=== PATIENT | male | born 1965 | race Caucasian/White ===

== ENCOUNTER 2020-09-22 22:31 | Observation (INO) | payer OTHER ==
[2020-09-22 23:00] LABS: Absolute Neutrophil Ct (ANC) 4.45 (1.4-6.9); BASOPHIL % 0.5 % (0.0-0.4); Basophil (Absolute #) 0.03 (0-0.4); Eosinophil % 2.6 % (0.00-5.0); Eosinophil (Absolute #) 0.17 (0-0.5); Hematocrit 41.3 % (42-50); Hemoglobin 13.8 gm/dl (12.5-18.0); Lymphocyte (Absolute #) 1.26 (1.0-4.6); Lymphocytes % 19.2 % (24.0-44.0); Mean Cell Volume 87.5 fl (78-100); Mean Corpuscular Hemoglobin 29.2 pg (26-32); Mean Corpuscular Hgb Concent. 33.4 g/dl (32-36); Mean Platelet Volume 8.4 fl (7.5-11.0); Monocyte (Absolute #) 0.66 (0.0-1.3); Neutrophil % 67.7 % (36.0-66.0); Platelet Count 305 K/mm3 (150-450); Red Blood Count 4.72 M/mm3 (4.1-5.6); Red Cell Distribution Width 13.7 % (11.5-14.0); White Blood Count 6.6 K/mm3 (4.0-10.5)
[2020-09-22 23:09] LABS: INR 1.04 (0.8-3.0); PROTIME 11.7 SECONDS (8.83-12.87)
[2020-09-22 23:12] LABS: PTT 34.8 SECONDS (24.1-36.1)
[2020-09-22] MEDS ORDERED: Catapres 0.1 MG PO ONE (23:13)
[2020-09-22] MEDS ORDERED: Catapres 0.1 MG ONE (23:14)
--- NOTE | 2020-09-22 23:21 | ERPHSYRPT ---
- History of Present Illness Source: patient Exam Limitations: no limitations Patient Subjective Stated Complaint: Patient states " My B/P has been trending up since I woke up this am. I have had 3 heart attacks and I have 5 stents in my heart and 1 in the kidney and I am just concerned that my high B/P is going to cause me to have another heart attack." Triage Nursing Assessment: Patient arrived to ED per ambulance. Patient A/O times 4. Patient very quite and talks very low. Patient able to move all extremities without difficulty. Patient able to follow instructions without difficulty. Lungs clear bilateral A/P throughout. 02 sat upon arrival 97% on room air. Patient stated his B/P has been 200/100 all day. Patient states he has had intermittent chest pain along with a pretty bad headache all day also with his B/P trending up. Patient denies SOB. Cap refill < 3 seconds. No S/S of respiratory distress noted. Respiratory regular and easy and non-labored. + BS times 4 quads. ABD soft, round, obese, and non-distended. Patient denies any pain or discomfort upon palpitation. + Radial and pedal pulses noted bilateral. Non-pitting edema noted to bilateral lower extremities. Patient noted with extensive cardiac HX. Patient noted to be hypertensive upon arrival. Physician History: 54 yo wm w elevated BP/Global TENA/Mid-sternal chest pain all for 12+ hours. He denies focal weakness/N/V/diaphoresis. Chest pain radiates to back and neck. Cardiac risk factors include DM/Htn/Hyperlipidemia/MIx3/stents/renal stent. He does not smoke and is on Xaralto. Pt given 81mg ASA x4 per EMS/SL NTG x2/NTG paste before arrival. Timing/Duration: today Quality: sharpness, throbbing Head Pain Location: global Severity of Pain-Max: moderate Severity of Pain-Current: moderate Associated Symptoms: No confusion, No dizziness, No fatigue, No facial pain, No fever/chills, No flushing, No light-headedness, No loss of consciousness, No nausea/vomiting, No nasal congestion, No nasal drainage, No neck pain, No numbness in legs/feet, No rash, No sweating, No scotoma, No seizures, No sinus infection, No sensitive to light, No speech problems, No stiff neck, No trouble walking, No vision changes, No visual disturbance, No weakness Previous symptoms: same symptoms as today Allergies/Adverse Reactions: No Known Drug Allergies Allergy (Unverified 06/04/12 05:32) Home Medications: Amlodipine Besylate 10 mg PO DAILY 09/22/20 [History] Aspirin 81 gm Chew [Baby Aspirin 81 mg Chew] 81 mg PO DAILY 09/22/20 [History] Atorvastatin Calcium 80 mg PO DAILY 09/22/20 [History] Carvedilol 12.5 mg [Coreg 12.5 mg] 12.5 mg PO BID 09/22/20 [History] Empagliflozin [Jardiance] 25 mg PO DAILY 09/22/20 [History] Gabapentin 300 mg [Neurontin 300 mg] 300 mg PO TID 09/22/20 [History] Isosorbide Mononitrate 60 mg [Imdur 60MG] 60 mg PO DAILY 09/22/20 [History] Levetiracetam [Keppra] 500 mg PO BID 09/22/20 [History] Melatonin 3 mg PO DAILY PRN PRN 09/22/20 [History] Hx Tetanus, Diphtheria Vaccination/Date Given: No Hx Influenza Vaccination/Date Given: No Hx Pneumococcal Vaccination/Date Given: No Immunizations Up to Date: Yes Travel Risk - International Travel Have you traveled outside of the country in past 3 weeks: No - Coronavirus Screening Are you exhibiting any of the following symptoms?: No Close contact with a COVID-19 positive Pt in past 14-21 Days: No - Vaccine Status Have you recieved a Covid-19 vaccination: No - Review of Systems Constitutional: No Symptoms Eyes: No Symptoms Ears, Nose, & Throat: No Symptoms Respiratory: No Symptoms Cardiac: No Symptoms, Chest Pain Abdominal/Gastrointestinal: No Symptoms Genitourinary Symptoms: No Symptoms Musculoskeletal: No Symptoms Neurological: No Symptoms Psychological: No Symptoms Endocrine: No Symptoms Hematologic/Lymphatic: No Symptoms Immunological/Allergic: No Symptoms - Past Medical History Pertinent Past Medical History: Yes Neurological History: Peripheral Neuropathy ENT History: No Pertinent History Cardiac History: Hypertension, Myocardial Infarction ([place]) Respiratory History: Sleep Apnea Endocrine Medical History: Diabetes Type II Musculoskeletal History: Osteoarthritis GI Medical History: Diverticulosis, GERD History: Renal Disease Psycho-Social History: No Pertinent History Male Reproductive Disorders: No Pertinent History - Past Surgical History Past Surgical History: Yes Neuro Surgical History: No Pertinent History Cardiac: Cardiac Catheterization, Cardiac Stent Respiratory: No Pertinent History Gastrointestinal: Cholecystectomy Genitourinary: No Pertinent History Musculoskeletal: Amputation Male Surgical History: No Pertinent History Other Surgical History: Left Ring Finger - Social History Smoking Status: Former smoker Exposure to second hand smoke: Yes Drug Use: none Patient Lives Alone: No - Nursing Vital Signs Nursing Vital Signs: Initial Vital Signs Temperature 98.2 F 09/22/20 22:33 Pulse Rate 96 H 09/22/20 22:33 Respiratory Rate 22 09/22/20 22:33 Blood Pressure 190/113 09/22/20 22:33 O2 Sat by Pulse Oximetry 97 09/22/20 22:33 Pain Scale Pain Intensity 3 - Physical Exam General Appearance: no apparent distress Eye Exam: PERRL/EOMI, eyes nml inspection Ears, Nose, Throat Exam: normal ENT inspection, TMs normal, pharynx normal, moist mucous membranes Neck Exam: normal inspection, non-tender, supple, full range of motion, No meningismus, No mass, No Brudzinski, No Kernig's Respiratory Exam: normal breath sounds, lungs clear, airway intact, No respiratory distress Cardiovascular Exam: regular rate/rhythm, normal heart sounds, No murmur Gastrointestinal/Abdominal Exam: soft, normal bowel sounds, No tenderness Back Exam: normal inspection, normal range of motion, No CVA tenderness Extremity Exam: normal inspection, normal range of motion Mental Status Exam: alert, oriented x 3, 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 Exam: normal hearing, normal speech, PERRL, abnormal eye position Coordination/Gait Exam: normal finger to nose, normal gait, normal cerebellar function Motor/Sensory Exam: no motor deficit, no sensory deficit, no pronator drift Skin Exam: normal color, warm, dry, No rash Lymphatic Exam: No adenopathy SpO2 Interpretation: normal SpO2: 97 O2 Delivery: Room Air - Course EKG Interpreted by Me: RATE (NSR/R93/Normal QT-QTc/PAC's/Flat Twaves V5-V6) - CT Exams Head CT Interpretation: Tele-radiologist Report (CT head neg per tele-rad) Chest CT Interpretation: Tele-radiologist Report (CTA chest-No PE or infiltrate/LLL nodule) Ordered Tests: Active Orders 24 hr Category Date Time 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 STAT Care 09/22/20 22:35 Active EKG-ER Only STAT Care 09/22/20 22:35 Active IV Insertion STAT Care 09/22/20 22:35 Active CHEST 1 VIEW (PORTABLE) Stat Exams 09/22/20 22:35 Taken CTA CHEST W AND/OR WO [CT] Stat Exams 09/22/20 23:38 Taken HEAD WITHOUT CONTRAST [CT] Stat Exams 09/22/20 23:37 Taken CBC W DIFF Stat Lab 09/22/20 22:59 Completed CMP Stat Lab 09/22/20 22:59 Completed NT PRO BNP Stat Lab 09/22/20 22:59 Completed PROTIME WITH INR Stat Lab 09/22/20 22:59 Completed PTT Stat Lab 09/22/20 22:59 Completed TROPONIN Q3H Lab 09/22/20 22:59 Completed TROPONIN Q3H Lab 09/23/20 01:59 Completed TROPONIN Q3H Lab 09/23/20 04:45 Ordered TROPONIN Q3H Lab 09/23/20 07:45 Ordered TROPONIN Q3H Lab 09/23/20 10:45 Ordered Medication Summary Discontinued Medications Generic Name Dose Route Start Last Admin Trade Name Danielq PRN Reason Stop Dose Admin Clonidine 0.2 mg 09/22/20 23:13 09/22/20 23:15 Catapres 0.1 Mg PO 09/22/20 23:14 0.2 mg STAT ONE Administration Clonidine Confirm 09/22/20 23:14 Catapres 0.1 Mg Administered 09/22/20 23:15 Dose 0.2 mg .ROUTE .STK-MED ONE Fentanyl Citrate 100 mcg 09/22/20 23:40 09/22/20 23:44 Sublimaze 100 Mcg/2 Ml IV 09/22/20 23:41 100 mcg STAT ONE Administration Fentanyl Citrate Confirm 09/22/20 23:41 Sublimaze 100 Mcg/2 Ml Administered 09/22/20 23:42 Dose 100 mcg .ROUTE .STK-MED ONE Ondansetron HCl 4 mg 09/22/20 23:40 09/22/20 23:44 Zofran 4 Mg/2 Ml Vial IV 09/22/20 23:41 4 mg STAT ONE Administration Ondansetron HCl Confirm 09/22/20 23:41 Zofran 4 Mg/2 Ml Vial Administered 09/22/20 23:42 Dose 4 mg .ROUTE .STK-MED ONE Lab/Rad Data: Laboratory Result Diagrams 09/22/20 22:59 09/22/20 22:59 Laboratory Results 09/23/20 09/22/20 09/22/20 Range/Units 01:59 22:59 22:59 WBC (4.0-10.5) K/mm3 RBC (4.1-5.6) M/mm3 Hgb (12.5-18.0) gm/dl Hct (42-50) % MCV (78-100) fl MCH (26-32) pg MCHC (32-36) g/dl RDW (11.5-14.0) % Plt Count (150-450) K/mm3 MPV (7.5-11.0) fl Gran % (36.0-66.0) % Eos # (Auto) (0-0.5) Absolute Lymphs (auto) (1.0-4.6) Absolute Monos (auto) (0.0-1.3) Lymphocytes % (24.0-44.0) % Monocytes % (0.0-12.0) % Eosinophils % (0.00-5.0) % Basophils % (0.0-0.4) % Absolute Granulocytes (1.4-6.9) Basophils # (0-0.4) PT 11.7 (8.83-12.87) SECONDS INR 1.04 (0.8-3.0) APTT 34.8 (24.1-36.1) SECONDS Sodium (137-145) mmol/L Potassium (3.5-5.1) mmol/L Chloride (98-107) mmol/L Carbon Dioxide (22-30) mmol/L Anion Gap (5-15) MEQ/L BUN (9-20) mg/dL Creatinine (0.66-1.25) mg/dL Estimated GFR ML/MIN Glucose (74-106) mg/dL Calcium (8.4-10.2) mg/dL Total Bilirubin (0.2-1.3) mg/dL AST (17-59) U/L ALT (0-50) U/L Alkaline Phosphatase (38-126) U/L Troponin I 0.016 0.016 (0.000-0.034) ng/mL NT-Pro-B Natriuret Pep (0-900) pg/mL Serum Total Protein (6.3-8.2) g/dL Albumin (3.5-5.0) g/dL 09/22/20 09/22/20 Range/Units 22:59 22:59 WBC 6.6 (4.0-10.5) K/mm3 RBC 4.72 (4.1-5.6) M/mm3 Hgb 13.8 (12.5-18.0) gm/dl Hct 41.3 L (42-50) % MCV 87.5 (78-100) fl MCH 29.2 (26-32) pg MCHC 33.4 (32-36) g/dl RDW 13.7 (11.5-14.0) % Plt Count 305 (150-450) K/mm3 MPV 8.4 (7.5-11.0) fl Gran % 67.7 H (36.0-66.0) % Eos # (Auto) 0.17 (0-0.5) Absolute Lymphs (auto) 1.26 (1.0-4.6) Absolute Monos (auto) 0.66 (0.0-1.3) Lymphocytes % 19.2 L (24.0-44.0) % Monocytes % 10.0 (0.0-12.0) % Eosinophils % 2.6 (0.00-5.0) % Basophils % 0.5 (0.0-0.4) % Absolute Granulocytes 4.45 (1.4-6.9) Basophils # 0.03 (0-0.4) PT (8.83-12.87) SECONDS INR (0.8-3.0) APTT (24.1-36.1) SECONDS Sodium 137 (137-145) mmol/L Potassium 3.6 (3.5-5.1) mmol/L Chloride 101 (98-107) mmol/L Carbon Dioxide 26 (22-30) mmol/L Anion Gap 13.9 (5-15) MEQ/L BUN 18 (9-20) mg/dL Creatinine 1.17 (0.66-1.25) mg/dL Estimated GFR > 60.0 ML/MIN Glucose 156 H (74-106) mg/dL Calcium 9.4 (8.4-10.2) mg/dL Total Bilirubin 0.40 (0.2-1.3) mg/dL AST 30 (17-59) U/L ALT 37 (0-50) U/L Alkaline Phosphatase 158 H (38-126) U/L Troponin I (0.000-0.034) ng/mL NT-Pro-B Natriuret Pep 322 (0-900) pg/mL Serum Total Protein 8.1 (6.3-8.2) g/dL Albumin 4.4 (3.5-5.0) g/dL - Progress Progress: improved Progress Note: 09/23/20 01:00 Pain much improved w 100umg IV Fentanyl/4mg IV Zofran 09/23/20 02:29 BP 138/73 after 0.2 po Clonidine Admit per Dr. Orozco - Departure Departure Disposition: Observation Clinical Impression: Hypertensive urgency, Chest pain, Headache Referrals: TAD DANIELS [Primary Care Provider] - Instructions: Malignant Hypertension (DC)
[2020-09-22 23:22] LABS: ALBUMIN 4.4 g/dL (3.5-5.0); ALKALINE PHOSPHATASE 158 U/L (38-126); ANION GAP 13.9 MEQ/L (5-15); BLOOD UREA NITROGEN 18 mg/dL (9-20); CHLORIDE 101 mmol/L (98-107); Calcium 9.4 mg/dL (8.4-10.2); Carbon Dioxide 26 mmol/L (22-30); Creatinine 1 1.17 mg/dL (0.66-1.25); EST GLOMERULAR FILTRATION RATE > 60.0 ML/MIN; Glucose 156 mg/dL (74-106); NT PRO BNP 322 pg/mL (0-900); Potassium 3.6 mmol/L (3.5-5.1); SGOT/AST 30 U/L (17-59); SGPT/ALT 37 U/L (0-50); SODIUM 137 mmol/L (137-145); Total Protein 8.1 g/dL (6.3-8.2)
[2020-09-22] MEDS ORDERED: SUBLIMAZE 100 MCG/2 ML IV ONE (23:40)
[2020-09-22] MEDS ORDERED: Zofran 4 MG/2 ML VIAL IV ONE (23:40)
[2020-09-22] MEDS ORDERED: SUBLIMAZE 100 MCG/2 ML ONE (23:41)
[2020-09-22] MEDS ORDERED: Zofran 4 MG/2 ML VIAL ONE (23:41)
[2020-09-23] MEDS ORDERED: TYLENOL 325 MG PO PRN ×2 (02:32→04:25)
[2020-09-23] MEDS ORDERED: MORPHINE SULFATE 2 MG INJ IV PRN ×2 (02:32→04:25)
[2020-09-23] MEDS ORDERED: MAALOX ES 30 ML UNIT DOSE PO PRN ×2 (02:32→04:25)
[2020-09-23] MEDS ORDERED: HUMALOG SQ PRN ×2 (02:32→04:25)
[2020-09-23] MEDS ORDERED: MILK OF MAGNESIA 30 ML PO PRN ×2 (02:32→04:25)
[2020-09-23] MEDS ORDERED: Zofran 4 MG/2 ML VIAL IV PRN ×2 (02:32→04:25)
[2020-09-23] MEDS ORDERED: Senokot-S Tablet PO PRN ×2 (02:32→04:25)
[2020-09-23 03:36] LABS: INFLUENZA A NEGATIVE (NEGATIVE); INFLUENZA B NEGATIVE (NEGATIVE); RESPIRATORY SYNCTIAL VIRUS NEGATIVE (Negative)
[2020-09-23] MEDS ORDERED: MELATONIN 3 MG PO PRN (08:38)
--- NOTE | 2020-09-23 08:55 | XRAY ---
Indication: Back/chest pain one month. Hypertension and headache. Two-dimensional contrast enhanced CTA chest performed using 120 cc Isovue 370 contrast. Two-dimensional sagittal and coronal reformatted images obtained. Additional 3-dimensional reformatted images obtained using a separate workstation. Comparison: None Heart is not enlarged with coronary stent grafts. Aorta is minimally arteriosclerotic without aneurysm/dissection. No central pulmonary embolus. No pathologic mediastinal/hilar lymphadenopathy. Lungs demonstrate minimal bilateral dependent atelectasis. Posterior medial left lower lobe demonstrates a 1.1 cm indeterminant noncalcified nodule. No other pulmonary mass/nodule, infiltrate, consolidation, or effusion. Bony thorax intact with mild degenerative changes throughout the spine. Limited upper abdomen demonstrates cholecystectomy clips. Impression: 1. Negative CTA chest. 2. Incidental 1.1 cm indeterminant left lower lobe noncalcified nodule. Outside comparison studies recommended if available. If not, PET CT may yield further information. Comment: Preliminary interpretation was made by [facility]. No critical discrepancy.
--- NOTE | 2020-09-23 08:55 | XRAY ---
Indication: Chest pain. Comparison: September 08, 2011. Portable chest remains clear. Heart remains borderline enlarged with new coronary stent. Bony thorax intact with minimal degenerative changes. No acute abnormalities.
--- NOTE | 2020-09-23 08:57 | XRAY ---
Indication: Headache. Hypertension. Multiple contiguous axial images obtained through the head without contrast. Comparison: September 08, 2011. Age-appropriate global atrophy with new mild periventricular degenerative micro-ischemia bilaterally. No acute intracranial hemorrhage, abnormal extra-axial fluid collection, or mass effect. Fourth ventricle is midline without hydrocephalus. Bony calvarium intact. Stable benign high left parietal scalp soft tissue calcification. Impression: Nonacute senile brain. Comment: Preliminary interpretation was made by [facility]. No critical discrepancy.
[2020-09-23] MEDS ORDERED: MEDICATION INTERVENTION MC SCH ×2 (09:00)
[2020-09-23] MEDS: COREG 12.5 MG PO SCH ×2 (09:40→22:11)
[2020-09-23] MEDS: ZOCOR 20MG PO SCH (09:40)
[2020-09-23] MEDS: NEURONTIN 300 MG PO SCH ×3 (09:40→22:11)
[2020-09-23] MEDS: NORVASC 5 MG PO SCH (09:40)
[2020-09-23] MEDS: KEPPRA 500 MG PO SCH ×2 (09:40→22:11)
[2020-09-23] MEDS: Imdur 60MG PO SCH (09:41)
[2020-09-23] MEDS: ECOTRIN 81 MG PO SCH (09:41)
[2020-09-23] MEDS ORDERED: NON-FORMULARY ITEM (Empagliflozin [Jardiance] 25 MG) PO SCH (10:00)
[2020-09-23] MEDS ORDERED: NON-FORMULARY ITEM (Amlodipine Besylate [Amlodipine Besylate] 10 MG) PO SCH (10:00)
[2020-09-23] MEDS ORDERED: NON-FORMULARY ITEM (Atorvastatin Calcium [Atorvastatin Calcium] 80 MG) PO SCH (10:00)
[2020-09-23] MEDS ORDERED: Ecotrin 325 MG PO SCH ×2 (10:00)
[2020-09-23] MEDS ORDERED: BABY ASPIRIN 81 MG CHEW PO SCH (10:00)
--- NOTE | 2020-09-23 11:37 | PCM.HP ---
History of Present Illness - Chief Complaint Chief Complaint: chest pain and headache for 1 day History of Present Illness: is a 54 year old male.54 yo wm w elevated BP/Global TENA/Mid-sternal chest pain all for 12+ hours. He denies focal weakness/N/V/diaphoresis. Chest pain radiates to back and neck. Cardiac risk factors include DM/Htn/Hyperlipidemia/MIx3/stents/renal stent. He does not smoke and is on Xaralto. Pt given 81mg ASA x4 per EMS/SL NTG x2/NTG paste before arrival. Timing/Duration: today Quality: sharpness, throbbing Head Pain Location: global Severity of Pain-Max: moderate Severity of Pain-Current: moderate Associated Symptoms: No confusion, No dizziness, No fatigue, No facial pain, No fever/chills, No flushing, No light-headedness, No loss of consciousness, No nausea/vomiting, No nasal congestion, No nasal drainage, No neck pain, No numbness in legs/feet, No rash, No sweating, No scotoma, No seizures, No sinus infection, No sensitive to light, No speech problems, No stiff neck, No trouble walking, No vision changes, No visual disturbance, No weakness Medications & Allergies Home Medications: Home Medication List Amlodipine Besylate 10 mg PO DAILY 09/22/20 [History Confirmed 09/22/20] Aspirin 81 gm Chew [Baby Aspirin 81 mg Chew] 81 mg PO DAILY 09/22/20 [History Confirmed 09/22/20] Atorvastatin Calcium 80 mg PO DAILY 09/22/20 [History Confirmed 09/22/20] Carvedilol 12.5 mg [Coreg 12.5 mg] 12.5 mg PO BID 09/22/20 [History Confirmed 09/22/20] Empagliflozin [Jardiance] 25 mg PO DAILY 09/22/20 [History Confirmed 09/22/20] Gabapentin 300 mg [Neurontin 300 mg] 300 mg PO TID 09/22/20 [History Confirmed 09/22/20] Isosorbide Mononitrate 60 mg [Imdur 60MG] 60 mg PO DAILY 09/22/20 [History Confirmed 09/22/20] Levetiracetam [Keppra] 500 mg PO BID 09/22/20 [History Confirmed 09/22/20] Melatonin 3 mg PO DAILY PRN PRN 09/22/20 [History Confirmed 09/22/20] Allergies/Adverse Reactions: Allergies Allergy/AdvReac Type Severity Reaction Status Date / Time No Known Drug Allergies Allergy Unverified 06/04/12 05:32 - Past Medical History Past Medical History: Yes Neurological History: Peripheral Neuropathy ENT History: No Pertinent History Cardiac History: Hypertension, Myocardial Infarction ([place]) Respiratory History: Sleep Apnea Endocrine Medical History: Diabetes Type II Musculoskelatal History: Osteoarthritis GI Medical History: Diverticulosis, GERD History: Renal Disease Pyscho-Social History: No Pertinent History Male Reproductive Disorders: No Pertinent History - Past Surgical History Past Surgical History: Yes Neuro Surgical History: No Pertinent History Cardiac History: Cardiac Catheterization, Cardiac Stent Respiratory Surgery: No Pertinent History GI Surgical History: Cholecystectomy Genitourinary Surgical Hx: No Pertinent History, Other Musculskeletal Surgical Hx: Amputation, Other Male Surgical History: No Pertinent History Other Surgical History: Left Ring Finger, kidney stent placement, arthritis - Social History Smoking Status: Former smoker Exposure to second hand smoke: Yes Alcohol: Occasionally Drug Use: none - Physical Exam Vital Signs: Vital Signs - 24 hr Temp Pulse Resp BP Pulse Ox 09/23/20 07:35 98.5 F 85 20 140/78 93 L 09/23/20 04:37 98.2 F 87 18 158/88 95 09/23/20 03:00 75 18 130/68 94 L 09/23/20 02:39 97 09/23/20 02:00 84 18 138/73 97 09/22/20 23:30 87 14 158/96 96 09/22/20 22:33 98.2 F 96 H 22 190/113 97 General Appearance: no apparent distress, alert Neurologic Exam: alert, oriented x 3, cooperative, normal mood/affect, nml cerebellar function, nml station & gait, sensation nml, No motor deficits Eye Exam: PERRL/EOMI, eyes nml inspection Ears, Nose, Throat Exam: normal ENT inspection, TMs normal, pharynx normal, moist mucous membranes Neck Exam: normal inspection, non-tender, supple, full range of motion Respiratory Exam: normal breath sounds, lungs clear, No respiratory distress Cardiovascular Exam: regular rate/rhythm, normal heart sounds, normal peripheral pulses Gastrointestinal/Abdomen Exam: soft, normal bowel sounds, No tenderness, No mass Back Exam: normal inspection, normal range of motion, No CVA tenderness, No vertebral tenderness Extremity Exam: normal inspection, normal range of motion, pelvis stable Skin Exam: normal color, warm, dry, No rash Lymphatic Exam: No adenopathy Results - Labs Lab/Micro Results: Lab Results-Last 24 Hours 09/22/20 09/22/20 09/22/20 Range/Units 22:59 22:59 22:59 WBC 6.6 (4.0-10.5) K/mm3 RBC 4.72 (4.1-5.6) M/mm3 Hgb 13.8 (12.5-18.0) gm/dl Hct 41.3 L (42-50) % MCV 87.5 (78-100) fl MCH 29.2 (26-32) pg MCHC 33.4 (32-36) g/dl RDW 13.7 (11.5-14.0) % Plt Count 305 (150-450) K/mm3 MPV 8.4 (7.5-11.0) fl Gran % 67.7 H (36.0-66.0) % Eos # (Auto) 0.17 (0-0.5) Absolute Lymphs (auto) 1.26 (1.0-4.6) Absolute Monos (auto) 0.66 (0.0-1.3) Lymphocytes % 19.2 L (24.0-44.0) % Monocytes % 10.0 (0.0-12.0) % Eosinophils % 2.6 (0.00-5.0) % Basophils % 0.5 (0.0-0.4) % Absolute Granulocytes 4.45 (1.4-6.9) Basophils # 0.03 (0-0.4) PT 11.7 (8.83-12.87) SECONDS INR 1.04 (0.8-3.0) APTT 34.8 (24.1-36.1) SECONDS Sodium 137 (137-145) mmol/L Potassium 3.6 (3.5-5.1) mmol/L Chloride 101 (98-107) mmol/L Carbon Dioxide 26 (22-30) mmol/L Anion Gap 13.9 (5-15) MEQ/L BUN 18 (9-20) mg/dL Creatinine 1.17 (0.66-1.25) mg/dL Estimated GFR > 60.0 ML/MIN Glucose 156 H (74-106) mg/dL POC Glucometer (74 to 106) mg/dL Calcium 9.4 (8.4-10.2) mg/dL Total Bilirubin 0.40 (0.2-1.3) mg/dL AST 30 (17-59) U/L ALT 37 (0-50) U/L Alkaline Phosphatase 158 H (38-126) U/L Troponin I (0.000-0.034) ng/mL NT-Pro-B Natriuret Pep 322 (0-900) pg/mL Serum Total Protein 8.1 (6.3-8.2) g/dL Albumin 4.4 (3.5-5.0) g/dL Triglycerides (30-150) mg/dL Cholesterol (50-200) mg/dL LDL Cholesterol (30-100) mg/dL HDL Cholesterol (40-60) mg/dL Heart Disease Risk Ratio Influenza Type A Ag (NEGATIVE) Influenza Type B Ag (NEGATIVE) RSV (PCR) (Negative) SARS-CoV-2 (PCR) (NEGATIVE) 09/22/20 09/23/20 09/23/20 Range/Units 22:59 01:59 02:51 WBC (4.0-10.5) K/mm3 RBC (4.1-5.6) M/mm3 Hgb (12.5-18.0) gm/dl Hct (42-50) % MCV (78-100) fl MCH (26-32) pg MCHC (32-36) g/dl RDW (11.5-14.0) % Plt Count (150-450) K/mm3 MPV (7.5-11.0) fl Gran % (36.0-66.0) % Eos # (Auto) (0-0.5) Absolute Lymphs (auto) (1.0-4.6) Absolute Monos (auto) (0.0-1.3) Lymphocytes % (24.0-44.0) % Monocytes % (0.0-12.0) % Eosinophils % (0.00-5.0) % Basophils % (0.0-0.4) % Absolute Granulocytes (1.4-6.9) Basophils # (0-0.4) PT (8.83-12.87) SECONDS INR (0.8-3.0) APTT (24.1-36.1) SECONDS Sodium (137-145) mmol/L Potassium (3.5-5.1) mmol/L Chloride (98-107) mmol/L Carbon Dioxide (22-30) mmol/L Anion Gap (5-15) MEQ/L BUN (9-20) mg/dL Creatinine (0.66-1.25) mg/dL Estimated GFR ML/MIN Glucose (74-106) mg/dL POC Glucometer (74 to 106) mg/dL Calcium (8.4-10.2) mg/dL Total Bilirubin (0.2-1.3) mg/dL AST (17-59) U/L ALT (0-50) U/L Alkaline Phosphatase (38-126) U/L Troponin I 0.016 0.016 (0.000-0.034) ng/mL NT-Pro-B Natriuret Pep (0-900) pg/mL Serum Total Protein (6.3-8.2) g/dL Albumin (3.5-5.0) g/dL Triglycerides (30-150) mg/dL Cholesterol (50-200) mg/dL LDL Cholesterol (30-100) mg/dL HDL Cholesterol (40-60) mg/dL Heart Disease Risk Ratio Influenza Type A Ag NEGATIVE (NEGATIVE) Influenza Type B Ag NEGATIVE (NEGATIVE) RSV (PCR) NEGATIVE (Negative) SARS-CoV-2 (PCR) NEGATIVE (NEGATIVE) 09/23/20 09/23/20 09/23/20 Range/Units 04:54 04:54 06:59 WBC (4.0-10.5) K/mm3 RBC (4.1-5.6) M/mm3 Hgb (12.5-18.0) gm/dl Hct (42-50) % MCV (78-100) fl MCH (26-32) pg MCHC (32-36) g/dl RDW (11.5-14.0) % Plt Count (150-450) K/mm3 MPV (7.5-11.0) fl Gran % (36.0-66.0) % Eos # (Auto) (0-0.5) Absolute Lymphs (auto) (1.0-4.6) Absolute Monos (auto) (0.0-1.3) Lymphocytes % (24.0-44.0) % Monocytes % (0.0-12.0) % Eosinophils % (0.00-5.0) % Basophils % (0.0-0.4) % Absolute Granulocytes (1.4-6.9) Basophils # (0-0.4) PT (8.83-12.87) SECONDS INR (0.8-3.0) APTT (24.1-36.1) SECONDS Sodium (137-145) mmol/L Potassium (3.5-5.1) mmol/L Chloride (98-107) mmol/L Carbon Dioxide (22-30) mmol/L Anion Gap (5-15) MEQ/L BUN (9-20) mg/dL Creatinine (0.66-1.25) mg/dL Estimated GFR ML/MIN Glucose (74-106) mg/dL POC Glucometer 103 (74 to 106) mg/dL Calcium (8.4-10.2) mg/dL Total Bilirubin (0.2-1.3) mg/dL AST (17-59) U/L ALT (0-50) U/L Alkaline Phosphatase (38-126) U/L Troponin I 0.017 (0.000-0.034) ng/mL NT-Pro-B Natriuret Pep (0-900) pg/mL Serum Total Protein (6.3-8.2) g/dL Albumin (3.5-5.0) g/dL Triglycerides 134 (30-150) mg/dL Cholesterol 158 (50-200) mg/dL LDL Cholesterol 88 (30-100) mg/dL HDL Cholesterol 40 (40-60) mg/dL Heart Disease Risk Ratio 4.0 Influenza Type A Ag (NEGATIVE) Influenza Type B Ag (NEGATIVE) RSV (PCR) (Negative) SARS-CoV-2 (PCR) (NEGATIVE) 09/23/20 09/23/20 09/23/20 Range/Units 07:36 10:05 11:03 WBC (4.0-10.5) K/mm3 RBC (4.1-5.6) M/mm3 Hgb (12.5-18.0) gm/dl Hct (42-50) % MCV (78-100) fl MCH (26-32) pg MCHC (32-36) g/dl RDW (11.5-14.0) % Plt Count (150-450) K/mm3 MPV (7.5-11.0) fl Gran % (36.0-66.0) % Eos # (Auto) (0-0.5) Absolute Lymphs (auto) (1.0-4.6) Absolute Monos (auto) (0.0-1.3) Lymphocytes % (24.0-44.0) % Monocytes % (0.0-12.0) % Eosinophils % (0.00-5.0) % Basophils % (0.0-0.4) % Absolute Granulocytes (1.4-6.9) Basophils # (0-0.4) PT (8.83-12.87) SECONDS INR (0.8-3.0) APTT (24.1-36.1) SECONDS Sodium (137-145) mmol/L Potassium (3.5-5.1) mmol/L Chloride (98-107) mmol/L Carbon Dioxide (22-30) mmol/L Anion Gap (5-15) MEQ/L BUN (9-20) mg/dL Creatinine (0.66-1.25) mg/dL Estimated GFR ML/MIN Glucose (74-106) mg/dL POC Glucometer 170 H (74 to 106) mg/dL Calcium (8.4-10.2) mg/dL Total Bilirubin (0.2-1.3) mg/dL AST (17-59) U/L ALT (0-50) U/L Alkaline Phosphatase (38-126) U/L Troponin I 0.017 0.015 (0.000-0.034) ng/mL NT-Pro-B Natriuret Pep (0-900) pg/mL Serum Total Protein (6.3-8.2) g/dL Albumin (3.5-5.0) g/dL Triglycerides (30-150) mg/dL Cholesterol (50-200) mg/dL LDL Cholesterol (30-100) mg/dL HDL Cholesterol (40-60) mg/dL Heart Disease Risk Ratio Influenza Type A Ag (NEGATIVE) Influenza Type B Ag (NEGATIVE) RSV (PCR) (Negative) SARS-CoV-2 (PCR) (NEGATIVE) - Radiology Impressions Radiology Exams & Impressions: Radiology Procedures Category Date Time Status CHEST 1 VIEW (PORTABLE) Stat Exams 09/22/20 22:35 Completed CTA CHEST W AND/OR WO [CT] Stat Exams 09/22/20 23:38 Completed HEAD WITHOUT CONTRAST [CT] Stat Exams 09/22/20 23:[address]/CTA CHEST W AND/OR WO Indication: Back/chest pain one month. Hypertension and headache. Two-dimensional contrast enhanced CTA chest performed using 120 cc Isovue 370 contrast. Two-dimensional sagittal and coronal reformatted images obtained. Additional 3-dimensional reformatted images obtained using a separate workstation. Comparison: None Heart is not enlarged with coronary stent grafts. Aorta is minimally arteriosclerotic without aneurysm/dissection. No central pulmonary embolus. No pathologic mediastinal/hilar lymphadenopathy. Lungs demonstrate minimal bilateral dependent atelectasis. Posterior medial left lower lobe demonstrates a 1.1 cm indeterminant noncalcified nodule. No other pulmonary mass/nodule, infiltrate, consolidation, or effusion. Bony thorax intact with mild degenerative changes throughout the spine. Limited upper abdomen demonstrates cholecystectomy clips. Impression: 1. Negative CTA chest. 2. Incidental 1.1 cm indeterminant left lower lobe noncalcified nodule. Outside comparison studies recommended if available. If not, PET CT may yield further information. - Other Procedures and Tests Respiratory Therapy 09/24/20 05:00 EKG ONCE 09/25/20 05:00 EKG ONCE 09/26/20 05:00 EKG ONCE Assessment/Plan (1) Hypertensive urgency Current Visit: Yes Status: Acute Assessment & Plan: Chief Complaint Diagnosis htn Allergies Allergy/AdvReac Type Severity Reaction Status Date / Time No Known Drug Allergies Allergy Unverified 06/04/12 05:32 Vital Signs (Last 24 hours) Temp Pulse Resp BP Pulse Ox 09/23/20 07:35 98.5 F 85 20 140/78 93 L 09/23/20 04:37 98.2 F 87 18 158/88 95 09/23/20 03:00 75 18 130/68 94 L 09/23/20 02:39 97 09/23/20 02:00 84 18 138/73 97 09/22/20 23:30 87 14 158/96 96 09/22/20 22:33 98.2 F 96 H 22 190/113 97 Home Medications Medication Instructions Recorded Confirmed Last Taken Type Amlodipine Besylate 10 mg PO DAILY 09/22/20 09/22/20 09/22/20 History Aspirin 81 gm Chew [Baby 81 mg PO DAILY 09/22/20 09/22/20 09/22/20 History Aspirin 81 mg Chew] Atorvastatin Calcium 80 mg PO DAILY 09/22/20 09/22/20 09/22/20 History Carvedilol 12.5 mg [Coreg 12.5 12.5 mg PO BID 09/22/20 09/22/20 09/22/20 History mg] Empagliflozin [Jardiance] 25 mg PO DAILY 09/22/20 09/22/20 09/22/20 History Gabapentin 300 mg [Neurontin 300 mg PO TID 09/22/20 09/22/20 09/22/20 History 300 mg] Isosorbide Mononitrate 60 mg 60 mg PO DAILY 09/22/20 09/22/20 09/22/20 History [Imdur 60MG] Levetiracetam [Keppra] 500 mg PO BID 09/22/20 09/22/20 09/22/20 History Melatonin 3 mg PO DAILY PRN PRN 09/22/20 09/22/20 09/22/20 History Current Medications Generic Name Dose Route Start Last Admin Trade Name Freq PRN Reason Stop Dose Admin Acetaminophen 650 mg 09/23/20 04:25 Tylenol 325 Mg PO 10/23/20 02:31 Q4H PRN PRN PAIN AND/OR FEVER Al Hydrox/Mg Hydrox/Simethicone 30 ml 09/23/20 04:25 Maalox Es 30 Ml Unit Dose PO 10/23/20 02:31 Q4H PRN PRN INDIGESTION Amlodipine Besylate 10 mg 09/23/20 10:00 09/23/20 09:40 Norvasc 5 Mg PO 10/23/20 09:59 10 mg DAILY DENISE Administration Aspirin 81 mg 09/23/20 10:00 09/23/20 09:41 Ecotrin 81 Mg PO 10/23/20 09:59 81 mg DAILY DENISE Administration Carvedilol 12.5 mg 09/23/20 10:00 09/23/20 09:40 Coreg 12.5 Mg PO 10/23/20 09:59 12.5 mg BID DENISE Administration Gabapentin 300 mg 09/23/20 10:00 09/23/20 09:40 Neurontin 300 Mg PO 10/23/20 09:59 300 mg TID DENISE Administration Insulin Human Lispro 0 unit 09/23/20 04:25 Humalog SQ 10/23/20 02:31 UD PRN HYPERGLYCEMIA Isosorbide Mononitrate 60 mg 09/23/20 10:00 09/23/20 09:41 Imdur 60mg PO 10/23/20 09:59 60 mg DAILY DENISE Administration Levetiracetam 500 mg 09/23/20 10:00 09/23/20 09:40 Keppra 500 Mg PO 10/23/20 09:59 500 mg BID DENISE Administration Magnesium Hydroxide 30 - 60 ml 09/23/20 04:25 Milk Of Magnesia 30 Ml PO 10/23/20 02:31 QDP PRN CONSTIPATION Miscellaneous Information 1 each 09/23/20 09:00 Medication Intervention 10/23/20 08:59 .RN TO CHECK WITH PT [facility] Miscellaneous Information 1 each 09/23/20 09:00 Medication Intervention 10/23/20 08:59 .RN TO CHECK WITH PT [facility] Morphine Sulfate 2 mg 09/23/20 04:25 09/23/20 05:09 Morphine Sulfate 2 Mg Inj IV 09/28/20 02:31 2 mg .Q15MIN PRN PRN Administration CHEST PAIN Ondansetron HCl 4 mg 09/23/20 04:25 Zofran 4 Mg/2 Ml Vial IV 10/23/20 02:31 Q4H PRN PRN NAUSEA/VOMITING Senna/Docusate Sodium 2 udtab 09/23/20 04:25 Senokot-S Tablet PO 10/23/20 02:31 BID PRN PRN CONSTIPATION Simvastatin 40 mg 09/23/20 10:00 09/23/20 09:40 Zocor 20mg PO 10/23/20 09:59 40 mg DAILY DENISE Administration Discontinued Medications Generic Name Dose Route Start Last Admin Trade Name Freq PRN Reason Stop Dose Admin Acetaminophen 650 mg 09/23/20 02:32 Tylenol 325 Mg PO 10/23/20 02:31 Q4H PRN PRN PAIN AND/OR FEVER Al Hydrox/Mg Hydrox/Simethicone 30 ml 09/23/20 02:32 Maalox Es 30 Ml Unit Dose PO 10/23/20 02:31 Q4H PRN PRN INDIGESTION Aspirin 325 mg 09/23/20 10:00 Ecotrin 325 Mg PO 10/23/20 09:59 DAILY DENISE Aspirin 325 mg 09/23/20 10:00 Ecotrin 325 Mg PO 10/23/20 09:59 DAILY DENISE Clonidine 0.2 mg 09/22/20 23:13 09/22/20 23:15 Catapres 0.1 Mg PO 09/22/20 23:14 0.2 mg STAT ONE Administration Clonidine Confirm 09/22/20 23:14 Catapres 0.1 Mg Administered 09/22/20 23:15 Dose 0.2 mg .ROUTE .STK-MED ONE Fentanyl Citrate 100 mcg 09/22/20 23:40 09/22/20 23:44 Sublimaze 100 Mcg/2 Ml IV 09/22/20 23:41 100 mcg STAT ONE Administration Fentanyl Citrate Confirm 09/22/20 23:41 Sublimaze 100 Mcg/2 Ml Administered 09/22/20 23:42 Dose 100 mcg .ROUTE .STK-MED ONE Insulin Human Lispro 0 unit 09/23/20 02:32 Humalog SQ 10/23/20 02:31 UD PRN HYPERGLYCEMIA Magnesium Hydroxide 30 - 60 ml 09/23/20 02:32 Milk Of Magnesia 30 Ml PO 10/23/20 02:31 QDP PRN CONSTIPATION Morphine Sulfate 2 mg 09/23/20 02:32 Morphine Sulfate 2 Mg Inj IV 09/28/20 02:31 .Q15MIN PRN PRN CHEST PAIN Ondansetron HCl 4 mg 09/22/20 23:40 09/22/20 23:44 Zofran 4 Mg/2 Ml Vial IV 09/22/20 23:41 4 mg STAT ONE Administration Ondansetron HCl Confirm 09/22/20 23:41 Zofran 4 Mg/2 Ml Vial Administered 09/22/20 23:42 Dose 4 mg .ROUTE .STK-MED ONE Ondansetron HCl 4 mg 09/23/20 02:32 Zofran 4 Mg/2 Ml Vial IV 10/23/20 02:31 Q4H PRN PRN NAUSEA/VOMITING Senna/Docusate Sodium 2 udtab 09/23/20 02:32 Senokot-S Tablet PO 10/23/20 02:31 BID PRN PRN CONSTIPATION Intake & Output (Last 24 hours) 09/20/20 09/21/20 09/22/20 09/23/20 11:59 11:59 11:59 11:59 Weight 107 kg Laboratory Results (Last 24 hours) 09/23/20 09/23/20 09/23/20 11:03 10:05 07:36 WBC RBC Hgb Hct MCV MCH MCHC RDW Plt Count MPV Gran % Eos # (Auto) Absolute Lymphs (auto) Absolute Monos (auto) Lymphocytes % Monocytes % Eosinophils % Basophils % Absolute Granulocytes Basophils # PT INR APTT Sodium Potassium Chloride Carbon Dioxide Anion Gap BUN Creatinine Estimated GFR Glucose POC Glucometer 170 H Calcium Total Bilirubin AST ALT Alkaline Phosphatase Troponin I 0.015 0.017 NT-Pro-B Natriuret Pep Serum Total Protein Albumin Triglycerides Cholesterol LDL Cholesterol HDL Cholesterol Heart Disease Risk Ratio Influenza Type A Ag Influenza Type B Ag RSV (PCR) SARS-CoV-2 (PCR) 09/23/20 09/23/20 09/23/20 06:59 04:54 04:54 WBC RBC Hgb Hct MCV MCH MCHC RDW Plt Count MPV Gran % Eos # (Auto) Absolute Lymphs (auto) Absolute Monos (auto) Lymphocytes % Monocytes % Eosinophils % Basophils % Absolute Granulocytes Basophils # PT INR APTT Sodium Potassium Chloride Carbon Dioxide Anion Gap BUN Creatinine Estimated GFR Glucose POC Glucometer 103 Calcium Total Bilirubin AST ALT Alkaline Phosphatase Troponin I 0.017 NT-Pro-B Natriuret Pep Serum Total Protein Albumin Triglycerides 134 Cholesterol 158 LDL Cholesterol 88 HDL Cholesterol 40 Heart Disease Risk Ratio 4.0 Influenza Type A Ag Influenza Type B Ag RSV (PCR) SARS-CoV-2 (PCR) 09/23/20 09/23/20 09/22/20 02:51 01:59 22:59 WBC RBC Hgb Hct MCV MCH MCHC RDW Plt Count MPV Gran % Eos # (Auto) Absolute Lymphs (auto) Absolute Monos (auto) Lymphocytes % Monocytes % Eosinophils % Basophils % Absolute Granulocytes Basophils # PT INR APTT Sodium Potassium Chloride Carbon Dioxide Anion Gap BUN Creatinine Estimated GFR Glucose POC Glucometer Calcium Total Bilirubin AST ALT Alkaline Phosphatase Troponin I 0.016 0.016 NT-Pro-B Natriuret Pep Serum Total Protein Albumin Triglycerides Cholesterol LDL Cholesterol HDL Cholesterol Heart Disease Risk Ratio Influenza Type A Ag NEGATIVE Influenza Type B Ag NEGATIVE RSV (PCR) NEGATIVE SARS-CoV-2 (PCR) NEGATIVE 09/22/20 09/22/20 09/22/20 22:59 22:59 22:59 WBC 6.6 RBC 4.72 Hgb 13.8 Hct 41.3 L MCV 87.5 MCH 29.2 MCHC 33.4 RDW 13.7 Plt Count 305 MPV 8.4 Gran % 67.7 H Eos # (Auto) 0.17 Absolute Lymphs (auto) 1.26 Absolute Monos (auto) 0.66 Lymphocytes % 19.2 L Monocytes % 10.0 Eosinophils % 2.6 Basophils % 0.5 Absolute Granulocytes 4.45 Basophils # 0.03 PT 11.7 INR 1.04 APTT 34.8 Sodium 137 Potassium 3.6 Chloride 101 Carbon Dioxide 26 Anion Gap 13.9 BUN 18 Creatinine 1.17 Estimated GFR > 60.0 Glucose 156 H POC Glucometer Calcium 9.4 Total Bilirubin 0.40 AST 30 ALT 37 Alkaline Phosphatase 158 H Troponin I NT-Pro-B Natriuret Pep 322 Serum Total Protein 8.1 Albumin 4.4 Triglycerides Cholesterol LDL Cholesterol HDL Cholesterol Heart Disease Risk Ratio Influenza Type A Ag Influenza Type B Ag RSV (PCR) SARS-CoV-2 (PCR) Orders (Last 24 hours) Category Date Time Status Bedrest with BRP/BSC ROUTINE Activity 09/23/20 02:33 Completed Code Status Order ROUTINE Care 09/23/20 02:33 Active EKG-ER Only STAT Care 09/22/20 22:35 Completed IV Insertion STAT Care 09/22/20 22:35 Completed Implement Chest Pain Pathway ROUTINE Care 09/23/20 02:[address] in Observation ROUTINE Care 09/23/20 02:34 Active James Ramirez, Rosalina ROUTINE Care 09/23/20 02:33 Active Telemetry q6h Care 09/23/20 02:32 Completed Telemetry q6h Care 09/23/20 04:52 Active Weight,Daily 0600 Care 09/23/20 02:33 Active Consistent Carbohydrate Diet 2000 Calorie Diet 09/23/20 Breakfast Active CHEST 1 VIEW (PORTABLE) Stat Exams 09/22/20 22:35 Completed CTA CHEST W AND/OR WO [CT] Stat Exams 09/22/20 23:38 Completed HEAD WITHOUT CONTRAST [CT] Stat Exams 09/22/20 23:37 Completed CBC W DIFF Stat Lab 09/22/20 22:59 Completed CMP Stat Lab 09/22/20 22:59 Completed LIPID PROFILE AM.LAB Lab 09/23/20 04:54 Completed NT PRO BNP Stat Lab 09/22/20 22:59 Completed POCT GLUCOSE Stat Lab 09/23/20 06:59 Completed POCT GLUCOSE Stat Lab 09/23/20 11:03 Completed PROTIME WITH INR Stat Lab 09/22/20 22:59 Completed PTT Stat Lab 09/22/20 22:59 Completed TROPONIN Q3H Lab 09/22/20 22:59 Completed TROPONIN Q3H Lab 09/23/20 01:59 Completed TROPONIN Q3H Lab 09/23/20 04:54 Completed TROPONIN Q3H Lab 09/23/20 07:36 Completed TROPONIN Q3H Lab 09/23/20 10:05 Completed Acetaminophen 325 mg [Tylenol 325 mg] Med 09/23/20 02:32 Discontinued 650 mg PO Q4H PRN PRN Acetaminophen 325 mg [Tylenol 325 mg] Med 09/23/20 04:25 Active 650 mg PO Q4H PRN PRN Amlodipine Besylate 5 mg [Norvasc 5 mg] Med 09/23/20 10:00 Active 10 mg PO DAILY Aspirin EC 325 mg [Ecotrin 325 MG] Med 09/23/20 10:00 Discontinued 325 mg PO DAILY Aspirin EC 325 mg [Ecotrin 325 MG] Med 09/23/20 10:00 Discontinued 325 mg PO DAILY Aspirin EC 81 mg [Ecotrin 81 mg] Med 09/23/20 10:00 Active 81 mg PO DAILY Carvedilol 12.5 mg [Coreg 12.5 mg] Med 09/23/20 10:00 Active 12.5 mg PO BID Clonidine HCl 0.1 mg [Catapres 0.1 MG] Med 09/22/20 23:14 Discontinued 0.2 mg .ROUTE .STK-MED ONE Clonidine HCl 0.1 mg [Catapres 0.1 MG] Med 09/22/20 23:13 Discontinued 0.2 mg PO STAT ONE Fentanyl Citrate 100 Mcg/2 ml* [Sublimaze 100 Mcg/2 ml* Med 09/22/20 23:41 Discontinued ] 100 mcg .ROUTE .STK-MED ONE Fentanyl Citrate 100 Mcg/2 ml* [Sublimaze 100 Mcg/2 ml* Med 09/22/20 23:40 Discontinued ] 100 mcg IV STAT ONE Gabapentin 300 mg [Neurontin 300 mg] Med 09/23/20 10:00 Active 300 mg PO TID Insulin Lispro [Humalog] Med 09/23/20 04:25 Active 0 unit SQ UD PRN Insulin Lispro [Humalog] Med 09/23/20 02:32 Discontinued See Dose Instructions SQ UD PRN Isosorbide Mononitrate 60 mg [Imdur 60MG] Med 09/23/20 10:00 Active 60 mg PO DAILY Levetiracetam [Keppra 500 mg ] Med 09/23/20 10:00 Active 500 mg PO BID Mag Hydrox/Al Hydrox/Simeth [Maalox Es 30 ml Unit Med 09/23/20 02:32 Discontinued Dose] 30 ml PO Q4H PRN PRN Mag Hydrox/Al Hydrox/Simeth [Maalox Es 30 ml Unit Med 09/23/20 04:25 Active Dose] 30 ml PO Q4H PRN PRN Magnesium Hydroxide 30 ml [Milk of Magnesia 30 ml Med 09/23/20 02:32 Discontinued ] 30 - 60 ml PO QDP PRN Magnesium Hydroxide 30 ml [Milk of Magnesia 30 ml Med 09/23/20 04:25 Active ] 30 - 60 ml PO QDP PRN Medication Intervention Med 09/23/20 09:00 Active 1 each MC .RN TO CHECK WITH PT Medication Intervention Med 09/23/20 09:00 Active 1 each MC .RN TO CHECK WITH PT Morphine Sulfate 2 mg Inj Med 09/23/20 02:32 Discontinued 2 mg IV .Q15MIN PRN PRN Morphine Sulfate 2 mg Inj Med 09/23/20 04:25 Active 2 mg IV .Q15MIN PRN PRN Ondansetron HCl 4 mg/2 ml [Zofran 4 MG/2 ML VIAL] Med 09/22/20 23:41 Discontinued 4 mg .ROUTE .STK-MED ONE Ondansetron HCl 4 mg/2 ml [Zofran 4 MG/2 ML VIAL] Med 09/23/20 02:32 Discontinued 4 mg IV Q4H PRN PRN Ondansetron HCl 4 mg/2 ml [Zofran 4 MG/2 ML VIAL] Med 09/23/20 04:25 Active 4 mg IV Q4H PRN PRN Ondansetron HCl 4 mg/2 ml [Zofran 4 MG/2 ML VIAL] Med 09/22/20 23:40 Discontinued 4 mg IV STAT ONE Senna/Docusate Sodium Tab [Senokot-S Tablet] Med 09/23/20 02:32 Discontinued 2 udtab PO BID PRN PRN Senna/Docusate Sodium Tab [Senokot-S Tablet] Med 09/23/20 04:25 Active 2 udtab PO BID PRN PRN Simvastatin 20Mg [Zocor 20Mg] Med 09/23/20 10:00 Active 40 mg PO DAILY EKG ONCE RT 09/23/20 06:35 Completed EKG ONCE RT 09/24/20 05:00 Active EKG ONCE RT 09/25/20 05:00 Active EKG ONCE RT 09/26/20 05:00 Active EKG Q8HX2,QAMX3,PRN RT 09/23/20 02:33 Completed Pulse Oximetry Q4H RT 09/23/20 02:33 Completed Transfer Order Routine Transfer 09/23/20 Completed Transfer Order Routine Transfer 09/23/20 Completed Code(s): I16.0 - HYPERTENSIVE URGENCY (2) Chest pain Current Visit: Yes Status: Acute Qualifiers: Chest pain type: precordial pain Qualified Code(s): R07.2 - Precordial pain Code(s): R07.9 - CHEST PAIN, UNSPECIFIED (3) Headache Current Visit: Yes Status: Acute Qualifiers: Headache type: unspecified Headache chronicity pattern: unspecified pattern Code(s): R51.9 - HEADACHE, UNSPECIFIED
[2020-09-23] MEDS ORDERED: TYLENOL EXTRA STRENGTH 500 MG PO PRN (16:58)
[2020-09-23] MEDS ORDERED: BENADRYL 25 MG CAPSULE PO PRN (16:58)
[2020-09-23] MEDS: Miralax Powder 17GM PACKET PO SCH (17:28)
[2020-09-23] MEDS: PATIENT OWN MEDICATION PO SCH (17:28)
--- NOTE | 2020-09-24 07:33 | PCM.NOTE ---
Date and Time: 09/24/20731 Subjective Assessment: doing better today - Review of Systems Constitutional: No Fever, No Chills Eyes: No Symptoms Ears, Nose, & Throat: No Symptoms Respiratory: No Cough, No Short Of Breath Cardiac: No Chest Pain, No Edema, No Syncope Abdominal/Gastrointestinal: No Abdominal Pain, No Nausea, No Vomiting, No Diarrhea Genitourinary Symptoms: No Dysuria Musculoskeletal: No Back Pain, No Neck Pain Skin: No Rash Neurological: No Dizziness, No Focal Weakness, No Sensory Changes Psychological: No Symptoms Endocrine: No Symptoms Hematologic/Lymphatic: No Symptoms Immunological/Allergic: No Symptoms Objective Exam General Appearance: no apparent distress, alert Neurologic Exam: alert, oriented x 3, cooperative, normal mood/affect, nml cerebellar function, sensation nml, No motor deficits Skin Exam: normal color, warm, dry Eye Exam: PERRL, EOMI, eyes nml inspection Ears, Nose, Throat Exam: normal ENT inspection, pharynx normal, moist mucous membranes Neck Exam: normal inspection, non-tender, supple, full range of motion Respiratory Exam: normal breath sounds, lungs clear, No respiratory distress Cardiovascular Exam: regular rate/rhythm, normal heart sounds Gastrointestinal/Abdomen Exam: soft, No tenderness, No mass Extremity Exam: normal inspection, normal range of motion Back Exam: normal inspection, normal range of motion, No CVA tenderness, No vertebral tenderness Male Genitalia Exam: deferred Rectal Exam: deferred OBJECTIVE DATA Vital Signs: Vital Signs - 24 hr Temp Pulse Resp BP Pulse Ox 09/24/20 04:00 98.9 F 83 18 135/62 95 09/23/20 23:28 99.6 F 92 H 18 157/78 96 09/23/20 20:00 98.1 F 94 H 20 168/79 94 L 09/23/20 16:00 98.3 F 78 20 137/67 95 09/23/20 12:00 98.1 F 83 20 146/76 94 L 09/23/20 07:35 98.5 F 85 20 140/78 93 L Pain Assessment - Last Documented Pain Intensity 0 [facility] Intake and Output: Intake & Output 09/21/20 09/22/20 09/23/20 09/24/20 11:59 11:59 11:59 11:59 Intake Total 480 Balance 480 Weight 107 kg Lab Results: Lab Results-Last 24 Hours 09/23/20 09/23/20 09/23/20 Range/Units 07:36 10:05 11:03 POC Glucometer 170 H (74 to 106) mg/dL Troponin I 0.017 0.015 (0.000-0.034) ng/mL 09/23/20 09/23/20 Range/Units 17:32 22:09 POC Glucometer 200 H 163 H (74 to 106) mg/dL Troponin I (0.000-0.034) ng/mL Radiology Exams: Radiology Procedures Category Date Time Status CHEST 1 VIEW (PORTABLE) Stat Exams 09/22/20 22:35 Completed CTA CHEST W AND/OR WO [CT] Stat Exams 09/22/20 23:38 Completed HEAD WITHOUT CONTRAST [CT] Stat Exams 09/22/20 23:37 Completed Assessment/Plan (1) Hypertensive urgency Current Visit: Yes Status: Acute Code(s): I16.0 - HYPERTENSIVE URGENCY (2) Chest pain Current Visit: Yes Status: Acute Qualifiers: Chest pain type: precordial pain Qualified Code(s): R07.2 - Precordial pain Code(s): R07.9 - CHEST PAIN, UNSPECIFIED (3) Headache Current Visit: Yes Status: Acute Qualifiers: Headache type: unspecified Headache chronicity pattern: unspecified pattern Code(s): R51.9 - HEADACHE, UNSPECIFIED
[2020-09-24] MEDS: ZOCOR 20MG PO SCH (09:30)
[2020-09-24] MEDS: Miralax Powder 17GM PACKET PO SCH (09:30)
[2020-09-24] MEDS: ECOTRIN 81 MG PO SCH (09:31)
[2020-09-24] MEDS: PATIENT OWN MEDICATION PO SCH (09:31)
[2020-09-24] MEDS: KEPPRA 500 MG PO SCH (09:31)
[2020-09-24] MEDS: Imdur 60MG PO SCH (09:31)
[2020-09-24] MEDS: COREG 12.5 MG PO SCH (09:31)
[2020-09-24] MEDS: NEURONTIN 300 MG PO SCH ×2 (09:31→14:49)
[2020-09-24] MEDS: NORVASC 5 MG PO SCH (09:31)
[2020-09-24 12:17] VITALS: BP 148/74; PULSE 88; O2SAT 95
== END 2020-09-24 16:23 | disposition home or self-care (01) ==
LOC: ED 22:31 → MED SURG 09-23 04:24
PROVIDERS: ADMIT General Practice; ATTEND General Practice
DX: I16.0 Hypertensive urgency (principal); R07.9 Chest pain, unspecified; R51.9 Headache, unspecified; E11.9 Type 2 diabetes mellitus without complications; I10 Essential (primary) hypertension; Z20.828 Contact with and (suspected) exposure to other viral communicable diseases; E78.5 Hyperlipidemia, unspecified; Z79.01 Long term (current) use of anticoagulants; Z79.899 Other long term (current) drug therapy; I25.2 Old myocardial infarction
CPT/HCPCS: 0241U; 36000; 36415; 70450; 71045; 71275; 80053; 80061; 82947; 83036; 83721; 83880; 84484; 85025; 85610; 85730; 93005; 93041; 96374; 96375; 99285; 93268; J2270; J2405; J3010; A9270-GY; G0378

== ENCOUNTER 2020-10-13 16:22 | Observation (INO) | payer OTHER ==
[2020-10-13] MEDS ORDERED: Sodium Chloride 0.9% 1000 ML 1,000 ML IV STA ×2 (16:37→19:50)
[2020-10-13] MEDS ORDERED: Sodium Chloride 0.9% 1000 ML 1,000 ML ONE ×2 (16:45→19:46)
[2020-10-13 17:12] LABS: Absolute Neutrophil Ct (ANC) 4.25 (1.4-6.9); BASOPHIL % 0.7 % (0.0-0.4); Basophil (Absolute #) 0.04 (0-0.4); Eosinophil % 1.8 % (0.00-5.0); Eosinophil (Absolute #) 0.11 (0-0.5); Hematocrit 40.8 % (42-50); Hemoglobin 13.8 gm/dl (12.5-18.0); Lymphocyte (Absolute #) 1.05 (1.0-4.6); Lymphocytes % 17.6 % (24.0-44.0); Mean Cell Volume 87.4 fl (78-100); Mean Corpuscular Hemoglobin 29.6 pg (26-32); Mean Corpuscular Hgb Concent. 33.8 g/dl (32-36); Mean Platelet Volume 9.3 fl (7.5-11.0); Monocyte (Absolute #) 0.51 (0.0-1.3); Monocytes % 8.6 % (0.0-12.0); Neutrophil % 71.3 % (36.0-66.0); Platelet Count 251 K/mm3 (150-450); Red Blood Count 4.67 M/mm3 (4.1-5.6); Red Cell Distribution Width 13.4 % (11.5-14.0)
[2020-10-13] MEDS ORDERED: BENADRYL 50 MG/ML IV ONE (17:24)
[2020-10-13] MEDS ORDERED: Reglan 10 MG/2 ML IV ONE (17:24)
--- NOTE | 2020-10-13 17:25 | ERPHSYRPT ---
- History of Present Illness Time Seen by Provider: 10/13/20 16:34 Historian: patient, EMS Exam Limitations: no limitations Patient Subjective Stated Complaint: Hypotension Triage Nursing Assessment: Patient brougth into ED via EMS and transferred to bed with assist of 3. Patient A+O x3. Patient's skin pink, warm and dry. Patient states he took his morning meds at 1400 then 45 min later he started not feeling well and being weak. Upon EMS arrival patient's blood pressure was 76/36. Patient complains of chest and neck pain 12/12. Patient also complains of Nausea and dizziness. Physician History: 54 years old male with complicated medical history of coronary artery disease status post stenting, diabetes mellitus, hypertension, hyperlipidemia, chronic neck pain supposed to have surgical intervention done soon presented in the ER with chief complaint of generalized weakness fatigue along with chest and neck pain. Patient report he took his morning meds around 2 PM and almost an hour later started to feel dizzy lightheaded and weak all over and on EMS arrival his blood pressure systolic was 76. Patient complaining of substernal dull aching moderate intensity chest pain without any radiation and no significant aggravating or relieving factors which he could figure it out. This started around the same time. Patient is having neck pain for quite some time but lately getting worse and also having some headache as well. Denies any blurry vision, numbness tingling or focal weakness. No fever chills or difficulty movements of neck reported. Timing/Duration: hour(s) (3), sudden, worse Activities at Onset: rest Quality: dullness Location: central Chest Pain Radiation: no radiation Severity of Pain-Max: moderate Severity of Pain-Current: moderate Modifying Factors: Improves With: nothing Associated Symptoms: dizziness Prior Chest Pain/Cardiac Workup: cardiac cath Nitro Today/Relief: no nitro taken today Aspirin Treatment Today: 81 mg x 1 Allergies/Adverse Reactions: No Known Drug Allergies Allergy (Verified 10/13/20 16:24) Home Medications: Amlodipine Besylate 10 mg PO DAILY 09/22/20 [History] Aspirin 81 gm Chew [Baby Aspirin 81 mg Chew] 81 mg PO DAILY 09/22/20 [History] Atorvastatin Calcium 80 mg PO DAILY 09/22/20 [History] Carvedilol 12.5 mg [Coreg 12.5 mg] 12.5 mg PO BID 09/22/20 [History] Empagliflozin [Jardiance] 25 mg PO DAILY 09/22/20 [History] Gabapentin 300 mg [Neurontin 300 mg] 300 mg PO TID 09/22/20 [History] Isosorbide Mononitrate 60 mg [Imdur 60MG] 60 mg PO DAILY 09/22/20 [History] Levetiracetam [Keppra] 500 mg PO BID 09/22/20 [History] Melatonin 3 mg PO DAILY PRN PRN 09/22/20 [History] Hx Tetanus, Diphtheria Vaccination/Date Given: No Hx Influenza Vaccination/Date Given: No Hx Pneumococcal Vaccination/Date Given: No Immunizations Up to Date: Yes Travel Risk - International Travel Have you traveled outside of the country in past 3 weeks: No - Coronavirus Screening Are you exhibiting any of the following symptoms?: No Close contact with a COVID-19 positive Pt in past 14-21 Days: Yes - Vaccine Status Have you recieved a Covid-19 vaccination: No - Review of Systems Constitutional: Fatigue, Weakness Eyes: No Symptoms Ears, Nose, & Throat: No Symptoms Respiratory: No Symptoms Cardiac: Chest Pain Abdominal/Gastrointestinal: No Symptoms Genitourinary Symptoms: No Symptoms Musculoskeletal: Neck Pain, Myalgias Skin: No Symptoms Neurological: No Symptoms, No Focal Weakness Psychological: No Symptoms Endocrine: No Symptoms Immunological/Allergic: No Symptoms - Past Medical History Pertinent Past Medical History: Yes Neurological History: Peripheral Neuropathy ENT History: No Pertinent History Cardiac History: Hypertension, Myocardial Infarction ([place]) Respiratory History: Sleep Apnea Endocrine Medical History: Diabetes Type II Musculoskeletal History: Osteoarthritis GI Medical History: Diverticulosis, GERD History: Renal Disease Psycho-Social History: No Pertinent History Male Reproductive Disorders: No Pertinent History - Past Surgical History Past Surgical History: Yes Neuro Surgical History: No Pertinent History Cardiac: Cardiac Catheterization, Cardiac Stent Respiratory: No Pertinent History Gastrointestinal: Cholecystectomy Genitourinary: No Pertinent History Musculoskeletal: Amputation Male Surgical History: No Pertinent History Other Surgical History: Left Ring Finger - Social History Smoking Status: Former smoker Exposure to second hand smoke: Yes Drug Use: none Patient Lives Alone: No - Nursing Vital Signs Nursing Vital Signs: Initial Vital Signs Temperature 98.2 F 10/13/20 16:29 Pulse Rate 74 10/13/20 16:29 Respiratory Rate 18 05/11/21 16:29 Blood Pressure 104/67 10/13/20 16:29 O2 Sat by Pulse Oximetry 98 10/13/20 16:29 Pain Scale Pain Intensity 5 - Physical Exam General Appearance: no apparent distress, alert Eye Exam: PERRL/EOMI, eyes nml inspection Ears, Nose, Throat Exam: normal ENT inspection, TMs normal, pharynx normal Neck Exam: normal inspection, supple, full range of motion, other (Left-sided muscular tenderness), No midline tenderness Respiratory Exam: normal breath sounds, chest tenderness Cardiovascular Exam: regular rate/rhythm, normal heart sounds Gastrointestinal/Abdomen Exam: soft, normal bowel sounds, No tenderness Back Exam: normal inspection, normal range of motion Extremity Exam: normal inspection, normal range of motion Neurologic Exam: alert, oriented x 3, cooperative, technical administrator II-XII nml as tested, nml cerebellar function, sensation nml, No motor deficits Skin Exam: normal color SpO2 Interpretation: normal SpO2: 98 O2 Delivery: Room Air - Course EKG Interpreted by Me: RATE (76), Sinus Rhythm, NORMAL AXIS, prolonged QT interval, Non-specific ST Changes Ordered Tests: Active Orders 24 hr Category Date Time Status EKG-ER Only STAT Care 10/13/20 16:37 Active IV Insertion STAT Care 10/13/20 16:37 Active NPO (ED) STAT Care 10/13/20 16:37 Active CERVICAL SPINE WO CONTRAST [CT] Stat Exams 10/13/20 17:24 Taken CHEST 1 VIEW (PORTABLE) Stat Exams 10/13/20 16:37 Taken HEAD WITHOUT CONTRAST [CT] Stat Exams 10/13/20 17:24 Taken BLOOD CULTURE Stat Lab 10/13/20 17:07 Received CBC W DIFF Stat Lab 10/13/20 17:04 Completed CMP Stat Lab 10/13/20 17:04 Completed Lactic Acid Stat Lab 10/13/20 16:37 Completed Lactic Acid Stat Lab 10/13/20 19:17 Completed MAG [MAGNESIUM] Stat Lab 10/13/20 17:25 Completed TROPONIN Q3H Lab 10/13/20 17:04 Completed TROPONIN Q3H Lab 10/13/20 19:45 Ordered TROPONIN Q3H Lab 10/13/20 22:45 Ordered TROPONIN Q3H Lab 10/14/20 01:45 Ordered TROPONIN Q3H Lab 10/14/20 04:45 Ordered UA W/RFX UR CULTURE Stat Lab 10/13/20 16:49 Completed Medication Summary Generic Name Dose Route Start Last Admin Trade Name Maria Victoria PRN Reason Stop Dose Admin Levofloxacin/Dextrose 500 mg in 100 mls @ 100 mls/hr 10/13/20 19:44 10/13/20 19:53 Levofloxacin 500mg/100ml D5w IV 10/13/20 20:43 100 ml/hr STAT STA 100 mls/hr Administration Sodium Chloride 1,000 mls @ 999 mls/hr 10/13/20 19:50 10/13/20 19:54 Sodium Chloride 0.9% 1000 Ml IV 10/13/20 20:50 999 mls/hr .Q1H1M STA Administration Discontinued Medications Generic Name Dose Route Start Last Admin Trade Name Maria Victoria PRN Reason Stop Dose Admin Diphenhydramine HCl 25 mg 10/13/20 17:24 10/13/20 18:50 Benadryl 50 Mg/Ml IV 10/13/20 17:25 25 mg STAT ONE Administration Diphenhydramine HCl Confirm 10/13/20 18:46 Benadryl 50 Mg/Ml Administered 10/13/20 18:47 Dose 50 mg .ROUTE .STK-MED ONE Sodium Chloride 1,000 mls @ 999 mls/hr 10/13/20 16:37 10/13/20 17:47 Sodium Chloride 0.9% 1000 Ml IV 10/13/20 17:37 Infused .Q1H1M STA Infusion Sodium Chloride Confirm 10/13/20 16:45 Sodium Chloride 0.9% 1000 Ml Administered 10/13/20 16:46 Dose 1,000 mls @ ud .ROUTE .STK-MED ONE Sodium Chloride Confirm 10/13/20 19:46 Sodium Chloride 0.9% 1000 Ml Administered 10/13/20 19:47 Dose 1,000 mls @ ud .ROUTE .STK-MED ONE Levofloxacin/Dextrose Confirm 10/13/20 19:47 Levofloxacin 500mg/100ml D5w Administered 10/13/20 19:48 Dose 500 mg in 100 mls @ ud IV .STK-MED ONE Metoclopramide HCl 10 mg 10/13/20 17:24 10/13/20 18:50 Reglan 10 Mg/2 Ml IV 10/13/20 17:25 10 mg STAT ONE Administration Metoclopramide HCl Confirm 10/13/20 18:46 Reglan 10 Mg/2 Ml Administered 10/13/20 18:47 Dose 10 mg .ROUTE .STK-MED ONE Lab/Rad Data: Laboratory Result Diagrams 10/13/20 17:04 10/13/20 17:04 Laboratory Results 10/13/20 10/13/20 10/13/20 Range/Units 19:17 17:25 17:04 WBC (4.0-10.5) K/mm3 RBC (4.1-5.6) M/mm3 Hgb (12.5-18.0) gm/dl Hct (42-50) % MCV (78-100) fl MCH (26-32) pg MCHC (32-36) g/dl RDW (11.5-14.0) % Plt Count (150-450) K/mm3 MPV (7.5-11.0) fl Gran % (36.0-66.0) % Eos # (Auto) (0-0.5) Absolute Lymphs (auto) (1.0-4.6) Absolute Monos (auto) (0.0-1.3) Lymphocytes % (24.0-44.0) % Monocytes % (0.0-12.0) % Eosinophils % (0.00-5.0) % Basophils % (0.0-0.4) % Absolute Granulocytes (1.4-6.9) Basophils # (0-0.4) Sodium (137-145) mmol/L Potassium (3.5-5.1) mmol/L Chloride (98-107) mmol/L Carbon Dioxide (22-30) mmol/L Anion Gap (5-15) MEQ/L BUN (9-20) mg/dL Creatinine (0.66-1.25) mg/dL Estimated GFR ML/MIN Glucose (74-106) mg/dL Lactic Acid 1.9 (0.4-2.0) Calcium (8.4-10.2) mg/dL Magnesium 1.9 (1.6-2.3) mg/dL Total Bilirubin (0.2-1.3) mg/dL AST (17-59) U/L ALT (0-50) U/L Alkaline Phosphatase (38-126) U/L Troponin I 0.028 (0.000-0.034) ng/mL Serum Total Protein (6.3-8.2) g/dL Albumin (3.5-5.0) g/dL Urine Color (YELLOW) Urine Appearance (CLEAR) Urine pH (5-6) Ur Specific [place] (1.005-1.025) Urine Protein (Negative) Urine Ketones (NEGATIVE) Urine Blood (0-5) Frantz/ul Urine Nitrite (NEGATIVE) Urine Bilirubin (NEGATIVE) Urine Urobilinogen (0-1) mg/dL Ur Leukocyte Esterase (NEGATIVE) Urine WBC (Auto) (0-5) /HPF Urine RBC (Auto) (0-2) /HPF U Epithel Cells (Auto) (FEW) /HPF Urine Bacteria (Auto) (NEGATIVE) /HPF Urine Culture Reflexed (NO) Urine Glucose (NEGATIVE) mg/dL 10/13/20 10/13/20 10/13/20 Range/Units 17:04 17:04 16:49 WBC 6.0 (4.0-10.5) K/mm3 RBC 4.67 (4.1-5.6) M/mm3 Hgb 13.8 (12.5-18.0) gm/dl Hct 40.8 L (42-50) % MCV 87.4 (78-100) fl MCH 29.6 (26-32) pg MCHC 33.8 (32-36) g/dl RDW 13.4 (11.5-14.0) % Plt Count 251 (150-450) K/mm3 MPV 9.3 (7.5-11.0) fl Gran % 71.3 H (36.0-66.0) % Eos # (Auto) 0.11 (0-0.5) Absolute Lymphs (auto) 1.05 (1.0-4.6) Absolute Monos (auto) 0.51 (0.0-1.3) Lymphocytes % 17.6 L (24.0-44.0) % Monocytes % 8.6 (0.0-12.0) % Eosinophils % 1.8 (0.00-5.0) % Basophils % 0.7 (0.0-0.4) % Absolute Granulocytes 4.25 (1.4-6.9) Basophils # 0.04 (0-0.4) Sodium 132 L (137-145) mmol/L Potassium 3.7 (3.5-5.1) mmol/L Chloride 97 L (98-107) mmol/L Carbon Dioxide 25 (22-30) mmol/L Anion Gap 12.9 (5-15) MEQ/L BUN 26 H (9-20) mg/dL Creatinine 1.43 H (0.66-1.25) mg/dL Estimated GFR 54.8 ML/MIN Glucose 307 H (74-106) mg/dL Lactic Acid (0.4-2.0) Calcium 8.5 (8.4-10.2) mg/dL Magnesium (1.6-2.3) mg/dL Total Bilirubin 0.50 (0.2-1.3) mg/dL AST 20 (17-59) U/L ALT 25 (0-50) U/L Alkaline Phosphatase 120 (38-126) U/L Troponin I (0.000-0.034) ng/mL Serum Total Protein 6.6 (6.3-8.2) g/dL Albumin 3.6 (3.5-5.0) g/dL Urine Color STRAW (YELLOW) Urine Appearance CLEAR (CLEAR) Urine pH 6.0 (5-6) Ur Specific [place] 1.011 (1.005-1.025) Urine Protein 30 (Negative) Urine Ketones NEGATIVE (NEGATIVE) Urine Blood SMALL (0-5) Frantz/ul Urine Nitrite NEGATIVE (NEGATIVE) Urine Bilirubin NEGATIVE (NEGATIVE) Urine Urobilinogen NEGATIVE (0-1) mg/dL Ur Leukocyte Esterase NEGATIVE (NEGATIVE) Urine WBC (Auto) NONE (0-5) /HPF Urine RBC (Auto) NONE (0-2) /HPF U Epithel Cells (Auto) NONE (FEW) /HPF Urine Bacteria (Auto) NONE (NEGATIVE) /HPF Urine Culture Reflexed NO (NO) Urine Glucose >=500 (NEGATIVE) mg/dL 10/13/20 Range/Units 16:37 WBC (4.0-10.5) K/mm3 RBC (4.1-5.6) M/mm3 Hgb (12.5-18.0) gm/dl Hct (42-50) % MCV (78-100) fl MCH (26-32) pg MCHC (32-36) g/dl RDW (11.5-14.0) % Plt Count (150-450) K/mm3 MPV (7.5-11.0) fl Gran % (36.0-66.0) % Eos # (Auto) (0-0.5) Absolute Lymphs (auto) (1.0-4.6) Absolute Monos (auto) (0.0-1.3) Lymphocytes % (24.0-44.0) % Monocytes % (0.0-12.0) % Eosinophils % (0.00-5.0) % Basophils % (0.0-0.4) % Absolute Granulocytes (1.4-6.9) Basophils # (0-0.4) Sodium (137-145) mmol/L Potassium (3.5-5.1) mmol/L Chloride (98-107) mmol/L Carbon Dioxide (22-30) mmol/L Anion Gap (5-15) MEQ/L BUN (9-20) mg/dL Creatinine (0.66-1.25) mg/dL Estimated GFR ML/MIN Glucose (74-106) mg/dL Lactic Acid 2.3 H (0.4-2.0) Calcium (8.4-10.2) mg/dL Magnesium (1.6-2.3) mg/dL Total Bilirubin (0.2-1.3) mg/dL AST (17-59) U/L ALT (0-50) U/L Alkaline Phosphatase (38-126) U/L Troponin I (0.000-0.034) ng/mL Serum Total Protein (6.3-8.2) g/dL Albumin (3.5-5.0) g/dL Urine Color (YELLOW) Urine Appearance (CLEAR) Urine pH (5-6) Ur Specific [place] (1.005-1.025) Urine Protein (Negative) Urine Ketones (NEGATIVE) Urine Blood (0-5) Frantz/ul Urine Nitrite (NEGATIVE) Urine Bilirubin (NEGATIVE) Urine Urobilinogen (0-1) mg/dL Ur Leukocyte Esterase (NEGATIVE) Urine WBC (Auto) (0-5) /HPF Urine RBC (Auto) (0-2) /HPF U Epithel Cells (Auto) (FEW) /HPF Urine Bacteria (Auto) (NEGATIVE) /HPF Urine Culture Reflexed (NO) Urine Glucose (NEGATIVE) mg/dL - Progress Progress: improved Air Movement: good Progress Note: 10/13/20 17:28 54 years old is evaluated for generalized weakness fatigue and hypotension after taking his meds. Patient blood pressure was in 80s on presentation and started on fluid and currently 107 systolic. Is feeling better. Nonfocal neuro exam. 10/13/20 20:00 . Work-up is done including CT head and neck which are negative. EKG did not show any acute ST elevation. Negative initial troponin. Chest x-ray did not appreciate any focal consolidation reviewed by me, official report is pending. Patient is given fluid bolus and pressure is improving but still on the lower side. No obvious focus of infection but is given a dose of Levaquin and cultures are pending. I believe his symptoms are secondary to medications intake causing acute lowering of blood pressure and needs adjustment in medications. I have discussed with Dr. Orozco who has recently seen patient in the hospital and agrees with the fact that his symptoms could be medication related. He is being admitted for observation. Blood Culture(s) Obtained: Yes Discussed with : Yolis Will see patient in: hospital (observation) Counseled pt/family regarding: lab results, diagnosis, rad results - Departure Departure Disposition: Observation Clinical Impression: Hypotension Qualifiers: Hypotension type: unspecified hypotension type Qualified Code(s): I95.9 - Hypot ension, unspecified Chest pain Qualifiers: Chest pain type: unspecified Qualified Code(s): R07.9 - Chest pain, unspecified Condition: Stable Critical Care Time: Yes Critical Care Time(excluding separately billable procedures): Critical 30-74 mins Referrals: TAD DANIELS [Primary Care Provider] -
[2020-10-13 17:33] LABS: ALBUMIN 3.6 g/dL (3.5-5.0); ANION GAP 12.9 MEQ/L (5-15); BILIRUBIN,TOTAL 0.5 mg/dL (0.2-1.3); Calcium 8.5 mg/dL (8.4-10.2); Creatinine 1 1.43 mg/dL (0.66-1.25); EST GLOMERULAR FILTRATION RATE 54.8 ML/MIN; Potassium 3.7 mmol/L (3.5-5.1); Total Protein 6.6 g/dL (6.3-8.2)
[2020-10-13] MEDS ORDERED: BENADRYL 50 MG/ML ONE (18:46)
[2020-10-13] MEDS ORDERED: Reglan 10 MG/2 ML ONE (18:46)
[2020-10-13 19:06] LABS: Appearance CLEAR (CLEAR); Bilirubin NEGATIVE (NEGATIVE); Blood SMALL Ery/ul (0-5); Glucose >=500 mg/dL (NEGATIVE); Ketones NEGATIVE (NEGATIVE); Leukocyte Esterase NEGATIVE (NEGATIVE); Nitrite NEGATIVE (NEGATIVE); Protein,Urine Dip 30 (Negative); Specific Gravity 1.011 (1.005-1.025); Urobilinogen NEGATIVE mg/dL (0-1)
[2020-10-13] MEDS ORDERED: Levofloxacin 500MG/100ML D5W 500 MG/100 ML BAG IV STA (19:44)
[2020-10-13] MEDS ORDERED: Levofloxacin 500MG/100ML D5W 500 MG/100 ML BAG IV ONE (19:47)
[2020-10-13 21:52] LABS: INFLUENZA A NEGATIVE (NEGATIVE); INFLUENZA B NEGATIVE (NEGATIVE); RESPIRATORY SYNCTIAL VIRUS NEGATIVE (Negative)
--- NOTE | 2020-10-13 22:36 | XRAY ---
Indication: General weakness. Comparison: September 22, 2020. Portable chest again demonstrates normal heart and lungs with mild bony degenerative changes. No new/acute abnormalities.
[2020-10-13] MEDS ORDERED: Zofran 4 MG/2 ML VIAL IV PRN (23:26)
[2020-10-13] MEDS ORDERED: DUONEB 0.5-3 MG/3 ml Neb IH PRN (23:26)
[2020-10-13] MEDS ORDERED: HUMALOG SQ PRN (23:26)
[2020-10-14] MEDS ORDERED: ZOCOR 20MG PO SCH ×2 (00:45→22:00)
[2020-10-14] MEDS ORDERED: Lantus Insulin SQ SCH (00:52)
[2020-10-14] MEDS: KEPPRA 500 MG PO SCH ×2 (01:09→09:59)
[2020-10-14] MEDS: NEURONTIN 300 MG PO SCH ×2 (01:09→09:59)
[2020-10-14] MEDS: TYLENOL 325 MG PO PRN ×2 (01:09→12:13)
[2020-10-14] MEDS: Sodium Chloride 0.9% W/ 20 mEq KCl/LITER 1,000 ML IV SCH ×2 (01:10→08:55)
[2020-10-14 05:26] LABS: Absolute Neutrophil Ct (ANC) 3.52 (1.4-6.9); BASOPHIL % 0.6 % (0.0-0.4); Basophil (Absolute #) 0.03 (0-0.4); Eosinophil % 2.4 % (0.00-5.0); Eosinophil (Absolute #) 0.13 (0-0.5); Hematocrit 38.9 % (42-50); Hemoglobin 12.9 gm/dl (12.5-18.0); Lymphocytes % 22.5 % (24.0-44.0); Mean Corpuscular Hemoglobin 29.2 pg (26-32); Mean Corpuscular Hgb Concent. 33.2 g/dl (32-36); Mean Platelet Volume 9.2 fl (7.5-11.0); Monocyte (Absolute #) 0.45 (0.0-1.3); Monocytes % 8.4 % (0.0-12.0); Neutrophil % 66.1 % (36.0-66.0); Platelet Count 228 K/mm3 (150-450); Red Blood Count 4.42 M/mm3 (4.1-5.6); Red Cell Distribution Width 13.5 % (11.5-14.0); White Blood Count 5.3 K/mm3 (4.0-10.5)
[2020-10-14 06:02] LABS: ALBUMIN 3.3 g/dL (3.5-5.0); ANION GAP 9.7 MEQ/L (5-15); BILIRUBIN,TOTAL 0.4 mg/dL (0.2-1.3); Calcium 8.5 mg/dL (8.4-10.2); Creatinine 1 1.46 mg/dL (0.66-1.25); EST GLOMERULAR FILTRATION RATE 53.5 ML/MIN; Potassium 3.5 mmol/L (3.5-5.1); Total Protein 6.1 g/dL (6.3-8.2)
[2020-10-14] MEDS ORDERED: PROTONIX 40 MG IV IV SCH (10:00)
--- NOTE | 2020-10-14 12:00 | PCM.HP ---
History of Present Illness - Chief Complaint Chief Complaint: low blood pressure History of Present Illness: is a 54 year old male.with complicated medical history of coronary artery disease status post stenting, diabetes mellitus, hypertension, hyperlipidemia, chronic neck pain supposed to have surgical intervention done soon presented in the ER with chief complaint of generalized weakness fatigue along with chest and neck pain. Patient report he took his morning meds around 2 PM and almost an hour later started to feel dizzy lightheaded and weak all over and on EMS arrival his blood pressure systolic was 76. Patient complaining of substernal dull aching moderate intensity chest pain without any radiation and no significant aggravating or relieving factors which he could figure it out. This started around the same time. Patient is having neck pain for quite some time but lately getting worse and also having some headache as well. Denies any blurry vision, numbness tingling or focal weakness. No fever chills or difficulty movements of neck reported. Timing/Duration: hour(s) (3), sudden, worse Activities at Onset: rest Quality: dullness Location: central Chest Pain Radiation: no radiation Severity of Pain-Max: moderate Severity of Pain-Current: moderate Modifying Factors: Improves With: nothing Associated Symptoms: dizziness Prior Chest Pain/Cardiac Workup: cardiac cath - Review of Systems Constitutional: No Fever, No Chills Eyes: No Symptoms Ears, Nose, & Throat: No Symptoms Respiratory: No Cough, No Short Of Breath Cardiac: No Chest Pain, No Edema, No Syncope Abdominal/Gastrointestinal: No Abdominal Pain, No Nausea, No Vomiting, No D iarrhea Genitourinary Symptoms: No Dysuria Musculoskeletal: No Back Pain, No Neck Pain Skin: No Rash Neurological: No Dizziness, No Focal Weakness, No Sensory Changes Psychological: No Symptoms Endocrine: No Symptoms Hematologic/Lymphatic: No Symptoms Immunological/Allergic: No Symptoms Medications & Allergies Home Medications: Home Medication List Aspirin 81 gm Chew [Baby Aspirin 81 mg Chew] 81 mg PO DAILY 09/22/20 [History Confirmed 10/13/20] Atorvastatin Calcium 80 mg PO QHS 09/22/20 [History Confirmed 10/13/20] Carvedilol 12.5 mg [Coreg 12.5 mg] 12.5 mg PO BID 09/22/20 [History Confirmed 10/13/20] Empagliflozin [Jardiance] 25 mg PO DAILY 09/22/20 [History Confirmed 10/13/20] Gabapentin 300 mg [Neurontin 300 mg] 300 mg PO TID 09/22/20 [History Confirmed 10/13/20] Levetiracetam [Keppra] 500 mg PO BID 09/22/20 [History Confirmed 10/13/20] Amlodipine Besylate 10 mg PO DAILY 10/13/20 [History Confirmed 10/13/20] Clonidine HCl 0.1 mg [Catapres 0.1 MG] 0.1 mg PO BID 10/13/20 [History Confirmed 10/13/20] Ergocalciferol (Vitamin D2) [Vitamin D] 50,000 unit PO UD 10/13/20 [History Confirmed 10/13/20] Fluticasone Propionate [Flovent Diskus] 50 mcg IH DAILY 10/13/20 [History Confirmed 10/13/20] Insulin Glargine,Hum.rec.anlog [Anaisaglbrittny Marquezikcamilla U-100] 45 units SQ QHS 10/13/20 [History Confirmed 10/14/20] Isosorbide Mononitrate [Isosorbide Mononitrate ER] 60 mg PO DAILY 10/13/20 [History Confirmed 10/13/20] Lisinopril 40 mg PO DAILY 10/13/20 [History Confirmed 10/13/20] Meclizine HCl 12.5 mg PO Q8H PRN PRN 10/13/20 [History Confirmed 10/13/20] Melatonin 10 mg PO QHS 10/13/20 [History Confirmed 10/13/20] Polyethylene Glycol [Polyox Wsr-301] 17 gm PO DAILY PRN PRN 10/13/20 [History Confirmed 10/13/20] Rivaroxaban [Xarelto] 20 mg PO DAILY 10/13/20 [History Confirmed 10/13/20] Semaglutide [Ozempic] 0.05 mg SQ WEEKLY 10/13/20 [History Confirmed 10/14/20] Spironolact/Hydrochlorothiazid [Spironolactone-Hctz 25-25 Tab] 1 tab PO DAILY 10/13/20 [History Confirmed 10/13/20] Allergies/Adverse Reactions: Allergies Allergy/AdvReac Type Severity Reaction Status Date / Time No Known Drug Allergies Allergy Verified 10/13/20 23:33 - Past Medical History Past Medical History: Yes Neurological History: Peripheral Neuropathy, Seizures ENT History: No Pertinent History Cardiac History: High Cholesterol, Hypertension, Myocardial Infarction (OR) Respiratory History: Sleep Apnea Endocrine Medical History: Diabetes Type II Musculoskelatal History: Osteoarthritis GI Medical History: Diverticulosis, GERD History: Renal Disease Pyscho-Social History: No Pertinent History Male Reproductive Disorders: No Pertinent History - Past Surgical History Past Surgical History: Yes Neuro Surgical History: No Pertinent History Cardiac History: Cardiac Catheterization, Cardiac Stent Respiratory Surgery: No Pertinent History GI Surgical History: Cholecystectomy Genitourinary Surgical Hx: No Pertinent History Musculskeletal Surgical Hx: Amputation Male Surgical History: No Pertinent History Other Surgical History: 5 cardiac stents, renal stent, Left Ring Finger - Social History Smoking Status: Former smoker How long have you smoked: 4 years Exposure to second hand smoke: Yes Alcohol: None Drug Use: none - Physical Exam Vital Signs: Vital Signs - 24 hr Temp Pulse Resp BP Pulse Ox 10/14/20 09:45 94 L 10/14/20 07:53 98.6 F 82 11 L 124/69 96 10/14/20 04:00 98.3 F 76 18 126/69 96 10/14/20 01:00 90 L 10/14/20 00:30 73 129/73 10/14/20 00:10 98 F 72 16 81/48 96 10/13/20 23:00 72 16 114/80 95 10/13/20 22:12 71 17 113/69 95 10/13/20 21:00 71 18 102/59 95 10/13/20 20:05 66 18 94/60 97 10/13/20 20:03 98 10/13/20 19:48 70 16 91/55 97 10/13/20 19:00 73 18 97/53 96 10/13/20 18:00 64 16 105/56 95 10/13/20 17:30 63 13 139/59 96 10/13/20 16:29 98.2 F 74 18 104/67 98 General Appearance: no apparent distress, alert Neurologic Exam: alert, oriented x 3, cooperative, normal mood/affect, nml cerebellar function, nml station & gait, sensation nml, No motor deficits Eye Exam: PERRL/EOMI, eyes nml inspection Ears, Nose, Throat Exam: normal ENT inspection, TMs normal, pharynx normal, moist mucous membranes Neck Exam: normal inspection, non-tender, supple, full range of motion Respiratory Exam: normal breath sounds, lungs clear, No respiratory distress Cardiovascular Exam: regular rate/rhythm, normal heart sounds, normal peripheral pulses Gastrointestinal/Abdomen Exam: soft, normal bowel sounds, No tenderness, No mass Back Exam: normal inspection, normal range of motion, No CVA tenderness, No vertebral tenderness Extremity Exam: normal inspection, normal range of motion, pelvis stable Skin Exam: normal color, warm, dry, No rash Lymphatic Exam: No adenopathy Results - Labs Lab/Micro Results: Lab Results-Last 24 Hours 10/13/20 10/13/20 10/13/20 Range/Units 16:37 16:49 17:04 WBC 6.0 (4.0-10.5) K/mm3 RBC 4.67 (4.1-5.6) M/mm3 Hgb 13.8 (12.5-18.0) gm/dl Hct 40.8 L (42-50) % MCV 87.4 (78-100) fl MCH 29.6 (26-32) pg MCHC 33.8 (32-36) g/dl RDW 13.4 (11.5-14.0) % Plt Count 251 (150-450) K/mm3 MPV 9.3 (7.5-11.0) fl Gran % 71.3 H (36.0-66.0) % Eos # (Auto) 0.11 (0-0.5) Absolute Lymphs (auto) 1.05 (1.0-4.6) Absolute Monos (auto) 0.51 (0.0-1.3) Lymphocytes % 17.6 L (24.0-44.0) % Monocytes % 8.6 (0.0-12.0) % Eosinophils % 1.8 (0.00-5.0) % Basophils % 0.7 (0.0-0.4) % Absolute Granulocytes 4.25 (1.4-6.9) Basophils # 0.04 (0-0.4) Sodium (137-145) mmol/L Potassium (3.5-5.1) mmol/L Chloride (98-107) mmol/L Carbon Dioxide (22-30) mmol/L Anion Gap (5-15) MEQ/L BUN (9-20) mg/dL Creatinine (0.66-1.25) mg/dL Estimated GFR ML/MIN Glucose (74-106) mg/dL POC Glucometer (74 to 106) mg/dL Hemoglobin A1c (4.5-6.0) % Lactic Acid 2.3 H (0.4-2.0) Calcium (8.4-10.2) mg/dL Magnesium (1.6-2.3) mg/dL Total Bilirubin (0.2-1.3) mg/dL AST (17-59) U/L ALT (0-50) U/L Alkaline Phosphatase (38-126) U/L Troponin I (0.000-0.034) ng/mL NT-Pro-B Natriuret Pep (0-900) pg/mL Serum Total Protein (6.3-8.2) g/dL Albumin (3.5-5.0) g/dL Urine Color STRAW (YELLOW) Urine Appearance CLEAR (CLEAR) Urine pH 6.0 (5-6) Ur Specific [place] 1.011 (1.005-1.025) Urine Protein 30 (Negative) Urine Ketones NEGATIVE (NEGATIVE) Urine Blood SMALL (0-5) Frantz/ul Urine Nitrite NEGATIVE (NEGATIVE) Urine Bilirubin NEGATIVE (NEGATIVE) Urine Urobilinogen NEGATIVE (0-1) mg/dL Ur Leukocyte Esterase NEGATIVE (NEGATIVE) Urine WBC (Auto) NONE (0-5) /HPF Urine RBC (Auto) NONE (0-2) /HPF U Epithel Cells (Auto) NONE (FEW) /HPF Urine Bacteria (Auto) NONE (NEGATIVE) /HPF Urine Culture Reflexed NO (NO) Urine Glucose >=500 (NEGATIVE) mg/dL Influenza Type A Ag (NEGATIVE) Influenza Type B Ag (NEGATIVE) RSV (PCR) (Negative) SARS-CoV-2 (PCR) (NEGATIVE) 10/13/20 10/13/20 10/13/20 Range/Units 17:04 17:04 17:25 WBC (4.0-10.5) K/mm3 RBC (4.1-5.6) M/mm3 Hgb (12.5-18.0) gm/dl Hct (42-50) % MCV (78-100) fl MCH (26-32) pg MCHC (32-36) g/dl RDW (11.5-14.0) % Plt Count (150-450) K/mm3 MPV (7.5-11.0) fl Gran % (36.0-66.0) % Eos # (Auto) (0-0.5) Absolute Lymphs (auto) (1.0-4.6) Absolute Monos (auto) (0.0-1.3) Lymphocytes % (24.0-44.0) % Monocytes % (0.0-12.0) % Eosinophils % (0.00-5.0) % Basophils % (0.0-0.4) % Absolute Granulocytes (1.4-6.9) Basophils # (0-0.4) Sodium 132 L (137-145) mmol/L Potassium 3.7 (3.5-5.1) mmol/L Chloride 97 L (98-107) mmol/L Carbon Dioxide 25 (22-30) mmol/L Anion Gap 12.9 (5-15) MEQ/L BUN 26 H (9-20) mg/dL Creatinine 1.43 H (0.66-1.25) mg/dL Estimated GFR 54.8 ML/MIN Glucose 307 H (74-106) mg/dL POC Glucometer (74 to 106) mg/dL Hemoglobin A1c (4.5-6.0) % Lactic Acid (0.4-2.0) Calcium 8.5 (8.4-10.2) mg/dL Magnesium 1.9 (1.6-2.3) mg/dL Total Bilirubin 0.50 (0.2-1.3) mg/dL AST 20 (17-59) U/L ALT 25 (0-50) U/L Alkaline Phosphatase 120 (38-126) U/L Troponin I 0.028 (0.000-0.034) ng/mL NT-Pro-B Natriuret Pep (0-900) pg/mL Serum Total Protein 6.6 (6.3-8.2) g/dL Albumin 3.6 (3.5-5.0) g/dL Urine Color (YELLOW) Urine Appearance (CLEAR) Urine pH (5-6) Ur Specific [place] (1.005-1.025) Urine Protein (Negative) Urine Ketones (NEGATIVE) Urine Blood (0-5) Frantz/ul Urine Nitrite (NEGATIVE) Urine Bilirubin (NEGATIVE) Urine Urobilinogen (0-1) mg/dL Ur Leukocyte Esterase (NEGATIVE) Urine WBC (Auto) (0-5) /HPF Urine RBC (Auto) (0-2) /HPF U Epithel Cells (Auto) (FEW) /HPF Urine Bacteria (Auto) (NEGATIVE) /HPF Urine Culture Reflexed (NO) Urine Glucose (NEGATIVE) mg/dL Influenza Type A Ag (NEGATIVE) Influenza Type B Ag (NEGATIVE) RSV (PCR) (Negative) SARS-CoV-2 (PCR) (NEGATIVE) 10/13/20 10/13/20 10/13/20 Range/Units 19:17 19:45 19:45 WBC (4.0-10.5) K/mm3 RBC (4.1-5.6) M/mm3 Hgb (12.5-18.0) gm/dl Hct (42-50) % MCV (78-100) fl MCH (26-32) pg MCHC (32-36) g/dl RDW (11.5-14.0) % Plt Count (150-450) K/mm3 MPV (7.5-11.0) fl Gran % (36.0-66.0) % Eos # (Auto) (0-0.5) Absolute Lymphs (auto) (1.0-4.6) Absolute Monos (auto) (0.0-1.3) Lymphocytes % (24.0-44.0) % Monocytes % (0.0-12.0) % Eosinophils % (0.00-5.0) % Basophils % (0.0-0.4) % Absolute Granulocytes (1.4-6.9) Basophils # (0-0.4) Sodium (137-145) mmol/L Potassium (3.5-5.1) mmol/L Chloride (98-107) mmol/L Carbon Dioxide (22-30) mmol/L Anion Gap (5-15) MEQ/L BUN (9-20) mg/dL Creatinine (0.66-1.25) mg/dL Estimated GFR ML/MIN Glucose (74-106) mg/dL POC Glucometer (74 to 106) mg/dL Hemoglobin A1c (4.5-6.0) % Lactic Acid 1.9 (0.4-2.0) Calcium (8.4-10.2) mg/dL Magnesium (1.6-2.3) mg/dL Total Bilirubin (0.2-1.3) mg/dL AST (17-59) U/L ALT (0-50) U/L Alkaline Phosphatase (38-126) U/L Troponin I 0.023 (0.000-0.034) ng/mL NT-Pro-B Natriuret Pep 830 (0-900) pg/mL Serum Total Protein (6.3-8.2) g/dL Albumin (3.5-5.0) g/dL Urine Color (YELLOW) Urine Appearance (CLEAR) Urine pH (5-6) Ur Specific [place] (1.005-1.025) Urine Protein (Negative) Urine Ketones (NEGATIVE) Urine Blood (0-5) Frantz/ul Urine Nitrite (NEGATIVE) Urine Bilirubin (NEGATIVE) Urine Urobilinogen (0-1) mg/dL Ur Leukocyte Esterase (NEGATIVE) Urine WBC (Auto) (0-5) /HPF Urine RBC (Auto) (0-2) /HPF U Epithel Cells (Auto) (FEW) /HPF Urine Bacteria (Auto) (NEGATIVE) /HPF Urine Culture Reflexed (NO) Urine Glucose (NEGATIVE) mg/dL Influenza Type A Ag (NEGATIVE) Influenza Type B Ag (NEGATIVE) RSV (PCR) (Negative) SARS-CoV-2 (PCR) (NEGATIVE) 10/13/20 10/13/20 10/14/20 Range/Units 21:11 23:10 00:59 WBC (4.0-10.5) K/mm3 RBC (4.1-5.6) M/mm3 Hgb (12.5-18.0) gm/dl Hct (42-50) % MCV (78-100) fl MCH (26-32) pg MCHC (32-36) g/dl RDW (11.5-14.0) % Plt Count (150-450) K/mm3 MPV (7.5-11.0) fl Gran % (36.0-66.0) % Eos # (Auto) (0-0.5) Absolute Lymphs (auto) (1.0-4.6) Absolute Monos (auto) (0.0-1.3) Lymphocytes % (24.0-44.0) % Monocytes % (0.0-12.0) % Eosinophils % (0.00-5.0) % Basophils % (0.0-0.4) % Absolute Granulocytes (1.4-6.9) Basophils # (0-0.4) Sodium (137-145) mmol/L Potassium (3.5-5.1) mmol/L Chloride (98-107) mmol/L Carbon Dioxide (22-30) mmol/L Anion Gap (5-15) MEQ/L BUN (9-20) mg/dL Creatinine (0.66-1.25) mg/dL Estimated GFR ML/MIN Glucose (74-106) mg/dL POC Glucometer 131 H (74 to 106) mg/dL Hemoglobin A1c (4.5-6.0) % Lactic Acid (0.4-2.0) Calcium (8.4-10.2) mg/dL Magnesium (1.6-2.3) mg/dL Total Bilirubin (0.2-1.3) mg/dL AST (17-59) U/L ALT (0-50) U/L Alkaline Phosphatase (38-126) U/L Troponin I 0.023 (0.000-0.034) ng/mL NT-Pro-B Natriuret Pep (0-900) pg/mL Serum Total Protein (6.3-8.2) g/dL Albumin (3.5-5.0) g/dL Urine Color (YELLOW) Urine Appearance (CLEAR) Urine pH (5-6) Ur Specific [place] (1.005-1.025) Urine Protein (Negative) Urine Ketones (NEGATIVE) Urine Blood (0-5) Frantz/ul Urine Nitrite (NEGATIVE) Urine Bilirubin (NEGATIVE) Urine Urobilinogen (0-1) mg/dL Ur Leukocyte Esterase (NEGATIVE) Urine WBC (Auto) (0-5) /HPF Urine RBC (Auto) (0-2) /HPF U Epithel Cells (Auto) (FEW) /HPF Urine Bacteria (Auto) (NEGATIVE) /HPF Urine Culture Reflexed (NO) Urine Glucose (NEGATIVE) mg/dL Influenza Type A Ag NEGATIVE (NEGATIVE) Influenza Type B Ag NEGATIVE (NEGATIVE) RSV (PCR) NEGATIVE (Negative) SARS-CoV-2 (PCR) NEGATIVE (NEGATIVE) 05/05/2510/14/20 10/14/20 Range/Units 02:20 04:30 04:30 WBC 5.3 (4.0-10.5) K/mm3 RBC 4.42 (4.1-5.6) M/mm3 Hgb 12.9 (12.5-18.0) gm/dl Hct 38.9 L (42-50) % MCV 88.0 (78-100) fl MCH 29.2 (26-32) pg MCHC 33.2 (32-36) g/dl RDW 13.5 (11.5-14.0) % Plt Count 228 (150-450) K/mm3 MPV 9.2 (7.5-11.0) fl Gran % 66.1 H (36.0-66.0) % Eos # (Auto) 0.13 (0-0.5) Absolute Lymphs (auto) 1.20 (1.0-4.6) Absolute Monos (auto) 0.45 (0.0-1.3) Lymphocytes % 22.5 L (24.0-44.0) % Monocytes % 8.4 (0.0-12.0) % Eosinophils % 2.4 (0.00-5.0) % Basophils % 0.6 (0.0-0.4) % Absolute Granulocytes 3.52 (1.4-6.9) Basophils # 0.03 (0-0.4) Sodium (137-145) mmol/L Potassium (3.5-5.1) mmol/L Chloride (98-107) mmol/L Carbon Dioxide (22-30) mmol/L Anion Gap (5-15) MEQ/L BUN (9-20) mg/dL Creatinine (0.66-1.25) mg/dL Estimated GFR ML/MIN Glucose (74-106) mg/dL POC Glucometer (74 to 106) mg/dL Hemoglobin A1c (4.5-6.0) % Lactic Acid (0.4-2.0) Calcium (8.4-10.2) mg/dL Magnesium (1.6-2.3) mg/dL Total Bilirubin (0.2-1.3) mg/dL AST (17-59) U/L ALT (0-50) U/L Alkaline Phosphatase (38-126) U/L Troponin I 0.023 0.027 (0.000-0.034) ng/mL NT-Pro-B Natriuret Pep (0-900) pg/mL Serum Total Protein (6.3-8.2) g/dL Albumin (3.5-5.0) g/dL Urine Color (YELLOW) Urine Appearance (CLEAR) Urine pH (5-6) Ur Specific [place] (1.005-1.025) Urine Protein (Negative) Urine Ketones (NEGATIVE) Urine Blood (0-5) Frantz/ul Urine Nitrite (NEGATIVE) Urine Bilirubin (NEGATIVE) Urine Urobilinogen (0-1) mg/dL Ur Leukocyte Esterase (NEGATIVE) Urine WBC (Auto) (0-5) /HPF Urine RBC (Auto) (0-2) /HPF U Epithel Cells (Auto) (FEW) /HPF Urine Bacteria (Auto) (NEGATIVE) /HPF Urine Culture Reflexed (NO) Urine Glucose (NEGATIVE) mg/dL Influenza Type A Ag (NEGATIVE) Influenza Type B Ag (NEGATIVE) RSV (PCR) (Negative) SARS-CoV-2 (PCR) (NEGATIVE) 10/14/20 10/14/20 10/14/20 Range/Units 04:30 05:00 07:26 WBC (4.0-10.5) K/mm3 RBC (4.1-5.6) M/mm3 Hgb (12.5-18.0) gm/dl Hct (42-50) % MCV (78-100) fl MCH (26-32) pg MCHC (32-36) g/dl RDW (11.5-14.0) % Plt Count (150-450) K/mm3 MPV (7.5-11.0) fl Gran % (36.0-66.0) % Eos # (Auto) (0-0.5) Absolute Lymphs (auto) (1.0-4.6) Absolute Monos (auto) (0.0-1.3) Lymphocytes % (24.0-44.0) % Monocytes % (0.0-12.0) % Eosinophils % (0.00-5.0) % Basophils % (0.0-0.4) % Absolute Granulocytes (1.4-6.9) Basophils # (0-0.4) Sodium 137 (137-145) mmol/L Potassium 3.5 (3.5-5.1) mmol/L Chloride 104 (98-107) mmol/L Carbon Dioxide 26 (22-30) mmol/L Anion Gap 9.7 (5-15) MEQ/L BUN 25 H (9-20) mg/dL Creatinine 1.46 H (0.66-1.25) mg/dL Estimated GFR 53.5 ML/MIN Glucose 132 H (74-106) mg/dL POC Glucometer 113 H (74 to 106) mg/dL Hemoglobin A1c 7.90 H (4.5-6.0) % Lactic Acid (0.4-2.0) Calcium 8.5 (8.4-10.2) mg/dL Magnesium (1.6-2.3) mg/dL Total Bilirubin 0.40 (0.2-1.3) mg/dL AST 18 (17-59) U/L ALT 22 (0-50) U/L Alkaline Phosphatase 97 (38-126) U/L Troponin I (0.000-0.034) ng/mL NT-Pro-B Natriuret Pep (0-900) pg/mL Serum Total Protein 6.1 L (6.3-8.2) g/dL Albumin 3.3 L (3.5-5.0) g/dL Urine Color (YELLOW) Urine Appearance (CLEAR) Urine pH (5-6) Ur Specific [place] (1.005-1.025) Urine Protein (Negative) Urine Ketones (NEGATIVE) Urine Blood (0-5) Frantz/ul Urine Nitrite (NEGATIVE) Urine Bilirubin (NEGATIVE) Urine Urobilinogen (0-1) mg/dL Ur Leukocyte Esterase (NEGATIVE) Urine WBC (Auto) (0-5) /HPF Urine RBC (Auto) (0-2) /HPF U Epithel Cells (Auto) (FEW) /HPF Urine Bacteria (Auto) (NEGATIVE) /HPF Urine Culture Reflexed (NO) Urine Glucose (NEGATIVE) mg/dL Influenza Type A Ag (NEGATIVE) Influenza Type B Ag (NEGATIVE) RSV (PCR) (Negative) SARS-CoV-2 (PCR) (NEGATIVE) 10/14/20 Range/Units 11:23 WBC (4.0-10.5) K/mm3 RBC (4.1-5.6) M/mm3 Hgb (12.5-18.0) gm/dl Hct (42-50) % MCV (78-100) fl MCH (26-32) pg MCHC (32-36) g/dl RDW (11.5-14.0) % Plt Count (150-450) K/mm3 MPV (7.5-11.0) fl Gran % (36.0-66.0) % Eos # (Auto) (0-0.5) Absolute Lymphs (auto) (1.0-4.6) Absolute Monos (auto) (0.0-1.3) Lymphocytes % (24.0-44.0) % Monocytes % (0.0-12.0) % Eosinophils % (0.00-5.0) % Basophils % (0.0-0.4) % Absolute Granulocytes (1.4-6.9) Basophils # (0-0.4) Sodium (137-145) mmol/L Potassium (3.5-5.1) mmol/L Chloride (98-107) mmol/L Carbon Dioxide (22-30) mmol/L Anion Gap (5-15) MEQ/L BUN (9-20) mg/dL Creatinine (0.66-1.25) mg/dL Estimated GFR ML/MIN Glucose (74-106) mg/dL POC Glucometer 114 H (74 to 106) mg/dL Hemoglobin A1c (4.5-6.0) % Lactic Acid (0.4-2.0) Calcium (8.4-10.2) mg/dL Magnesium (1.6-2.3) mg/dL Total Bilirubin (0.2-1.3) mg/dL AST (17-59) U/L ALT (0-50) U/L Alkaline Phosphatase (38-126) U/L Troponin I (0.000-0.034) ng/mL NT-Pro-B Natriuret Pep (0-900) pg/mL Serum Total Protein (6.3-8.2) g/dL Albumin (3.5-5.0) g/dL Urine Color (YELLOW) Urine Appearance (CLEAR) Urine pH (5-6) Ur Specific [place] (1.005-1.025) Urine Protein (Negative) Urine Ketones (NEGATIVE) Urine Blood (0-5) Frantz/ul Urine Nitrite (NEGATIVE) Urine Bilirubin (NEGATIVE) Urine Urobilinogen (0-1) mg/dL Ur Leukocyte Esterase (NEGATIVE) Urine WBC (Auto) (0-5) /HPF Urine RBC (Auto) (0-2) /HPF U Epithel Cells (Auto) (FEW) /HPF Urine Bacteria (Auto) (NEGATIVE) /HPF Urine Culture Reflexed (NO) Urine Glucose (NEGATIVE) mg/dL Influenza Type A Ag (NEGATIVE) Influenza Type B Ag (NEGATIVE) RSV (PCR) (Negative) SARS-CoV-2 (PCR) (NEGATIVE) Accuchecks Date 10/14/20 - Radiology Impressions Radiology Exams & Impressions: Radiology Procedures Category Date Time Status CERVICAL SPINE WO CONTRAST [CT] Stat Exams 10/13/20 17:24 Taken CHEST 1 VIEW (PORTABLE) Stat Exams 10/13/20 16:37 Completed HEAD WITHOUT CONTRAST [CT] Stat Exams 10/13/20 17:24 Taken - Other Procedures and Tests Respiratory Therapy 10/14/20 00:58 Oxygen Nasal Cannula 3 lpm Assessment/Plan (1) Hypotension Current Visit: Yes Status: Acute Qualifiers: Hypotension type: hypotension due to drug Qualified Code(s): I95.2 - Hypotension due to drugs Assessment & Plan: Chief Complaint Diagnosis Hypotension/shock Allergies Allergy/AdvReac Type Severity Reaction Status Date / Time No Known Drug Allergies Allergy Verified 10/13/20 23:33 Vital Signs (Last 24 hours) Temp Pulse Resp BP Pulse Ox 10/14/20 09:45 94 L 10/14/20 07:53 98.6 F 82 11 L 124/69 96 10/14/20 04:00 98.3 F 76 18 126/69 96 10/14/20 01:00 90 L 10/14/20 00:30 73 129/73 10/14/20 00:10 98 F 72 16 81/48 96 10/13/20 23:00 72 16 114/80 95 10/13/20 22:12 71 17 113/69 95 10/13/20 21:00 71 18 102/59 95 10/13/20 20:05 66 18 94/60 97 10/13/20 20:03 98 10/13/20 19:48 70 16 91/55 97 10/13/20 19:00 73 18 97/53 96 10/13/20 18:00 64 16 105/56 95 10/13/20 17:30 63 13 139/59 96 10/13/20 16:29 98.2 F 74 18 104/67 98 Home Medications Medication Instructions Recorded Confirmed Last Taken Type Amlodipine Besylate 10 mg PO DAILY 10/13/20 10/13/20 10/13/20 13:30 History Clonidine HCl 0.1 mg [Catapres 0.1 mg PO BID 10/13/20 10/13/20 10/13/20 13:30 History 0.1 MG] Ergocalciferol (Vitamin D2) 50,000 unit PO UD 10/13/20 10/13/20 10/11/20 13:30 History [Vitamin D] Fluticasone Propionate [Flovent 50 mcg IH DAILY 10/13/20 10/13/20 10/13/20 13:30 History Diskus] Insulin Glargine,Hum.rec.anlog 45 units SQ QHS 10/13/20 10/14/20 10/12/20 22:00 History [Mario John U-100] Isosorbide Mononitrate [Isosorbide 60 mg PO DAILY 10/13/20 10/13/20 10/13/20 13:30 History Mononitrate ER] Lisinopril 40 mg PO DAILY 10/13/20 10/13/20 10/13/20 13:30 History Meclizine HCl 12.5 mg PO Q8H PRN PRN 10/13/20 10/13/20 10/13/20 13:30 History Melatonin 10 mg PO QHS 10/13/20 10/13/20 10/12/20 22:00 History Polyethylene Glycol [Polyox 17 gm PO DAILY PRN PRN 10/13/20 10/13/20 Unknown History [id number]] Rivaroxaban [Xarelto] 20 mg PO DAILY 10/13/20 10/13/20 10/13/20 13:30 History Semaglutide [Ozempic] 0.05 mg SQ WEEKLY 10/13/20 10/14/20 10/11/20 History Spironolact/Hydrochlorothiazid 1 tab PO DAILY 10/13/20 10/13/20 10/13/20 13:30 History [Spironolactone-Hctz 25-25 Tab] Current Medications Generic Name Dose Route Start Last Admin Trade Name Freq PRN Reason Stop Dose Admin Acetaminophen 650 mg 10/13/20 23:26 10/14/20 01:09 Tylenol 325 Mg PO 11/12/20 23:25 650 mg Q4H PRN PRN Administration PAIN AND/OR FEVER Gabapentin 300 mg 10/14/20 10:00 10/14/20 09:59 Neurontin 300 Mg PO 11/13/20 09:59 300 mg TID DENISE Administration Potassium Chloride/Sodium Chloride 1,000 mls @ 125 mls/hr 10/13/20 23:26 10/14/20 08:55 Sodium Chloride 0.9% W/ 20 Meq Kcl/Liter IV 11/12/20 23:25 125 mls/hr .Q8H DENISE Administration Levofloxacin/Dextrose 500 mg in 100 mls @ 100 mls/hr 10/14/20 22:00 Levofloxacin 500mg/100ml D5w IV 11/13/20 21:59 QPM DENISE Insulin Glargine 45 unit 10/14/20 00:52 10/14/20 01:14 Lantus Insulin SQ 11/13/20 00:51 45 unit HS DENISE Administration Insulin Human Lispro 0 unit 10/13/20 23:26 Humalog SQ 11/12/20 23:25 UD PRN HYPERGLYCEMIA Levetiracetam 500 mg 10/14/20 00:47 10/14/20 09:59 Keppra 500 Mg PO 11/13/20 00:46 500 mg BID DENISE Administration Ondansetron HCl 4 mg 10/13/20 23:26 Zofran 4 Mg/2 Ml Vial IV 11/12/20 23:25 Q6H PRN PRN NAUSEA/VOMITING Pantoprazole Sodium 40 mg 10/14/20 10:00 10/14/20 10:01 Protonix 40 Mg Iv IV 11/13/20 09:59 40 mg Q24H10 DENISE Administration Simvastatin 40 mg 10/14/20 22:00 Zocor 20mg PO 11/13/20 00:44 HS DENISE Discontinued Medications Generic Name Dose Route Start Last Admin Trade Name Maria Victoria PRN Reason Stop Dose Admin Albuterol/Ipratropium 3 ml 10/13/20 23:26 Duoneb 0.5-3 Mg/3 Ml Neb IH 11/12/20 23:25 Q4HPRN PRN SHORTNESS OF BREATH/WHEEZING Diphenhydramine HCl 25 mg 10/13/20 17:24 10/13/20 18:50 Benadryl 50 Mg/Ml IV 10/13/20 17:25 25 mg STAT ONE Administration Diphenhydramine HCl Confirm 10/13/20 18:46 Benadryl 50 Mg/Ml Administered 10/13/20 18:47 Dose 50 mg .ROUTE .STK-MED ONE Sodium Chloride 1,000 mls @ 999 mls/hr 10/13/20 16:37 10/13/20 17:47 Sodium Chloride 0.9% 1000 Ml IV 10/13/20 17:37 Infused .Q1H1M STA Infusion Sodium Chloride Confirm 10/13/20 16:45 Sodium Chloride 0.9% 1000 Ml Administered 10/13/20 16:46 Dose 1,000 mls @ ud .ROUTE .STK-MED ONE Levofloxacin/Dextrose 500 mg in 100 mls @ 100 mls/hr 10/13/20 19:44 10/13/20 22:35 Levofloxacin 500mg/100ml D5w IV 10/13/20 20:43 Infused STAT STA Infusion Sodium Chloride Confirm 10/13/20 19:46 Sodium Chloride 0.9% 1000 Ml Administered 10/13/20 19:47 Dose 1,000 mls @ ud .ROUTE .STK-MED ONE Levofloxacin/Dextrose Confirm 10/13/20 19:47 Levofloxacin 500mg/100ml D5w Administered 10/13/20 19:48 Dose 500 mg in 100 mls @ ud IV .STK-MED ONE Sodium Chloride 1,000 mls @ 999 mls/hr 10/13/20 19:50 10/13/20 22:36 Sodium Chloride 0.9% 1000 Ml IV 10/13/20 20:50 Infused .Q1H1M STA Infusion Metoclopramide HCl 10 mg 10/13/20 17:24 10/13/20 18:50 Reglan 10 Mg/2 Ml IV 10/13/20 17:25 10 mg STAT ONE Administration Metoclopramide HCl Confirm 10/13/20 18:46 Reglan 10 Mg/2 Ml Administered 10/13/20 18:47 Dose 10 mg .ROUTE .STK-MED ONE Simvastatin 80 mg 10/14/20 00:45 10/14/20 01:09 Zocor 20mg PO 11/13/20 00:44 80 mg HS DENISE Administration Intake & Output (Last 24 hours) 10/11/20 10/12/20 10/13/20 10/14/20 11:59 11:59 11:59 11:59 Intake Total 2103 Output Total 2350 Balance -247 Weight 103.9 kg Microbiology Results (Last 24 hours) 10/13/20 17:07 Blood Blood Culture Gram Stain - Pending 10/13/20 17:07 Blood Blood Culture - Pending 10/13/20 17:04 Blood Blood Culture Gram Stain - Pending 10/13/20 17:04 Blood Blood Culture - Pending Laboratory Results (Last 24 hours) 10/14/20 10/14/20 10/14/20 11:23 07:26 05:00 WBC RBC Hgb Hct MCV MCH MCHC RDW Plt Count MPV Gran % Eos # (Auto) Absolute Lymphs (auto) Absolute Monos (auto) Lymphocytes % Monocytes % Eosinophils % Basophils % Absolute Granulocytes Basophils # Sodium Potassium Chloride Carbon Dioxide Anion Gap BUN Creatinine Estimated GFR Glucose POC Glucometer 114 H 113 H Hemoglobin A1c 7.90 H Lactic Acid Calcium Magnesium Total Bilirubin AST ALT Alkaline Phosphatase Troponin I NT-Pro-B Natriuret Pep Serum Total Protein Albumin Urine Color Urine Appearance Urine pH Ur Specific [place] Urine Protein Urine Ketones Urine Blood Urine Nitrite Urine Bilirubin Urine Urobilinogen Ur Leukocyte Esterase Urine WBC (Auto) Urine RBC (Auto) U Epithel Cells (Auto) Urine Bacteria (Auto) Urine Culture Reflexed Urine Glucose Influenza Type A Ag Influenza Type B Ag RSV (PCR) SARS-CoV-2 (PCR) 10/14/20 10/14/20 10/14/20 04:30 04:30 04:30 WBC 5.3 RBC 4.42 Hgb 12.9 Hct 38.9 L MCV 88.0 MCH 29.2 MCHC 33.2 RDW 13.5 Plt Count 228 MPV 9.2 Gran % 66.1 H Eos # (Auto) 0.13 Absolute Lymphs (auto) 1.20 Absolute Monos (auto) 0.45 Lymphocytes % 22.5 L Monocytes % 8.4 Eosinophils % 2.4 Basophils % 0.6 Absolute Granulocytes 3.52 Basophils # 0.03 Sodium 137 Potassium 3.5 Chloride 104 Carbon Dioxide 26 Anion Gap 9.7 BUN 25 H Creatinine 1.46 H Estimated GFR 53.5 Glucose 132 H POC Glucometer Hemoglobin A1c Lactic Acid Calcium 8.5 Magnesium Total Bilirubin 0.40 AST 18 ALT 22 Alkaline Phosphatase 97 Troponin I 0.027 NT-Pro-B Natriuret Pep Serum Total Protein 6.1 L Albumin 3.3 L Urine Color Urine Appearance Urine pH Ur Specific [place] Urine Protein Urine Ketones Urine Blood Urine Nitrite Urine Bilirubin Urine Urobilinogen Ur Leukocyte Esterase Urine WBC (Auto) Urine RBC (Auto) U Epithel Cells (Auto) Urine Bacteria (Auto) Urine Culture Reflexed Urine Glucose Influenza Type A Ag Influenza Type B Ag RSV (PCR) SARS-CoV-2 (PCR) 10/14/20 10/14/20 10/13/20 02:20 00:59 23:10 WBC RBC Hgb Hct MCV MCH MCHC RDW Plt Count MPV Gran % Eos # (Auto) Absolute Lymphs (auto) Absolute Monos (auto) Lymphocytes % Monocytes % Eosinophils % Basophils % Absolute Granulocytes Basophils # Sodium Potassium Chloride Carbon Dioxide Anion Gap BUN Creatinine Estimated GFR Glucose POC Glucometer 131 H Hemoglobin A1c Lactic Acid Calcium Magnesium Total Bilirubin AST ALT Alkaline Phosphatase Troponin I 0.023 0.023 NT-Pro-B Natriuret Pep Serum Total Protein Albumin Urine Color Urine Appearance Urine pH Ur Specific [place] Urine Protein Urine Ketones Urine Blood Urine Nitrite Urine Bilirubin Urine Urobilinogen Ur Leukocyte Esterase Urine WBC (Auto) Urine RBC (Auto) U Epithel Cells (Auto) Urine Bacteria (Auto) Urine Culture Reflexed Urine Glucose Influenza Type A Ag Influenza Type B Ag RSV (PCR) SARS-CoV-2 (PCR) 10/13/20 10/13/20 10/13/20 21:11 19:45 19:45 WBC RBC Hgb Hct MCV MCH MCHC RDW Plt Count MPV Gran % Eos # (Auto) Absolute Lymphs (auto) Absolute Monos (auto) Lymphocytes % Monocytes % Eosinophils % Basophils % Absolute Granulocytes Basophils # Sodium Potassium Chloride Carbon Dioxide Anion Gap BUN Creatinine Estimated GFR Glucose POC Glucometer Hemoglobin A1c Lactic Acid Calcium Magnesium Total Bilirubin AST ALT Alkaline Phosphatase Troponin I 0.023 NT-Pro-B Natriuret Pep 830 Serum Total Protein Albumin Urine Color Urine Appearance Urine pH Ur Specific [place] Urine Protein Urine Ketones Urine Blood Urine Nitrite Urine Bilirubin Urine Urobilinogen Ur Leukocyte Esterase Urine WBC (Auto) Urine RBC (Auto) U Epithel Cells (Auto) Urine Bacteria (Auto) Urine Culture Reflexed Urine Glucose Influenza Type A Ag NEGATIVE Influenza Type B Ag NEGATIVE RSV (PCR) NEGATIVE SARS-CoV-2 (PCR) NEGATIVE 10/13/20 10/13/20 10/13/20 19:17 17:25 17:04 WBC RBC Hgb Hct MCV MCH MCHC RDW Plt Count MPV Gran % Eos # (Auto) Absolute Lymphs (auto) Absolute Monos (auto) Lymphocytes % Monocytes % Eosinophils % Basophils % Absolute Granulocytes Basophils # Sodium Potassium Chloride Carbon Dioxide Anion Gap BUN Creatinine Estimated GFR Glucose POC Glucometer Hemoglobin A1c Lactic Acid 1.9 Calcium Magnesium 1.9 Total Bilirubin AST ALT Alkaline Phosphatase Troponin I 0.028 NT-Pro-B Natriuret Pep Serum Total Protein Albumin Urine Color Urine Appearance Urine pH Ur Specific [place] Urine Protein Urine Ketones Urine Blood Urine Nitrite Urine Bilirubin Urine Urobilinogen Ur Leukocyte Esterase Urine WBC (Auto) Urine RBC (Auto) U Epithel Cells (Auto) Urine Bacteria (Auto) Urine Culture Reflexed Urine Glucose Influenza Type A Ag Influenza Type B Ag RSV (PCR) SARS-CoV-2 (PCR) 10/13/20 10/13/20 10/13/20 17:04 17:04 16:49 WBC 6.0 RBC 4.67 Hgb 13.8 Hct 40.8 L MCV 87.4 MCH 29.6 MCHC 33.8 RDW 13.4 Plt Count 251 MPV 9.3 Gran % 71.3 H Eos # (Auto) 0.11 Absolute Lymphs (auto) 1.05 Absolute Monos (auto) 0.51 Lymphocytes % 17.6 L Monocytes % 8.6 Eosinophils % 1.8 Basophils % 0.7 Absolute Granulocytes 4.25 Basophils # 0.04 Sodium 132 L Potassium 3.7 Chloride 97 L Carbon Dioxide 25 Anion Gap 12.9 BUN 26 H Creatinine 1.43 H Estimated GFR 54.8 Glucose 307 H POC Glucometer Hemoglobin A1c Lactic Acid Calcium 8.5 Magnesium Total Bilirubin 0.50 AST 20 ALT 25 Alkaline Phosphatase 120 Troponin I NT-Pro-B Natriuret Pep Serum Total Protein 6.6 Albumin 3.6 Urine Color STRAW Urine Appearance CLEAR Urine pH 6.0 Ur Specific [place] 1.011 Urine Protein 30 Urine Ketones NEGATIVE Urine Blood SMALL Urine Nitrite NEGATIVE Urine Bilirubin NEGATIVE Urine Urobilinogen NEGATIVE Ur Leukocyte Esterase NEGATIVE Urine WBC (Auto) NONE Urine RBC (Auto) NONE U Epithel Cells (Auto) NONE Urine Bacteria (Auto) NONE Urine Culture Reflexed NO Urine Glucose >=500 Influenza Type A Ag Influenza Type B Ag RSV (PCR) SARS-CoV-2 (PCR) 10/13/20 16:37 WBC RBC Hgb Hct MCV MCH MCHC RDW Plt Count MPV Gran % Eos # (Auto) Absolute Lymphs (auto) Absolute Monos (auto) Lymphocytes % Monocytes % Eosinophils % Basophils % Absolute Granulocytes Basophils # Sodium Potassium Chloride Carbon Dioxide Anion Gap BUN Creatinine Estimated GFR Glucose POC Glucometer Hemoglobin A1c Lactic Acid 2.3 H Calcium Magnesium Total Bilirubin AST ALT Alkaline Phosphatase Troponin I NT-Pro-B Natriuret Pep Serum Total Protein Albumin Urine Color Urine Appearance Urine pH Ur Specific [place] Urine Protein Urine Ketones Urine Blood Urine Nitrite Urine Bilirubin Urine Urobilinogen Ur Leukocyte Esterase Urine WBC (Auto) Urine RBC (Auto) U Epithel Cells (Auto) Urine Bacteria (Auto) Urine Culture Reflexed Urine Glucose Influenza Type A Ag Influenza Type B Ag RSV (PCR) SARS-CoV-2 (PCR) Orders (Last 24 hours) Category Date Time Status Bedrest ROUTINE Activity 10/13/20 23:26 Active Up With Assistance ROUTINE Activity 10/13/20 23:26 Active Code Status Order ROUTINE Care 10/13/20 23:26 Active EKG-ER Only STAT Care 10/13/20 16:37 Completed Fall Protocol Q1H Care 10/13/20 23:26 Active IV Care Q6H Care 10/13/20 23:26 Active IV Insertion STAT Care 10/13/20 16:37 Completed NPO (ED) STAT Care 10/13/20 16:37 Completed POCT Glucose Check ACHS Care 10/13/20 23:[address] in Observation ROUTINE Care 10/13/20 23:26 Active James Ramirez, Apply ROUTINE Care 10/13/20 23:26 Active Telemetry q6h Care 10/13/20 23:21 Active Weight,Daily 0600 Care 10/13/20 23:26 Active CERVICAL SPINE WO CONTRAST [CT] Stat Exams 10/13/20 17:24 Taken CHEST 1 VIEW (PORTABLE) Stat Exams 10/13/20 16:37 Completed HEAD WITHOUT CONTRAST [CT] Stat Exams 10/13/20 17:24 Taken BLOOD CULTURE Stat Lab 10/13/20 17:07 Received BNP [NT PRO BNP] Stat Lab 10/13/20 19:45 Completed CBC W DIFF AM.LAB Lab 10/14/20 04:30 Completed CBC W DIFF Stat Lab 10/13/20 17:04 Completed CMP AM.LAB Lab 10/14/20 04:30 Completed CMP Stat Lab 10/13/20 17:04 Completed HEMOGLOBIN A1C Urgent Lab 10/14/20 05:00 Completed Lactic Acid Stat Lab 10/13/20 16:37 Completed Lactic Acid Stat Lab 10/13/20 19:17 Completed MAG [MAGNESIUM] Stat Lab 10/13/20 17:25 Completed POCT GLUCOSE Stat Lab 10/14/20 00:59 Completed POCT GLUCOSE Stat Lab 10/14/20 07:26 Completed POCT GLUCOSE Stat Lab 10/14/20 11:23 Completed TROPONIN Q3H Lab 10/13/20 17:04 Completed TROPONIN Q3H Lab 10/13/20 19:45 Completed TROPONIN Q3H Lab 10/13/20 23:10 Completed TROPONIN Q3H Lab 10/14/20 02:20 Completed TROPONIN Q3H Lab 10/14/20 04:30 Completed UA W/RFX UR CULTURE Stat Lab 10/13/20 16:49 Completed Acetaminophen 325 mg [Tylenol 325 mg] Med 10/13/20 23:26 Active 650 mg PO Q4H PRN PRN Albuterol/Ipratropium 3ml Neb* [DUONEB 0.5-3 MG/3 ml Med 10/13/20 23:26 Discontinued Neb] 3 ml IH Q4HPRN PRN Diphenhydramine HCl 50 mg/ml [Benadryl 50 mg/ml] Med 10/13/20 17:24 Discontinued 25 mg IV STAT ONE Diphenhydramine HCl 50 mg/ml [Benadryl 50 mg/ml] Med 10/13/20 18:46 Discontinued 50 mg .ROUTE .STK-MED ONE Gabapentin 300 mg [Neurontin 300 mg] Med 10/14/20 10:00 Active 300 mg PO TID Insulin Glargine [Lantus Insulin] Med 10/14/20 00:52 Active 45 unit SQ HS Insulin Lispro [Humalog] Med 10/13/20 23:26 Active See Dose Instructions SQ UD PRN Levetiracetam [Keppra 500 mg ] Med 10/14/20 00:47 Active 500 mg PO BID Levofloxacin [Levofloxacin 500MG/100ML D5W] Med 10/14/20 22:00 Active 500 mg in 100 ml IV QPM Levofloxacin [Levofloxacin 500MG/100ML D5W] Med 10/13/20 19:44 Discontinued 500 mg in 100 ml IV STAT Levofloxacin [Levofloxacin 500MG/100ML D5W] Med 10/13/20 19:47 Discontinued 500 mg in 100 ml IV UD Metoclopramide HCl 10 mg/2 ml* [Reglan 10 MG/2 ML] Med 10/13/20 18:46 Discontinued 10 mg .ROUTE .STK-MED ONE Metoclopramide HCl 10 mg/2 ml* [Reglan 10 MG/2 ML] Med 10/13/20 17:24 Discontinued 10 mg IV STAT ONE NaCl 0.9% 1000 ml + KCl 20 Meq [Sodium Chloride 0.9% W/ Med 10/13/20 23:26 Active 20 mEq KCl/LITER] 1,000 ml IV 125 mls/hr NaCl 0.9% 1000 ml [Sodium Chloride 0.9% 1000 ML] 1,000 Med 10/13/20 16:45 Discontinued ml .ROUTE UD NaCl 0.9% 1000 ml [Sodium Chloride 0.9% 1000 ML] 1,000 Med 10/13/20 19:46 Discontinued ml .ROUTE UD NaCl 0.9% 1000 ml [Sodium Chloride 0.9% 1000 ML] 1,000 Med 10/13/20 16:37 Discontinued ml IV 999 mls/hr NaCl 0.9% 1000 ml [Sodium Chloride 0.9% 1000 ML] 1,000 Med 10/13/20 19:50 Discontinued ml IV 999 mls/hr Ondansetron HCl 4 mg/2 ml [Zofran 4 MG/2 ML VIAL] Med 10/13/20 23:26 Active 4 mg IV Q6H PRN PRN Pantoprazole 40 mg [Protonix 40 mg IV] Med 10/14/20 10:00 Active 40 mg IV Q24H10 Simvastatin 20Mg [Zocor 20Mg] Med 10/14/20 22:00 Active 40 mg PO HS Simvastatin 20Mg [Zocor 20Mg] Med 10/14/20 00:45 Discontinued 80 mg PO HS Oxygen Nasal Cannula 3 lpm RT 10/14/20 00:58 Active Pulse Oximetry .spot check RT 10/14/20 00:59 Active Patient Care Notes (Last 24 hours) 10/14/20 11:15 Case Management Note by Mayte Heard REFERRAL SENT TO [facility] AT THIS TIME FOR ACO Initialized on 10/14/20 11:15 - END OF NOTE Code(s): I95.9 - HYPOTENSION, UNSPECIFIED
[2020-10-14] MEDS ORDERED: NON-FORMULARY ITEM (Meclizine Hcl [Meclizine Hcl] 12.5 MG) PO PRN (12:39)
[2020-10-14] MEDS ORDERED: POLYETHYLENE GLYCOL 17 GM PO PRN (12:39)
[2020-10-14] MEDS ORDERED: SEMAGLUTIDE SQ SCH (12:45)
[2020-10-14] MEDS ORDERED: Miralax Powder 17GM PACKET PO PRN (12:48)
[2020-10-14] MEDS ORDERED: ANTIVERT 25 MG PO PRN (12:48)
[2020-10-14] MEDS ORDERED: COREG 12.5 MG PO SCH (13:00)
[2020-10-14] MEDS ORDERED: Aldactone 25 MG PO SCH (13:00)
[2020-10-14] MEDS ORDERED: MEDICATION INTERVENTION PO SCH ×2 (13:00→13:15)
[2020-10-14] MEDS ORDERED: MEDICATION INTERVENTION MC SCH ×2 (13:00→13:15)
[2020-10-14] MEDS ORDERED: Catapres 0.1 MG PO SCH (13:00)
[2020-10-14] MEDS ORDERED: Zestril 20 MG PO SCH (13:00)
[2020-10-14] MEDS ORDERED: hydroDIURIL 25 MG PO SCH (13:00)
[2020-10-14] MEDS ORDERED: ECOTRIN 81 MG PO SCH (13:00)
[2020-10-14] MEDS ORDERED: Imdur 60MG PO SCH (13:00)
[2020-10-14 16:37] VITALS: BP 154/72; PULSE 81; O2SAT 95
[2020-10-14] MEDS ORDERED: NORVASC 5 MG PO SCH (22:00)
[2020-10-14] MEDS ORDERED: Levofloxacin 500MG/100ML D5W 500 MG/100 ML BAG IV SCH (22:00)
[2020-10-14] MEDS ORDERED: NON-FORMULARY ITEM (Melatonin [Melatonin] 10 MG) PO SCH (22:00)
[2020-10-14] MEDS ORDERED: XARELTO 10 MG TABLET PO SCH (22:00)
--- NOTE | 2020-10-14 22:24 | XRAY ---
Exam: CT of the head without IV contrast from 10/13/2020. Comparison: CT of the head without IV contrast from 09/23/2020. Indication: 54-year-old male with injury/trauma, patient fell, had syncopal episode today and hit frontal area. Technique: Non-IV contrast axial images were obtained through the brain. Reconstructed coronal and sagittal images were created and reviewed. Findings: The ventricles appear of unremarkable size. No focal mass effect or midline shift is seen. Some subtle subcortical white matter changes are seen, likely reflecting mild chronic microvascular disease. A discrete low attenuation infarct is not seen. No acute intracranial bleed or abnormal extra-axial fluid collection is seen. Cortical sulci appear unremarkable. The calvarium of the skull appears intact. No fracture is identified. Vascular calcification is seen within the distal vertebral arteries and the carotid siphons bilaterally. There appears to be a stable oval soft tissue density within the lower posterior left maxillary sinus which may represent a retention cyst or polyp. Minimal mucosal thickening is seen at the posterior aspect of the right maxillary sinus. The remainder of the paranasal sinuses appears clear. The mastoid sinuses are well aerated without effusion. Within the left side of the vertex of the scalp, there is a 1 cm benign lesion which probably represents a calcified sebaceous cyst. This is unchanged. Within the upper lateral left scalp, there is a benign appearing soft tissue lesion containing significant calcium measuring 1.8 cm in length and about 1.25 cm in width which likely represents a calcified sebaceous cyst. This is similar to 09/23/2020. In addition, there is a probable 1.5 cm x 1.2 cm oval-shaped sebaceous cyst with minimal internal calcium within the left occipital region. This is unchanged as well. Impression: 1. No acute intracranial bleed or other acute intracranial abnormality is seen. 2. I believe there is some mild subcortical white matter changes, likely reflecting mild chronic small vessel ischemic disease. 3. There are at least 3 benign scalp lesions on the left which probably represent partially calcified sebaceous cysts.
--- NOTE | 2020-10-14 22:32 | XRAY ---
Exam: CT of the cervical spine without IV contrast from 10/13/2020. Comparison: None. Indication: 54-year-old male fell today; complains of neck pain. Technique: Non-IV contrast axial images were obtained through the cervical spine. Reconstructed coronal and sagittal images were created and reviewed. Findings: There is mild reversal the normal cervical lordosis within the lower cervical spine. This could be positional or due to spasm. I see no acute fracture, AP subluxation, or prevertebral soft tissue swelling. There is at least moderate degenerative disc disease at C6-C7 manifested by moderate interspace narrowing, minimal vacuum disc phenomena, and anterior and posterior vertebral endplate spurs. I also note mild degenerative disc disease at C4-C5 and minimal degenerative disc disease at C5-C6. The facet joints reveal no jumped or perched facets. Mild anterior vertebral endplate spurring is seen from C3-C4 through C6-C7. The C1-C2 relationship appears unremarkable. No cervical ribs are seen. Moderate degenerative changes of the C6-C7 uncovertebral joints are seen bilaterally. Only mild degenerative changes of the C4-C5 and C5-C6 uncovertebral joints are seen. I see no evidence of central canal stenosis or significant neural foraminal stenosis. Soft tissues of the neck appear unremarkable. The thyroid gland appears grossly unremarkable. The visualized lung apices appear clear. Impression: 1. No acute cervical spine fracture or AP subluxation is seen. 2. Reversal of normal lower cervical lordosis - positional versus spasm. 3. Mild to moderate multilevel degenerative disc disease and degenerative joint disease, most pronounced at C6/C7.
[2020-10-15] MEDS ORDERED: NON-FORMULARY ITEM (Rivaroxaban [Xarelto] 20 MG) PO SCH (10:00)
[2020-10-15] MEDS ORDERED: [UNRECOGNIZED DRUG - OTHER] PO SCH (10:00)
[2020-10-15] MEDS ORDERED: NON-FORMULARY ITEM (Lisinopril [Lisinopril] 40 MG) PO SCH (10:00)
[2020-10-15] MEDS ORDERED: NON-FORMULARY ITEM (Amlodipine Besylate [Amlodipine Besylate] 10 MG) PO SCH (10:00)
[2020-10-15] MEDS ORDERED: NON-FORMULARY ITEM (Empagliflozin [Jardiance] 25 MG) PO SCH (10:00)
[2020-10-15] MEDS ORDERED: NON-FORMULARY ITEM (Fluticasone Propionate [Flovent Diskus] 50 MCG) IH SCH (10:00)
[2020-10-18] MEDS ORDERED: VITAMIN D2 PO SCH (10:00)
== END 2020-10-14 15:30 | disposition home or self-care (01) ==
LOC: ED 16:22 → MED SURG 23:21
PROVIDERS: ADMIT General Practice; ATTEND General Practice
DX: I95.9 Hypotension, unspecified (principal); R53.1 Weakness; E11.9 Type 2 diabetes mellitus without complications; I10 Essential (primary) hypertension; E78.5 Hyperlipidemia, unspecified; M54.2 Cervicalgia; R42 Dizziness and giddiness; R07.9 Chest pain, unspecified; Z79.899 Other long term (current) drug therapy; E78.00 Pure hypercholesterolemia, unspecified; G47.30 Sleep apnea, unspecified; Z20.828 Contact with and (suspected) exposure to other viral communicable diseases
CPT/HCPCS: 0241U; 36415; 70450; 71045; 72125; 80053; 81001; 82947; 83036; 83605; 83735; 83880; 84484; 85025; 87040; 93005; 93268; 94760; 96360; 96365; 96366; 96374; 96375; 99285; 99291; G0378; J1200; J1956; A9270-GY

== ENCOUNTER 2022-09-14 13:56 | Observation (INO) | payer OTHER ==
[2022-09-14] MEDS ORDERED: MORPHINE SULFATE 4 MG INJ IV ONE (14:53)
[2022-09-14] MEDS ORDERED: Zofran 4 MG/2 ML VIAL IV ONE (14:53)
[2022-09-14] MEDS ORDERED: Zofran 4 MG/2 ML VIAL ONE (14:58)
[2022-09-14] MEDS ORDERED: MORPHINE SULFATE 4 MG INJ ONE (14:59)
[2022-09-14] MEDS ORDERED: Sodium Chloride 0.9% 1000 ML 1,000 ML ONE (14:59)
[2022-09-14] MEDS ORDERED: Sodium Chloride 0.9% 1000 ML 1,000 ML IV SCH (15:00)
[2022-09-14 15:03] LABS: Absolute Neutrophil Ct (ANC) 3.17 x10^3/uL (1.4-6.9); BASOPHIL % 0.7 % (0.0-0.4); Basophil (Absolute #) 0.03 x10^3/uL (0-0.4); Eosinophil % 1.2 % (0.00-5.0); Eosinophil (Absolute #) 0.05 x10^3/uL (0-0.5); Hematocrit 38.3 % (42-50); Hemoglobin 12.5 g/dL (12.5-18.0); IMMATURE GRAN # 0.02 x10^3u/L (0.00-0.03); IMMATURE GRAN % 0.5 % (0.00-0.4); Lymphocyte (Absolute #) 0.56 x10^3/uL (1.0-4.6); Lymphocytes % 13.3 % (24.0-44.0); Mean Cell Volume 86.3 fL (78-100); Mean Corpuscular Hemoglobin 28.2 pg (26-32); Mean Corpuscular Hgb Concent. 32.6 g/dL (32-36); Mean Platelet Volume 9.2 fL (7.5-11.0); Monocyte (Absolute #) 0.38 x10^3/uL (0.0-1.3); Neutrophil % 75.3 % (36.0-66.0); Platelet Count 287 x10^3/uL (150-450); Red Blood Count 4.44 x10^6/uL (4.1-5.6); Red Cell Distribution Width 15.5 % (11.5-14.0); White Blood Count 4.2 x10^3/uL (4.0-10.5)
[2022-09-14 15:10] LABS: ALBUMIN 3.8 g/dL (3.5-5.0); ANION GAP 15.7 MEQ/L (5-15); BILIRUBIN,TOTAL 0.4 mg/dL (0.2-1.3); Calcium 8.9 mg/dL (8.4-10.2); Creatinine 1 1.54 mg/dL (0.66-1.25); EST GLOMERULAR FILTRATION RATE 49.9 ML/MIN; Potassium 4.8 mmol/L (3.5-5.1); Total Protein 6.9 g/dL (6.3-8.2)
[2022-09-14 15:12] LABS: Appearance Clear (Clear); Bacteria None Seen /HPF (None Seen); Bilirubin Negative (Negative); Blood Negative (Negative); Epithelial Cells None Seen /HPF (None Seen); Glucose, Urine >=1000 mg/dL (Negative); Hyaline Casts NONE SEEN /LPF (0-2); Ketones Negative (Negative); Leukocyte Esterase Negative (Negative); Nitrite Negative (Negative); Ph 5.5 (4.6-8.0); Protein,Urine Dip Trace (Negative); RBC 0-2 /HPF (0-5); Specific Gravity 1.025 (1.005-1.030); Urobilinogen 0.2 mg/dL (0.2); WBC 0-2 /HPF (0-5)
[2022-09-14 15:14] LABS: ADD URINE CULTURE? NO (NO)
--- NOTE | 2022-09-14 15:20 | ERPHSYRPT ---
- History of Present Illness Time Seen by Provider: 09/14/22 15:18 Historian: patient Exam Limitations: no limitations Patient Subjective Stated Complaint: pain to left side abdomen and left side back which started a few days ago but has progressively gotten worse over the last 12 hours Triage Nursing Assessment: Patient presents with c/o left side abdominal pain and left side posterior back pain rating it 10/10 at this time. Patients denies taking any pain medication prior to coming to ED besides a lidocaine patch on his lower back. Patient also reports n/v/d and a slight headache. Bowel sounds active x 4 quads, pain with palpation to left upper and lower quad, pain with palpation to left lower posterior back. Physician History: Patient is a 56-year-old male presents to our ED for evaluation of left sided abdominal pain that started approximately 2 days ago. Pain is gotten progressively worse more so over the past 12 hours. Pain described as an ache that is localized. No radiation. Pain worse with palpation. Pain improved somewhat with rest. Pain rated 10 out of 10. Pain associate with nausea vomi ting and diarrhea. No fever. No trauma. Symptoms are progressive. Patient denies history of the same. He voices no other complaints concerns at this time. Portions of this note were created with voice recognition technology. There may be grammatical, spelling, punctuation or sound alike errors Timing/Duration: day(s) Activities at Onset: none (2 days) Quality: aching Abdominal Pain Onset Location: LUQ, LLQ Pain Radiation: no radiation Severity of Pain-Max: moderate Severity of Pain-Current: mild Modifying Factors: Improves With: other (Palpation worsen symptoms.) Associated Symptoms: diarrhea, nausea, vomiting Previous symptoms: no prior history Allergies/Adverse Reactions: No Known Drug Allergies Allergy (Verified 09/14/22 14:16) Home Medications: Aspirin 81 gm Chew [Baby Aspirin 81 mg Chew] 81 mg PO DAILY 09/22/20 [History] Atorvastatin Calcium 80 mg PO QHS 09/22/20 [History] Carvedilol 12.5 mg [Coreg 12.5 mg] 25 mg PO BID 09/22/20 [History] Empagliflozin [Jardiance] 25 mg PO DAILY 09/22/20 [History] Gabapentin [Neurontin ] 600 mg PO TID 09/22/20 [History] Levetiracetam [Keppra] 1,000 mg PO BID 09/22/20 [History] Clonidine HCl 0.1 mg [Clonidine 0.1 mg Tablet] 0.1 mg PO BID 10/13/20 [History] Ergocalciferol (Vitamin D2) [Vitamin D] 50,000 unit PO UD 10/13/20 [History] Insulin Glargine,Hum.rec.anlog [Basaglar Kwikpen U-100] 45 units SQ QHS 10/13/20 [History] Isosorbide Mononitrate [Isosorbide Mononitrate ER] 60 mg PO DAILY 10/13/20 [Hi story] Meclizine HCl 12.5 mg PO Q8H PRN PRN 10/13/20 [History] Melatonin 10 mg PO QHS 10/13/20 [History] Polyethylene Glycol [Polyox Wsr-301] 17 gm PO DAILY PRN PRN 10/13/20 [History] Spironolact/Hydrochlorothiazid [Spironolactone-Hctz 25-25 Tab] 1 tab PO DAILY 10/13/20 [History] lisinopriL [Lisinopril] 40 mg PO DAILY 10/13/20 [History] Amitriptyline HCl 25 mg [Amitriptyline 25 mg Tablet] 25 mg PO HS 09/14/22 [History] Ferrous Sulfate 325 mg [Feosol 325 mg] 325 mg PO DAILY 09/14/22 [History] Trazodone HCl 50 mg [Desyrel 50 mg] 100 mg PO HS 09/14/22 [History] Hx Tetanus, Diphtheria Vaccination/Date Given: Yes Hx Influenza Vaccination/Date Given: Yes Hx Pneumococcal Vaccination/Date Given: Yes Immunizations Up to Date: Yes Travel Risk - International Travel Have you traveled outside of the country in past 3 weeks: No - Coronavirus Screening Are you exhibiting any of the following symptoms?: No Close contact with a COVID-19 positive Pt in past 14-21 Days: No - Vaccine Status Have you recieved a Covid-19 vaccination: Yes 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 - Vaccination Dates Dates if Unknown: unknown - Review of Systems Constitutional: No Symptoms, No Fever, No Chills Eyes: No Symptoms Ears, Nose, & Throat: No Symptoms Respiratory: No Symptoms, No Cough, No Dyspnea Cardiac: No Symptoms, No Chest Pain, No Edema, No Syncope Abdominal/Gastrointestinal: No Symptoms, No Abdominal Pain, No Nausea, No Vomiting, No Diarrhea Genitourinary Symptoms: No Symptoms, No Dysuria Musculoskeletal: No Symptoms, No Back Pain, No Neck Pain Skin: No Symptoms, No Rash Neurological: No Symptoms, No Dizziness, No Focal Weakness, No Sensory Changes Psychological: No Symptoms Endocrine: No Symptoms Hematologic/Lymphatic: No Symptoms Immunological/Allergic: No Symptoms All Other Systems: Reviewed and Negative - Past Medical History Pertinent Past Medical History: Yes Neurological History: Peripheral Neuropathy, Seizures, Stroke ENT History: No Pertinent History Cardiac History: High Cholesterol, Hypertension, Myocardial Infarction (VT) Respiratory History: Sleep Apnea Endocrine Medical History: Diabetes Type II Musculoskeletal History: Osteoarthritis GI Medical History: Diverticulosis, GERD History: Renal Disease Psycho-Social History: No Pertinent History Male Reproductive Disorders: No Pertinent History - Past Surgical History Past Surgical History: Yes Neuro Surgical History: No Pertinent History Cardiac: Cardiac Catheterization, Cardiac Stent Respiratory: No Pertinent History Gastrointestinal: Cholecystectomy Genitourinary: No Pertinent History Musculoskeletal: Amputation Male Surgical History: No Pertinent History Other Surgical History: 5 cardiac stents, renal stent, Left Ring Finger - Social History Smoking Status: Former smoker How long have you smoked: 4 years Exposure to second hand smoke: Yes Drug Use: none Patient Lives Alone: Yes - Nursing Vital Signs Nursing Vital Signs: Initial Vital Signs Temperature 98.9 F 09/14/22 14:02 Pulse Rate 81 09/14/22 14:02 Blood Pressure 178/100 09/14/22 14:02 O2 Sat by Pulse Oximetry 97 09/14/22 14:02 Pain Scale Pain Intensity 9 - Physical Exam General Appearance: no apparent distress, alert Eye Exam: PERRL/EOMI, eyes nml inspection Ears, Nose, Throat Exam: normal ENT inspection, pharynx normal, moist mucous me mbranes Neck Exam: normal inspection, non-tender, supple, full range of motion Respiratory Exam: normal breath sounds, lungs clear, airway intact, No respiratory distress Cardiovascular Exam: regular rate/rhythm, normal heart sounds Gastrointestinal/Abdomen Exam: soft, tenderness, guarding, other (Diffusely tender abdomen.), No mass Back Exam: normal inspection, normal range of motion, No CVA tenderness, No vertebral tenderness Extremity Exam: normal inspection, normal range of motion, pelvis stable Neurologic Exam: alert, oriented x 3, cooperative, normal mood/affect, nml cerebellar function, sensation nml, No motor deficits Skin Exam: normal color, warm, dry Lymphatic Exam: No adenopathy SpO2 Interpretation: normal SpO2: 97 O2 Delivery: Room Air - Course Nursing assessment & vital signs reviewed: Yes - Radiology Exams Abdomen X-ray Interpretation: Teleradiologist Report (Lung nodule, diverticulosis, right atrophic kidney, vascular calcifications) Ordered Tests: Active Orders 24 hr Category Date Time Status IV Insertion STAT Care 09/14/22 14:53 Active ABDOMEN AND PELVIS W/0 CONTRAS [CT] Stat Exams 09/14/22 15:06 Completed CBC W DIFF Stat Lab 09/14/22 14:30 Completed CMP Stat Lab 09/14/22 14:30 Completed LIPASE Stat Lab 09/14/22 14:30 Completed Lactic Acid Stat Lab 09/14/22 17:46 Ordered TROPONIN Q4H Lab 09/14/22 14:30 Completed TROPONIN Q4H Lab 09/14/22 19:00 Ordered TROPONIN Q4H Lab 09/14/22 23:00 Ordered UA W/RFX UR CULTURE Stat Lab 09/14/22 14:53 Completed Transfer Order Routine Transfer 09/14/22 Ordered Medication Summary Generic Name Dose Route Start Last Admin Trade Name Freq PRN Reason Stop Dose Admin Sodium Chloride 1,000 mls @ 100 mls/hr 09/14/22 15:00 09/14/22 16:24 Sodium Chloride 0.9% 1000 Ml IV 10/14/22 14:59 0 mls/hr .Q10H DENISE Infusion Discontinued Medications Generic Name Dose Route Start Last Admin Trade Name Freq PRN Reason Stop Dose Admin Hydromorphone HCl 0.5 mg 09/14/22 17:36 Hydromorphone 1 Mg/1ml Inj 1 Mg/Ml Syringe IV 09/14/22 17:37 STAT ONE Morphine Sulfate 4 mg 09/14/22 14:53 09/14/22 15:00 Morphine Sulfate 4 Mg/Ml Injection IV 09/14/22 14:54 4 mg STAT ONE Administration Morphine Sulfate Confirm 09/14/22 14:59 Morphine Sulfate 4 Mg/Ml Injection Administered 09/14/22 15:00 Dose 4 mg .ROUTE .STK-MED ONE Ondansetron HCl 4 mg 09/14/22 14:53 09/14/22 15:00 Ondansetron Hcl 4 Mg/2 Ml Vial IV 09/14/22 14:54 4 mg STAT ONE Administration Ondansetron HCl Confirm 09/14/22 14:58 Ondansetron Hcl 4 Mg/2 Ml Vial Administered 09/14/22 14:59 Dose 4 mg .ROUTE .K-MED ONE Lab/Rad Data: Laboratory Result Diagrams 09/14/22 14:30 09/14/22 14:30 Laboratory Results 09/14/22 09/14/22 09/14/22 Range/Units 14:53 14:30 14:30 WBC (4.0-10.5) x10^3/uL RBC (4.1-5.6) x10^6/uL Hgb (12.5-18.0) g/dL Hct (42-50) % MCV (78-100) fL MCH (26-32) pg MCHC (32-36) g/dL RDW (11.5-14.0) % Plt Count (150-450) x10^3/uL MPV (7.5-11.0) fL Gran % (36.0-66.0) % Immature Gran % (Auto) (0.00-0.4) % Nucleat RBC Rel Count (0.00-0.1) % Eos # (Auto) (0-0.5) x10^3/uL Immature Gran # (Auto) (0.00-0.03) x10^3u/L Absolute Lymphs (auto) (1.0-4.6) x10^3/uL Absolute Monos (auto) (0.0-1.3) x10^3/uL Absolute Nucleated RBC (0.00-0.01) x10^3u/L Lymphocytes % (24.0-44.0) % Monocytes % (0.0-12.0) % Eosinophils % (0.00-5.0) % Basophils % (0.0-0.4) % Absolute Granulocytes (1.4-6.9) x10^3/uL Basophils # (0-0.4) x10^3/uL Sodium 132 L (137-145) mmol/L Potassium 4.8 (3.5-5.1) mmol/L Chloride 96 L (98-107) mmol/L Carbon Dioxide 25 (22-30) mmol/L Anion Gap 15.7 H (5-15) MEQ/L BUN 31 H (9-20) mg/dL Creatinine 1.54 H (0.66-1.25) mg/dL Estimated GFR 49.9 ML/MIN Glucose 385 H (74-106) mg/dL Calcium 8.9 (8.4-10.2) mg/dL Total Bilirubin 0.40 (0.2-1.3) mg/dL AST 25 (17-59) U/L ALT 24 (0-50) U/L Alkaline Phosphatase 251 H (38-126) U/L Troponin I < 0.012 (0.000-0.034) ng/mL Serum Total Protein 6.9 (6.3-8.2) g/dL Albumin 3.8 (3.5-5.0) g/dL Lipase 91 (23-300) U/L Urine Color Yellow (Yellow) Urine Appearance Clear (Clear) Urine pH 5.5 (4.6-8.0) Ur Specific [place] 1.025 (1.005-1.030) Urine Protein Trace A (Negative) Urine Glucose (UA) >=1000 A (Negative) mg/dL Urine Ketones Negative (Negative) Urine Blood Negative (Negative) Urine Nitrite Negative (Negative) Urine Bilirubin Negative (Negative) Urine Urobilinogen 0.2 (0.2) mg/dL Ur Leukocyte Esterase Negative (Negative) U Hyaline Cast (Auto) NONE SEEN (0-2) /LPF Urine Microscopic RBC 0-2 (0-5) /HPF Urine Microscopic WBC 0-2 (0-5) /HPF Ur Epithelial Cells None Seen (None Seen) /HPF Urine Bacteria None Seen (None Seen) /HPF Urine Culture Reflexed NO (NO) Slides for Path Review 09/14/22 Range/Units 14:30 WBC 4.2 (4.0-10.5) x10^3/uL RBC 4.44 (4.1-5.6) x10^6/uL Hgb 12.5 (12.5-18.0) g/dL Hct 38.3 L (42-50) % MCV 86.3 (78-100) fL MCH 28.2 (26-32) pg MCHC 32.6 (32-36) g/dL RDW 15.5 H (11.5-14.0) % Plt Count 287 (150-450) x10^3/uL MPV 9.2 (7.5-11.0) fL Gran % 75.3 H (36.0-66.0) % Immature Gran % (Auto) 0.5 H (0.00-0.4) % Nucleat RBC Rel Count 0.0 (0.00-0.1) % Eos # (Auto) 0.05 (0-0.5) x10^3/uL Immature Gran # (Auto) 0.02 (0.00-0.03) x10^3u/L Absolute Lymphs (auto) 0.56 L (1.0-4.6) x10^3/uL Absolute Monos (auto) 0.38 (0.0-1.3) x10^3/uL Absolute Nucleated RBC 0.00 (0.00-0.01) x10^3u/L Lymphocytes % 13.3 L (24.0-44.0) % Monocytes % 9.0 (0.0-12.0) % Eosinophils % 1.2 (0.00-5.0) % Basophils % 0.7 (0.0-0.4) % Absolute Granulocytes 3.17 (1.4-6.9) x10^3/uL Basophils # 0.03 (0-0.4) x10^3/uL Sodium (137-145) mmol/L Potassium (3.5-5.1) mmol/L Chloride (98-107) mmol/L Carbon Dioxide (22-30) mmol/L Anion Gap (5-15) MEQ/L BUN (9-20) mg/dL Creatinine (0.66-1.25) mg/dL Estimated GFR ML/MIN Glucose (74-106) mg/dL Calcium (8.4-10.2) mg/dL Total Bilirubin (0.2-1.3) mg/dL AST (17-59) U/L ALT (0-50) U/L Alkaline Phosphatase (38-126) U/L Troponin I (0.000-0.034) ng/mL Serum Total Protein (6.3-8.2) g/dL Albumin (3.5-5.0) g/dL Lipase (23-300) U/L Urine Color (Yellow) Urine Appearance (Clear) Urine pH (4.6-8.0) Ur Specific [place] (1.005-1.030) Urine Protein (Negative) Urine Glucose (UA) (Negative) mg/dL Urine Ketones (Negative) Urine Blood (Negative) Urine Nitrite (Negative) Urine Bilirubin (Negative) Urine Urobilinogen (0.2) mg/dL Ur Leukocyte Esterase (Negative) U Hyaline Cast (Auto) (0-2) /LPF Urine Microscopic RBC (0-5) /HPF Urine Microscopic WBC (0-5) /HPF Ur Epithelial Cells (None Seen) /HPF Urine Bacteria (None Seen) /HPF Urine Culture Reflexed (NO) Slides for Path Review YES - Progress Progress: improved Progress Note: 56-year-old male presents to our ED with progressively worsening abdominal pain. Abdominal pain started approximately 1 week ago. Pain significantly worse over the past hour. Patient is from [place] and does not have a local doctor. Preliminary work-up in our ED is essentially nonremarkable. Physical exam reveals diffusely tender abdomen with guarding. CBC essentially unremarkable. CMP shows a hyponatremia at 132. BUN and creatinine 31 and 1.54. COVID-negative. Lipase negative. Lactic acid negative. Troponin negative. UA reveals glucosuria of greater than 1000. No urinary tract infection. CT abdomen pelvis negative for acute intra-abdominal pathology. Some fecal stasis observed. Patient received initial dose of morphine and Zofran for pain control and nausea. Morphine did not improve pain significantly patient given a dose of hydromorphone which improved symptoms but did not resolve symptoms. Patient states he is not ready to go home as the pain is still significant. Patient received normal saline for hydration. In light of patient's intractable abdominal pain with no clear explanation patient admitted for intractable abdominal pain and observation. Case discussed with Dr. Coe who accepts admission to observation. Plan of care discussed with patient. He agrees to admission [facility] for further evaluation and treatment. Dr. Coe request surgery consult. Ben Cardenas is covering the surgical services today. We are currently awaiting call. Admit orders in. Consultation to general surgery completed. No indication for antibiotics at this time. We will monitor patient's pain maintain hydration and observe progress. Patient's presenting complaint is acute. Complexity of problems addressed is moderate. Patient's problem is acute. Patient's problem is a new diagnosis with uncertain prognosis. No critical care time. Complexity of data reviewed and analyzed is moderate. Test ordered. Test reviewed. Test analyzed by Dr. Pham. Management discussed with Dr. Coe who accepts admission to observation. Risk of complication and or risk of morbidity/mortality of patient management is high. Patient will be hospitalized for symptomology and continuous monitoring. IV controlled medication administered for pain control. Patient agrees to admission [facility] for further evaluation and treatment. Vitals are stable. Portions of this note were created with voice recognition technology. There may be grammatical, spelling, punctuation or sound alike errors 09/14/22 17:[address] Adilene Will see patient in: hospital (observation) Counseled pt/family regarding: lab results, diagnosis, rad results - Departure Departure Disposition: Home Clinical Impression: fecal stasis, Abdominal pain, Hyponatremia, Chronic renal insufficiency, Hyperglycemia, Glucosuria, Lung nodule, Diverticulosis, Atrophy of right kidney, Vascular calcification Condition: Stable Critical Care Time: No Referrals: DOCTOR,NO FAMILY [Primary Care Provider] - Follow up/PCP as directed
--- NOTE | 2022-09-14 15:28 | XRAY ---
Indication: Nausea, vomiting, diarrhea. Pain. Multiple contiguous axial images obtained through the abdomen and pelvis without contrast. Comparison: May 30, 2011 Lung bases demonstrates incompletely visualize 1 cm left lower lobe noncalcified nodule. No infiltrate or effusion. Heart not enlarged. Noncontrasted stomach and bowel loops appear nonobstructed with normal appendix. Mild diffuse scattered colonic fecal debris throughout including rectum. Minimal scattered diverticulosis without diverticulitis. Right kidney is now atrophic. Interval cholecystectomy. No free fluid/air. Remaining liver, pancreas, spleen, adrenal glands, kidneys, ureters, and bladder are unremarkable for noncontrast exam. Progressive worsening moderate scattered vascular calcifications. No AAA. Osseous structures intact with mild multilevel thoracolumbar degenerative spondylosis, bilateral L5 spondylolysis without listhesis, tiny multilevel thoracic Schmorl nodes, and minimal remote-appearing T11 anterior compression deformity. Impression: 1. Mild diffuse fecal stasis and minimal diverticulosis. 2. Incompletely visualized 1 cm left lower lobe noncalcified nodule. Finding unchanged with respect to CTA chest September 23, 2020 and favored to be benign given stability over the years. 3. New right renal atrophy. 4. Again chronic bony findings and arteriosclerotic disease.
[2022-09-14 16:00] LABS: Slide Review 1 YES
[2022-09-14 17:45] LABS: INFLUENZA A NEGATIVE (NEGATIVE); INFLUENZA B NEGATIVE (NEGATIVE); RESPIRATORY SYNCTIAL VIRUS NEGATIVE (NEGATIVE); SARS-CoV-2 Xpert Express NEGATIVE (NEGATIVE)
[2022-09-14] MEDS ORDERED: Hydromorphone 1 mg/ml Injection ONE (17:49)
[2022-09-14] MEDS: Hydromorphone 1 mg/ml Injection IV ONE ×2 (18:03→19:55)
[2022-09-14] MEDS ORDERED: Hydromorphone 1 mg/ml Injection IV PRN (19:39)
[2022-09-14] MEDS ORDERED: Zofran 4 MG/2 ML VIAL IV PRN (19:39)
[2022-09-14] MEDS: Hydromorphone 1 mg/ml Injection IV PRN (20:25)
--- NOTE | 2022-09-14 20:53 | PCM.HP ---
History of Present Illness - Chief Complaint Chief Complaint: Intractable abdominal pain History of Present Illness: is a 56 year old male with no local physician who presented to the ER with sudden onset of left abdominal pain, vomiting and diarrhea. symptoms began around 8pm last night, he has vomited 5-6 times and had too many loose stools for him to quantify. he has a previous history of cholecystectomy, no other prior abdominal surgeries. he states he has had similar pain in the past and told that he had pancreatitis, he had an egd and colonoscopy in the last few months and was told the egd was normal and he had some diverticulosis but he doesn't think much else was found. - Review of Systems Constitutional: No Symptoms Respiratory: No Cough, No Short Of Breath Cardiac: No Chest Pain, No Edema, No Syncope Abdominal/Gastrointestinal: Abdominal Pain, Nausea, Vomiting, Diarrhea Genitourinary Symptoms: No Dysuria Skin: No Rash All Other Systems: Reviewed and Negative Medications & Allergies Home Medications: Home Medication List Aspirin 81 gm Chew [Baby Aspirin 81 mg Chew] 81 mg PO DAILY 09/22/20 [History Confirmed 09/14/22] Atorvastatin Calcium 80 mg PO QHS 09/22/20 [History Confirmed 09/14/22] Carvedilol 12.5 mg [Coreg 12.5 mg] 25 mg PO BID 09/22/20 [History Confirmed 09/14/22] Empagliflozin [Jardiance] 25 mg PO DAILY 09/22/20 [History Confirmed 09/14/22] Gabapentin [Neurontin ] 600 mg PO TID 09/22/20 [History Confirmed 09/14/22] Levetiracetam [Keppra] 1,000 mg PO BID 09/22/20 [History Confirmed 09/14/22] Clonidine HCl 0.1 mg [Clonidine 0.1 mg Tablet] 0.1 mg PO BID 10/13/20 [History Confirmed 09/14/22] Ergocalciferol (Vitamin D2) [Vitamin D] 50,000 unit PO UD 10/13/20 [History Confirmed 09/14/22] Insulin Glargine,Hum.rec.anlog [Basaglar Kwikpen U-100] 45 units SQ QHS 10/13/20 [History Confirmed 09/14/22] Isosorbide Mononitrate [Isosorbide Mononitrate ER] 60 mg PO DAILY 10/13/20 [History Confirmed 09/14/22] Meclizine HCl 12.5 mg PO Q8H PRN PRN 10/13/20 [History Confirmed 09/14/22] Melatonin 10 mg PO QHS 10/13/20 [History Confirmed 09/14/22] Polyethylene Glycol [Polyox Wsr-301] 17 gm PO DAILY PRN PRN 10/13/20 [History Confirmed 09/14/22] Spironolact/Hydrochlorothiazid [Spironolactone-Hctz 25-25 Tab] 1 tab PO DAILY 10/13/20 [History Confirmed 09/14/22] lisinopriL [Lisinopril] 40 mg PO DAILY 10/13/20 [History Confirmed 09/14/22] Amlodipine Besylate 10 mg PO HS #0 10/14/20 [Rx Confirmed 09/14/22] Rivaroxaban [Xarelto] 20 mg PO HS #0 10/14/20 [Rx Confirmed 09/14/22] Amitriptyline HCl 25 mg [Amitriptyline 25 mg Tablet] 25 mg PO HS 09/14/22 [History Confirmed 09/14/22] Ferrous Sulfate 325 mg [Feosol 325 mg] 325 mg PO DAILY 09/14/22 [History Confirmed 09/14/22] Trazodone HCl 50 mg [Desyrel 50 mg] 100 mg PO HS 09/14/22 [History Confirmed 09/14/22] Allergies/Adverse Reactions: Allergies Allergy/AdvReac Type Severity Reaction Status Date / Time No Known Drug Allergies Allergy Verified 09/14/22 14:16 - Past Medical History Past Medical History: Yes Neurological History: Peripheral Neuropathy, Seizures, Stroke ENT History: No Pertinent History Cardiac History: High Cholesterol, Hypertension, Myocardial Infarction ([place]) Respiratory History: Sleep Apnea Endocrine Medical History: Diabetes Type II Musculoskelatal History: Osteoarthritis GI Medical History: Diverticulosis, GERD History: Renal Disease Pyscho-Social History: No Pertinent History Male Reproductive Disorders: No Pertinent History Comment: left inactive kidney needs removed in November - Past Surgical History Past Surgical History: Yes Neuro Surgical History: No Pertinent History Cardiac History: Cardiac Catheterization, Cardiac Stent Respiratory Surgery: No Pertinent History GI Surgical History: Cholecystectomy Genitourinary Surgical Hx: No Pertinent History Musculskeletal Surgical Hx: Amputation Male Surgical History: No Pertinent History Other Surgical History: 5 cardiac stents, 2 renal stent, Left Ring Finger - Social History Smoking Status: Former smoker How long have you smoked: 4 years Exposure to second hand smoke: Yes Alcohol: None Drug Use: none - Physical Exam Vital Signs: Vital Signs - 24 hr Temp Pulse Resp BP Pulse Ox 09/14/22 20:24 98.2 F 73 20 172/86 96 09/14/22 19:57 96 09/14/22 19:06 19 150/92 97 09/14/22 18:28 73 16 171/92 98 09/14/22 18:00 97 09/14/22 17:00 79 149/100 98 09/14/22 16:00 159/93 98 09/14/22 15:43 71 18 97 09/14/22 14:02 98.9 F 81 178/100 97 General Appearance: no apparent distress, obese Neurologic Exam: alert, oriented x 3, cooperative Respiratory Exam: normal breath sounds, lungs clear, No respiratory distress Cardiovascular Exam: regular rate/rhythm, normal heart sounds, normal peripheral pulses Gastrointestinal/Abdomen Exam: soft, normal bowel sounds, tenderness (LUQ out of proportion tenderness, exam obscured by obese abdomen), No guarding, No rebound Extremity Exam: normal inspection, normal range of motion, pelvis stable Skin Exam: normal color, warm, dry, No rash Results - Labs Lab/Micro Results: Lab Results-Last 24 Hours 09/14/22 09/14/22 09/14/22 Range/Units 14:30 14:30 14:30 WBC 4.2 (4.0-10.5) x10^3/uL RBC 4.44 (4.1-5.6) x10^6/uL Hgb 12.5 (12.5-18.0) g/dL Hct 38.3 L (42-50) % MCV 86.3 (78-100) fL MCH 28.2 (26-32) pg MCHC 32.6 (32-36) g/dL RDW 15.5 H (11.5-14.0) % Plt Count 287 (150-450) x10^3/uL MPV 9.2 (7.5-11.0) fL Gran % 75.3 H (36.0-66.0) % Immature Gran % (Auto) 0.5 H (0.00-0.4) % Nucleat RBC Rel Count 0.0 (0.00-0.1) % Eos # (Auto) 0.05 (0-0.5) x10^3/uL Immature Gran # (Auto) 0.02 (0.00-0.03) x10^3u/L Absolute Lymphs (auto) 0.56 L (1.0-4.6) x10^3/uL Absolute Monos (auto) 0.38 (0.0-1.3) x10^3/uL Absolute Nucleated RBC 0.00 (0.00-0.01) x10^3u/L Lymphocytes % 13.3 L (24.0-44.0) % Monocytes % 9.0 (0.0-12.0) % Eosinophils % 1.2 (0.00-5.0) % Basophils % 0.7 (0.0-0.4) % Absolute Granulocytes 3.17 (1.4-6.9) x10^3/uL Basophils # 0.03 (0-0.4) x10^3/uL Sodium 132 L (137-145) mmol/L Potassium 4.8 (3.5-5.1) mmol/L Chloride 96 L (98-107) mmol/L Carbon Dioxide 25 (22-30) mmol/L Anion Gap 15.7 H (5-15) MEQ/L BUN 31 H (9-20) mg/dL Creatinine 1.54 H (0.66-1.25) mg/dL Estimated GFR 49.9 ML/MIN Glucose 385 H (74-106) mg/dL Lactic Acid (0.4-2.0) Calcium 8.9 (8.4-10.2) mg/dL Total Bilirubin 0.40 (0.2-1.3) mg/dL AST 25 (17-59) U/L ALT 24 (0-50) U/L Alkaline Phosphatase 251 H (38-126) U/L Troponin I < 0.012 (0.000-0.034) ng/mL Serum Total Protein 6.9 (6.3-8.2) g/dL Albumin 3.8 (3.5-5.0) g/dL Lipase 91 (23-300) U/L Urine Color (Yellow) Urine Appearance (Clear) Urine pH (4.6-8.0) Ur Specific [place] (1.005-1.030) Urine Protein (Negative) Urine Glucose (UA) (Negative) mg/dL Urine Ketones (Negative) Urine Blood (Negative) Urine Nitrite (Negative) Urine Bilirubin (Negative) Urine Urobilinogen (0.2) mg/dL Ur Leukocyte Esterase (Negative) U Hyaline Cast (Auto) (0-2) /LPF Urine Microscopic RBC (0-5) /HPF Urine Microscopic WBC (0-5) /HPF Ur Epithelial Cells (None Seen) /HPF Urine Bacteria (None Seen) /HPF Urine Culture Reflexed (NO) Influenza Type A Ag (NEGATIVE) Influenza Type B Ag (NEGATIVE) RSV (PCR) (NEGATIVE) SARS-CoV-2 (PCR) (NEGATIVE) Slides for Path Review YES 09/14/22 09/14/22 09/14/22 Range/Units 14:53 17:46 19:20 WBC (4.0-10.5) x10^3/uL RBC (4.1-5.6) x10^6/uL Hgb (12.5-18.0) g/dL Hct (42-50) % MCV (78-100) fL MCH (26-32) pg MCHC (32-36) g/dL RDW (11.5-14.0) % Plt Count (150-450) x10^3/uL MPV (7.5-11.0) fL Gran % (36.0-66.0) % Immature Gran % (Auto) (0.00-0.4) % Nucleat RBC Rel Count (0.00-0.1) % Eos # (Auto) (0-0.5) x10^3/uL Immature Gran # (Auto) (0.00-0.03) x10^3u/L Absolute Lymphs (auto) (1.0-4.6) x10^3/uL Absolute Monos (auto) (0.0-1.3) x10^3/uL Absolute Nucleated RBC (0.00-0.01) x10^3u/L Lymphocytes % (24.0-44.0) % Monocytes % (0.0-12.0) % Eosinophils % (0.00-5.0) % Basophils % (0.0-0.4) % Absolute Granulocytes (1.4-6.9) x10^3/uL Basophils # (0-0.4) x10^3/uL Sodium (137-145) mmol/L Potassium (3.5-5.1) mmol/L Chloride (98-107) mmol/L Carbon Dioxide (22-30) mmol/L Anion Gap (5-15) MEQ/L BUN (9-20) mg/dL Creatinine (0.66-1.25) mg/dL Estimated GFR ML/MIN Glucose (74-106) mg/dL Lactic Acid 1.5 (0.4-2.0) Calcium (8.4-10.2) mg/dL Total Bilirubin (0.2-1.3) mg/dL AST (17-59) U/L ALT (0-50) U/L Alkaline Phosphatase (38-126) U/L Troponin I < 0.012 (0.000-0.034) ng/mL Serum Total Protein (6.3-8.2) g/dL Albumin (3.5-5.0) g/dL Lipase (23-300) U/L Urine Color Yellow (Yellow) Urine Appearance Clear (Clear) Urine pH 5.5 (4.6-8.0) Ur Specific [place] 1.025 (1.005-1.030) Urine Protein Trace A (Negative) Urine Glucose (UA) >=1000 A (Negative) mg/dL Urine Ketones Negative (Negative) Urine Blood Negative (Negative) Urine Nitrite Negative (Negative) Urine Bilirubin Negative (Negative) Urine Urobilinogen 0.2 (0.2) mg/dL Ur Leukocyte Esterase Negative (Negative) U Hyaline Cast (Auto) NONE SEEN (0-2) /LPF Urine Microscopic RBC 0-2 (0-5) /HPF Urine Microscopic WBC 0-2 (0-5) /HPF Ur Epithelial Cells None Seen (None Seen) /HPF Urine Bacteria None Seen (None Seen) /HPF Urine Culture Reflexed NO (NO) Influenza Type A Ag (NEGATIVE) Influenza Type B Ag (NEGATIVE) RSV (PCR) (NEGATIVE) SARS-CoV-2 (PCR) (NEGATIVE) Slides for Path Review 09/14/22 Range/Units Unknown WBC (4.0-10.5) x10^3/uL RBC (4.1-5.6) x10^6/uL Hgb (12.5-18.0) g/dL Hct (42-50) % MCV (78-100) fL MCH (26-32) pg MCHC (32-36) g/dL RDW (11.5-14.0) % Plt Count (150-450) x10^3/uL MPV (7.5-11.0) fL Gran % (36.0-66.0) % Immature Gran % (Auto) (0.00-0.4) % Nucleat RBC Rel Count (0.00-0.1) % Eos # (Auto) (0-0.5) x10^3/uL Immature Gran # (Auto) (0.00-0.03) x10^3u/L Absolute Lymphs (auto) (1.0-4.6) x10^3/uL Absolute Monos (auto) (0.0-1.3) x10^3/uL Absolute Nucleated RBC (0.00-0.01) x10^3u/L Lymphocytes % (24.0-44.0) % Monocytes % (0.0-12.0) % Eosinophils % (0.00-5.0) % Basophils % (0.0-0.4) % Absolute Granulocytes (1.4-6.9) x10^3/uL Basophils # (0-0.4) x10^3/uL Sodium (137-145) mmol/L Potassium (3.5-5.1) mmol/L Chloride (98-107) mmol/L Carbon Dioxide (22-30) mmol/L Anion Gap (5-15) MEQ/L BUN (9-20) mg/dL Creatinine (0.66-1.25) mg/dL Estimated GFR ML/MIN Glucose (74-106) mg/dL Lactic Acid (0.4-2.0) Calcium (8.4-10.2) mg/dL Total Bilirubin (0.2-1.3) mg/dL AST (17-59) U/L ALT (0-50) U/L Alkaline Phosphatase (38-126) U/L Troponin I (0.000-0.034) ng/mL Serum Total Protein (6.3-8.2) g/dL Albumin (3.5-5.0) g/dL Lipase (23-300) U/L Urine Color (Yellow) Urine Appearance (Clear) Urine pH (4.6-8.0) Ur Specific [place] (1.005-1.030) Urine Protein (Negative) Urine Glucose (UA) (Negative) mg/dL Urine Ketones (Negative) Urine Blood (Negative) Urine Nitrite (Negative) Urine Bilirubin (Negative) Urine Urobilinogen (0.2) mg/dL Ur Leukocyte Esterase (Negative) U Hyaline Cast (Auto) (0-2) /LPF Urine Microscopic RBC (0-5) /HPF Urine Microscopic WBC (0-5) /HPF Ur Epithelial Cells (None Seen) /HPF Urine Bacteria (None Seen) /HPF Urine Culture Reflexed (NO) Influenza Type A Ag NEGATIVE (NEGATIVE) Influenza Type B Ag NEGATIVE (NEGATIVE) RSV (PCR) NEGATIVE (NEGATIVE) SARS-CoV-2 (PCR) NEGATIVE (NEGATIVE) Slides for Path Review - Radiology Impressions Radiology Exams & Impressions: Radiology Procedures Category Date Time Status ABDOMEN AND PELVIS W/0 CONTRAS [CT] Stat Exams 09/14/22 15:06 Completed Assessment/Plan (1) Left upper quadrant abdominal pain Current Visit: Yes Status: Acute Assessment & Plan: no obvious etiology on ct abd/pel and labs are unremarkable including a normal lipase. ER physician was concerned about pain and tenderness out of proportion to exam and wanted to admit so he is NPO and awaiting surgical consult. will check stool studies and keep NPO, emperically start levaquin/flagyl for possible early diverticulitis not visible on noncontrasted CT (chronic renal insufficiency negates IV contrast) if he continues to have severe pain might need to consider MRA abdomen to r/o mesenteric ischemia, lactic acid level was normal on presentation. patient has IV dilaudid for pain and zofran for nausea Code(s): R10.12 - LEFT UPPER QUADRANT PAIN (2) Vomiting and diarrhea Current Visit: Yes Status: Acute Assessment & Plan: symptomatic treatment and stool studies at this time Code(s): R11.10 - VOMITING, UNSPECIFIED; R19.7 - DIARRHEA, UNSPECIFIED (3) Diabetes mellitus Current Visit: Yes Status: Acute Code(s): E11.9 - TYPE 2 DIABETES MELLITUS WITHOUT COMPLICATIONS
[2022-09-14] MEDS ORDERED: PERCOCET TABLET 5/325MG ONE (21:52)
[2022-09-14] MEDS: PERCOCET TABLET 5/325MG PO PRN (21:57)
[2022-09-14] MEDS: COREG 12.5 MG PO SCH (21:58)
[2022-09-14] MEDS: CLONIDINE 0.1 MG TABLET PO SCH (21:58)
[2022-09-14] MEDS: NEURONTIN PO SCH (21:58)
[2022-09-14] MEDS: KEPPRA PO SCH (22:01)
[2022-09-14] MEDS: NORVASC 5 MG PO SCH (22:04)
[2022-09-15] MEDS: FLAGYL 500 MG IVPB 500 MG/100 ML BAG IV SCH ×4 (00:11→18:32)
[2022-09-15] MEDS: Hydromorphone 1 mg/ml Injection IV PRN ×3 (00:12→21:09)
[2022-09-15 05:27] LABS: Absolute Neutrophil Ct (ANC) 1.99 x10^3/uL (1.4-6.9); BASOPHIL % 0.9 % (0.0-0.4); Basophil (Absolute #) 0.03 x10^3/uL (0-0.4); Eosinophil % 2.7 % (0.00-5.0); Eosinophil (Absolute #) 0.09 x10^3/uL (0-0.5); Hematocrit 35.2 % (42-50); Hemoglobin 11.6 g/dL (12.5-18.0); IMMATURE GRAN # 0.01 x10^3u/L (0.00-0.03); IMMATURE GRAN % 0.3 % (0.00-0.4); Lymphocyte (Absolute #) 0.83 x10^3/uL (1.0-4.6); Lymphocytes % 24.8 % (24.0-44.0); Mean Cell Volume 86.9 fL (78-100); Mean Corpuscular Hemoglobin 28.6 pg (26-32); Mean Platelet Volume 9.3 fL (7.5-11.0); Monocytes % 11.9 % (0.0-12.0); Neutrophil % 59.4 % (36.0-66.0); Platelet Count 239 x10^3/uL (150-450); Red Blood Count 4.05 x10^6/uL (4.1-5.6); White Blood Count 3.4 x10^3/uL (4.0-10.5)
[2022-09-15 05:38] LABS: ALBUMIN 3.4 g/dL (3.5-5.0); ANION GAP 11.3 MEQ/L (5-15); BILIRUBIN,TOTAL 0.4 mg/dL (0.2-1.3); Creatinine 1 1.52 mg/dL (0.66-1.25); EST GLOMERULAR FILTRATION RATE 50.7 ML/MIN; Potassium 3.4 mmol/L (3.5-5.1); Total Protein 6.2 g/dL (6.3-8.2)
[2022-09-15] MEDS: Zestril 20 MG PO SCH (08:27)
[2022-09-15] MEDS: Aldactone 25 MG PO SCH (08:28)
[2022-09-15] MEDS: PERCOCET TABLET 5/325MG PO PRN ×2 (08:28→16:15)
[2022-09-15] MEDS: Imdur 60MG PO SCH (08:28)
[2022-09-15] MEDS: COREG 12.5 MG PO SCH ×2 (08:28→21:10)
[2022-09-15] MEDS: KEPPRA PO SCH ×2 (08:28→21:09)
[2022-09-15] MEDS: NEURONTIN PO SCH ×3 (08:28→21:10)
[2022-09-15] MEDS: hydroDIURIL 25 MG PO SCH (08:28)
[2022-09-15] MEDS: CLONIDINE 0.1 MG TABLET PO SCH ×2 (08:28→21:10)
[2022-09-15] MEDS: Levofloxacin 500MG/100ML D5W 500 MG/100 ML BAG IV SCH (08:33)
--- NOTE | 2022-09-15 08:37 | PCM.NOTE ---
Date and Time: 09/15/22 0836 Subjective Assessment: patient sleeping with cpap on arrival, he states his pain is still significant but fairly well managed. no new c/o overnight Objective Exam General Appearance: no apparent distress, obese Neurologic Exam: alert, oriented x 3 Respiratory Exam: normal breath sounds, lungs clear, No respiratory distress Cardiovascular Exam: regular rate/rhythm, normal heart sounds Gastrointestinal/Abdomen Exam: tenderness (LUQ/LLQ, still operator batch or continuous out of proportion), No guarding, No rebound Extremity Exam: normal inspection, normal range of motion OBJECTIVE DATA Vital Signs: Vital Signs - 24 hr Temp Pulse Resp BP Pulse Ox 09/15/22 07:12 97.5 F 65 17 131/64 94 L 09/15/22 04:00 97.3 F 63 18 118/58 96 09/15/22 00:11 71 16 168/81 09/14/22 23:37 97.7 F 73 24 173/83 97 09/14/22 20:49 98.2 F 73 20 172/86 96 09/14/22 20:24 98.2 F 73 20 172/86 96 09/14/22 19:57 96 09/14/22 19:06 19 150/92 97 09/14/22 18:28 73 16 171/92 98 09/14/22 18:00 97 09/14/22 17:00 79 149/100 98 09/14/22 16:00 159/93 98 09/14/22 15:43 71 18 97 09/14/22 14:02 98.9 F 81 178/100 97 Pain Assessment - Last Documented Pain Intensity 9 Pain Scale Used 0-10 Pain Scale Intake and Output: Intake & Output 09/12/22 09/13/22 09/14/22 09/15/22 11:59 11:59 11:59 11:59 Intake Total 883 Output Total 500 Balance 383 Weight 123.169 kg Lab Results: Lab Results-Last 24 Hours 09/14/22 09/14/22 09/14/22 Range/Units 14:30 14:30 14:30 WBC 4.2 (4.0-10.5) x10^3/uL RBC 4.44 (4.1-5.6) x10^6/uL Hgb 12.5 (12.5-18.0) g/dL Hct 38.3 L (42-50) % MCV 86.3 (78-100) fL MCH 28.2 (26-32) pg MCHC 32.6 (32-36) g/dL RDW 15.5 H (11.5-14.0) % Plt Count 287 (150-450) x10^3/uL MPV 9.2 (7.5-11.0) fL Gran % 75.3 H (36.0-66.0) % Immature Gran % (Auto) 0.5 H (0.00-0.4) % Nucleat RBC Rel Count 0.0 (0.00-0.1) % Eos # (Auto) 0.05 (0-0.5) x10^3/uL Immature Gran # (Auto) 0.02 (0.00-0.03) x10^3u/L Absolute Lymphs (auto) 0.56 L (1.0-4.6) x10^3/uL Absolute Monos (auto) 0.38 (0.0-1.3) x10^3/uL Absolute Nucleated RBC 0.00 (0.00-0.01) x10^3u/L Lymphocytes % 13.3 L (24.0-44.0) % Monocytes % 9.0 (0.0-12.0) % Eosinophils % 1.2 (0.00-5.0) % Basophils % 0.7 (0.0-0.4) % Absolute Granulocytes 3.17 (1.4-6.9) x10^3/uL Basophils # 0.03 (0-0.4) x10^3/uL Sodium 132 L (137-145) mmol/L Potassium 4.8 (3.5-5.1) mmol/L Chloride 96 L (98-107) mmol/L Carbon Dioxide 25 (22-30) mmol/L Anion Gap 15.7 H (5-15) MEQ/L BUN 31 H (9-20) mg/dL Creatinine 1.54 H (0.66-1.25) mg/dL Estimated GFR 49.9 ML/MIN Glucose 385 H (74-106) mg/dL Lactic Acid (0.4-2.0) Calcium 8.9 (8.4-10.2) mg/dL Total Bilirubin 0.40 (0.2-1.3) mg/dL AST 25 (17-59) U/L ALT 24 (0-50) U/L Alkaline Phosphatase 251 H (38-126) U/L Troponin I < 0.012 (0.000-0.034) ng/mL Serum Total Protein 6.9 (6.3-8.2) g/dL Albumin 3.8 (3.5-5.0) g/dL Lipase 91 (23-300) U/L Urine Color (Yellow) Urine Appearance (Clear) Urine pH (4.6-8.0) Ur Specific [place] (1.005-1.030) Urine Protein (Negative) Urine Glucose (UA) (Negative) mg/dL Urine Ketones (Negative) Urine Blood (Negative) Urine Nitrite (Negative) Urine Bilirubin (Negative) Urine Urobilinogen (0.2) mg/dL Ur Leukocyte Esterase (Negative) U Hyaline Cast (Auto) (0-2) /LPF Urine Microscopic RBC (0-5) /HPF Urine Microscopic WBC (0-5) /HPF Ur Epithelial Cells (None Seen) /HPF Urine Bacteria (None Seen) /HPF Urine Culture Reflexed (NO) Influenza Type A Ag (NEGATIVE) Influenza Type B Ag (NEGATIVE) RSV (PCR) (NEGATIVE) SARS-CoV-2 (PCR) (NEGATIVE) Slides for Path Review YES 09/14/22 09/14/22 09/14/22 Range/Units 14:53 17:46 19:20 WBC (4.0-10.5) x10^3/uL RBC (4.1-5.6) x10^6/uL Hgb (12.5-18.0) g/dL Hct (42-50) % MCV (78-100) fL MCH (26-32) pg MCHC (32-36) g/dL RDW (11.5-14.0) % Plt Count (150-450) x10^3/uL MPV (7.5-11.0) fL Gran % (36.0-66.0) % Immature Gran % (Auto) (0.00-0.4) % Nucleat RBC Rel Count (0.00-0.1) % Eos # (Auto) (0-0.5) x10^3/uL Immature Gran # (Auto) (0.00-0.03) x10^3u/L Absolute Lymphs (auto) (1.0-4.6) x10^3/uL Absolute Monos (auto) (0.0-1.3) x10^3/uL Absolute Nucleated RBC (0.00-0.01) x10^3u/L Lymphocytes % (24.0-44.0) % Monocytes % (0.0-12.0) % Eosinophils % (0.00-5.0) % Basophils % (0.0-0.4) % Absolute Granulocytes (1.4-6.9) x10^3/uL Basophils # (0-0.4) x10^3/uL Sodium (137-145) mmol/L Potassium (3.5-5.1) mmol/L Chloride (98-107) mmol/L Carbon Dioxide (22-30) mmol/L Anion Gap (5-15) MEQ/L BUN (9-20) mg/dL Creatinine (0.66-1.25) mg/dL Estimated GFR ML/MIN Glucose (74-106) mg/dL Lactic Acid 1.5 (0.4-2.0) Calcium (8.4-10.2) mg/dL Total Bilirubin (0.2-1.3) mg/dL AST (17-59) U/L ALT (0-50) U/L Alkaline Phosphatase (38-126) U/L Troponin I < 0.012 (0.000-0.034) ng/mL Serum Total Protein (6.3-8.2) g/dL Albumin (3.5-5.0) g/dL Lipase (23-300) U/L Urine Color Yellow (Yellow) Urine Appearance Clear (Clear) Urine pH 5.5 (4.6-8.0) Ur Specific [place] 1.025 (1.005-1.030) Urine Protein Trace A (Negative) Urine Glucose (UA) >=1000 A (Negative) mg/dL Urine Ketones Negative (Negative) Urine Blood Negative (Negative) Urine Nitrite Negative (Negative) Urine Bilirubin Negative (Negative) Urine Urobilinogen 0.2 (0.2) mg/dL Ur Leukocyte Esterase Negative (Negative) U Hyaline Cast (Auto) NONE SEEN (0-2) /LPF Urine Microscopic RBC 0-2 (0-5) /HPF Urine Microscopic WBC 0-2 (0-5) /HPF Ur Epithelial Cells None Seen (None Seen) /HPF Urine Bacteria None Seen (None Seen) /HPF Urine Culture Reflexed NO (NO) Influenza Type A Ag (NEGATIVE) Influenza Type B Ag (NEGATIVE) RSV (PCR) (NEGATIVE) SARS-CoV-2 (PCR) (NEGATIVE) Slides for Path Review 09/14/22 09/14/22 09/15/22 Range/Units 23:59 Unknown 04:43 WBC 3.4 L (4.0-10.5) x10^3/uL RBC 4.05 L (4.1-5.6) x10^6/uL Hgb 11.6 L (12.5-18.0) g/dL Hct 35.2 L (42-50) % MCV 86.9 (78-100) fL MCH 28.6 (26-32) pg MCHC 33.0 (32-36) g/dL RDW 16.0 H (11.5-14.0) % Plt Count 239 (150-450) x10^3/uL MPV 9.3 (7.5-11.0) fL Gran % 59.4 (36.0-66.0) % Immature Gran % (Auto) 0.3 (0.00-0.4) % Nucleat RBC Rel Count 0.0 (0.00-0.1) % Eos # (Auto) 0.09 (0-0.5) x10^3/uL Immature Gran # (Auto) 0.01 (0.00-0.03) x10^3u/L Absolute Lymphs (auto) 0.83 L (1.0-4.6) x10^3/uL Absolute Monos (auto) 0.40 (0.0-1.3) x10^3/uL Absolute Nucleated RBC 0.00 (0.00-0.01) x10^3u/L Lymphocytes % 24.8 (24.0-44.0) % Monocytes % 11.9 (0.0-12.0) % Eosinophils % 2.7 (0.00-5.0) % Basophils % 0.9 (0.0-0.4) % Absolute Granulocytes 1.99 (1.4-6.9) x10^3/uL Basophils # 0.03 (0-0.4) x10^3/uL Sodium (137-145) mmol/L Potassium (3.5-5.1) mmol/L Chloride (98-107) mmol/L Carbon Dioxide (22-30) mmol/L Anion Gap (5-15) MEQ/L BUN (9-20) mg/dL Creatinine (0.66-1.25) mg/dL Estimated GFR ML/MIN Glucose (74-106) mg/dL Lactic Acid (0.4-2.0) Calcium (8.4-10.2) mg/dL Total Bilirubin (0.2-1.3) mg/dL AST (17-59) U/L ALT (0-50) U/L Alkaline Phosphatase (38-126) U/L Troponin I < 0.012 (0.000-0.034) ng/mL Serum Total Protein (6.3-8.2) g/dL Albumin (3.5-5.0) g/dL Lipase (23-300) U/L Urine Color (Yellow) Urine Appearance (Clear) Urine pH (4.6-8.0) Ur Specific [place] (1.005-1.030) Urine Protein (Negative) Urine Glucose (UA) (Negative) mg/dL Urine Ketones (Negative) Urine Blood (Negative) Urine Nitrite (Negative) Urine Bilirubin (Negative) Urine Urobilinogen (0.2) mg/dL Ur Leukocyte Esterase (Negative) U Hyaline Cast (Auto) (0-2) /LPF Urine Microscopic RBC (0-5) /HPF Urine Microscopic WBC (0-5) /HPF Ur Epithelial Cells (None Seen) /HPF Urine Bacteria (None Seen) /HPF Urine Culture Reflexed (NO) Influenza Type A Ag NEGATIVE (NEGATIVE) Influenza Type B Ag NEGATIVE (NEGATIVE) RSV (PCR) NEGATIVE (NEGATIVE) SARS-CoV-2 (PCR) NEGATIVE (NEGATIVE) Slides for Path Review 09/15/22 09/15/22 Range/Units 04:43 05:03 WBC (4.0-10.5) x10^3/uL RBC (4.1-5.6) x10^6/uL Hgb (12.5-18.0) g/dL Hct (42-50) % MCV (78-100) fL MCH (26-32) pg MCHC (32-36) g/dL RDW (11.5-14.0) % Plt Count (150-450) x10^3/uL MPV (7.5-11.0) fL Gran % (36.0-66.0) % Immature Gran % (Auto) (0.00-0.4) % Nucleat RBC Rel Count (0.00-0.1) % Eos # (Auto) (0-0.5) x10^3/uL Immature Gran # (Auto) (0.00-0.03) x10^3u/L Absolute Lymphs (auto) (1.0-4.6) x10^3/uL Absolute Monos (auto) (0.0-1.3) x10^3/uL Absolute Nucleated RBC (0.00-0.01) x10^3u/L Lymphocytes % (24.0-44.0) % Monocytes % (0.0-12.0) % Eosinophils % (0.00-5.0) % Basophils % (0.0-0.4) % Absolute Granulocytes (1.4-6.9) x10^3/uL Basophils # (0-0.4) x10^3/uL Sodium 136 L (137-145) mmol/L Potassium 3.4 L D (3.5-5.1) mmol/L Chloride 101 (98-107) mmol/L Carbon Dioxide 27 (22-30) mmol/L Anion Gap 11.3 (5-15) MEQ/L BUN 22 H (9-20) mg/dL Creatinine 1.52 H (0.66-1.25) mg/dL Estimated GFR 50.7 ML/MIN Glucose 192 H (74-106) mg/dL Lactic Acid 1.0 (0.4-2.0) Calcium 8.0 L (8.4-10.2) mg/dL Total Bilirubin 0.40 (0.2-1.3) mg/dL AST 23 (17-59) U/L ALT 22 (0-50) U/L Alkaline Phosphatase 133 H (38-126) U/L Troponin I (0.000-0.034) ng/mL Serum Total Protein 6.2 L (6.3-8.2) g/dL Albumin 3.4 L (3.5-5.0) g/dL Lipase (23-300) U/L Urine Color (Yellow) Urine Appearance (Clear) Urine pH (4.6-8.0) Ur Specific [place] (1.005-1.030) Urine Protein (Negative) Urine Glucose (UA) (Negative) mg/dL Urine Ketones (Negative) Urine Blood (Negative) Urine Nitrite (Negative) Urine Bilirubin (Negative) Urine Urobilinogen (0.2) mg/dL Ur Leukocyte Esterase (Negative) U Hyaline Cast (Auto) (0-2) /LPF Urine Microscopic RBC (0-5) /HPF Urine Microscopic WBC (0-5) /HPF Ur Epithelial Cells (None Seen) /HPF Urine Bacteria (None Seen) /HPF Urine Culture Reflexed (NO) Influenza Type A Ag (NEGATIVE) Influenza Type B Ag (NEGATIVE) RSV (PCR) (NEGATIVE) SARS-CoV-2 (PCR) (NEGATIVE) Slides for Path Review Radiology Exams: Radiology Procedures Category Date Time Status ABDOMEN AND PELVIS W/0 CONTRAS [CT] Stat Exams 09/14/22 15:06 Completed Assessment/Plan (1) Left upper quadrant abdominal pain Current Visit: Yes Status: Acute Assessment & Plan: etiology uncertain, previous history of diverticulitis. ct had no contrast, emperically treating with levaquin/flagyl and surgery consult is pending. recent egd/colonoscopy will be requested for chart Code(s): R10.12 - LEFT UPPER QUADRANT PAIN (2) Vomiting and diarrhea Current Visit: Yes Status: Acute Code(s): R11.10 - VOMITING, UNSPECIFIED; R19.7 - DIARRHEA, UNSPECIFIED (3) Diabetes mellitus Current Visit: Yes Status: Acute Code(s): E11.9 - TYPE 2 DIABETES MELLITUS WITHOUT COMPLICATIONS
[2022-09-15] MEDS: Sodium Chloride 0.9% 1000 ML 1,000 ML IV SCH ×2 (14:07→21:10)
[2022-09-15] MEDS: DESYREL 50 MG PO SCH (21:09)
[2022-09-15] MEDS: NORVASC 5 MG PO SCH (21:10)
[2022-09-15 21:29] LABS: 027 TOX PROD PRESUMPTIVE NEGATIVE (NEGATIVE); TOXIGENIC C. DIFF ORG NEGATIVE (NEGATIVE)
[2022-09-15] MEDS: HUMALOG SQ PRN (22:10)
[2022-09-16] MEDS: FLAGYL 500 MG IVPB 500 MG/100 ML BAG IV SCH ×4 (00:34→17:19)
[2022-09-16] MEDS: PERCOCET TABLET 5/325MG PO PRN (03:43)
[2022-09-16 05:02] LABS: Absolute Neutrophil Ct (ANC) 2.34 x10^3/uL (1.4-6.9); BASOPHIL % 0.5 % (0.0-0.4); Basophil (Absolute #) 0.02 x10^3/uL (0-0.4); Eosinophil % 3.3 % (0.00-5.0); Eosinophil (Absolute #) 0.12 x10^3/uL (0-0.5); Hemoglobin 12.4 g/dL (12.5-18.0); IMMATURE GRAN # 0.02 x10^3u/L (0.00-0.03); IMMATURE GRAN % 0.5 % (0.00-0.4); Lymphocyte (Absolute #) 0.74 x10^3/uL (1.0-4.6); Lymphocytes % 20.3 % (24.0-44.0); Mean Corpuscular Hemoglobin 28.3 pg (26-32); Mean Corpuscular Hgb Concent. 31.8 g/dL (32-36); Mean Platelet Volume 9.2 fL (7.5-11.0); Neutrophil % 64.4 % (36.0-66.0); Platelet Count 246 x10^3/uL (150-450); Red Blood Count 4.38 x10^6/uL (4.1-5.6); Red Cell Distribution Width 15.9 % (11.5-14.0); White Blood Count 3.6 x10^3/uL (4.0-10.5)
[2022-09-16 05:15] LABS: ALBUMIN 3.5 g/dL (3.5-5.0); ANION GAP 14.9 MEQ/L (5-15); BILIRUBIN,TOTAL 0.4 mg/dL (0.2-1.3); Calcium 8.6 mg/dL (8.4-10.2); Creatinine 1 1.47 mg/dL (0.66-1.25); EST GLOMERULAR FILTRATION RATE 52.7 ML/MIN; Potassium 4.2 mmol/L (3.5-5.1); Total Protein 6.4 g/dL (6.3-8.2)
[2022-09-16] MEDS: Hydromorphone 1 mg/ml Injection IV PRN ×3 (08:03→20:35)
[2022-09-16] MEDS: HUMALOG SQ PRN ×3 (08:04→20:32)
--- NOTE | 2022-09-16 08:14 | PCM.NOTE ---
Date and Time: 09/16/22 0812 patient is still having severe LUQ pain and diarrhea, he is tolerating clear liquids. was seen by surgery for consult, no surgery planned or change in approa . discussed checking MRA due to renal function to r/o mesenteric ischemia but pt refuses to have an MRI even when I discussed sedation. Objective Exam General Appearance: no apparent distress, obese Neurologic Exam: alert, oriented x 3 Respiratory Exam: normal breath sounds, lungs clear, No respiratory distress Cardiovascular Exam: regular rate/rhythm, normal heart sounds Gastrointestinal/Abdomen Exam: soft, normal bowel sounds, tenderness (LUQ), No guarding, No rebound Extremity Exam: normal inspection, normal range of motion OBJECTIVE DATA Vital Signs: Vital Signs - 24 hr Temp Pulse Resp BP Pulse Ox 09/16/22 07:19 97.7 F 61 17 109/58 97 09/16/22 04:00 98.2 F 56 L 18 103/57 96 09/15/22 23:28 97.5 F 63 18 145/75 95 09/15/22 20:00 97.5 F 69 18 145/58 96 09/15/22 16:00 97.7 F 67 17 131/74 97 09/15/22 11:54 97.7 F 65 17 125/67 96 Pain Assessment - Last Documented Pain Intensity 8 Pain Scale Used 0-10 Pain Scale Intake and Output: Intake & Output 09/13/22 09/14/22 09/15/22 09/16/22 11:59 11:59 11:59 11:59 Intake Total 883 3538 Output Total 500 Balance 383 3538 Weight 123.169 kg Lab Results: Lab Results-Last 24 Hours 09/15/22 09/15/22 09/15/22 Range/Units 17:06 20:25 21:30 WBC (4.0-10.5) x10^3/uL RBC (4.1-5.6) x10^6/uL Hgb (12.5-18.0) g/dL Hct (42-50) % MCV (78-100) fL MCH (26-32) pg MCHC (32-36) g/dL RDW (11.5-14.0) % Plt Count (150-450) x10^3/uL MPV (7.5-11.0) fL Gran % (36.0-66.0) % Immature Gran % (Auto) (0.00-0.4) % Nucleat RBC Rel Count (0.00-0.1) % Eos # (Auto) (0-0.5) x10^3/uL Immature Gran # (Auto) (0.00-0.03) x10^3u/L Absolute Lymphs (auto) (1.0-4.6) x10^3/uL Absolute Monos (auto) (0.0-1.3) x10^3/uL Absolute Nucleated RBC (0.00-0.01) x10^3u/L Lymphocytes % (24.0-44.0) % Monocytes % (0.0-12.0) % Eosinophils % (0.00-5.0) % Basophils % (0.0-0.4) % Absolute Granulocytes (1.4-6.9) x10^3/uL Basophils # (0-0.4) x10^3/uL Sodium (137-145) mmol/L Potassium (3.5-5.1) mmol/L Chloride (98-107) mmol/L Carbon Dioxide (22-30) mmol/L Anion Gap (5-15) MEQ/L BUN (9-20) mg/dL Creatinine (0.66-1.25) mg/dL Estimated GFR ML/MIN Glucose (74-106) mg/dL POC Glucometer 198 H 295 H (74 to 106) mg/dL Calcium (8.4-10.2) mg/dL Total Bilirubin (0.2-1.3) mg/dL AST (17-59) U/L ALT (0-50) U/L Alkaline Phosphatase (38-126) U/L Serum Total Protein (6.3-8.2) g/dL Albumin (3.5-5.0) g/dL C. difficile Screen NEGATIVE (NEGATIVE) C.difficile 027-NAP1-B1 PRESUMPTIVE NEGATIVE (NEGATIVE) 09/16/22 09/16/22 09/16/22 Range/Units 04:22 04:22 06:57 WBC 3.6 L (4.0-10.5) x10^3/uL RBC 4.38 (4.1-5.6) x10^6/uL Hgb 12.4 L (12.5-18.0) g/dL Hct 39.0 L (42-50) % MCV 89.0 (78-100) fL MCH 28.3 (26-32) pg MCHC 31.8 L (32-36) g/dL RDW 15.9 H (11.5-14.0) % Plt Count 246 (150-450) x10^3/uL MPV 9.2 (7.5-11.0) fL Gran % 64.4 (36.0-66.0) % Immature Gran % (Auto) 0.5 H (0.00-0.4) % Nucleat RBC Rel Count 0.0 (0.00-0.1) % Eos # (Auto) 0.12 (0-0.5) x10^3/uL Immature Gran # (Auto) 0.02 (0.00-0.03) x10^3u/L Absolute Lymphs (auto) 0.74 L (1.0-4.6) x10^3/uL Absolute Monos (auto) 0.40 (0.0-1.3) x10^3/uL Absolute Nucleated RBC 0.00 (0.00-0.01) x10^3u/L Lymphocytes % 20.3 L (24.0-44.0) % Monocytes % 11.0 (0.0-12.0) % Eosinophils % 3.3 (0.00-5.0) % Basophils % 0.5 (0.0-0.4) % Absolute Granulocytes 2.34 (1.4-6.9) x10^3/uL Basophils # 0.02 (0-0.4) x10^3/uL Sodium 137 (137-145) mmol/L Potassium 4.2 D (3.5-5.1) mmol/L Chloride 103 (98-107) mmol/L Carbon Dioxide 23 (22-30) mmol/L Anion Gap 14.9 (5-15) MEQ/L BUN 18 (9-20) mg/dL Creatinine 1.47 H (0.66-1.25) mg/dL Estimated GFR 52.7 ML/MIN Glucose 246 H (74-106) mg/dL POC Glucometer 252 H (74 to 106) mg/dL Calcium 8.6 (8.4-10.2) mg/dL Total Bilirubin 0.40 (0.2-1.3) mg/dL AST 22 (17-59) U/L ALT 23 (0-50) U/L Alkaline Phosphatase 144 H (38-126) U/L Serum Total Protein 6.4 (6.3-8.2) g/dL Albumin 3.5 (3.5-5.0) g/dL C. difficile Screen (NEGATIVE) C.difficile 027-NAP1-B1 (NEGATIVE) Radiology Exams: Radiology Procedures Category Date Time Status ABDOMEN AND PELVIS W/0 CONTRAS [CT] Stat Exams 09/14/22 15:06 Completed Multi-Disciplinary Progress Notes: Multi-Disciplinary Progress Notes 09/15/22 14:29 Case Management Note by Mayte Heard REFERRAL FAXED TO [employer]- CONTACT INFO PLACED ON DC INSTRUCTIONS REFERRAL EMAILED TO MICHOACANO JACK STATED SHE WOULD CONTACT THE PATIENT Initialized on 09/15/22 14:29 - END OF NOTE Assessment/Plan (1) Left upper quadrant abdominal pain Current Visit: Yes Status: Acute Assessment & Plan: continue levaquin/flagyl at this time. Code(s): R10.12 - LEFT UPPER QUADRANT PAIN (2) Vomiting and diarrhea Current Visit: Yes Status: Acute Code(s): R11.10 - VOMITING, UNSPECIFIED; R19.7 - DIARRHEA, UNSPECIFIED (3) Diabetes mellitus Current Visit: Yes Status: Acute Code(s): E11.9 - TYPE 2 DIABETES MELLITUS WITHOUT COMPLICATIONS
--- NOTE | 2022-09-16 08:18 | CONS ---
CONSULT DATE: 09/15/2022 HISTORY: Jhoan March is a 56-year-old. 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 A very pleasant gentleman. The patient receives all of his health care at . He has multiple heart stents with the last stent was back in 2017. He has been on Xarelto. It was on hold last night but otherwise he had been taking. He has had substantial kidney disease. He said his right kidney is not working at all and scheduled to have that to be removed sometime this summer. He has had multiple stents in his kidneys. He has had multiple stents in his heart. He had an EGD and colonoscopy one month ago in [place]. He was told that he has some irritable bowel syndrome and diverticulosis. They did not see much else findings on his upper scope. His pain is in the left lower quadrant to back. He states he has had it for several years. There is nothing acute on his lab work basically. His white count is normal. His temperature is normal. PAST MEDICAL HISTORY: Seizure disorder. He had a major stroke about a year ago. ALLERGIES: NKDA. MEDICATIONS: Per the chart. PHYSICAL EXAMINATION: ABDOMEN: He is exquisitely tender when touching his abdomen. His abdomen is mildly distended. He is a quite robust gentleman. IMPRESSION: He is not having any acute labs and with him just recently having upper and lower scope about a month ago. He has already had multiple CT scans. I have no real question of what this pain is from. He has had pancreatitis in the past though but not currently. The patient is an patient with multiple morbidities and mortalities. We do not have any understanding of what he is currently experiencing. I would currently suggest transfer back to the , willing to take care of him acutely here at this hospital for his pain but right now I do not know of any benefit but we are transferring him to where he has had 99% of his work previously is prudent at this point. He is understanding of this.
[2022-09-16] MEDS: hydroDIURIL 25 MG PO SCH (09:20)
[2022-09-16] MEDS: KEPPRA PO SCH ×2 (09:20→21:13)
[2022-09-16] MEDS: Zestril 20 MG PO SCH (09:21)
[2022-09-16] MEDS: Aldactone 25 MG PO SCH (09:21)
[2022-09-16] MEDS: COREG 12.5 MG PO SCH ×2 (09:21→21:12)
[2022-09-16] MEDS: NEURONTIN PO SCH ×3 (09:22→21:12)
[2022-09-16] MEDS: Imdur 60MG PO SCH (09:22)
[2022-09-16] MEDS: CLONIDINE 0.1 MG TABLET PO SCH ×2 (09:22→21:12)
[2022-09-16] MEDS: Levofloxacin 500MG/100ML D5W 500 MG/100 ML BAG IV SCH (09:24)
[2022-09-16] MEDS ORDERED: JARDIANCE PO SCH (10:00)
[2022-09-16] MEDS: Sodium Chloride 0.9% 1000 ML 1,000 ML IV SCH ×3 (10:49→23:42)
[2022-09-16] MEDS: NORVASC 5 MG PO SCH (21:12)
[2022-09-16] MEDS: DESYREL 50 MG PO SCH (21:13)
[2022-09-17] MEDS: FLAGYL 500 MG IVPB 500 MG/100 ML BAG IV SCH ×2 (01:27→05:19)
[2022-09-17 08:02] VITALS: BP 155/73; PULSE 82; O2SAT 97
[2022-09-17] MEDS: Sodium Chloride 0.9% 1000 ML 1,000 ML IV SCH (09:04)
--- NOTE | 2022-09-17 09:11 | PCM.DS ---
Discharge Summary Date of Admission: 09/14/22 19:27 Admitting Physician: RADHA KELLOGG Consults: Consults on Case 09/14/22 19:39 Consult Surgery ROUTINE Primary Care Provider: NO FAMILY DOCTOR Allergies Allergies No Known Drug Allergies Allergy (Verified 09/14/22 14:16) Hospital Summary - Hospital Course Hospital Course: Chief Complaint Diagnosis Intractable abdominal pain Allergies Allergy/AdvReac Type Severity Reaction Status Date / Time No Known Drug Allergies Allergy Verified 09/14/22 14:16 Vital Signs (Last 24 hours) Temp Pulse Resp BP Pulse Ox 09/17/22 08:00 98.4 F 82 16 155/73 97 09/17/22 04:00 96.9 F 63 17 139/64 95 09/16/22 23:52 97.7 F 64 18 134/74 97 09/16/22 20:00 97.6 F 64 18 141/79 98 09/16/22 15:37 98.0 F 61 16 133/66 99 09/16/22 13:00 97.3 F 63 18 130/65 97 09/16/22 09:30 64 136/73 Home Medications Medication Instructions Recorded Confirmed Last Taken Type Amitriptyline HCl 25 mg 25 mg PO HS 09/14/22 09/14/22 09/13/22 History [Amitriptyline 25 mg Tablet] Ferrous Sulfate 325 mg [Feosol 325 mg PO DAILY 09/14/22 09/14/22 09/13/22 History 325 mg] Trazodone HCl 50 mg [Desyrel 50 100 mg PO HS 09/14/22 09/14/22 09/13/22 History mg] Current Medications Generic Name Dose Route Start Last Admin Trade Name Freq PRN Reason Stop Dose Admin Amlodipine Besylate 10 mg 09/14/22 22:00 09/16/22 21:12 Amlodipine Besylate 5 Mg Tablet PO 10/14/22 21:59 10 mg HS DENISE Administration Carvedilol 25 mg 09/14/22 22:00 09/16/22 21:12 Carvedilol 12.5 Mg Tablet PO 10/14/22 21:59 25 mg BID DENISE Administration Clonidine 0.1 mg 09/14/22 22:00 09/16/22 21:12 Clonidine Hcl 0.1 Mg Tablet PO 10/14/22 21:59 0.1 mg BID DENISE Administration Empagliflozin 25 mg 09/16/22 10:00 09/16/22 10:21 Empagliflozin 10 Mg Tablet PO 10/16/22 09:59 25 mg DAILY DENISE Administration Gabapentin 600 mg 09/14/22 22:00 09/16/22 21:12 Gabapentin 300 Mg Capsule PO 10/14/22 21:59 600 mg TID DENISE Administration Hydrochlorothiazide 25 mg 09/15/22 10:00 09/16/22 09:20 Hydrochlorothiazide 25 Mg Tablet PO 10/15/22 09:59 25 mg DAILY DENISE Administration Hydromorphone HCl 1 mg 09/14/22 20:12 09/16/22 20:35 Hydromorphone 1 Mg/1ml Inj 1 Mg/Ml Syringe IV 09/19/22 20:11 1 mg Q4H PRN PRN Administration PAIN Sodium Chloride 1,000 mls @ 100 mls/hr 09/14/22 19:39 09/17/22 09:04 Sodium Chloride 0.9% 1000 Ml IV 10/14/22 19:38 Not Given .Q10H DENISE Levofloxacin/Dextrose 500 mg in 100 mls @ 100 mls/hr 09/15/22 10:00 09/16/22 09:24 Levofloxacin 500mg/100ml D5w IV 10/15/22 09:59 100 mls/hr Q24H10 DENISE Administration Metronidazole 500 mg in 100 mls @ 200 mls/hr 09/15/22 00:00 09/17/22 05:19 Flagyl 500 Mg Ivpb IV 10/15/22 00:00 200 mls/hr Q6HT DENISE Administration Insulin Human Lispro 0 unit 09/15/22 22:06 09/16/22 20:32 Insulin Lispro 1 Unit SQ 10/15/22 22:05 6 unit UD PRN Administration HYPERGLYCEMIA Isosorbide Mononitrate 60 mg 09/15/22 10:00 09/16/22 09:22 Isosorbide Mononitrate 60 Mg Tab PO 10/15/22 09:59 60 mg DAILY DENISE Administration Levetiracetam 1,000 mg 09/14/22 22:00 09/16/22 21:13 Levetiracetam 500 Mg Tablet PO 10/14/22 21:59 1,000 mg BID DENISE Administration Lisinopril 40 mg 09/15/22 10:00 09/16/22 09:21 Lisinopril 20 Mg Tablet PO 10/15/22 09:59 40 mg DAILY DENISE Administration Ondansetron HCl 4 mg 09/14/22 19:39 Ondansetron Hcl 4 Mg/2 Ml Vial IV 10/14/22 19:38 Q6H PRN PRN NAUSEA/VOMITING Oxycodone/Acetaminophen 1 tab 09/14/22 21:55 09/16/22 03:43 Oxycodone Hcl/Apap 5 Mg/325 Mg Tablet PO 09/19/22 21:54 1 tab Q6H PRN PRN Administration PAIN Spironolactone 25 mg 09/15/22 10:00 09/16/22 09:21 Spironolactone 25 Mg Tablet PO 10/15/22 09:59 25 mg DAILY DENISE Administration Trazodone HCl 100 mg 09/15/22 22:00 09/16/22 21:13 Trazodone Hcl 50 Mg Tablet PO 10/15/22 21:59 100 mg HS DENISE Administration Discontinued Medications Generic Name Dose Route Start Last Admin Trade Name Freq PRN Reason Stop Dose Admin Hydromorphone HCl 0.5 mg 09/14/22 17:36 09/14/22 19:55 Hydromorphone 1 Mg/1ml Inj 1 Mg/Ml Syringe IV 09/14/22 17:37 0.5 mg STAT ONE Administration Hydromorphone HCl Confirm 09/14/22 17:49 Hydromorphone 1 Mg/1ml Inj 1 Mg/Ml Syringe Administered 09/14/22 17:50 Dose 1 mg .ROUTE .STK-MED ONE Hydromorphone HCl 0.5 mg 09/14/22 19:39 Hydromorphone 1 Mg/1ml Inj 1 Mg/Ml Syringe IV 09/19/22 19:38 Q4H PRN PRN PAIN Sodium Chloride 1,000 mls @ 100 mls/hr 09/14/22 15:00 09/14/22 18:48 Sodium Chloride 0.9% 1000 Ml IV 10/14/22 14:59 100 mls/hr .Q10H DENISE Infusion Sodium Chloride Confirm 09/14/22 14:59 Sodium Chloride 0.9% 1000 Ml Administered 09/14/22 15:00 Dose 1,000 mls @ ud .ROUTE .STK-MED ONE Morphine Sulfate 4 mg 09/14/22 14:53 09/14/22 15:00 Morphine Sulfate 4 Mg/Ml Injection IV 09/14/22 14:54 4 mg STAT ONE Administration Morphine Sulfate Confirm 09/14/22 14:59 Morphine Sulfate 4 Mg/Ml Injection Administered 09/14/22 15:00 Dose 4 mg .ROUTE .STK-MED ONE Ondansetron HCl 4 mg 09/14/22 14:53 09/14/22 15:00 Ondansetron Hcl 4 Mg/2 Ml Vial IV 09/14/22 14:54 4 mg STAT ONE Administration Ondansetron HCl Confirm 09/14/22 14:58 Ondansetron Hcl 4 Mg/2 Ml Vial Administered 09/14/22 14:59 Dose 4 mg .ROUTE .STK-MED ONE Oxycodone/Acetaminophen Confirm 09/14/22 21:52 Oxycodone Hcl/Apap 5 Mg/325 Mg Tablet Administered 09/14/22 21:53 Dose 1 tab .ROUTE .STK-MED ONE Intake & Output (Last 24 hours) 09/14/22 09/15/22 09/16/22 09/17/22 11:59 11:59 11:59 11:59 Intake Total 883 3538 4498 Output Total 500 Balance 383 3538 4498 Weight 123.169 kg Laboratory Results (Last 24 hours) 09/17/22 09/16/22 09/16/22 07:19 20:09 15:26 POC Glucometer 150 H 327 H 196 H 09/16/22 11:35 POC Glucometer 240 H Orders (Last 24 hours) Category Date Time Status House Regular Diet Diet 09/17/22 Breakfast Active POCT GLUCOSE Stat Lab 09/16/22 11:35 Completed POCT GLUCOSE Stat Lab 09/16/22 15:26 Completed POCT GLUCOSE Stat Lab 09/16/22 20:09 Completed POCT GLUCOSE Stat Lab 09/17/22 07:19 Completed Empagliflozin [Jardiance] Med 09/16/22 10:00 Active 25 mg PO DAILY Patient Care Notes (Last 24 hours) 09/16/22 19:09 Nursing Note by Corey Harding Received pt sitting in recliner. Pt denies pain, sob, dizziness at this time. White board updated. NAD at this time. Will cont to monitor. Initialized on 09/16/22 19:09 - END OF NOTE 09/16/22 18:13 Nursing Note by oJsefina Olea Faxed request for EGD/Colonoscopy op notes to [facility] ([phone]) and [place] ([phone]) medical records departments. Initialized on 09/16/22 18:13 - END OF NOTE 09/16/22 11:13 Case Management Note by Mayte Heard PATIENT REPORTED HE DOES NOT HAVE A GLUCOMETER AT HOME D/T LOSING IT WHEN HE MOVED. S/W DR KELLOGG- HE STATED TO CALL IN AN ORDER FOR ONE WITH TEST STRIPS AND LANCETS. S/W [facility]- THEY HAVE A GLUCOMETER AND TEST STRIPS READY FOR PATIENT BUT NO ORDER FOR LANCETS. ORDER FOR LANCETS CALL[facility] INTO [facility]. Initialized on 09/16/22 11:13 - END OF NOTE 09/16/22 11:09 Case Management Note by Mayte Heard S/W PATIENT- HE CONTINUES TO DECLINE ANY NEW NEEDS. REFERRALS SENT OUT TO HELP WITH [employer]IES. INFORMATION GIVEN TO PATIENT ON LOCAL PANTRIES AND EVENING MEALS. PATIENT NOT A MEALS ON WHEELS CANDIDATE D/T LOCATION OF HOME. Initialized on 09/16/22 11:09 - END OF NOTE - Vitals & Intake/Output Vital Signs: Vital Signs Temperature 98.4 F 09/17/22 08:00 Pulse Rate 82 09/17/22 08:00 Respiratory Rate 16 09/17/22 08:00 Blood Pressure 155/73 09/17/22 08:00 O2 Sat by Pulse Oximetry 97 09/17/22 08:00 Intake & Output: Intake & Output 09/14/22 09/15/22 09/16/22 09/17/22 11:59 11:59 11:59 11:59 Intake Total 883 3538 4498 Output Total 500 Balance 383 3538 4498 Weight 123.169 kg - Lab Result Diagrams: 09/16/22 04:22 09/16/22 04:22 Lab Results-Last 24 Hrs: Lab Results-Last 24 Hours 09/16/22 09/16/22 09/16/22 Range/Units 11:35 15:26 20:09 POC Glucometer 240 H 196 H 327 H (74 to 106) mg/dL 09/17/22 Range/Units 07:19 POC Glucometer 150 H (74 to 106) mg/dL Micro Results-Entire Visit: Accuchecks Date 09/17/22 Date 09/16/22 Date 09/16/22 Time 08:02 Time 15:37 Time 11:45 - Radiology Exams Ordered Rad Exams-Entire Visit: 0013 CT/ABDOMEN AND PELVIS W/0 CONTRAS Indication: Nausea, vomiting, diarrhea. Pain. Multiple contiguous axial images obtained through the abdomen and pelvis without contrast. Comparison: May 30, 2011 Lung bases demonstrates incompletely visualize 1 cm left lower lobe noncalcified nodule. No infiltrate or effusion. Heart not enlarged. Noncontrasted stomach and bowel loops appear nonobstructed with normal appendix. Mild diffuse scattered colonic fecal debris throughout including rectum. Minimal scattered diverticulosis without diverticulitis. Right kidney is now atrophic. Interval cholecystectomy. No free fluid/air. Remaining liver, pancreas, spleen, adrenal glands, kidneys, ureters, and bladder are unremarkable for noncontrast exam. Progressive worsening moderate scattered vascular calcifications. No AAA. Osseous structures intact with mild multilevel thoracolumbar degenerative spondylosis, bilateral L5 spondylolysis without listhesis, tiny multilevel thoracic Schmorl nodes, and minimal remote-appearing T11 anterior compression deformity. Impression: 1. Mild diffuse fecal stasis and minimal diverticulosis. 2. Incompletely visualized 1 cm left lower lobe noncalcified nodule. Finding unchanged with respect to CTA chest September 23, 2020 and favored to be benign given stability over the years. 3. New right renal atrophy. 4. Again chronic bony findings and arteriosclerotic disease. - Procedures and Test Procedures and Tests throughout Hospitalization: Therapy Orders & Screens 09/14/22 23:06 BiPap/CPAP ROUTINE Comment: Diagnosis: Intractable abdominal pain Discharge Exam General Appearance: no apparent distress, alert Neurologic Exam: alert, oriented x 3, cooperative, normal mood/affect, nml cerebellar function, sensation nml, No motor deficits Eye Exam: PERRL, EOMI, eyes nml inspection Ears, Nose, Throat Exam: normal ENT inspection, pharynx normal, moist mucous membranes Neck Exam: normal inspection, non-tender, supple, full range of motion Respiratory Exam: normal breath sounds, lungs clear, No respiratory distress Cardiovascular Exam: regular rate/rhythm, normal heart sounds Gastrointestinal/Abdomen Exam: soft, No tenderness, No mass Male Genitalia Exam: deferred Rectal Exam: deferred Back Exam: normal inspection, normal range of motion, No CVA tenderness, No vertebral tenderness Extremity Exam: normal inspection, normal range of motion Skin Exam: normal color, warm, dry Final Diagnosis/Problem List - Final Discharge Diagnosis/Problem (1) Abdominal pain Current Visit: Yes Status: Resolved Code(s): R10.9 - UNSPECIFIED ABDOMINAL PAIN (2) Diverticulosis Current Visit: Yes Status: Chronic Code(s): K57.90 - DVRTCLOS OF INTEST, PART UNSP, W/O PERF OR ABSCESS W/O BLEED (3) Lung nodule Current Visit: Yes Status: Chronic Priority: Low Code(s): R91.1 - SOLITARY PULMONARY NODULE - Discharge Discharge Date: 09/17/22 Disposition: Home, Self-Care Condition: Stable Prescriptions: No Action Levetiracetam [Keppra] 1,000 mg PO BID Gabapentin [Neurontin ] 600 mg PO TID Empagliflozin [Jardiance] 25 mg PO DAILY Carvedilol 12.5 mg [Coreg 12.5 mg] 25 mg PO BID Atorvastatin Calcium 80 mg PO QHS Aspirin 81 gm Chew [Baby Aspirin 81 mg Chew] 81 mg PO DAILY Meclizine HCl 12.5 mg PO Q8H PRN PRN PRN Reason: Dizziness lisinopriL [Lisinopril] 40 mg PO DAILY Spironolact/Hydrochlorothiazid [Spironolactone-Hctz 25-25 Tab] 1 tab PO DAILY Clonidine HCl 0.1 mg [Clonidine 0.1 mg Tablet] 0.1 mg PO BID Ergocalciferol (Vitamin D2) [Vitamin D] 50,000 unit PO UD Insulin Glargine,Hum.rec.anlog [Basaglar Kwikpen U-100] 45 units SQ QHS Polyethylene Glycol [Polyox Wsr-301] 17 gm PO DAILY PRN PRN PRN Reason: Constipation Isosorbide Mononitrate [Isosorbide Mononitrate ER] 60 mg PO DAILY Melatonin 10 mg PO QHS Amlodipine Besylate 10 mg PO HS #0 Rivaroxaban [Xarelto] 20 mg PO HS #0 Trazodone HCl 50 mg [Desyrel 50 mg] 100 mg PO HS Amitriptyline HCl 25 mg [Amitriptyline 25 mg Tablet] 25 mg PO HS Ferrous Sulfate 325 mg [Feosol 325 mg] 325 mg PO DAILY Instructions: Diverticulosis (DC) Additional Instructions: -[facility] HAS METER, TEST STRIPS AND LANCETS FOR YOU TO 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 THEIR PHONE NUMBER IS [phone]. -A REFERRAL WAS ALSO SENT TO JUAN AT THE [facility] DEPARTMENT FOR FOOD ASSISTANCE- SHE STATED SHE WILL REACH OUT TO YOU. HER PHONE -NUMBER IS [phone] -YOU CAN CHECK WITH [facility] AT [phone] TO SEE IF THEY HAVE ANY SHOWER CHAIRS AVAILABLE FOR RENT. Follow up with: RADHA KELLOGG MD [ACTIVE STAFF] - Call for Appointment
== END 2022-09-17 10:08 | disposition home or self-care (01) ==
LOC: ED 13:56 → MED SURG 19:27
PROVIDERS: ADMIT Family Medicine; ATTEND Family Medicine
DX: R10.12 Left upper quadrant pain (principal); K57.90 Diverticulosis of intestine, part unspecified, without perforation or abscess without bleeding; R91.1 Solitary pulmonary nodule; I10 Essential (primary) hypertension; E78.5 Hyperlipidemia, unspecified; I25.2 Old myocardial infarction; E11.9 Type 2 diabetes mellitus without complications; R11.10 Vomiting, unspecified; G47.30 Sleep apnea, unspecified; Z79.01 Long term (current) use of anticoagulants; Z79.899 Other long term (current) drug therapy; Z20.828 Contact with and (suspected) exposure to other viral communicable diseases
CPT/HCPCS: 0241U; 36000; 36415; 74176; 80053; 81001; 82947; 83036; 83605; 83690; 84484; 85025; 87045; 87046; 87493; 94760; 96374; 96375; 99285; 93268; J1170; J1817; J1956; J2270; J2405; A9270-GY; G0378

== ENCOUNTER 2022-11-09 17:16 | Observation (INO) | payer MEDICARE, OTHER ==
--- NOTE | 2022-11-09 17:29 | ERPHSYRPT ---
- History of Present Illness Time Seen by Provider: 11/09/22 17:28 Source: patient Exam Limitations: no limitations Physician History: This is a 57-year-old obese white male patient who presents with back pain in the thoracolumbar region. The patient stated that this pain began yesterday evening and has worsened today. He denies any traumatic injury. Patient was seen on 09/14/2022 with flank pain and abdominal pain at that time. There is no evidence of abdominal aortic aneurysm but there was evidence of multilevel thoracolumbar degenerative changes. There was also a remote T11 anterior compression deformity that is minimal on that study. Patient has significant hypertension, seizure disorder, insulin-dependent diabetes and is on Xarelto. He has history of hyperlipidemia and coronary artery disease with coronary artery stent. Patient also has chronic renal disease. Patient does not have chest pain today or shortness of breath. Timing/Duration: yesterday Method of Injury: other Quality: sharp (No injury) Back Pain Location: T-spine, lumbar spine Severity of Pain-Max: moderate Severity of Pain-Current: moderate Modifying Factors: Improves With: movement Associated Symptoms: lower back pain, No urinary incontinence, No loss of bowel control, No numbness in legs/feet, No sensory/motor loss, No tingling in legs/feet Previous symptoms: same symptoms as today Allergies/Adverse Reactions: No Known Drug Allergies Allergy (Verified 11/09/22 17:24) Home Medications: Aspirin 81 gm Chew [Baby Aspirin 81 mg Chew] 81 mg PO DAILY 09/22/20 [History] Atorvastatin Calcium 80 mg PO QHS 09/22/20 [History] Carvedilol 12.5 mg [Coreg 12.5 mg] 25 mg PO BID 09/22/20 [History] Empagliflozin [Jardiance] 25 mg PO DAILY 09/22/20 [History] Gabapentin [Neurontin ] 600 mg PO TID 09/22/20 [History] Levetiracetam [Keppra] 1,000 mg PO BID 09/22/20 [History] Clonidine HCl 0.1 mg [Clonidine 0.1 mg Tablet] 0.1 mg PO BID 10/13/20 [History] Ergocalciferol (Vitamin D2) [Vitamin D] 50,000 unit PO UD 10/13/20 [History] Insulin Glargine,Hum.rec.anlog [Basaglar Kwikpen U-100] 45 units SQ QHS 10/13/20 [History] Isosorbide Mononitrate [Isosorbide Mononitrate ER] 60 mg PO DAILY 10/13/20 [History] Meclizine HCl 12.5 mg PO Q8H PRN PRN 10/13/20 [History] Melatonin 10 mg PO QHS 10/13/20 [History] Polyethylene Glycol [Polyox Wsr-301] 17 gm PO DAILY PRN PRN 10/13/20 [History] Spironolact/Hydrochlorothiazid [Spironolactone-Hctz 25-25 Tab] 1 tab PO DAILY 10/13/20 [History] lisinopriL [Lisinopril] 40 mg PO DAILY 10/13/20 [History] Amitriptyline HCl 25 mg [Amitriptyline 25 mg Tablet] 25 mg PO HS 09/14/22 [History] Ferrous Sulfate 325 mg [Feosol 325 mg] 325 mg PO DAILY 09/14/22 [History] Trazodone HCl 50 mg [Desyrel 50 mg] 100 mg PO HS 09/14/22 [History] Hx Tetanus, Diphtheria Vaccination/Date Given: Yes Hx Influenza Vaccination/Date Given: Yes Hx Pneumococcal Vaccination/Date Given: Yes Travel Risk - International Travel Have you traveled outside of the country in past 3 weeks: No - Coronavirus Screening Are you exhibiting any of the following symptoms?: No Close contact with a COVID-19 positive Pt in past 14-21 Days: No - Vaccine Status Have you recieved a Covid-19 vaccination: Yes Text Transcriber: Unknown - Vaccination Dates Dates if Unknown: unknown - Review of Systems Constitutional: No Symptoms Eyes: No Symptoms Ears, Nose, & Throat: No Symptoms Respiratory: No Symptoms Cardiac: No Symptoms Abdominal/Gastrointestinal: No Symptoms Genitourinary Symptoms: Flank Pain (Bilateral) Musculoskeletal: Back Pain (Thoracolumbar region) Skin: No Symptoms Neurological: No Symptoms Psychological: No Symptoms Endocrine: No Symptoms Hematologic/Lymphatic: No Symptoms Immunological/Allergic: No Symptoms All Other Systems: Reviewed and Negative - Past Medical History Pertinent Past Medical History: Yes Neurological History: Peripheral Neuropathy, Seizures, Stroke ENT History: No Pertinent History Cardiac History: High Cholesterol, Hypertension, Myocardial Infarction (MT) Respiratory History: Sleep Apnea Endocrine Medical History: Diabetes Type II Musculoskeletal History: Osteoarthritis GI Medical History: Diverticulosis, GERD History: Renal Disease Psycho-Social History: No Pertinent History Male Reproductive Disorders: No Pertinent History Other Medical History: left inactive kidney needs removed in November - Past Surgical History Past Surgical History: Yes Neuro Surgical History: No Pertinent History Cardiac: Cardiac Catheterization, Cardiac Stent Respiratory: No Pertinent History Gastrointestinal: Cholecystectomy Genitourinary: No Pertinent History Musculoskeletal: Amputation Male Surgical History: No Pertinent History Other Surgical History: 5 cardiac stents, 2 renal stent, Left Ring Finger - Social History Smoking Status: Former smoker How long have you smoked: 4 years Exposure to second hand smoke: Yes Drug Use: none Patient Lives Alone: Yes - Nursing Vital Signs Nursing Vital Signs: Initial Vital Signs Temperature 98.1 F 11/09/22 17:25 Pulse Rate 86 11/09/22 17:25 Respiratory Rate 20 11/09/22 17:25 Blood Pressure 196/114 11/09/22 17:25 O2 Sat by Pulse Oximetry 96 11/09/22 17:25 Pain Scale Pain Intensity [Entire mid to 10 lower back] Pain Intensity 10 - Physical Exam General Appearance: no apparent distress, alert, anxiety, obese Eye Exam: PERRL/EOMI, eyes nml inspection Ears, Nose, Throat Exam: normal ENT inspection, moist mucous membranes Neck Exam: normal inspection, non-tender, supple, full range of motion Respiratory Exam: normal breath sounds, lungs clear, airway intact, No chest tenderness, No respiratory distress Cardiovascular Exam: regular rate/rhythm, normal heart sounds, normal peripheral pulses Gastrointestinal Exam: soft, normal bowel sounds Rectal Exam: not done Back Exam: normal inspection, CVA tenderness, decreased range of motion Extremity Exam: normal inspection, normal range of motion, pelvis stable Neurologic Exam: alert, oriented x 3, cooperative, informatics physician II-XII nml as tested, normal mood/affect, nml cerebellar function, nml station & gait, sensation nml Skin Exam: normal color, warm, dry Lymphatic Exam: No adenopathy SpO2 Interpretation: normal O2 Delivery: Room Air Ordered Tests: Active Orders 24 hr Category Date Time Status EKG-ER Only STAT Care 11/09/22 18:14 Active IV Insertion STAT Care 11/09/22 18:13 Active ABDOMEN AND PELVIS W/0 CONTRAS [CT] Stat Exams 11/09/22 18:13 Taken AMYLASE Stat Lab 11/09/22 18:13 Ordered CBC W DIFF Stat Lab 11/09/22 18:13 Ordered CMP Stat Lab 11/09/22 18:13 Ordered LIPASE Stat Lab 11/09/22 18:13 Ordered TROPONIN Q4H Lab 11/09/22 18:15 Ordered TROPONIN Q4H Lab 11/09/22 22:15 Ordered TROPONIN Q4H Lab 11/10/22 02:15 Ordered UA W/RFX UR CULTURE Stat Lab 11/09/22 18:13 Ordered Medication Summary Generic Name Dose Route Start Last Admin Trade Name Freq PRN Reason Stop Dose Admin Sodium Chloride 1,000 mls @ 100 mls/hr 11/09/22 18:15 Sodium Chloride 0.9% 1000 Ml IV 12/09/22 18:14 .Q10H DENISE Discontinued Medications Generic Name Dose Route Start Last Admin Trade Name Freq PRN Reason Stop Dose Admin Hydromorphone HCl 1 mg 11/09/22 18:13 Hydromorphone 1 Mg/1ml Inj IV 11/09/22 18:14 STAT ONE Ondansetron HCl 4 mg 11/09/22 18:13 Ondansetron Hcl 4 Mg/2 Ml Vial IV 11/09/22 18:14 STAT ONE - Progress Progress Note: 11/09/22 18:51 Patient transfer of care to Dr. Pham at shift change. He will follow-up on the results of the studies and make final disposition. Counseled pt/family regarding: lab results, diagnosis, rad results - Departure Departure Disposition: Home Clinical Impression: Flank pain, Hypertension Condition: Stable Critical Care Time: No Referrals: DOCTOR,NO FAMILY [Primary Care Provider] - Follow up/PCP as directed
[2022-11-09] MEDS ORDERED: Hydromorphone 1 mg/ml Injection IV ONE ×3 (18:13→23:07)
[2022-11-09] MEDS ORDERED: Zofran 4 MG/2 ML VIAL IV ONE (18:13)
[2022-11-09] MEDS ORDERED: Sodium Chloride 0.9% 1000 ML 1,000 ML IV SCH ×2 (18:15→22:06)
[2022-11-09] MEDS ORDERED: TRANDATE 20 MG/4 ML SYRINGE IV ONE ×2 (18:47→19:04)
[2022-11-09 19:03] LABS: Absolute Neutrophil Ct (ANC) 3.29 x10^3/uL (1.4-6.9); BASOPHIL % 0.6 % (0.0-0.4); Basophil (Absolute #) 0.03 x10^3/uL (0-0.4); Eosinophil % 2.8 % (0.00-5.0); Eosinophil (Absolute #) 0.13 x10^3/uL (0-0.5); Hematocrit 41.2 % (42-50); IMMATURE GRAN # 0.03 x10^3u/L (0.00-0.03); IMMATURE GRAN % 0.6 % (0.00-0.4); Lymphocyte (Absolute #) 0.77 x10^3/uL (1.0-4.6); Lymphocytes % 16.6 % (24.0-44.0); Mean Cell Volume 85.8 fL (78-100); Mean Corpuscular Hemoglobin 29.2 pg (26-32); Monocytes % 8.6 % (0.0-12.0); Neutrophil % 70.8 % (36.0-66.0); Platelet Count 234 x10^3/uL (150-450); Red Cell Distribution Width 14.5 % (11.5-14.0); White Blood Count 4.7 x10^3/uL (4.0-10.5)
[2022-11-09] MEDS ORDERED: Zofran 4 MG/2 ML VIAL ONE (19:03)
[2022-11-09] MEDS ORDERED: Hydromorphone 1 mg/ml Injection ONE ×3 (19:04→23:12)
[2022-11-09] MEDS ORDERED: Sodium Chloride 0.9% 1000 ML 1,000 ML ONE (19:04)
[2022-11-09 19:07] LABS: Appearance Clear (Clear); Bacteria None Seen /HPF (None Seen); Bilirubin Negative (Negative); Blood Negative (Negative); Epithelial Cells None Seen /HPF (None Seen); Glucose, Urine >=1000 mg/dL (Negative); Hyaline Casts NONE SEEN /LPF (0-2); Ketones Negative (Negative); Leukocyte Esterase Negative (Negative); Nitrite Negative (Negative); Protein,Urine Dip Negative (Negative); RBC 0-2 /HPF (0-5); Urobilinogen 0.2 mg/dL (0.2); WBC 0-2 /HPF (0-5)
[2022-11-09 19:17] LABS: ADD URINE CULTURE? NO (NO)
[2022-11-09 19:19] LABS: ALBUMIN 4.2 g/dL (3.5-5.0); ALKALINE PHOSPHATASE 190 U/L (38-126); AMYLASE 121 U/L (30-110); BLOOD UREA NITROGEN 21 mg/dL (9-20); CHLORIDE 93 mmol/L (98-107); Calcium 9.3 mg/dL (8.4-10.2); Carbon Dioxide 23 mmol/L (22-30); Creatinine 1 1.24 mg/dL (0.66-1.25); EST GLOMERULAR FILTRATION RATE > 60.0 ML/MIN; Glucose 435 mg/dL (74-106); LIPASE 427 U/L (23-300); Potassium 3.8 mmol/L (3.5-5.1); SGOT/AST 26 U/L (17-59); SGPT/ALT 28 U/L (0-50); SODIUM 131 mmol/L (137-145)
--- NOTE | 2022-11-09 19:20 | XRAY ---
CLINICAL HISTORY:Pain; COMPARISON:CT dated 09/14/2022; TECHNIQUES:CT scan of the abdomen and pelvis was performed without IV contrast. Coronal and sagittal reconstructive images were also obtained; FINDINGS: Scan through the lower chest reveals unremarkable lung bases and heart. Abdomen. Hepatomegaly, liver measuring 18.5 cm at the largest craniocaudal span in the right lobe. No focal or diffuse parenchymal abnormality. The portal vein, intrahepatic biliary radicals, and the bile ducts are normal. The gallbladder is surgically removed. The spleen, pancreas, and adrenal glands are unremarkable. 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 The right kidney shows hypotrophic aspect, measuring 5 x 3 x 5 cm. The left kidney measures 10 x 8 x 8 cm. There is mild bilateral perirenal fat stranding. No calculi or hydronephrosis. The stomach and the visualized small bowel loops are unremarkable. There is no evidence of significant mesenteric or retroperitoneal lymph node enlargement. No free fluid. Pelvis. The urinary bladder is unremarkable. Colonic diverticulosis without CT evidence of acute diverticulitis. No evidence of bowel obstruction. Normal-sized prostate showing calcific focus within it. Atherosclerotic calcification of the aorta and major abdominal arteries is seen. No evidence of pelvic lymphadenopathy. 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 IMPRESSION: 1. Hepatomegaly. 2. Atrophied right kidney suggesting chronic kidney disease. Needs correlation with renal parameters. Mild bilateral perirenal fat stranding, probably related to the acute process. 3. Stable findings when compared with prior study. Electronically Signed by: Rod Yanes MD. (11/09/2022 18:14:30 VISUAL LEAD)
[2022-11-09] MEDS ORDERED: Zofran 4 MG/2 ML VIAL IV PRN (22:06)
[2022-11-09] MEDS ORDERED: Hydromorphone 1 mg/ml Injection IV PRN (22:06)
[2022-11-10] MEDS: Lactated Ringers 1,000 ML IV SCH ×2 (00:24→14:24)
[2022-11-10] MEDS ORDERED: Hydromorphone 1 mg/ml Injection IV ONE ×3 (00:37→07:42)
[2022-11-10] MEDS ORDERED: Hydromorphone 1 mg/ml Injection ONE ×2 (00:41→03:44)
[2022-11-10] MEDS ORDERED: CLONIDINE 0.1 MG TABLET PO ONE (03:36)
[2022-11-10 03:52] LABS: ALBUMIN 3.8 g/dL (3.5-5.0); ALKALINE PHOSPHATASE 166 U/L (38-126); ANION GAP 13.5 MEQ/L (5-15); BLOOD UREA NITROGEN 20 mg/dL (9-20); CHLORIDE 101 mmol/L (98-107); Calcium 8.9 mg/dL (8.4-10.2); Carbon Dioxide 24 mmol/L (22-30); Creatinine 1 1.17 mg/dL (0.66-1.25); EST GLOMERULAR FILTRATION RATE > 60.0 ML/MIN; Glucose 195 mg/dL (74-106); Potassium 3.3 mmol/L (3.5-5.1); SGOT/AST 37 U/L (17-59); SGPT/ALT 27 U/L (0-50); SODIUM 134 mmol/L (137-145); Total Protein 7.2 g/dL (6.3-8.2)
[2022-11-10 04:04] LABS: Absolute Neutrophil Ct (ANC) 3.82 x10^3/uL (1.4-6.9); BASOPHIL % 0.7 % (0.0-0.4); Basophil (Absolute #) 0.04 x10^3/uL (0-0.4); Eosinophil % 2.6 % (0.00-5.0); Eosinophil (Absolute #) 0.14 x10^3/uL (0-0.5); Hematocrit 36.6 % (42-50); Hemoglobin 12.9 g/dL (12.5-18.0); IMMATURE GRAN # 0.04 x10^3u/L (0.00-0.03); IMMATURE GRAN % 0.7 % (0.00-0.4); Lymphocytes % 16.5 % (24.0-44.0); Mean Cell Volume 83.2 fL (78-100); Mean Corpuscular Hemoglobin 29.3 pg (26-32); Mean Corpuscular Hgb Concent. 35.2 g/dL (32-36); Monocyte (Absolute #) 0.53 x10^3/uL (0.0-1.3); Monocytes % 9.7 % (0.0-12.0); Neutrophil % 69.8 % (36.0-66.0); Platelet Count 171 x10^3/uL (150-450); Red Cell Distribution Width 14.8 % (11.5-14.0); White Blood Count 5.5 x10^3/uL (4.0-10.5)
[2022-11-10] MEDS ORDERED: POLYETHYLENE GLYCOL 1 GM PO PRN (06:49)
[2022-11-10] MEDS ORDERED: ANTIVERT 25 MG PO PRN (06:49)
[2022-11-10] MEDS ORDERED: Miralax Powder 17GM PACKET PO PRN (06:57)
[2022-11-10] MEDS: HYDROMORPHONE 30 MG/30 ML-NS PCA IV PRN (07:57)
[2022-11-10] MEDS: Imdur 60MG PO SCH (08:13)
[2022-11-10] MEDS: Zestril 20 MG PO SCH (08:13)
[2022-11-10] MEDS: FEOSOL 325 MG PO SCH (08:13)
[2022-11-10] MEDS: NEURONTIN PO SCH ×3 (08:13→22:06)
[2022-11-10] MEDS: COREG 12.5 MG PO SCH ×2 (08:14→22:06)
[2022-11-10] MEDS: KEPPRA PO SCH ×2 (09:57→22:07)
[2022-11-10] MEDS: JARDIANCE PO SCH (09:57)
[2022-11-10] MEDS: hydroDIURIL 25 MG PO SCH (09:58)
[2022-11-10] MEDS: Aldactone 25 MG PO SCH (09:58)
[2022-11-10] MEDS: CLONIDINE 0.1 MG TABLET PO SCH ×2 (09:58→22:06)
--- NOTE | 2022-11-10 11:48 | PCM.NOTE ---
Date and Time: 11/10/22 1143 Subjective Assessment: Persistent pain noted. Patient has been placed on a MACHINE HEEL BUILDER pump. The patient was seen and examined via telemedicine. The entirety of this encounter was performed via telemedicine. The patient consented to this telemedicine encounter. - Review of Systems Constitutional: No Symptoms Eyes: No Symptoms Ears, Nose, & Throat: No Symptoms Respiratory: No Symptoms Cardiac: No Symptoms Abdominal/Gastrointestinal: Abdominal Pain, Nausea Genitourinary Symptoms: No Symptoms Musculoskeletal: No Symptoms Skin: No Symptoms Neurological: No Symptoms Psychological: No Symptoms Endocrine: No Symptoms Hematologic/Lymphatic: No Symptoms Immunological/Allergic: No Symptoms All Other Systems: Reviewed and Negative Objective Exam General Appearance: no apparent distress, alert Neurologic Exam: alert, oriented x 3, cooperative, obstetrical anesthesiologist II-XII nml as tested, normal mood/affect, nml cerebellar function Skin Exam: normal color Eye Exam: PERRL, EOMI, eyes nml inspection Ears, Nose, Throat Exam: normal ENT inspection Neck Exam: normal inspection, non-tender, supple, full range of motion Respiratory Exam: normal breath sounds, lungs clear Cardiovascular Exam: regular rate/rhythm, normal heart sounds Gastrointestinal/Abdomen Exam: soft, normal bowel sounds Extremity Exam: normal inspection, normal range of motion Back Exam: normal range of motion OBJECTIVE DATA Vital Signs: Vital Signs - 24 hr Temp Pulse Resp BP BP Pulse Ox 11/10/22 10:00 20 100 11/10/22 08:00 20 11/10/22 07:57 16 99 11/10/22 07:45 97.5 F 78 18 169/82 96 11/10/22 06:50 99 11/10/22 04:00 97.7 F 69 18 191/91 97 11/10/22 02:02 72 20 187/91 97 11/10/22 00:57 99 11/10/22 00:40 79 22 201/105 99 11/10/22 00:00 20 11/09/22 22:22 97.6 F 79 22 225/102 99 11/09/22 22:06 99 11/09/22 21:01 76 21 183/118 98 11/09/22 20:50 77 20 187/116 96 11/09/22 20:41 78 23 174/99 98 11/09/22 20:31 78 20 171/90 96 11/09/22 20:20 76 16 190/104 98 11/09/22 20:10 77 21 165/103 98 11/09/22 20:01 77 18 169/77 99 11/09/22 19:53 77 21 173/86 97 11/09/22 19:50 77 16 217/120 11/09/22 19:40 76 21 211/141 98 11/09/22 19:30 74 20 199/128 99 11/09/22 19:20 75 19 199/129 98 11/09/22 19:10 76 17 200/135 98 11/09/22 19:00 76 194/128 99 11/09/22 18:56 99 11/09/22 18:10 222/131 11/09/22 18:00 218/155 97 11/09/22 17:50 215/140 97 11/09/22 17:30 196/114 97 11/09/22 17:25 98.1 F 86 20 196/114 96 Pain Assessment - Last Documented Pain Intensity [Entire mid to 10 lower back] Pain Intensity 10 Pain Scale Used 0-10 Pain Scale Intake and Output: Intake & Output 11/07/22 11/08/22 11/09/22 11/10/22 11:59 11:59 11:59 11:59 Intake Total 291 Output Total 600 Balance -309 Weight 106.4 kg Lab Results: Lab Results-Last 24 Hours 11/09/22 11/09/22 11/09/22 Range/Units 18:50 18:50 18:50 WBC 4.7 (4.0-10.5) x10^3/uL RBC 4.80 (4.1-5.6) x10^6/uL Hgb 14.0 (12.5-18.0) g/dL Hct 41.2 L (42-50) % MCV 85.8 (78-100) fL MCH 29.2 (26-32) pg MCHC 34.0 (32-36) g/dL RDW 14.5 H (11.5-14.0) % Plt Count 234 (150-450) x10^3/uL MPV 9.0 (7.5-11.0) fL Gran % 70.8 H (36.0-66.0) % Immature Gran % (Auto) 0.6 H (0.00-0.4) % Nucleat RBC Rel Count 0.0 (0.00-0.1) % Eos # (Auto) 0.13 (0-0.5) x10^3/uL Immature Gran # (Auto) 0.03 (0.00-0.03) x10^3u/L Absolute Lymphs (auto) 0.77 L (1.0-4.6) x10^3/uL Absolute Monos (auto) 0.40 (0.0-1.3) x10^3/uL Absolute Nucleated RBC 0.00 (0.00-0.01) x10^3u/L Lymphocytes % 16.6 L (24.0-44.0) % Monocytes % 8.6 (0.0-12.0) % Eosinophils % 2.8 (0.00-5.0) % Basophils % 0.6 (0.0-0.4) % Absolute Granulocytes 3.29 (1.4-6.9) x10^3/uL Basophils # 0.03 (0-0.4) x10^3/uL Sodium 131 L (137-145) mmol/L Potassium 3.8 (3.5-5.1) mmol/L Chloride 93 L (98-107) mmol/L Carbon Dioxide 23 (22-30) mmol/L Anion Gap 19.0 H (5-15) MEQ/L BUN 21 H (9-20) mg/dL Creatinine 1.24 (0.66-1.25) mg/dL Estimated GFR > 60.0 ML/MIN Glucose 435 H (74-106) mg/dL POC Glucometer (74 to 106) mg/dL Calcium 9.3 (8.4-10.2) mg/dL Total Bilirubin 0.50 (0.2-1.3) mg/dL AST 26 (17-59) U/L ALT 28 (0-50) U/L Alkaline Phosphatase 190 H (38-126) U/L Troponin I 0.028 (0.000-0.034) ng/mL Serum Total Protein 8.0 (6.3-8.2) g/dL Albumin 4.2 (3.5-5.0) g/dL Amylase 121 H (30-110) U/L Lipase 427 H (23-300) U/L Urine Color (Yellow) Urine Appearance (Clear) Urine pH (4.6-8.0) Ur Specific [place] (1.005-1.030) Urine Protein (Negative) Urine Glucose (UA) (Negative) mg/dL Urine Ketones (Negative) Urine Blood (Negative) Urine Nitrite (Negative) Urine Bilirubin (Negative) Urine Urobilinogen (0.2) mg/dL Ur Leukocyte Esterase (Negative) U Hyaline Cast (Auto) (0-2) /LPF Urine Microscopic RBC (0-5) /HPF Urine Microscopic WBC (0-5) /HPF Ur Epithelial Cells (None Seen) /HPF Urine Bacteria (None Seen) /HPF Urine Culture Reflexed (NO) 11/09/22 11/09/22 11/10/22 Range/Units 18:57 22:45 03:20 WBC (4.0-10.5) x10^3/uL RBC (4.1-5.6) x10^6/uL Hgb (12.5-18.0) g/dL Hct (42-50) % MCV (78-100) fL MCH (26-32) pg MCHC (32-36) g/dL RDW (11.5-14.0) % Plt Count (150-450) x10^3/uL MPV (7.5-11.0) fL Gran % (36.0-66.0) % Immature Gran % (Auto) (0.00-0.4) % Nucleat RBC Rel Count (0.00-0.1) % Eos # (Auto) (0-0.5) x10^3/uL Immature Gran # (Auto) (0.00-0.03) x10^3u/L Absolute Lymphs (auto) (1.0-4.6) x10^3/uL Absolute Monos (auto) (0.0-1.3) x10^3/uL Absolute Nucleated RBC (0.00-0.01) x10^3u/L Lymphocytes % (24.0-44.0) % Monocytes % (0.0-12.0) % Eosinophils % (0.00-5.0) % Basophils % (0.0-0.4) % Absolute Granulocytes (1.4-6.9) x10^3/uL Basophils # (0-0.4) x10^3/uL Sodium (137-145) mmol/L Potassium (3.5-5.1) mmol/L Chloride (98-107) mmol/L Carbon Dioxide (22-30) mmol/L Anion Gap (5-15) MEQ/L BUN (9-20) mg/dL Creatinine (0.66-1.25) mg/dL Estimated GFR ML/MIN Glucose (74-106) mg/dL POC Glucometer (74 to 106) mg/dL Calcium (8.4-10.2) mg/dL Total Bilirubin (0.2-1.3) mg/dL AST (17-59) U/L ALT (0-50) U/L Alkaline Phosphatase (38-126) U/L Troponin I 0.032 0.037 H* (0.000-0.034) ng/mL Serum Total Protein (6.3-8.2) g/dL Albumin (3.5-5.0) g/dL Amylase (30-110) U/L Lipase (23-300) U/L Urine Color Yellow (Yellow) Urine Appearance Clear (Clear) Urine pH 7.0 (4.6-8.0) Ur Specific [place] 1.020 (1.005-1.030) Urine Protein Negative (Negative) Urine Glucose (UA) >=1000 A (Negative) mg/dL Urine Ketones Negative (Negative) Urine Blood Negative (Negative) Urine Nitrite Negative (Negative) Urine Bilirubin Negative (Negative) Urine Urobilinogen 0.2 (0.2) mg/dL Ur Leukocyte Esterase Negative (Negative) U Hyaline Cast (Auto) NONE SEEN (0-2) /LPF Urine Microscopic RBC 0-2 (0-5) /HPF Urine Microscopic WBC 0-2 (0-5) /HPF Ur Epithelial Cells None Seen (None Seen) /HPF Urine Bacteria None Seen (None Seen) /HPF Urine Culture Reflexed NO (NO) 11/10/22 11/10/22 11/10/22 Range/Units 03:20 03:20 07:34 WBC 5.5 (4.0-10.5) x10^3/uL RBC 4.40 (4.1-5.6) x10^6/uL Hgb 12.9 (12.5-18.0) g/dL Hct 36.6 L (42-50) % MCV 83.2 (78-100) fL MCH 29.3 (26-32) pg MCHC 35.2 (32-36) g/dL RDW 14.8 H (11.5-14.0) % Plt Count 171 (150-450) x10^3/uL MPV 10.0 (7.5-11.0) fL Gran % 69.8 H (36.0-66.0) % Immature Gran % (Auto) 0.7 H (0.00-0.4) % Nucleat RBC Rel Count 0.0 (0.00-0.1) % Eos # (Auto) 0.14 (0-0.5) x10^3/uL Immature Gran # (Auto) 0.04 H (0.00-0.03) x10^3u/L Absolute Lymphs (auto) 0.90 L (1.0-4.6) x10^3/uL Absolute Monos (auto) 0.53 (0.0-1.3) x10^3/uL Absolute Nucleated RBC 0.00 (0.00-0.01) x10^3u/L Lymphocytes % 16.5 L (24.0-44.0) % Monocytes % 9.7 (0.0-12.0) % Eosinophils % 2.6 (0.00-5.0) % Basophils % 0.7 (0.0-0.4) % Absolute Granulocytes 3.82 (1.4-6.9) x10^3/uL Basophils # 0.04 (0-0.4) x10^3/uL Sodium 134 L (137-145) mmol/L Potassium 3.3 L (3.5-5.1) mmol/L Chloride 101 (98-107) mmol/L Carbon Dioxide 24 (22-30) mmol/L Anion Gap 13.5 (5-15) MEQ/L BUN 20 (9-20) mg/dL Creatinine 1.17 (0.66-1.25) mg/dL Estimated GFR > 60.0 ML/MIN Glucose 195 H (74-106) mg/dL POC Glucometer 235 H (74 to 106) mg/dL Calcium 8.9 (8.4-10.2) mg/dL Total Bilirubin 0.50 (0.2-1.3) mg/dL AST 37 (17-59) U/L ALT 27 (0-50) U/L Alkaline Phosphatase 166 H (38-126) U/L Troponin I (0.000-0.034) ng/mL Serum Total Protein 7.2 (6.3-8.2) g/dL Albumin 3.8 (3.5-5.0) g/dL Amylase (30-110) U/L Lipase (23-300) U/L Urine Color (Yellow) Urine Appearance (Clear) Urine pH (4.6-8.0) Ur Specific [place] (1.005-1.030) Urine Protein (Negative) Urine Glucose (UA) (Negative) mg/dL Urine Ketones (Negative) Urine Blood (Negative) Urine Nitrite (Negative) Urine Bilirubin (Negative) Urine Urobilinogen (0.2) mg/dL Ur Leukocyte Esterase (Negative) U Hyaline Cast (Auto) (0-2) /LPF Urine Microscopic RBC (0-5) /HPF Urine Microscopic WBC (0-5) /HPF Ur Epithelial Cells (None Seen) /HPF Urine Bacteria (None Seen) /HPF Urine Culture Reflexed (NO) 11/10/22 Range/Units 09:13 WBC (4.0-10.5) x10^3/uL RBC (4.1-5.6) x10^6/uL Hgb (12.5-18.0) g/dL Hct (42-50) % MCV (78-100) fL MCH (26-32) pg MCHC (32-36) g/dL RDW (11.5-14.0) % Plt Count (150-450) x10^3/uL MPV (7.5-11.0) fL Gran % (36.0-66.0) % Immature Gran % (Auto) (0.00-0.4) % Nucleat RBC Rel Count (0.00-0.1) % Eos # (Auto) (0-0.5) x10^3/uL Immature Gran # (Auto) (0.00-0.03) x10^3u/L Absolute Lymphs (auto) (1.0-4.6) x10^3/uL Absolute Monos (auto) (0.0-1.3) x10^3/uL Absolute Nucleated RBC (0.00-0.01) x10^3u/L Lymphocytes % (24.0-44.0) % Monocytes % (0.0-12.0) % Eosinophils % (0.00-5.0) % Basophils % (0.0-0.4) % Absolute Granulocytes (1.4-6.9) x10^3/uL Basophils # (0-0.4) x10^3/uL Sodium (137-145) mmol/L Potassium (3.5-5.1) mmol/L Chloride (98-107) mmol/L Carbon Dioxide (22-30) mmol/L Anion Gap (5-15) MEQ/L BUN (9-20) mg/dL Creatinine (0.66-1.25) mg/dL Estimated GFR ML/MIN Glucose (74-106) mg/dL POC Glucometer (74 to 106) mg/dL Calcium (8.4-10.2) mg/dL Total Bilirubin (0.2-1.3) mg/dL AST (17-59) U/L ALT (0-50) U/L Alkaline Phosphatase (38-126) U/L Troponin I 0.038 H* (0.000-0.034) ng/mL Serum Total Protein (6.3-8.2) g/dL Albumin (3.5-5.0) g/dL Amylase (30-110) U/L Lipase (23-300) U/L Urine Color (Yellow) Urine Appearance (Clear) Urine pH (4.6-8.0) Ur Specific [place] (1.005-1.030) Urine Protein (Negative) Urine Glucose (UA) (Negative) mg/dL Urine Ketones (Negative) Urine Blood (Negative) Urine Nitrite (Negative) Urine Bilirubin (Negative) Urine Urobilinogen (0.2) mg/dL Ur Leukocyte Esterase (Negative) U Hyaline Cast (Auto) (0-2) /LPF Urine Microscopic RBC (0-5) /HPF Urine Microscopic WBC (0-5) /HPF Ur Epithelial Cells (None Seen) /HPF Urine Bacteria (None Seen) /HPF Urine Culture Reflexed (NO) Radiology Exams: Radiology Procedures Category Date Time Status ABDOMEN AND PELVIS W/0 CONTRAS [CT] Stat Exams 11/09/22 18:13 Completed Multi-Disciplinary Progress Notes: Multi-Disciplinary Progress Notes 11/10/22 11:24 Case Management Note by Mayte Heard Addendum entered by Mayte Heard 11/10/22 11:25: REFERRAL WAS SENT TO [facility] LAST ADMISSION Original Note: PATIENT GIVEN INFORMATION ON FOOD PANTRIES IN THE AREA Initialized on 11/10/22 11:24 - END OF NOTE 11/10/22 11:13 Case Management Note by Mayte Heard S/W GUERO AT [facility]- THEY HAVE WORKED WITH PATIENT BEFORE. THEY REACH OUT TO HIM AND SEE HOW THEY CAN HELP HIM WITH GROCERIES Initialized on 11/10/22 11:13 - END OF NOTE Assessment/Plan (1) Acute pancreatitis Current Visit: Yes Status: Acute Assessment & Plan: Bowel rest, analgesia, IV fluids Code(s): K85.90 - ACUTE PANCREATITIS WITHOUT NECROSIS OR INFECTION, UNSP (2) Abdominal pain Current Visit: No Status: Resolved Assessment & Plan: MACHINE HEEL BUILDER pump. Wean off as tolerated Code(s): R10.9 - UNSPECIFIED ABDOMINAL PAIN (3) Diabetes mellitus Current Visit: No Status: Acute Assessment & Plan: Monitor sugars. Code(s): E11.9 - TYPE 2 DIABETES MELLITUS WITHOUT COMPLICATIONS
[2022-11-10] MEDS ORDERED: NARCAN 2 MG/2 ML IV PRN (12:17)
[2022-11-10] MEDS ORDERED: HYDROMORPHONE 30 MG/30 ML-NS PCA IV PRN (12:30)
[2022-11-10] MEDS: POTASSIUM CHLORIDE 20 mEq IN WATER 100ML 100 ML IV SCH ×4 (12:48→18:48)
[2022-11-10] MEDS: PROTONIX 40 MG IV IV SCH (12:48)
[2022-11-10] MEDS: ECOTRIN 81 MG PO SCH (14:29)
[2022-11-10] MEDS ORDERED: NON-FORMULARY ITEM (Atorvastatin Calcium [Atorvastatin Calcium] 80 MG Tablet) PO SCH (22:00)
[2022-11-10] MEDS: XARELTO 10 MG TABLET PO SCH (22:07)
[2022-11-10] MEDS: MELATONIN PO SCH (22:07)
[2022-11-10] MEDS: DESYREL 50 MG PO SCH (22:07)
[2022-11-10] MEDS: ZOCOR 20MG PO SCH (22:07)
[2022-11-10] MEDS: NORVASC 5 MG PO SCH (22:07)
[2022-11-10] MEDS: Lantus Insulin SQ SCH (22:08)
[2022-11-10] MEDS: AMITRIPTYLINE 25 MG TABLET PO SCH (22:21)
[2022-11-11 04:46] LABS: ALBUMIN 3.8 g/dL (3.5-5.0); ANION GAP 13.6 MEQ/L (5-15); BILIRUBIN,TOTAL 0.5 mg/dL (0.2-1.3); Calcium 8.6 mg/dL (8.4-10.2); Creatinine 1 1.43 mg/dL (0.66-1.25); EST GLOMERULAR FILTRATION RATE 54.2 ML/MIN; MAGNESIUM 2.3 mg/dL (1.6-2.3); Potassium 3.9 mmol/L (3.5-5.1); Total Protein 7.3 g/dL (6.3-8.2)
[2022-11-11] MEDS: Lactated Ringers 1,000 ML IV SCH ×2 (05:00→16:46)
[2022-11-11] MEDS: PROTONIX 40 MG IV IV SCH (11:00)
[2022-11-11] MEDS: Imdur 60MG PO SCH (11:00)
[2022-11-11] MEDS: ECOTRIN 81 MG PO SCH (11:00)
[2022-11-11] MEDS: FEOSOL 325 MG PO SCH (11:00)
[2022-11-11] MEDS: KEPPRA PO SCH ×2 (11:00→21:29)
[2022-11-11] MEDS: Zestril 20 MG PO SCH (11:00)
[2022-11-11] MEDS: NEURONTIN PO SCH ×3 (11:01→21:28)
[2022-11-11] MEDS: CLONIDINE 0.1 MG TABLET PO SCH ×2 (11:01→21:29)
[2022-11-11] MEDS: Aldactone 25 MG PO SCH (11:01)
[2022-11-11] MEDS: hydroDIURIL 25 MG PO SCH (11:01)
[2022-11-11] MEDS: COREG 12.5 MG PO SCH ×2 (11:01→21:28)
--- NOTE | 2022-11-11 11:07 | PCM.NOTE ---
Date and Time: 11/11/22 1104 Subjective Assessment: Pain has overall improved, and the patient reports hunger. The patient was seen and examined via telemedicine. The entirety of this encounter was performed via telemedicine. The patient consented to this telemedicine encounter. 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 as tested, normal mood/affect, nml cerebellar function Skin Exam: normal color Eye Exam: PERRL, eyes nml inspection Ears, Nose, Throat Exam: normal ENT inspection Neck Exam: normal inspection, non-tender, supple, full range of motion Respiratory Exam: normal breath sounds, lungs clear Cardiovascular Exam: regular rate/rhythm, normal heart sounds Gastrointestinal/Abdomen Exam: soft, normal bowel sounds Extremity Exam: normal inspection, normal range of motion Back Exam: normal range of motion OBJECTIVE DATA Vital Signs: Vital Signs - 24 hr Temp Pulse Resp BP Pulse Ox 11/11/22 08:00 19 11/11/22 07:37 97.2 F 67 19 124/63 99 11/11/22 07:27 99 11/11/22 04:00 97.9 F 66 16 118/58 97 11/10/22 23:44 97.9 F 77 20 99/57 97 11/10/22 22:35 20 11/10/22 20:38 96 11/10/22 20:00 20 11/10/22 19:30 98.0 F 71 20 168/93 97 11/10/22 18:00 20 97 11/10/22 16:00 97.2 F 63 10 L 115/65 94 L 11/10/22 12:00 97.5 F 66 14 97/52 95 Pain Assessment - Last Documented Pain Intensity [Entire mid to 10 lower back] Pain Intensity 8 Pain Scale Used 0-10 Pain Scale Intake and Output: Intake & Output 11/08/22 11/09/22 11/10/22 11/11/22 11:59 11:59 11:59 11:59 Intake Total 291 1263 Output Total 600 1700 Balance -309 -437 Weight 106.4 kg Lab Results: Lab Results-Last 24 Hours 11/10/22 11/10/22 11/10/22 Range/Units 11:40 11:57 16:11 Sodium (137-145) mmol/L Potassium (3.5-5.1) mmol/L Chloride (98-107) mmol/L Carbon Dioxide (22-30) mmol/L Anion Gap (5-15) MEQ/L BUN (9-20) mg/dL Creatinine (0.66-1.25) mg/dL Estimated GFR ML/MIN Glucose (74-106) mg/dL POC Glucometer 286 H 263 H (74 to 106) mg/dL Calcium (8.4-10.2) mg/dL Magnesium 1.9 (1.6-2.3) mg/dL Total Bilirubin (0.2-1.3) mg/dL AST (17-59) U/L ALT (0-50) U/L Alkaline Phosphatase (38-126) U/L Serum Total Protein (6.3-8.2) g/dL Albumin (3.5-5.0) g/dL Lipase (23-300) U/L 11/10/22 11/11/22 11/11/22 Range/Units 20:58 04:06 07:23 Sodium 135 L (137-145) mmol/L Potassium 3.9 (3.5-5.1) mmol/L Chloride 99 (98-107) mmol/L Carbon Dioxide 26 (22-30) mmol/L Anion Gap 13.6 (5-15) MEQ/L BUN 25 H (9-20) mg/dL Creatinine 1.43 H (0.66-1.25) mg/dL Estimated GFR 54.2 ML/MIN Glucose 167 H (74-106) mg/dL POC Glucometer 207 H 151 H (74 to 106) mg/dL Calcium 8.6 (8.4-10.2) mg/dL Magnesium 2.3 (1.6-2.3) mg/dL Total Bilirubin 0.50 (0.2-1.3) mg/dL AST 34 (17-59) U/L ALT 31 (0-50) U/L Alkaline Phosphatase 163 H (38-126) U/L Serum Total Protein 7.3 (6.3-8.2) g/dL Albumin 3.8 (3.5-5.0) g/dL Lipase 31 (23-300) U/L Radiology Exams: Radiology Procedures Category Date Time Status ABDOMEN AND PELVIS W/0 CONTRAS [CT] Stat Exams 11/09/22 18:13 Completed Multi-Disciplinary Progress Notes: Multi-Disciplinary Progress Notes 11/11/22 09:25 Case Management Note by Mayte Heard/Sam PATIENT- HE CONTINUES TO DENY ANY FURTHER NEEDS AT DC. O WILL CONTACT HIM REGARDING FOOD ASSISTANCE. HE WAS GIVEN INFO ON FOOD PANTRIES IN OUR AREA. HE REPORTS HE HAS FAMILY THAT COULD ALSO ASSIST HIM WITH FOOD IF NEEDED. HE PLANS TO RETURN HOME TO HER PLF AT TIME OF DC Initialized on 11/11/22 09:25 - END OF NOTE 11/11/22 00:23 Respiratory Note by Annamaria Steinberg 2L oxygen placed on pt via nasal cannula. Sats dropping while he sleeps. Pt has NATE but refuses CPAP here. Initialized on 11/11/22 00:23 - END OF NOTE 11/10/22 11:24 Case Management Note by Mayte Heard Addendum entered by Mayte Heard 11/10/22 11:25: REFERRAL WAS SENT TO [facility] LAST ADMISSION Original Note: PATIENT GIVEN INFORMATION ON FOOD PANTRIES IN THE AREA Initialized on 11/10/22 11:24 - END OF NOTE 11/10/22 11:13 Case Management Note by Mayte Heard/Sam JACK AT [facility]- THEY HAVE WORKED WITH PATIENT BEFORE. THEY REACH OUT TO HIM AND SEE HOW THEY CAN HELP HIM WITH GROCERIES Initialized on 11/10/22 11:13 - END OF NOTE Assessment/Plan (1) Acute pancreatitis Current Visit: Yes Status: Acute Assessment & Plan: Lipase normalized. Improving. Stop MANAGER ED and ADAT. Possible discharge tomorrow if the patient tolerates dietary advancement. Code(s): K85.90 - ACUTE PANCREATITIS WITHOUT NECROSIS OR INFECTION, UNSP (2) Abdominal pain Current Visit: No Status: Resolved Assessment & Plan: Improved Code(s): R10.9 - UNSPECIFIED ABDOMINAL PAIN (3) Diabetes mellitus Current Visit: No Status: Acute Assessment & Plan: Monitor sugars. On ISS. Code(s): E11.9 - TYPE 2 DIABETES MELLITUS WITHOUT COMPLICATIONS
[2022-11-11] MEDS: JARDIANCE PO SCH (11:11)
[2022-11-11] MEDS: HYDROMORPHONE 30 MG/30 ML-NS PCA IV PRN (11:13)
--- NOTE | 2022-11-11 13:31 | TM.IN ---
Tele-Medicine Incident Note - Incident Note Tel-Medicine Incident Note: 11/11/22 1330 Notified about patient reporting chest pain. EKG personally reviewed and demonstrated NSR without clinically significant ST changes on contiguous leads. Troponin pending. Already on ASA. Will monitor on telemetry.
--- NOTE | 2022-11-11 19:13 | XRAY ---
Indication: Pain. Comparison: None 3 view left knee demonstrates osteopenia, mild degenerative changes lateral compartment/patellofemoral compartment, small nonspecific effusion, extensive scattered vascular calcifications, and incidental small posterior fabella. No other bony, articular, or soft tissue abnormalities.
[2022-11-11] MEDS: Lantus Insulin SQ SCH (21:27)
[2022-11-11] MEDS: MELATONIN PO SCH (21:28)
[2022-11-11] MEDS: AMITRIPTYLINE 25 MG TABLET PO SCH (21:28)
[2022-11-11] MEDS: XARELTO 10 MG TABLET PO SCH (21:28)
[2022-11-11] MEDS: DESYREL 50 MG PO SCH (21:29)
[2022-11-11] MEDS: NORVASC 5 MG PO SCH (21:29)
[2022-11-11] MEDS: ZOCOR 20MG PO SCH (21:29)
[2022-11-12] MEDS: JARDIANCE PO SCH (09:27)
[2022-11-12] MEDS: Imdur 60MG PO SCH (09:29)
[2022-11-12] MEDS: KEPPRA PO SCH (09:29)
[2022-11-12] MEDS: ECOTRIN 81 MG PO SCH (09:29)
[2022-11-12] MEDS: NEURONTIN PO SCH (09:30)
[2022-11-12] MEDS: FEOSOL 325 MG PO SCH (09:30)
[2022-11-12] MEDS: CLONIDINE 0.1 MG TABLET PO SCH (09:31)
[2022-11-12] MEDS: PROTONIX 40 MG IV IV SCH (09:42)
[2022-11-12 11:47] VITALS: BP 137/92; PULSE 71; O2SAT 96
[2022-11-15] MEDS ORDERED: VITAMIN D2 PO SCH (10:00)
--- NOTE | 2022-12-06 22:32 | PCM.DS ---
Discharge Summary Date of Admission: 11/09/22 21:51 Date of Discharge: 11/12/2022 Admitting Physician: ИРИНА NOWAK MD Primary Care Provider: NO FAMILY DOCTOR Allergies Allergies No Known Drug Allergies Allergy (Verified 11/09/22 17:24) Hospital Summary - Hospital Course Hospital Course: Pt. admitted with intractible back pain and elevated lipase c/w pancreatitis, pt. was treated with pain medication and npo, pt. lipase promptly returned to normal and with improved pain and ability to tolerate po intake without increased pain, pt. was ready for discharge to home. - Vitals & Intake/Output Vital Signs: Vital Signs Temperature 98.6 F 11/12/22 11:46 Pulse Rate 71 11/12/22 11:46 Respiratory Rate 17 11/12/22 11:46 Blood Pressure 137/92 11/12/22 11:46 O2 Sat by Pulse Oximetry 96 11/12/22 11:46 - Lab Result Diagrams: 11/10/22 03:20 11/11/22 04:06 - Procedures and Test Procedures and Tests throughout Hospitalization: Therapy Orders & Screens 11/11/22 00:22 EKG ROUTINE Comment: Diagnosis: PACREATITIS Oxygen Nasal Cannula 2 lpm Comment: Diagnosis: PACREATITIS 11/11/22 12:32 EKG STAT Comment: Diagnosis: PACREATITIS Discharge Exam General Appearance: no apparent distress, alert Neurologic Exam: alert, oriented x 3, cooperative, normal mood/affect, nml cerebellar function, sensation nml, No motor deficits Eye Exam: PERRL, EOMI, eyes nml inspection Ears, Nose, Throat Exam: normal ENT inspection, pharynx normal, moist mucous membranes Neck Exam: normal inspection, non-tender, supple, full range of motion Respiratory Exam: normal breath sounds, lungs clear, No respiratory distress Cardiovascular Exam: regular rate/rhythm, normal heart sounds Gastrointestinal/Abdomen Exam: soft, No tenderness, No mass Male Genitalia Exam: deferred Rectal Exam: deferred Back Exam: normal inspection, normal range of motion, No CVA tenderness, No vertebral tenderness Extremity Exam: normal inspection, normal range of motion Skin Exam: normal color, warm, dry Final Diagnosis/Problem List - Final Discharge Diagnosis/Problem (1) Acute pancreatitis Status: Acute Code(s): K85.90 - ACUTE PANCREATITIS WITHOUT NECROSIS OR INFECTION, UNSP (2) Flank pain Status: Acute Code(s): R10.9 - UNSPECIFIED ABDOMINAL PAIN (3) Hyponatremia Status: Acute Code(s): E87.1 - HYPO-OSMOLALITY AND HYPONATREMIA (4) Left upper quadrant abdominal pain Status: Acute Code(s): R10.12 - LEFT UPPER QUADRANT PAIN - Discharge Discharge Date: 11/12/22 Disposition: Home, Self-Care Condition: Stable Prescriptions: New Ibuprofen 600 mg PO TID 30 Days #90 tablet Continue Levetiracetam [Keppra] 1,000 mg PO BID Gabapentin [Neurontin ] 600 mg PO TID Empagliflozin [Jardiance] 25 mg PO DAILY Carvedilol 12.5 mg [Coreg 12.5 mg] 25 mg PO BID Atorvastatin Calcium 80 mg PO QHS Aspirin 81 gm Chew [Baby Aspirin 81 mg Chew] 81 mg PO DAILY Meclizine HCl 12.5 mg PO Q8H PRN PRN PRN Reason: Dizziness lisinopriL [Lisinopril] 40 mg PO DAILY Spironolact/Hydrochlorothiazid [Spironolactone-Hctz 25-25 Tab] 1 tab PO DAILY Clonidine HCl 0.1 mg [Clonidine 0.1 mg Tablet] 0.1 mg PO BID Ergocalciferol (Vitamin D2) [Vitamin D] 50,000 unit PO UD Insulin Glargine,Hum.rec.anlog [Basaglar Kwikpen U-100] 45 units SQ QHS Polyethylene Glycol [Polyox Wsr-301] 17 gm PO DAILY PRN PRN PRN Reason: Constipation Isosorbide Mononitrate [Isosorbide Mononitrate ER] 60 mg PO DAILY Melatonin 10 mg PO QHS Amlodipine Besylate 10 mg PO HS #0 Rivaroxaban [Xarelto] 20 mg PO HS #0 Trazodone HCl 50 mg [Desyrel 50 mg] 100 mg PO HS Amitriptyline HCl 25 mg [Amitriptyline 25 mg Tablet] 25 mg PO HS Ferrous Sulfate 325 mg [Feosol 325 mg] 325 mg PO DAILY Instructions: Pancreatitis (DC), How to Use Crutches Additional Instructions: [facility] WILL REACH OUT TO YOU TO SEE HOW THEY CAN ASSIST WITH GROCERIES. Use crutches. Follow up with PCP in 1 week. Call for any questions or concerns. Please feel free to call our Physical Therapy department for any questions or concerns regarding the use of crutches. Follow up with: MERLENE ROLAND MD [ACTIVE STAFF] - 11/23/22 9:00 am Forms: Discharge Instructions
== END 2022-11-12 12:54 | disposition home or self-care (01) ==
LOC: ED 17:16 → MED SURG 21:51
PROVIDERS: ADMIT Internal Medicine; ATTEND Family Medicine
DX: K85.90 Acute pancreatitis without necrosis or infection, unspecified (principal); E87.1 Hypo-osmolality and hyponatremia; R10.12 Left upper quadrant pain; E11.22 Type 2 diabetes mellitus with diabetic chronic kidney disease; I12.9 Hypertensive chronic kidney disease with stage 1 through stage 4 chronic kidney disease, or unspecified chronic kidney disease; N18.9 Chronic kidney disease, unspecified; I25.10 Atherosclerotic heart disease of native coronary artery without angina pectoris; E78.5 Hyperlipidemia, unspecified; Z79.01 Long term (current) use of anticoagulants; Z79.899 Other long term (current) drug therapy; Z20.828 Contact with and (suspected) exposure to other viral communicable diseases
CPT/HCPCS: 36000; 36415; 73562; 74176; 80053; 80177; 81001; 82150; 82947; 83690; 83735; 84484; 85025; 93005; 93268; 94762; 96374; 96375; 96376; 99285; J1170; J2405; J3480; Q3014; A9270-GY; G0378

== ENCOUNTER 2023-07-01 16:45 | Emergency (ER) | payer MEDICARE ==
[2023-07-01 16:53] VITALS: TEMP 98.5
[2023-07-01] MEDS ORDERED: PROTONIX 40 MG IV IV ONE ×2 (17:00→17:21)
[2023-07-01] MEDS ORDERED: SUBLIMAZE 100 MCG/2 ML IV ONE (17:00)
[2023-07-01] MEDS ORDERED: Zofran 4 MG/2 ML VIAL IV ONE (17:00)
[2023-07-01] MEDS ORDERED: Sodium Chloride 0.9% 1000 ML 1,000 ML IV STA (17:00)
[2023-07-01] MEDS ORDERED: Zofran 4 MG/2 ML VIAL ONE (17:21)
[2023-07-01] MEDS ORDERED: Sodium Chloride 0.9% 1000 ML 1,000 ML ONE (17:22)
[2023-07-01] MEDS ORDERED: SUBLIMAZE 100 MCG/2 ML ONE (17:22)
[2023-07-01 17:29] LABS: Absolute Neutrophil Ct (ANC) 2.58 x10^3/uL (1.4-6.9); Basophil (Absolute #) 0.04 x10^3/uL (0-0.4); Eosinophil % 2.6 % (0.00-5.0); Eosinophil (Absolute #) 0.11 x10^3/uL (0-0.5); Hematocrit 44.2 % (42-50); Hemoglobin 15.5 g/dL (12.5-18.0); IMMATURE GRAN # 0.02 x10^3u/L (0.00-0.03); IMMATURE GRAN % 0.5 % (0.00-0.4); Lymphocyte (Absolute #) 1.02 x10^3/uL (1.0-4.6); Lymphocytes % 24.5 % (24.0-44.0); Mean Cell Volume 88.6 fL (78-100); Mean Corpuscular Hemoglobin 31.1 pg (26-32); Mean Corpuscular Hgb Concent. 35.1 g/dL (32-36); Mean Platelet Volume 9.3 fL (7.5-11.0); Monocytes % 9.6 % (0.0-12.0); Neutrophil % 61.8 % (36.0-66.0); Platelet Count 251 x10^3/uL (150-450); Red Blood Count 4.99 x10^6/uL (4.1-5.6); Red Cell Distribution Width 12.4 % (11.5-14.0); White Blood Count 4.2 x10^3/uL (4.0-10.5)
--- NOTE | 2023-07-01 17:29 | ERPHSYRPT ---
- History of Present Illness Time Seen by Provider: 07/01/23 17:25 Historian: patient Exam Limitations: no limitations Patient Subjective Stated Complaint: PT states "I think I am having a pancreatitus flairup. This feels just like the other." Triage Nursing Assessment: Pt presented alert and oriented X3, skin pwd. PT ambulates with a slow hunched over giat. Pt guarding his abdomen. Pt tender on the left side of abdomen. Physician History: Patient is 57-year-old male with significant past medical history of diabetes hypertension chronic pancreatitis started having severe abdominal pain in periumbilical area associated with severe nausea and vomiting for last 2 days. His symptoms got worse today that he could not keep anything down and his abdominal pain also got worse. So he was brought into the emergency room via ambulance. He denies any fever or chills Timing/Duration: day(s) (2-3 days) Quality: cramping Abdominal Pain Onset Location: periumbilical Pain Radiation: no radiation Severity of Pain-Max: moderate Severity of Pain-Current: severe Modifying Factors: Improves With: nothing Associated Symptoms: loss of appetite, nausea, vomiting, weakness, No fever/chills, No shortness of breath Previous symptoms: same symptoms as today Body Map: 1 - pain Allergies/Adverse Reactions: No Known Drug Allergies Allergy (Verified 11/09/22 17:24) Home Medications: Aspirin 81 gm Chew [Baby Aspirin 81 mg Chew] 81 mg PO DAILY 09/22/20 [History] Atorvastatin Calcium 80 mg PO QHS 09/22/20 [History] Carvedilol 12.5 mg [Coreg 12.5 mg] 25 mg PO BID 09/22/20 [History] Empagliflozin [Jardiance] 25 mg PO DAILY 09/22/20 [History] Gabapentin [Neurontin ] 600 mg PO TID 09/22/20 [History] Levetiracetam [Keppra] 1,000 mg PO BID 09/22/20 [History] Clonidine HCl 0.1 mg [Clonidine 0.1 mg Tablet] 0.1 mg PO BID 10/13/20 [History] Ergocalciferol (Vitamin D2) [Vitamin D] 50,000 unit PO UD 10/13/20 [History] Insulin Glargine,Hum.rec.anlog [Basaglar Kwikpen U-100] 45 units SQ QHS 10/13/20 [History] Isosorbide Mononitrate [Isosorbide Mononitrate ER] 60 mg PO DAILY 10/13/20 [History] Meclizine HCl 12.5 mg PO Q8H PRN PRN 10/13/20 [History] Melatonin 10 mg PO QHS 10/13/20 [History] Polyethylene Glycol [Polyox Wsr-301] 17 gm PO DAILY PRN PRN 10/13/20 [History] Spironolact/Hydrochlorothiazid [Spironolactone-Hctz 25-25 Tab] 1 tab PO DAILY 10/13/20 [History] lisinopriL [Lisinopril] 40 mg PO DAILY 10/13/20 [History] Amitriptyline HCl 25 mg [Amitriptyline 25 mg Tablet] 25 mg PO HS 09/14/22 [History] Ferrous Sulfate 325 mg [Feosol 325 mg] 325 mg PO DAILY 09/14/22 [History] Trazodone HCl 50 mg [Desyrel 50 mg] 100 mg PO HS 09/14/22 [History] Hx Tetanus, Diphtheria Vaccination/Date Given: No Hx Influenza Vaccination/Date Given: Yes Hx Pneumococcal Vaccination/Date Given: No Immunizations Up to Date: No Travel Risk - International Travel Have you traveled outside of the country in past 3 weeks: No - Coronavirus Screening Are you exhibiting any of the following symptoms?: Yes Symptoms: Fever, Vomiting/Diarrhea Close contact with a COVID-19 positive Pt in past 14-21 Days: No - Vaccine Status Have you recieved a Covid-19 vaccination: Yes 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 - Vaccination Dates Date of 2cond Vaccination (if applicable): 06/03/2022 - Review of Systems Constitutional: Malaise, Weakness, No Fever, No Chills Eyes: No Symptoms Ears, Nose, & Throat: No Symptoms Respiratory: No Cough, No Dyspnea Cardiac: No Chest Pain, No Edema, No Syncope Abdominal/Gastrointestinal: Abdominal Pain, Nausea, Vomiting, Appetite Changes, No Diarrhea, No Constipation, No Hematemesis, No Hematochezia, No Melena, No Dysphagia Genitourinary Symptoms: No Dysuria Musculoskeletal: No Back Pain, No Neck Pain Skin: No Rash Neurological: No Dizziness, No Focal Weakness, No Sensory Changes Psychological: No Symptoms Endocrine: No Symptoms All Other Systems: Reviewed and Negative - Past Medical History Pertinent Past Medical History: Yes Neurological History: Seizures, Stroke ENT History: No Pertinent History Cardiac History: Coronary Artery Disease, Deep Vein Thrombosis, High Cholester ol, Hypertension, Myocardial Infarction (NM) Respiratory History: Pulmonary Embolism, Sleep Apnea Endocrine Medical History: Diabetes Type II Musculoskeletal History: Arthritis GI Medical History: GERD, Gallbladder Disease, Hemorrhoids, Pancreatitis History: Renal Disease Psycho-Social History: No Pertinent History Male Reproductive Disorders: No Pertinent History Other Medical History: left inactive kidney needs removed in November - Past Surgical History Past Surgical History: Yes Neuro Surgical History: No Pertinent History Cardiac: Angioplasty, Cardiac Catheterization, Cardiac Stent Respiratory: No Pertinent History Gastrointestinal: Cholecystectomy Genitourinary: No Pertinent History Musculoskeletal: No Pertinent History Male Surgical History: No Pertinent History Other Surgical History: 5 cardiac stents, 2 renal stent, Left Ring Finger - Social History Smoking Status: Former smoker How long have you smoked: 4 years Exposure to second hand smoke: No Drug Use: none Patient Lives Alone: Yes - Nursing Vital Signs Nursing Vital Signs: Initial Vital Signs Temperature 98.5 F 07/01/23 16:46 Respiratory Rate 22 07/01/23 16:46 O2 Sat by Pulse Oximetry 97 07/01/23 16:46 Pain Scale Pain Intensity 6 - Physical Exam General Appearance: no apparent distress, alert Eye Exam: PERRL/EOMI, eyes nml inspection Ears, Nose, Throat Exam: normal ENT inspection, pharynx normal, moist mucous membranes Neck Exam: normal inspection, non-tender, supple, full range of motion Respiratory Exam: normal breath sounds, lungs clear, No respiratory distress Cardiovascular Exam: regular rate/rhythm, normal heart sounds Gastrointestinal/Abdomen Exam: tenderness (periumbilical area), No mass Back Exam: normal inspection, normal range of motion, No CVA tenderness, No vertebral tenderness Extremity Exam: normal inspection, normal range of motion, pelvis stable Neurologic Exam: alert, oriented x 3, cooperative, normal mood/affect, nml cerebellar function, sensation nml, No motor deficits Skin Exam: normal color, warm, dry SpO2: 97 - Course Nursing assessment & vital signs reviewed: Yes EKG Interpreted by Me: Sinus Rhythm - CT Exams Abdomen/Pelvis CT Interpretation: Tele-radiologist Report Ordered Tests: Active Orders 24 hr Category Date Time Status Provider Relations Coordinator STAT Care 07/01/23 17:37 Active EKG-ER Only STAT Care 07/01/23 17:38 Active IV Insertion STAT Care 07/01/23 17:36 Active ABDOMEN AND PELVIS W/0 CONTRAS [CT] Stat Exams 07/01/23 17:01 Completed AMYLASE Stat Lab 07/01/23 17:20 Completed CBC W DIFF Stat Lab 07/01/23 17:20 Completed CMP Stat Lab 07/01/23 17:20 Completed LIPASE Stat Lab 07/01/23 17:20 Completed TROPONIN Stat Lab 07/01/23 17:20 Completed UA W/RFX UR CULTURE Stat Lab 07/01/23 18:44 Completed Medication Summary Discontinued Medications Generic Name Dose Route Start Last Admin Trade Name Maria Victoria PRN Reason Stop Dose Admin Diphenhydramine HCl 25 mg 07/01/23 18:28 07/01/23 18:33 Diphenhydramine Hcl 50 Mg/Ml Vial IV 07/01/23 18:29 25 mg STAT ONE Administration Diphenhydramine HCl Confirm 07/01/23 18:32 Diphenhydramine Hcl 50 Mg/Ml Vial Administered 07/01/23 18:33 Dose 50 mg .ROUTE .STK-MED ONE Fentanyl Citrate 50 mcg 07/01/23 17:00 07/01/23 17:25 Fentanyl Citrate 100 Mcg/2 Ml* Vial IV 07/01/23 17:01 50 mcg STAT ONE Administration Fentanyl Citrate Confirm 07/01/23 17:22 Fentanyl Citrate 100 Mcg/2 Ml* Vial Administered 07/01/23 17:23 Dose 100 mcg .ROUTE .STK-MED ONE Hydromorphone HCl 1 mg 07/01/23 18:28 07/01/23 18:34 Hydromorphone 1 Mg/1ml Inj IV 07/01/23 18:29 1 mg STAT ONE Administration Hydromorphone HCl Confirm 07/01/23 18:32 Hydromorphone 1 Mg/1ml Inj Administered 07/01/23 18:33 Dose 1 mg .ROUTE .STK-MED ONE Sodium Chloride 1,000 mls @ 999 mls/hr 07/01/23 17:00 07/01/23 18:30 Sodium Chloride 0.9% 1000 Ml IV 07/01/23 18:00 Infused .Q1H1M STA Infusion Sodium Chloride Confirm 07/01/23 17:22 Sodium Chloride 0.9% 1000 Ml Administered 07/01/23 17:23 Dose 1,000 mls @ ud .ROUTE .STK-MED ONE Ondansetron HCl 4 mg 07/01/23 17:00 07/01/23 17:24 Ondansetron Hcl 4 Mg/2 Ml Vial IV 07/01/23 17:01 4 mg STAT ONE Administration Ondansetron HCl Confirm 07/01/23 17:21 Ondansetron Hcl 4 Mg/2 Ml Vial Administered 07/01/23 17:22 Dose 4 mg .ROUTE .STK-MED ONE Pantoprazole Sodium 40 mg 07/01/23 17:00 07/01/23 17:25 Pantoprazole 40 Mg Vial IV 07/01/23 17:01 40 mg STAT ONE Administration Pantoprazole Sodium Confirm 07/01/23 17:21 Pantoprazole 40 Mg Vial Administered 07/01/23 17:22 Dose 40 mg IV .STK-MED ONE Lab/Rad Data: Laboratory Result Diagrams 07/01/23 17:20 07/01/23 17:20 Laboratory Results 07/01/23 07/01/23 07/01/23 Range/Units 18:44 17:20 17:20 WBC 4.2 (4.0-10.5) x10^3/uL RBC 4.99 (4.1-5.6) x10^6/uL Hgb 15.5 (12.5-18.0) g/dL Hct 44.2 (42-50) % MCV 88.6 (78-100) fL MCH 31.1 (26-32) pg MCHC 35.1 (32-36) g/dL RDW 12.4 (11.5-14.0) % Plt Count 251 (150-450) x10^3/uL MPV 9.3 (7.5-11.0) fL Gran % 61.8 (36.0-66.0) % Immature Gran % (Auto) 0.5 H (0.00-0.4) % Nucleat RBC Rel Count 0.0 (0.00-0.1) % Eos # (Auto) 0.11 (0-0.5) x10^3/uL Immature Gran # (Auto) 0.02 (0.00-0.03) x10^3u/L Absolute Lymphs (auto) 1.02 (1.0-4.6) x10^3/uL Absolute Monos (auto) 0.40 (0.0-1.3) x10^3/uL Absolute Nucleated RBC 0.00 (0.00-0.01) x10^3u/L Lymphocytes % 24.5 (24.0-44.0) % Monocytes % 9.6 (0.0-12.0) % Eosinophils % 2.6 (0.00-5.0) % Basophils % 1.0 (0.0-0.4) % Absolute Granulocytes 2.58 (1.4-6.9) x10^3/uL Basophils # 0.04 (0-0.4) x10^3/uL Sodium 131 L (137-145) mmol/L Potassium 3.4 L (3.5-5.1) mmol/L Chloride 98 (98-107) mmol/L Carbon Dioxide 19 L (22-30) mmol/L Anion Gap 16.8 H (5-15) MEQ/L BUN 17 (9-20) mg/dL Creatinine 1.52 H (0.66-1.25) mg/dL Estimated GFR 53.1 ML/MIN Glucose 315 H (74-106) mg/dL Calcium 10.2 (8.4-10.2) mg/dL Total Bilirubin 0.80 (0.2-1.3) mg/dL AST 25 (17-59) U/L ALT 26 (0-50) U/L Alkaline Phosphatase 188 H (38-126) U/L Troponin I 0.025 (0.000-0.034) ng/mL Serum Total Protein 8.3 H (6.3-8.2) g/dL Albumin 4.8 (3.5-5.0) g/dL Amylase 98 (30-110) U/L Lipase 260 (23-300) U/L Urine Color Yellow (Yellow) Urine Appearance Clear (Clear) Urine pH 6.5 (4.6-8.0) Ur Specific [place] 1.010 (1.005-1.030) Urine Protein Trace A (Negative) Urine Glucose (UA) >=1000 A (Negative) mg/dL Urine Ketones Negative (Negative) Urine Blood Negative (Negative) Urine Nitrite Negative (Negative) Urine Bilirubin Negative (Negative) Urine Urobilinogen 0.2 (0.2) mg/dL Ur Leukocyte Esterase Negative (Negative) U Hyaline Cast (Auto) NONE SEEN (0-2) /LPF Urine Microscopic RBC 0-2 (0-5) /HPF Urine Microscopic WBC 0-2 (0-5) /HPF Ur Epithelial Cells None Seen (None Seen) /HPF Urine Bacteria None Seen (None Seen) /HPF Urine Culture Reflexed NO (NO) CT/ABDOMEN AND PELVIS W/0 CONTRAS CLINICAL HISTORY: periumbilical abdominal pain TECHNIQUE: CT scan of the abdomen and pelvis was performed without IV contrast. Coronal and sagittal reconstructive images were also obtained. COMPARISON: 11/09/2022 FINDINGS: A scan through the lower chest reveals a solid nodule measuring 11 x 10mm in the posterior segment of the left lower lobe. Abdomen: Hepatomegaly, liver measuring 18.5 cm at the largest craniocaudal span in the right lobe. No focal or diffuse parenchymal abnormality. The intrahepatic biliary radicals and the bile ducts are normal. The gallbladder is surgically absent. The spleen, pancreas, and adrenal glands are unremarkable. 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 The right kidney appears small atrophic measuring 5 x 3 x 5 cm. The left kidney is showing some compensatory hypertrophy measuring 10 x 8 x 8 cm. There is mild bilateral perirenal fat stranding. No calculi or hydronephrosis. The stomach and the visualized small bowel loops are unremarkable. There is no evidence of significant mesenteric or retroperitoneal lymph node enlargement. No free fluid. Small fat containing umblical hernia. Pelvis: The urinary bladder is unremarkable. Colonic diverticulosis without CT evidence of acute diverticulitis. No evidence of bowel obstruction. Normal-sized prostate showing calcific focus within it. Atherosclerotic calcification of the aorta and major abdominal arteries is seen. No evidence of pelvic lymphadenopathy. 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 IMPRESSION: 1. A 10 x 11mm nodule in the posterior segment of the left lower lobe, requires an entire CT chest evaluation. 2. Redemonstration of trophic right kidney with compensatory hypertrophy of the left kidney and mild perirenal fat stranding, requiring Lab correlation. 3. The rest of the findings as detailed above. 4. In comparison with previous study, there is interval stability in the disease process Further CT chest /( PET CT) is suggested for lung nodule evaluation and follow-up. - Progress Progress: improved, pain not gone completely Counseled pt/family regarding: lab results, diagnosis, need for follow-up, rad results Medical Desision Making - Social Determinants of Health Limited access to: transportation - Diagnostic Testing Diagnostic test were ordered, analyzed, and reviewed by me: Yes Radiological Interpretation: Reviewed by me, Teleradiologist Report - Risk of complications The pt has a mod risk of morbidity or mortality based on: Need for prescription drug management - Departure Departure Disposition: Home Clinical Impression: Periumbilical abdominal pain Diabetes mellitus Qualifiers: Diabetes mellitus type: type 2 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 The patient was counseled regarding Diagnosis,Lab results, Imaging studies, need for follow up and when to return to the Emergency Room. Prescriptions given: Discharge Note I have spoken with the patient and/or caregivers. I have explained the patient's condition, diagnosis and treatment plan based on the information available to me at this time. I have answered the patient's and/or caregiver's questions and addressed any concerns. The patient and/or caregivers have as good understanding of the patient's diagnosis, condition and treatment plan as can be expected at this point. The vital signs have been stable. The patient's condition is stable and appropriate for discharge from the emergency department. The patient will pursue further outpatient evaluation with the primary care physician or other designated or consulting physician as outlined in the discharge instructions. The patient and/or caregivers are agreeable to this plan of care and follow-up instructions have been explained in detail. The patient and/or caregivers have received these instruction. The patient/and or caregivers are aware that any significant change in condition or worsening of symptoms s hould prompt an immediate return to this or the closest emergency department or call 911. SIMA MARSHALL was seen on 07/01/23 n the Emergency Room. At that time you were treated for an emergent condition, during your visit Laboratory, Radiology and/or other procedures may have been ordered. It is very important that you follow-up with your Primary Care Physician RADHA KELLOGG within the next 24- 48 hours to review your Emergency Room visit and the final results of testing that was ordered. Some test results such as Urine Cultures, Blood Cultures, and other cultures if ordered will not be finalized for 24-48 hours. If you do not have a Primary Care Provider please call the medical records department at [phone] ext [phone] to obtain a copy of your results or you may sign into our patient portal to obtain these results by visiting us @ [email or web address] and completing the following steps: 1. Click on the Patient Portal link 2. Click the Patient Self Enrollment Link to complete the enrollment form and entering your 3. Once the enrollment form is completed you will receive an email with a temporary ID and password at the email address you provided. 4. Next choose a user name and password. Your user name must be at least 4 characters long and your password must be at least 4 characters long. 5. Choose a security question from the list and provide your answer to the question. If you already have signed into the Health Portal you may access your Health Care Information 26/12 by the following steps: 1. Login to our website @ [email or web address] 2. Enter your original user name and password. FAQS [facility] Health Portal is an online tool that contains your Lab Results, Radiology Reports, Visit History, Discharge Instructions and Health Summary Lab and Radiology Results will not be available for 72 hours on the portal. The Portal is a secure site, passwords are encryted and URLs are re-written so they cannot be copied and pasted. You and authorized family members are the only ones who can access your Portal. Also there is a timeout feature that protects your information if you leave the Portal page open. If you have technical difficulty please use the Contact Us link on the page this will allow you to submit any questions you have regarding the Portal or you may contact the Medical Record Department at [phone] ext [phone]. Prescriptions: Promethazine HCl 25 mg [Phenergan 25 mg] 25 mg PO QID #20 tablet
[2023-07-01 18:18] LABS: ALBUMIN 4.8 g/dL (3.5-5.0); ANION GAP 16.8 MEQ/L (5-15); BILIRUBIN,TOTAL 0.8 mg/dL (0.2-1.3); Calcium 10.2 mg/dL (8.4-10.2); Creatinine 1 1.52 mg/dL (0.66-1.25); EST GLOMERULAR FILTRATION RATE 53.1 ML/MIN; Potassium 3.4 mmol/L (3.5-5.1); TROPONIN 0.025 ng/mL (0.000-0.034); Total Protein 8.3 g/dL (6.3-8.2)
[2023-07-01] MEDS ORDERED: BENADRYL 50 MG/ML IV ONE (18:28)
[2023-07-01] MEDS ORDERED: Hydromorphone 1 mg/ml Injection IV ONE (18:28)
[2023-07-01] MEDS ORDERED: Hydromorphone 1 mg/ml Injection ONE (18:32)
[2023-07-01] MEDS ORDERED: BENADRYL 50 MG/ML ONE (18:32)
[2023-07-01 18:57] LABS: Appearance Clear (Clear); Bacteria None Seen /HPF (None Seen); Bilirubin Negative (Negative); Blood Negative (Negative); Epithelial Cells None Seen /HPF (None Seen); Glucose, Urine >=1000 mg/dL (Negative); Hyaline Casts NONE SEEN /LPF (0-2); Ketones Negative (Negative); Leukocyte Esterase Negative (Negative); Nitrite Negative (Negative); Ph 6.5 (4.6-8.0); Protein,Urine Dip Trace (Negative); RBC 0-2 /HPF (0-5); Urobilinogen 0.2 mg/dL (0.2); WBC 0-2 /HPF (0-5)
[2023-07-01 19:01] LABS: ADD URINE CULTURE? NO (NO)
--- NOTE | 2023-07-01 19:08 | XRAY ---
CLINICAL HISTORY: periumbilical abdominal pain TECHNIQUE: CT scan of the abdomen and pelvis was performed without IV contrast. Coronal and sagittal reconstructive images were also obtained. COMPARISON: 11/09/2022 FINDINGS: A scan through the lower chest reveals a solid nodule measuring 11 x 10mm in the posterior segment of the left lower lobe. Abdomen: Hepatomegaly, liver measuring 18.5 cm at the largest craniocaudal span in the right lobe. No focal or diffuse parenchymal abnormality. The intrahepatic biliary radicals and the bile ducts are normal. The gallbladder is surgically absent. The spleen, pancreas, and adrenal glands are unremarkable. 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 The right kidney appears small atrophic measuring 5 x 3 x 5 cm. The left kidney is showing some compensatory hypertrophy measuring 10 x 8 x 8 cm. There is mild bilateral perirenal fat stranding. No calculi or hydronephrosis. The stomach and the visualized small bowel loops are unremarkable. There is no evidence of significant mesenteric or retroperitoneal lymph node enlargement. No free fluid. Small fat containing umblical hernia. Pelvis: The urinary bladder is unremarkable. Colonic diverticulosis without CT evidence of acute diverticulitis. No evidence of bowel obstruction. Normal-sized prostate showing calcific focus within it. Atherosclerotic calcification of the aorta and major abdominal arteries is seen. No evidence of pelvic lymphadenopathy. 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 IMPRESSION: 1. A 10 x 11mm nodule in the posterior segment of the left lower lobe, requires an entire CT chest evaluation. 2. Redemonstration of trophic right kidney with compensatory hypertrophy of the left kidney and mild perirenal fat stranding, requiring Lab correlation. 3. The rest of the findings as detailed above. 4. In comparison with previous study, there is interval stability in the disease process Further CT chest /( PET CT) is suggested for lung nodule evaluation and follow-up. Electronically Signed by: Rod Yanes MD. (07/01/2023 19:05:01 EST)
[2023-07-01 19:17] VITALS: O2SAT 97
[2023-07-01] MEDS ORDERED: NORCO 5/325 MG PO ONE (20:07)
[2023-07-01 20:16] VITALS: BP 172/102; PULSE 82; RESP 15
[2023-07-01] MEDS ORDERED: NORCO 5/325 MG ONE (20:39)
== END 2023-07-01 20:52 | disposition home or self-care (01) ==
LOC: ED 16:45
DX: R10.33 Periumbilical pain (principal); E11.65 Type 2 diabetes mellitus with hyperglycemia; I10 Essential (primary) hypertension; R11.2 Nausea with vomiting, unspecified; E78.5 Hyperlipidemia, unspecified; Z79.84 Long term (current) use of oral hypoglycemic drugs; Z79.4 Long term (current) use of insulin; Z79.899 Other long term (current) drug therapy
CPT/HCPCS: 36000; 36415; 74176; 80053; 81001; 82150; 83690; 84484; 85025; 93005; 93041; 96360; 96374; 96375; 99285; J1170; J1200; J2405; J3010; A9270-GY

== ENCOUNTER 2023-08-09 17:13 | Emergency (ER) | payer MEDICARE ==
[2023-08-09 17:33] VITALS: TEMP 98.8
--- NOTE | 2023-08-09 17:39 | ERPHSYRPT ---
- History of Present Illness Time Seen by Provider: 08/09/23 17:39 Historian: patient Exam Limitations: no limitations Patient Subjective Stated Complaint: C/O LLQ pain that started around 3pm today. Describes the pain as "it feels like I'm being hit with a baseball bat." Indicates that pain does go into left flank. Triage Nursing Assessment: Patient arrived to ER by ambulance. He is alert and oriented. Hypertensive. No SOB. No cough. Skin tone normal. HUNTER WNL. Abdomen is round, distended. Physician History: This is a morbidly obese 57-year-old white male patient of Dr. 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 Patient states that it feels as though someone hit me in the stomach with a baseball bat. He states that the pain radiates to his left flank area. Patient has never had this type of condition before. Patient denies chest pain and he denies shortness of breath. Patient has multiple medical issues including hypertension, seizure disorder, diabetes, hyperlipidemia, coronary artery disease (cardiac stents and angioplasty), DVT, pulm embolism, sleep apnea and chronic renal disease. Timing/Duration: today Activities at Onset: none Quality: sharpness, stabbing Abdominal Pain Onset Location: LLQ Pain Radiation: flank (Left) Severity of Pain-Max: moderate Severity of Pain-Current: moderate Modifying Factors: Improves With: nothing Associated Symptoms: denies symptoms Previous symptoms: no prior history, no recent treatment Allergies/Adverse Reactions: No Known Drug Allergies Allergy (Verified 08/09/23 17:15) Home Medications: Aspirin 81 gm Chew [Baby Aspirin 81 mg Chew] 81 mg PO DAILY 09/22/20 [History] Atorvastatin Calcium 80 mg PO QHS 09/22/20 [History] Carvedilol 12.5 mg [Coreg 12.5 mg] 25 mg PO BID 09/22/20 [History] Empagliflozin [Jardiance] 25 mg PO DAILY 09/22/20 [History] Gabapentin [Neurontin ] 600 mg PO TID 09/22/20 [History] Levetiracetam [Keppra] 1,000 mg PO BID 09/22/20 [History] Clonidine HCl 0.1 mg [Clonidine 0.1 mg Tablet] 0.1 mg PO BID 10/13/20 [History] Ergocalciferol (Vitamin D2) [Vitamin D] 50,000 unit PO UD 10/13/20 [History] Insulin Glargine,Hum.rec.anlog [Basaglar Kwikpen U-100] 45 units SQ QHS 10/13/20 [History] Isosorbide Mononitrate [Isosorbide Mononitrate ER] 60 mg PO DAILY 10/13/20 [History] Meclizine HCl 12.5 mg PO Q8H PRN PRN 10/13/20 [History] Melatonin 10 mg PO QHS 10/13/20 [History] Polyethylene Glycol [Polyox Wsr-301] 17 gm PO DAILY PRN PRN 10/13/20 [History] Spironolact/Hydrochlorothiazid [Spironolactone-Hctz 25-25 Tab] 1 tab PO DAILY 10/13/20 [History] lisinopriL [Lisinopril] 40 mg PO DAILY 10/13/20 [History] Amitriptyline HCl 25 mg [Amitriptyline 25 mg Tablet] 25 mg PO HS 09/14/22 [History] Ferrous Sulfate 325 mg [Feosol 325 mg] 325 mg PO DAILY 09/14/22 [History] Trazodone HCl 50 mg [Desyrel 50 mg] 100 mg PO HS 09/14/22 [History] Hx Tetanus, Diphtheria Vaccination/Date Given: No Hx Influenza Vaccination/Date Given: Yes Hx Pneumococcal Vaccination/Date Given: No Travel Risk - International Travel Have you traveled outside of the country in past 3 weeks: No - Coronavirus Screening Are you exhibiting any of the following symptoms?: No Close contact with a COVID-19 positive Pt in past 14-21 Days: No - Vaccine Status Have you recieved a Covid-19 vaccination: Yes Rn Shift Mgr: Moderna - Vaccination Dates Date of 2cond Vaccination (if applicable): 06/03/2022 - Review of Systems Constitutional: No Symptoms Eyes: No Symptoms Ears, Nose, & Throat: No Symptoms Respiratory: No Symptoms Cardiac: No Symptoms Abdominal/Gastrointestinal: Abdominal Pain, Nausea Genitourinary Symptoms: No Symptoms Musculoskeletal: No Symptoms Skin: No Symptoms Neurological: No Symptoms Psychological: No Symptoms Endocrine: No Symptoms Hematologic/Lymphatic: No Symptoms Immunological/Allergic: No Symptoms All Other Systems: Reviewed and Negative - Past Medical History Pertinent Past Medical History: Yes Neurological History: Seizures, Stroke ENT History: No Pertinent History Cardiac History: Coronary Artery Disease, Deep Vein Thrombosis, High Cholesterol, Hypertension, Myocardial Infarction ([place]) Respiratory History: Pulmonary Embolism, Sleep Apnea Endocrine Medical History: Diabetes Type II Musculoskeletal History: Arthritis GI Medical History: GERD, Gallbladder Disease, Hemorrhoids, Pancreatitis History: Renal Disease Psycho-Social History: No Pertinent History Male Reproductive Disorders: No Pertinent History Other Medical History: left inactive kidney needs removed in November - Past Surgical History Past Surgical History: Yes Neuro Surgical History: No Pertinent History Cardiac: Angioplasty, Cardiac Catheterization, Cardiac Stent Respiratory: No Pertinent History Gastrointestinal: Cholecystectomy Genitourinary: No Pertinent History Musculoskeletal: No Pertinent History Male Surgical History: No Pertinent History Other Surgical History: 5 cardiac stents, 2 renal stent, Left Ring Finger - Social History Smoking Status: Former smoker How long have you smoked: 4 years Exposure to second hand smoke: No Drug Use: none Patient Lives Alone: Yes - Nursing Vital Signs Nursing Vital Signs: Initial Vital Signs Temperature 98.8 F 08/09/23 17:15 Pulse Rate 104 H 08/09/23 17:15 Respiratory Rate 20 08/09/23 17:15 Blood Pressure 247/136 08/09/23 17:15 Pain Scale Pain Intensity 9 - Physical Exam General Appearance: no apparent distress, alert, anxiety, obese Eye Exam: PERRL/EOMI, eyes nml inspection Ears, Nose, Throat Exam: normal ENT inspection, moist mucous membranes Neck Exam: normal inspection, non-tender, supple, full range of motion Respiratory Exam: normal breath sounds, lungs clear, prolonged expirations, No chest tenderness, No respiratory distress Cardiovascular Exam: normal heart sounds, normal peripheral pulses, tachycardia (Mild) Gastrointestinal/Abdomen Exam: soft, normal bowel sounds, tenderness (Left lower quadrant), guarding (Left lower quadrant), rebound (Left lower quadrant) Rectal Exam: not done Back Exam: normal inspection, normal range of motion, No CVA tenderness, No lashanda tebral tenderness Extremity Exam: normal inspection, normal range of motion, pelvis stable Neurologic Exam: alert, oriented x 3, cooperative, special procedures tech II-XII nml as tested, normal mood/affect, nml cerebellar function, nml station & gait, sensation nml Skin Exam: normal color, warm, dry Lymphatic Exam: No adenopathy SpO2 Interpretation: normal O2 Delivery: Room Air Ordered Tests: Active Orders 24 hr Category Date Time Status IV Insertion STAT Care 08/09/23 17:39 Active ABDOMEN AND PELVIS W/0 CONTRAS [CT] Stat Exams 08/09/23 17:39 Taken AMYLASE Stat Lab 08/09/23 18:10 Completed CBC W DIFF Stat Lab 08/09/23 18:10 Completed CMP Stat Lab 08/09/23 18:10 Completed LIPASE Stat Lab 08/09/23 18:10 Completed TROPONIN Q4H Lab 08/09/23 18:10 Completed TROPONIN Q4H Lab 08/09/23 21:45 Ordered TROPONIN Q4H Lab 08/10/23 01:45 Ordered UA W/RFX UR CULTURE Stat Lab 08/09/23 18:23 Completed Medication Summary Discontinued Medications Generic Name Dose Route Start Last Admin Trade Name Freq PRN Reason Stop Dose Admin Hydromorphone HCl 1 mg 08/09/23 18:36 08/09/23 18:42 Hydromorphone 1 Mg/1ml Inj IV 08/09/23 18:37 1 mg STAT ONE Administration Hydromorphone HCl Confirm 08/09/23 18:39 Hydromorphone 1 Mg/1ml Inj Administered 08/09/23 18:40 Dose 1 mg .ROUTE .STK-MED ONE Sodium Chloride 1,000 mls @ 999 mls/hr 08/09/23 17:39 08/09/23 18:23 Sodium Chloride 0.9% 1000 Ml IV 08/09/23 18:39 999 mls/hr .Q1H1M STA Administration Sodium Chloride Confirm 08/09/23 18:01 Sodium Chloride 0.9% 1000 Ml Administered 08/09/23 18:02 Dose 1,000 mls @ ud .ROUTE .STK-MED ONE Insulin Human Regular 15 unit 08/09/23 18:47 08/09/23 18:51 Insulin Regular, Human 1 Unit IV 08/09/23 18:48 15 unit STAT ONE Administration Insulin Human Regular Confirm 08/09/23 18:50 Insulin Regular, Human 1 Unit Administered 08/09/23 18:51 Dose 15 unit .ROUTE .STK-MED ONE Labetalol HCl 10 mg 08/09/23 17:43 08/09/23 18:04 Labetalol Hcl 20 Mg/4 Ml Disp.Syringe IV 08/09/23 17:44 10 mg STAT ONE Administration Labetalol HCl Confirm 08/09/23 18:01 Labetalol Hcl 20 Mg/4 Ml Disp.Syringe Administered 08/09/23 18:02 Dose 20 mg IV .STK-MED ONE Labetalol HCl 10 mg 08/09/23 18:37 08/09/23 18:40 Labetalol Hcl 20 Mg/4 Ml Disp.Syringe IV 08/09/23 18:38 10 mg STAT ONE Administration Labetalol HCl Confirm 08/09/23 18:39 Labetalol Hcl 20 Mg/4 Ml Disp.Syringe Administered 08/09/23 18:40 Dose 20 mg IV .STK-MED ONE Ondansetron HCl 4 mg 08/09/23 17:39 08/09/23 18:04 Ondansetron Hcl 4 Mg/2 Ml Vial IV 08/09/23 17:40 4 mg STAT ONE Administration Ondansetron HCl Confirm 08/09/23 18:01 Ondansetron Hcl 4 Mg/2 Ml Vial Administered 08/09/23 18:02 Dose 4 mg .ROUTE .STK-MED ONE Lab/Rad Data: Laboratory Result Diagrams 08/09/23 18:10 08/09/23 18:10 Laboratory Results 08/09/23 08/09/23 08/09/23 Range/Units 18:23 18:10 18:10 WBC (4.0-10.5) x10^3/uL RBC (4.1-5.6) x10^6/uL Hgb (12.5-18.0) g/dL Hct (42-50) % MCV (78-100) fL MCH (26-32) pg MCHC (32-36) g/dL RDW (11.5-14.0) % Plt Count (150-450) x10^3/uL MPV (7.5-11.0) fL Gran % (36.0-66.0) % Immature Gran % (Auto) (0.00-0.4) % Nucleat RBC Rel Count (0.00-0.1) % Eos # (Auto) (0-0.5) x10^3/uL Immature Gran # (Auto) (0.00-0.03) x10^3u/L Absolute Lymphs (auto) (1.0-4.6) x10^3/uL Absolute Monos (auto) (0.0-1.3) x10^3/uL Absolute Nucleated RBC (0.00-0.01) x10^3u/L Lymphocytes % (24.0-44.0) % Monocytes % (0.0-12.0) % Eosinophils % (0.00-5.0) % Basophils % (0.0-0.4) % Absolute Granulocytes (1.4-6.9) x10^3/uL Basophils # (0-0.4) x10^3/uL Sodium 129 L (135-145) mmol/L Potassium 3.7 (3.5-5.1) mmol/L Chloride 96 L (98-107) mmol/L Carbon Dioxide 21 L (22-30) mmol/L Anion Gap 16.0 H (5-15) MEQ/L BUN 26 H (9-20) mg/dL Creatinine 1.18 (0.66-1.25) mg/dL Estimated GFR 72.0 ML/MIN Glucose 576 H* (74-106) mg/dL Calcium 9.0 (8.4-10.2) mg/dL Total Bilirubin 0.30 (0.2-1.3) mg/dL AST 23 (17-59) U/L ALT 25 (0-50) U/L Alkaline Phosphatase 163 H (38-126) U/L Troponin I 0.052 H* (0.000-0.034) ng/mL Serum Total Protein 7.0 (6.3-8.2) g/dL Albumin 3.9 (3.5-5.0) g/dL Amylase 74 (30-110) U/L Lipase 108 (23-300) U/L Urine Color Yellow (Yellow) Urine Appearance Clear (Clear) Urine pH 7.0 (4.6-8.0) Ur Specific [place] 1.020 (1.005-1.030) Urine Protein 30 (Negative) Urine Glucose (UA) >=1000 A (Negative) mg/dL Urine Ketones Negative (Negative) Urine Blood Negative (Negative) Urine Nitrite Negative (Negative) Urine Bilirubin Negative (Negative) Urine Urobilinogen 0.2 (0.2) mg/dL Ur Leukocyte Esterase Negative (Negative) U Hyaline Cast (Auto) NONE SEEN (0-2) /LPF Urine Microscopic RBC 0-2 (0-5) /HPF Urine Microscopic WBC 0-2 (0-5) /HPF Ur Epithelial Cells None Seen (None Seen) /HPF Urine Bacteria None Seen (None Seen) /HPF Urine Culture Reflexed NO (NO) 08/09/23 Range/Units 18:10 WBC 4.3 (4.0-10.5) x10^3/uL RBC 4.69 (4.1-5.6) x10^6/uL Hgb 14.7 (12.5-18.0) g/dL Hct 42.6 (42-50) % MCV 90.8 (78-100) fL MCH 31.3 (26-32) pg MCHC 34.5 (32-36) g/dL RDW 12.6 (11.5-14.0) % Plt Count 203 (150-450) x10^3/uL MPV 9.5 (7.5-11.0) fL Gran % 74.9 H (36.0-66.0) % Immature Gran % (Auto) 0.5 H (0.00-0.4) % Nucleat RBC Rel Count 0.0 (0.00-0.1) % Eos # (Auto) 0.08 (0-0.5) x10^3/uL Immature Gran # (Auto) 0.02 (0.00-0.03) x10^3u/L Absolute Lymphs (auto) 0.63 L (1.0-4.6) x10^3/uL Absolute Monos (auto) 0.33 (0.0-1.3) x10^3/uL Absolute Nucleated RBC 0.00 (0.00-0.01) x10^3u/L Lymphocytes % 14.5 L (24.0-44.0) % Monocytes % 7.6 (0.0-12.0) % Eosinophils % 1.8 (0.00-5.0) % Basophils % 0.7 (0.0-0.4) % Absolute Granulocytes 3.24 (1.4-6.9) x10^3/uL Basophils # 0.03 (0-0.4) x10^3/uL Sodium (135-145) mmol/L Potassium (3.5-5.1) mmol/L Chloride (98-107) mmol/L Carbon Dioxide (22-30) mmol/L Anion Gap (5-15) MEQ/L BUN (9-20) mg/dL Creatinine (0.66-1.25) mg/dL Estimated GFR ML/MIN Glucose (74-106) mg/dL Calcium (8.4-10.2) mg/dL Total Bilirubin (0.2-1.3) mg/dL AST (17-59) U/L ALT (0-50) U/L Alkaline Phosphatase (38-126) U/L Troponin I (0.000-0.034) ng/mL Serum Total Protein (6.3-8.2) g/dL Albumin (3.5-5.0) g/dL Amylase (30-110) U/L Lipase (23-300) U/L Urine Color (Yellow) Urine Appearance (Clear) Urine pH (4.6-8.0) Ur Specific [place] (1.005-1.030) Urine Protein (Negative) Urine Glucose (UA) (Negative) mg/dL Urine Ketones (Negative) Urine Blood (Negative) Urine Nitrite (Negative) Urine Bilirubin (Negative) Urine Urobilinogen (0.2) mg/dL Ur Leukocyte Esterase (Negative) U Hyaline Cast (Auto) (0-2) /LPF Urine Microscopic RBC (0-5) /HPF Urine Microscopic WBC (0-5) /HPF Ur Epithelial Cells (None Seen) /HPF Urine Bacteria (None Seen) /HPF Urine Culture Reflexed (NO) - Progress Progress: improved, pain not gone completely Progress Note: 08/09/23 19:24 This patient medical issue is 1 of high complexity. The level of complexity in the workup performed is based on review of the patient's past medical history, review the patient's medication list, review of patient drug allergy list, history present illness and physical findings on examination. The workup in this patient included intravenous line placement, normal saline solution infusion, Dilaudid intravenously, Zofran intravenously, labetalol intravenously, twelve-lead EKG, troponin level, CBC, CMP, amylase, lipase, urinalysis and CT scan of the abdomen pelvis. Differential diagnosis includes perforated viscus, diverticulitis, abdominal aortic aneurysm, ureteral lithiasis, pyelonephritis. I am transferring care to this patient at shift change. I discussed this patient with Dr. Jose Pham. He will follow-up on the test results and make final disposition. Medical Desision Making - Independent Historian Additional History obtained from: Motorman/Woman/EMT - Diagnostic Testing Diagnostic test were ordered, analyzed, and reviewed by me: No - Risk of complications The pt has a high risk of morbidity or mortality based on: Decision regarding hospitilization or escalation of hosp level of care - Departure Departure Disposition: In-patient Admission Clinical Impression: Left lower quadrant abdominal pain, Hypertensive urgency Condition: Fair Critical Care Time: Yes Critical Care Time(excluding separately billable procedures): Critical 30-74 mins (45 minutes) Referrals: RADHA COE MD [Primary Care Provider] - Follow up/PCP as directed
[2023-08-09] MEDS ORDERED: Sodium Chloride 0.9% 1000 ML 1,000 ML ONE (18:01)
[2023-08-09] MEDS ORDERED: Zofran 4 MG/2 ML VIAL ONE (18:01)
[2023-08-09] MEDS ORDERED: TRANDATE 20 MG/4 ML SYRINGE IV ONE ×2 (18:01→18:39)
[2023-08-09] MEDS: Zofran 4 MG/2 ML VIAL IV ONE (18:04)
[2023-08-09] MEDS: TRANDATE 20 MG/4 ML SYRINGE IV ONE ×2 (18:04→18:40)
[2023-08-09 18:18] LABS: Absolute Neutrophil Ct (ANC) 3.24 x10^3/uL (1.4-6.9); BASOPHIL % 0.7 % (0.0-0.4); Basophil (Absolute #) 0.03 x10^3/uL (0-0.4); Eosinophil % 1.8 % (0.00-5.0); Eosinophil (Absolute #) 0.08 x10^3/uL (0-0.5); Hematocrit 42.6 % (42-50); Hemoglobin 14.7 g/dL (12.5-18.0); IMMATURE GRAN # 0.02 x10^3u/L (0.00-0.03); IMMATURE GRAN % 0.5 % (0.00-0.4); Lymphocyte (Absolute #) 0.63 x10^3/uL (1.0-4.6); Lymphocytes % 14.5 % (24.0-44.0); Mean Cell Volume 90.8 fL (78-100); Mean Corpuscular Hemoglobin 31.3 pg (26-32); Mean Corpuscular Hgb Concent. 34.5 g/dL (32-36); Mean Platelet Volume 9.5 fL (7.5-11.0); Monocyte (Absolute #) 0.33 x10^3/uL (0.0-1.3); Monocytes % 7.6 % (0.0-12.0); Neutrophil % 74.9 % (36.0-66.0); Platelet Count 203 x10^3/uL (150-450); Red Blood Count 4.69 x10^6/uL (4.1-5.6); Red Cell Distribution Width 12.6 % (11.5-14.0); White Blood Count 4.3 x10^3/uL (4.0-10.5)
[2023-08-09] MEDS: Sodium Chloride 0.9% 1000 ML 1,000 ML IV STA (18:23)
[2023-08-09 18:37] LABS: ALBUMIN 3.9 g/dL (3.5-5.0); BILIRUBIN,TOTAL 0.3 mg/dL (0.2-1.3); Creatinine 1 1.18 mg/dL (0.66-1.25); Potassium 3.7 mmol/L (3.5-5.1)
[2023-08-09] MEDS ORDERED: Hydromorphone 1 mg/ml Injection ONE (18:39)
[2023-08-09] MEDS: Hydromorphone 1 mg/ml Injection IV ONE (18:42)
[2023-08-09] MEDS ORDERED: HUMULIN R ONE (18:50)
[2023-08-09] MEDS: HUMULIN R IV ONE (18:51)
[2023-08-09 19:00] LABS: Appearance Clear (Clear); Bacteria None Seen /HPF (None Seen); Bilirubin Negative (Negative); Blood Negative (Negative); Epithelial Cells None Seen /HPF (None Seen); Glucose, Urine >=1000 mg/dL (Negative); Hyaline Casts NONE SEEN /LPF (0-2); Ketones Negative (Negative); Leukocyte Esterase Negative (Negative); Nitrite Negative (Negative); Protein,Urine Dip 30 (Negative); RBC 0-2 /HPF (0-5); Urobilinogen 0.2 mg/dL (0.2); WBC 0-2 /HPF (0-5)
[2023-08-09 19:03] LABS: ADD URINE CULTURE? NO (NO)
[2023-08-09 19:38] VITALS: O2SAT 97
[2023-08-09] MEDS ORDERED: Ntg 0.2MG/Ml in D5W GLASS*** 250 ML IV ONE (19:42)
[2023-08-09] MEDS ORDERED: BABY ASPIRIN 81 MG CHEW ONE (19:42)
[2023-08-09] MEDS: BABY ASPIRIN 81 MG CHEW PO ONE (19:45)
[2023-08-09] MEDS: Ntg 0.2MG/Ml in D5W GLASS*** 250 ML IV PRN (19:45)
[2023-08-09 19:46] VITALS: PULSE 87
[2023-08-09 20:49] VITALS: BP 151/107; RESP 19
--- NOTE | 2023-08-10 08:35 | XRAY ---
Indication: Left lower quadrant abdominal pain. Multiple contiguous axial images obtained through the abdomen and pelvis without contrast. Comparison: July 01, 2023 Lung bases demonstrate stable 1 cm benign left lower lobe noncalcified nodule. No infiltrate or effusion. Heart not enlarged. Stomach is now distended with food/fluid. Noncontrasted stomach and bowel loops appear nonobstructed again with normal appendix. Stable right renal atrophy and cholecystectomy. No free fluid/air. Remaining liver, pancreas, spleen, adrenal glands, kidneys, ureters, and bladder are unremarkable for noncontrast exam. Again moderate scattered arteriosclerotic calcifications and right main renal artery stent. Osseous structures intact again with mild multilevel thoracolumbar degenerative spondylosis and bilateral L5 spondylolysis without listhesis. Impression: 1. Again chronic findings including benign left lower lobe noncalcified nodule, right renal atrophy, arteriosclerotic disease with right renal artery stent, and chronic bony findings. 2. Remaining CT abdomen/pelvis without contrast exam is negative.
== END 2023-08-09 20:32 | disposition home or self-care (01) ==
LOC: ED 17:13
DX: I21.4 Non-ST elevation (NSTEMI) myocardial infarction (principal); I16.0 Hypertensive urgency; I10 Essential (primary) hypertension; R10.32 Left lower quadrant pain; R91.1 Solitary pulmonary nodule; I25.10 Atherosclerotic heart disease of native coronary artery without angina pectoris; E78.5 Hyperlipidemia, unspecified; E11.9 Type 2 diabetes mellitus without complications; Z79.01 Long term (current) use of anticoagulants; Z79.899 Other long term (current) drug therapy; Z20.828 Contact with and (suspected) exposure to other viral communicable diseases; Z86.718 Personal history of other venous thrombosis and embolism
CPT/HCPCS: 36000; 36415; 74176; 80053; 81001; 82150; 83690; 84484; 85025; 93005; 96374; 96375; 96376; 99285; 99291; J1170; J1815; J2405; A9270-GY

== ENCOUNTER 2023-09-04 21:17 | Emergency (ER) | payer MEDICARE ==
[2023-09-04 21:20] VITALS: TEMP 98.5
--- NOTE | 2023-09-04 21:22 | ERPHSYRPT ---
- History of Present Illness Time Seen by Provider: 09/04/23 21:22 Source: patient, EMS, old records Exam Limitations: no limitations Physician History: This is an obese 57-year-old white male patient of Dr. Kellogg who has no known drug allergies and was brought to the emergency by the paramedics secondary to patient experiencing a headache today followed by neck pain. Patient has a chronic history of neck and back pain. Patient states he did not experience any fall or trauma to his head or neck. He also has not had any flulike symptoms or fevers. He is currently not on any narcotic pain medicine. This patient has multiple medical problems including hypertension, seizure disorder, diabetes, hyperlipidemia, coronary artery disease (cardiac stents and angioplasty), history of DVT and pulmonary embolism (Xarelto), history of sleep apnea chronic renal disease. Patient, on review of old records both inpatient and outpatient records, has had similar episodes/complaints. Timing/Duration: today Severity: moderate Modifying Factors: Improves With: movement Associated Symptoms: denies symptoms, headaches Allergies/Adverse Reactions: No Known Drug Allergies Allergy (Verified 09/04/23 21:32) Home Medications: Aspirin 81 gm Chew [Baby Aspirin 81 mg Chew] 81 mg PO DAILY 09/22/20 [History] Atorvastatin Calcium 80 mg PO QHS 09/22/20 [History] Carvedilol 12.5 mg [Coreg 12.5 mg] 25 mg PO BID 09/22/20 [History] Empagliflozin [Jardiance] 25 mg PO DAILY 09/22/20 [History] Gabapentin [Neurontin ] 600 mg PO TID 09/22/20 [History] Levetiracetam [Keppra] 1,000 mg PO TID 09/22/20 [History] Clonidine HCl 0.1 mg [Clonidine 0.1 mg Tablet] 0.1 mg PO BID 10/13/20 [History] Insulin Glargine,Hum.rec.anlog [Basaglar Kwikpen U-100] 45 units SQ QHS 10/13/20 [History] Isosorbide Mononitrate [Isosorbide Mononitrate ER] 60 mg PO DAILY 10/13/20 [History] Meclizine HCl 12.5 mg PO Q8H PRN PRN 10/13/20 [History] Melatonin 10 mg PO QHS 10/13/20 [History] Polyethylene Glycol [Polyox Wsr-301] 17 gm PO DAILY PRN PRN 10/13/20 [History] Spironolact/Hydrochlorothiazid [Spironolactone-Hctz 25-25 Tab] 1 tab PO DAILY 10/13/20 [History] lisinopriL [Lisinopril] 40 mg PO DAILY 10/13/20 [History] Amitriptyline HCl 25 mg [Amitriptyline 25 mg Tablet] 25 mg PO HS 09/14/22 [History] Trazodone HCl 50 mg [Desyrel 50 mg] 100 mg PO HS 09/14/22 [History] Hx Tetanus, Diphtheria Vaccination/Date Given: No Hx Influenza Vaccination/Date Given: Yes Hx Pneumococcal Vaccination/Date Given: No Travel Risk - International Travel Have you traveled outside of the country in past 3 weeks: No - Emerging Infectious Disease Are you exhibiting symptoms associated with any current EIDs: Yes Symptoms: Headaches/Body Aches/ - Review of Systems Constitutional: No Symptoms, No Fever, No Chills Eyes: No No Symptoms, No Photophobia Ears, Nose, & Throat: No Symptoms Respiratory: No Symptoms Cardiac: No Symptoms Abdominal/Gastrointestinal: No Symptoms Genitourinary Symptoms: No Symptoms Musculoskeletal: Neck Pain, No Fall, No Injury Neurological: Headache Psychological: No Symptoms Endocrine: No Symptoms Hematologic/Lymphatic: No Symptoms Immunological/Allergic: No Symptoms All Other Systems: Reviewed and Negative - Past Medical History Pertinent Past Medical History: Yes Neurological History: Seizures, Stroke ENT History: No Pertinent History Cardiac History: Coronary Artery Disease, Deep Vein Thrombosis, High Choleste rol, Hypertension, Myocardial Infarction (CA) Respiratory History: Pulmonary Embolism, Sleep Apnea Endocrine Medical History: Diabetes Type II Musculoskeletal History: Arthritis GI Medical History: GERD, Gallbladder Disease, Hemorrhoids, Pancreatitis History: Renal Disease Psycho-Social History: No Pertinent History Male Reproductive Disorders: No Pertinent History Other Medical History: left inactive kidney needs removed in November - Past Surgical History Past Surgical History: Yes Neuro Surgical History: No Pertinent History Cardiac: Angioplasty, Cardiac Catheterization, Cardiac Stent Respiratory: No Pertinent History Gastrointestinal: Cholecystectomy Genitourinary: No Pertinent History Musculoskeletal: No Pertinent History Male Surgical History: No Pertinent History Other Surgical History: 5 cardiac stents, 2 renal stent, Left Ring Finger - Social History Smoking Status: Former smoker How long have you smoked: 4 years Exposure to second hand smoke: No Drug Use: none Patient Lives Alone: Yes - Nursing Vital Signs Nursing Vital Signs: Initial Vital Signs Pulse Rate 97 H 09/04/23 21:17 Respiratory Rate 16 09/04/23 21:17 Blood Pressure 141/82 09/04/23 21:17 O2 Sat by Pulse Oximetry 98 09/04/23 21:17 Pain Scale Pain Intensity 8 - Physical Exam General Appearance: no apparent distress, alert, anxiety, obese Eye Exam: PERRL/EOMI, eyes nml inspection Ears, Nose, Throat Exam: normal ENT inspection, moist mucous membranes Neck Exam: normal inspection, supple, full range of motion, other (On my examination the pain is actually in the bilateral paraspinous muscle region and not in the midline posteriorly) Respiratory Exam: normal breath sounds, lungs clear, airway intact, No chest tenderness, No respiratory distress Cardiovascular Exam: regular rate/rhythm, normal heart sounds, normal peripheral pulses Gastrointestinal/Abdomen Exam: soft, normal bowel sounds, No tenderness Rectal Exam: not done Back Exam: normal inspection, normal range of motion, No CVA tenderness, No vertebral tenderness Extremity Exam: normal inspection, normal range of motion, pelvis stable Neurologic Exam: alert, oriented x 3, cooperative, abstract clerk II-XII nml as tested, normal mood/affect, nml cerebellar function, nml station & gait, sensation nml Skin Exam: normal color, warm, dry Lymphatic Exam: No adenopathy SpO2 Interpretation: normal SpO2: 98 O2 Delivery: Room Air - Course Nursing assessment & vital signs reviewed: Yes Ordered Tests: Active Orders 24 hr Category Date Time Status ACO SDOH Referral ONCE Cons 09/04/23 21:32 Active CERVICAL SPINE WO CONTRAST [CT] Stat Exams 09/04/23 21:46 Completed HEAD WITHOUT CONTRAST [CT] Stat Exams 09/04/23 21:46 Completed POCT GLUCOSE Stat Lab 09/04/23 21:20 Completed Medication Summary Discontinued Medications Generic Name Dose Route Start Last Admin Trade Name Freq PRN Reason Stop Dose Admin Hydromorphone HCl 0.5 mg 09/04/23 21:48 09/04/23 22:09 Hydromorphone 1 Mg/1ml Inj IM 09/04/23 21:49 0.5 mg STAT ONE Administration Hydromorphone HCl Confirm 09/04/23 21:54 Hydromorphone 1 Mg/1ml Inj Administered 09/04/23 21:55 Dose 1 mg .ROUTE .STK-MED ONE Insulin Human Regular 8 unit 09/04/23 22:45 09/04/23 23:06 Insulin Regular, Human 1 Unit SQ 09/04/23 22:46 8 unit STAT ONE Administration Insulin Human Regular Confirm 09/04/23 23:06 Insulin Regular, Human 1 Unit Administered 09/04/23 23:07 Dose 8 unit .ROUTE .STK-MED ONE Ondansetron HCl 4 mg 09/04/23 21:47 09/04/23 21:59 Zofran 4 Mg/Udtablet Orally Disintegrating PO 09/04/23 21:48 4 mg STAT ONE Administration Ondansetron HCl Confirm 09/04/23 21:55 Zofran 4 Mg/Udtablet Orally Disintegrating Administered 09/04/23 21:56 Dose 4 mg .ROUTE .STK-MED ONE Orphenadrine Citrate 60 mg 09/04/23 21:47 09/04/23 22:09 Orphenadrine Citrate 60 Mg/2 Ml Vial IM 09/04/23 21:48 60 mg STAT ONE Administration Orphenadrine Citrate Confirm 09/04/23 21:55 Orphenadrine Citrate 60 Mg/2 Ml Vial Administered 09/04/23 21:56 Dose 60 mg .ROUTE .STK-MED ONE Oxycodone/Acetaminophen 2 tab 09/05/23 00:00 Oxycodone Hcl/Apap 5 Mg/325 Mg Tablet PO 09/05/23 00:01 SENT HOME W/ PATIENT STA Lab/Rad Data: Laboratory Results 09/04/23 09/04/23 Range/Units 21:55 21:20 POC Glucometer 375 H (74 to 106) mg/dL Influenza Type A Ag NEGATIVE (NEGATIVE) Influenza Type B Ag NEGATIVE (NEGATIVE) RSV (PCR) NEGATIVE (NEGATIVE) SARS-CoV-2 (PCR) NEGATIVE (NEGATIVE) - Progress Progress: improved, pain not gone completely, re-examined Progress Note: 09/04/23 22:16 This patient's medical issue is 1 of moderate complexity. The level of complexity and the workup performed is based on review of the patient's past medical history, review of the patient's medication list, review the patient drug allergy list, history present illness and physical findings on examination. This patient's workup includes CT scan of the head, CT scan of the neck, viral swabs and injection of Toradol intramuscularly, Norflex intramuscularly, Dilaudid intramuscularly and Zofran ODT. 09/05/23 00:01 I interpreted the patient's laboratory data results. There is no laboratory data results to suggest an acute or emergent medical issue. CT scan of the head without contrast was interpreted by the radiologist. There is no evidence of any acute intracranial abnormality. CT scan of the cervical spine without contrast was interpreted by the radiologist. I reviewed the impression. No definite fracture in the cervical spine spondylodegenerative changes are seen in the cervical spine with multilevel posterior osteophyte complexes from C4-C 5 to C6-C7 encroaching to the spinal canal. C6-C7 moderate to severe neuroforaminal narrowing. MRI advised. 09/05/23 00:02 This patient's pain is under better control. Patient will need an outpatient follow-up. We we will send to Percocet 5/325 pills home with him to cover him throughout the morning until he is able to contact his outpatient provider and crop picker the prescriptions at his pharmacy. Counseled pt/family regarding: lab results, diagnosis, need for follow-up, rad results Medical Desision Making - Independent Historian Additional History obtained from: Merchandising Assistant/EMT - Diagnostic Testing Diagnostic test were ordered, analyzed, and reviewed by me: Yes Radiological Interpretation: Reviewed by me, Teleradiologist Report - Risk of complications The pt has a mod risk of morbidity or mortality based on: Need for prescription drug management - Departure Departure Disposition: Home Clinical Impression: Cervical spine degeneration Condition: Stable Critical Care Time: No Referrals: RADHA KELLOGG MD [Primary Care Provider] - Follow up/PCP as directed Additional Instructions: Take your medications as prescribed. Call your prescribing provider later today, 09/05/2023, to make arranges for outpatient MRI of the cervical spine and possible referral to a spine surgeon if indicated. Prescriptions: Oxycodone HCl/Acetaminophen [Percocet 5-325 mg Tablet] 1 each PO Q8H PRN PRN #6 tablet MDD 3 PRN Reason: Moderate To Severe Pain
[2023-09-04] MEDS ORDERED: Hydromorphone 1 mg/ml Injection ONE (21:54)
[2023-09-04] MEDS ORDERED: ZOFRAN ODT 4 MG ONE (21:55)
[2023-09-04] MEDS ORDERED: Norflex 60 MG/2 ML ONE (21:55)
[2023-09-04] MEDS: ZOFRAN ODT 4 MG PO ONE (21:59)
[2023-09-04] MEDS: Hydromorphone 1 mg/ml Injection IM ONE (22:09)
[2023-09-04] MEDS: Norflex 60 MG/2 ML IM ONE (22:09)
[2023-09-04 22:33] LABS: INFLUENZA A NEGATIVE (NEGATIVE); INFLUENZA B NEGATIVE (NEGATIVE); RESPIRATORY SYNCTIAL VIRUS NEGATIVE (NEGATIVE); SARS-CoV-2 Xpert Express NEGATIVE (NEGATIVE)
[2023-09-04] MEDS ORDERED: HUMULIN R ONE (23:06)
[2023-09-04] MEDS: HUMULIN R SQ ONE (23:06)
--- NOTE | 2023-09-04 23:23 | XRAY ---
CLINICAL HISTORY: Headache COMPARISON: None TECHNIQUE: Axial noncontrast CT scan of the brain was performed without IV contrast from the skull base to the high parietal region. FINDINGS: The visualized brain parenchyma shows a normal appearance. Rock-white matter differentiation is maintained. No midline shifts or deformity. No intracerebral or extra axial hematoma. Normal size and configuration of the cerebral ventricles. Normal CT appearance of the posterior fossa structures namely the cerebellar hemispheres, brainstem, and cerebellar peduncles. The IACs are unremarkable. The cerebello-pontine angles are clear. The osseous structures in the skull base are unremarkable. No definite calvarium fractures. The scanned paranasal sinuses show mild mucosal thickening in the left maxillary sinus with left-sided nasal septal deviation. Few calcified scalp lesions were seen in the left parietal region, the largest measuring 12 mm in diameter, representing calcified sebaceous/ trichilemmal cysts. IMPRESSION: No significant acute abnormality was detected in CT head, within the limitations of the plain study Electronically Signed by: Rod Yanes MD. (09/04/2023 23:19:15 EDT)
[2023-09-04 23:33] VITALS: RESP 18
--- NOTE | 2023-09-04 23:33 | XRAY ---
CLINICAL HISTORY: Significant neck pain COMPARISON: None TECHNIQUE: Thin axial CT of the cervical spine was performed with sagittal and coronal reconstructions without contrast. FINDINGS: There is loss of cervical lordosis with mild reversal of curvature. Multilevel anterior and posterior osteophytes, uncovertebral joint hypertrophy, and facet arthropathy were noted. Multilevel posterior disc osteophyte complexes noted from C4-C5 to C6-C7 levels, encroaching the spinal canal. Facet arthropathy at C6-C7 level resulting in moderate to severe neural foramina narrowing. MR is advised for further evaluation. The vertebral bodies are normal in height. No lytic or sclerotic bone lesion. The craniovertebral measures are unremarkable. Intervertebral disc spaces: Moderate to severe reduction in height of intervertebral disc spaces between C4-C5 to C6-C7 levels noted. The paravertebral spaces appear normal. No abnormality was detected in the prevertebral region. IMPRESSION: 1. No definite acute fracture was detected in the cervical spine. 2. Spondylodegenerative changes in cervical spine with multilevel posterior disc osteophyte complexes from C4-C5 to C6-C7 levels, encroaching the spinal canal with facet arthropathy at C6-C7 level resulting in moderate to severe neural foramina narrowing. MR is advised for further evaluation. Electronically Signed by: Rod Yanes MD. (09/04/2023 23:29:02 EDT)
[2023-09-05] MEDS ORDERED: PERCOCET TABLET 5/325MG ONE (00:15)
[2023-09-05] MEDS: PERCOCET TABLET 5/325MG PO STA (00:16)
[2023-09-05 00:27] VITALS: BP 118/68; PULSE 96; O2SAT 97
== END 2023-09-05 00:35 | disposition home or self-care (01) ==
LOC: ED 21:17
DX: M50.321 Other cervical disc degeneration at C4-C5 level (principal); M50.322 Other cervical disc degeneration at C5-C6 level; M50.323 Other cervical disc degeneration at C6-C7 level; R51.9 Headache, unspecified; I12.9 Hypertensive chronic kidney disease with stage 1 through stage 4 chronic kidney disease, or unspecified chronic kidney disease; E11.22 Type 2 diabetes mellitus with diabetic chronic kidney disease; N18.9 Chronic kidney disease, unspecified; E78.5 Hyperlipidemia, unspecified; Z79.01 Long term (current) use of anticoagulants; Z79.84 Long term (current) use of oral hypoglycemic drugs; Z79.4 Long term (current) use of insulin; Z79.891 Long term (current) use of opiate analgesic; Z79.899 Other long term (current) drug therapy
CPT/HCPCS: 0241U; 70450; 72125; 82947; 96372; 99284; J1170; J1815; J2360; Q0162; A9270-GY

== ENCOUNTER 2023-09-25 20:20 | Observation (INO) | payer MEDICARE ==
[2023-09-25 21:41] LABS: Absolute Neutrophil Ct (ANC) 2.97 x10^3/uL (1.4-6.9); BASOPHIL % 0.9 % (0.0-0.4); Basophil (Absolute #) 0.04 x10^3/uL (0-0.4); Eosinophil % 2.2 % (0.00-5.0); Hemoglobin 13.6 g/dL (12.5-18.0); IMMATURE GRAN # 0.02 x10^3u/L (0.00-0.03); IMMATURE GRAN % 0.4 % (0.00-0.4); Lymphocyte (Absolute #) 0.98 x10^3/uL (1.0-4.6); Lymphocytes % 21.6 % (24.0-44.0); Mean Cell Volume 90.5 fL (78-100); Mean Corpuscular Hemoglobin 31.6 pg (26-32); Mean Corpuscular Hgb Concent. 34.9 g/dL (32-36); Mean Platelet Volume 9.4 fL (7.5-11.0); Monocyte (Absolute #) 0.43 x10^3/uL (0.0-1.3); Monocytes % 9.5 % (0.0-12.0); Neutrophil % 65.4 % (36.0-66.0); Platelet Count 267 x10^3/uL (150-450); Red Blood Count 4.31 x10^6/uL (4.1-5.6); Red Cell Distribution Width 12.5 % (11.5-14.0); White Blood Count 4.5 x10^3/uL (4.0-10.5)
[2023-09-25] MEDS ORDERED: Sodium Chloride 0.9% 1000 ML 1,000 ML ONE (21:54)
[2023-09-25 21:57] LABS: ALBUMIN 3.9 g/dL (3.5-5.0); BILIRUBIN,TOTAL 0.7 mg/dL (0.2-1.3); Calcium 9.2 mg/dL (8.4-10.2); Creatinine 1 2.34 mg/dL (0.66-1.25); EST GLOMERULAR FILTRATION RATE 31.7 ML/MIN; Potassium 4.5 mmol/L (3.5-5.1); Total Protein 7.1 g/dL (6.3-8.2)
[2023-09-25] MEDS: Sodium Chloride 0.9% 1000 ML 1,000 ML IV STA (22:34)
[2023-09-26] MEDS ORDERED: TORAdol 30 mg Injection ONE (00:01)
[2023-09-26] MEDS: TORAdol 30 mg Injection IV ONE (00:03)
--- NOTE | 2023-09-26 00:13 | XRAY ---
CLINICAL HISTORY: aortic dissection COMPARISON: previous CT chest dated 09/23/2020. TECHNIQUE: Contiguous axial images were obtained from the neck base through the upper abdomen following intravenous administration of iodinated contrast material. Angiographic images were processed, 3D MIP images were acquired for interpretation. If IV contrast material had not been administered, the likelihood of detecting abnormalities relevant to the patient's condition would have been substantially decreased. Coronal and sagittal 3-D MIPs were likewise performed and indicated to increase the sensitivity of detectin diffuse clinically relevant pathology. CT scan was performed according to ALARA (as low as reasonable achievable). FINDINGS: Adequate contrast bolus without evidence of pulmonary embolism. The central airways are patent. The lungs are clear except a well defined solid nodule of size 1 12 x 10mm in the left lower lobe posterior basal segment. No pleural effusion. The heart, aorta, and pulmonary arteries are of normal size and configuration. There are appreciable coronary artery and aortic atherosclerotic calcifications. No pericardial effusion is identified. The thyroid is unremarkable. No mediastinal, hilar, or axillary lymphadenopathy is noted. No suspicious lytic or sclerotic osseous lesions are identified. IMPRESSION: 1. No evidence of pulmonary embolism or pulmonary disease. 2.Incidental lung nodule in the left lower lung posterior basal segment. this nodule is essentially stable since previous CT done 2 years back. 3. No evidence of aortic aneurysm/aortic dissection. Electronically Signed by: Haris Yanez MD. (09/26/2023 00:09:41 EDT)
--- NOTE | 2023-09-26 00:21 | XRAY ---
CLINICAL HISTORY: aortic dissection COMPARISON: 08/09/2023 TECHNIQUE: Multiple contiguous axial images were obtained from the level of diaphragm to the pubis symphysis. This study was acquired after the IV administration of iodinated contrast material, given the patients indications for the examination. If IV contrast material had not been administered, the likelihood of detecting abnormalities relevant to the patients condition would have been substantially decreased. Coronal and sagittal reformatted images were generated and reviewed to improve anatomic localization and optimize lesion detection. CT scan was performed according to ALARA (as low as reasonable achievable). FINDINGS: The abdominal aorta is normal in caliber and contrast enhancement with minimal atherosclerotic calcifications.No evidence of dissection/aneurysm/occlusion.Major visceral arteries are patent with mild atherosclerotic changes.Accessory left renal artery is seen supplying inferior pole of kidney.Right renal arterial stent at proximal segment with relatively smaller right kidney. ABDOMEN/PELVIS: The liver is normal in size and attenuation. No focal liver lesions are seen. There is no intra or extrahepatic biliary ductal dilatation. Hepatic vasculature is patent. The gallbladder is not seen. The spleen, pancreas, and adrenal glands are unremarkable. The kidneys are normal in attenuation and enhancement pattern. There is no hydronephrosis or perinephric fat stranding. No renal calculi or renal masses are identified. The ureters are normal in caliber and no ureteral calculi are seen. The bladder is normal in contour. No evidence of focal or diffuse bowel wall thickening or evidence of bowel obstruction is seen. The appendix is visualized in the right lower quadrant and appears within normal limits. No adenopathy or fluid collections are seen. No aggressive appearing osseous lesions are identified. IMPRESSION: 1.No evidence of abdominal arotic dissection/aneurysm/occlusion 2. Right renal arterial stent in situ with relatively smaller right kidney Electronically Signed by: Haris Yanez MD. (09/26/2023 00:16:21 EDT)
[2023-09-26] MEDS ORDERED: Sodium Chloride 0.9% 1000 ML 1,000 ML ONE (00:57)
[2023-09-26] MEDS ORDERED: SUBLIMAZE 100 MCG/2 ML ONE (00:58)
[2023-09-26] MEDS: SUBLIMAZE 100 MCG/2 ML IV ONE (01:01)
[2023-09-26] MEDS: Sodium Chloride 0.9% 1000 ML 1,000 ML IV STA (01:01)
--- NOTE | 2023-09-26 01:17 | ERPHSYRPT ---
- History of Present Illness Time Seen by Provider: 09/25/23 20:27 Source: patient Exam Limitations: no limitations Patient Subjective Stated Complaint: pt states that today while working in his garden at approx 1530 he started having varied symptoms that led him to go [facility] where he became lightheaded and fell to carpeted floor hitting his right upper back, right neck, and right side of head. denies LOC. symptoms reported: headache, right neck pain, right upper back pain, right shoulder pain, nausea, lightheadedness, "room spinning", sinus drainage, abdominal pain, slight sob, "probably had a fever", loss of balance, weakness to bilat upper and lower extremities, wheezing, and numbness/ tingling to bilat hands/ fingers. Triage Nursing Assessment: pt brought to room 5 via EMS cot and transfered self onto ED cot independently without difficulty. pt is alert and oriented times three, able to move all extremities (pt states he is weaker than normal), able to speak in complete sentences, and with resp even and unlabored. [facility] to complaint of neck pain after fall. bilat radial and pedal pulses palpable. heart sounds present and regular upon auscultation without adventitious sounds. bilat anterior/ posterior lung sounds clear throughout. no JVD or edema noted. bilat pupils 5mm, equal, round, and reactive to light. skin is warm, dry, pink, and intact. bilat health care coordinator equal and strong, see NIHSS documentation. all extremities with normal color, cap refill, strength, and sensation with slightly dulled sensation to bilat hands/ fingers along with tingling. abd obese, round, diffusely tender upon palpation, and with positive bowel sounds in all quadrants. no injury noted to places pt reported pain from fall. pt denies cp, change in appetite, or difficulty with urinary or bowel elimination. pts LBM was today and he ate a meal without difficulty at approx 1600 without difficulty. endorses all above stated complaints as unchanged at this time. Physician History: Patient called EMS tonight for near syncope, lightheadedness, room spinning, atypical chest pain. Patient states that he was working outside in his garden today when he started getting some near syncopal, dizzy feelings. Initial call to EMS was for hypotension after these feelings. Patient states that he is having some neck and head pain after the fall today. Patient states he does have a significant heart history. States that he does have several stents in place. States that he had a recent hospital admission to [facility]. At that point in time states he had an upper endoscopy. However he is unsure of any other results. Does have diabetes, elevated blood glucose here. 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 Allergies/Adverse Reactions: No Known Drug Allergies Allergy (Verified 09/25/23 20:40) Home Medications: Aspirin 81 gm Chew [Baby Aspirin 81 mg Chew] 81 mg PO DAILY 09/22/20 [History] Gabapentin [Neurontin ] 600 mg PO TID 09/22/20 [History] Levetiracetam [Keppra] 500 mg PO BID 09/22/20 [History] Clonidine HCl 0.1 mg [Clonidine 0.1 mg Tablet] 0.5 tab PO BID 10/13/20 [History] Insulin Glargine,Hum.rec.anlog [Basaglar Kwikpen U-100] 45 units SQ QHS 10/13/20 [History] Isosorbide Mononitrate [Isosorbide Mononitrate ER] 60 mg PO DAILY 10/13/20 [History] Melatonin 10 mg PO QHS 10/13/20 [History] lisinopriL [Lisinopril] 40 mg PO DAILY 10/13/20 [History] Amitriptyline HCl 25 mg [Amitriptyline 25 mg Tablet] 25 mg PO HS 09/14/22 [History] Trazodone HCl 50 mg [Desyrel 50 mg] 100 mg PO HS 09/14/22 [History] Carvedilol 3.125 mg [Coreg 3.125 MG] 3.125 mg PO BID 09/25/23 [History] Metformin HCl 500 mg [Glucophage 500 MG] 500 mg PO BIDWM 09/25/23 [History] Spironolactone 25 mg [Aldactone 25 MG] 25 mg PO DAILY 09/25/23 [History] Hx Tetanus, Diphtheria Vaccination/Date Given: No Hx Influenza Vaccination/Date Given: Yes Hx Pneumococcal Vaccination/Date Given: Yes Immunizations Up to Date: No Travel Risk - International Travel Have you traveled outside of the country in past 3 weeks: No - Emerging Infectious Disease Are you exhibiting symptoms associated with any current EIDs: No Symptoms: Headaches/Body Aches/ - Past Medical History Pertinent Past Medical History: Yes Neurological History: Seizures, Stroke ENT History: No Pertinent History Cardiac History: Coronary Artery Disease, Deep Vein Thrombosis, High Cholesterol, Hypertension, Myocardial Infarction (ID) Respiratory History: Pulmonary Embolism, Sleep Apnea Endocrine Medical History: Diabetes Type II Musculoskeletal History: Arthritis GI Medical History: GERD, Gallbladder Disease, Hemorrhoids, Pancreatitis History: Renal Disease Psycho-Social History: No Pertinent History Male Reproductive Disorders: No Pertinent History Other Medical History: left inactive kidney needs removed in November - Past Surgical History Past Surgical History: Yes Neuro Surgical History: No Pertinent History Cardiac: Angioplasty, Cardiac Catheterization, Cardiac Stent Respiratory: No Pertinent History Gastrointestinal: Cholecystectomy Genitourinary: No Pertinent History Musculoskeletal: Other Male Surgical History: No Pertinent History Other Surgical History: 5 cardiac stents, 2 renal stent, Left Ring Finger - Social History Smoking Status: Former smoker How long have you smoked: 4 years Exposure to second hand smoke: No Drug Use: none Patient Lives Alone: Yes - Nursing Vital Signs Nursing Vital Signs: Initial Vital Signs Temperature 97.9 F 09/25/23 20:40 Pulse Rate 66 09/25/23 20:40 Respiratory Rate 16 09/25/23 20:40 Blood Pressure 103/69 09/25/23 20:40 O2 Sat by Pulse Oximetry 100 09/25/23 20:40 Pain Scale Pain Intensity 10 - Physical Exam SpO2 Interpretation: normal SpO2: 96 Comments: 09/26/23 01:22 Review of Systems Constitutional: Negative for fever. HENT: Negative for congestion. Respiratory: Negative for shortness of breath. Cardiovascular: Negative for chest pain. Gastrointestinal: Negative for abdominal pain. Genitourinary: Negative for dysuria. Musculoskeletal: Negative for back pain. Skin: Negative for rash. Neurological: Dizzy, off balance, headache Psychiatric/Behavioral: Negative for behavioral problems. All other systems reviewed and are negative. Physical Exam Vitals signs and nursing note reviewed. Constitutional: Appearance: Patient is well-developed. HENT: Head: Normocephalic and atraumatic. Eyes: Conjunctiva/sclera: Conjunctivae normal. Neck: Musculoskeletal: Normal range of motion. Midline neck pain without step-offs or deformity. No T or L-spine tenderness to palpation. No flank pain. Trachea: No tracheal deviation. Cardiovascular: Rate and Rhythm: Normal rate. Initial hypotension upon arrival to the emergency department Pulmonary: Effort: Pulmonary effort is normal. No respiratory distress. Abdominal: Palpations: Abdomen is soft. Musculoskeletal: General: No deformity. Skin: General: Skin is warm and dry. Neurological/ Psychiatric: Mental Status: Mental status, behavior, interaction with environment is appropriate for patient's age and condition - Course Nursing assessment & vital signs reviewed: Yes EKG Interpreted by Me: Sinus Rhythm Ordered Tests: Active Orders 24 hr Category Date Time Status Up With Assistance ROUTINE Activity 09/26/23 01:01 Active Call Admit Doctor for Orders ON ADMISSION Care 09/26/23 01:01 Active Hand Roller Engraver STAT Care 09/25/23 20:35 Active Code Status Order ROUTINE Care 09/26/23 01:01 Active EKG-ER Only STAT Care 09/25/23 20:33 Active IV Insertion STAT Care 09/25/23 20:33 Active POCT Glucose Check DAILY Care 09/26/23 01:[address] in Observation ROUTINE Care 09/26/23 01:01 Active ACO SDOH Referral ONCE Cons 09/25/23 21:44 Active House Regular Diet Diet 09/26/23 Breakfast Active CERVICAL SPINE WO CONTRAST [CT] Stat Exams 09/25/23 20:49 Taken CTA ABD/PEL W AND/OR W/O CONTR [CT] Stat Exams 09/25/23 20:36 Completed CTA CHEST W AND/OR WO [CT] Stat Exams 09/25/23 20:36 Completed HEAD WITHOUT CONTRAST [CT] Stat Exams 09/25/23 20:36 Taken AMYLASE Stat Lab 09/25/23 21:15 Completed CBC W DIFF Stat Lab 09/25/23 21:15 Completed CK-Creatinine Phosphokinase Stat Lab 09/25/23 21:15 Completed CMP Stat Lab 09/25/23 21:15 Completed LIPASE Stat Lab 09/25/23 21:15 Completed TROPONIN Q4H Lab 09/25/23 21:15 Completed TROPONIN Q4H Lab 09/25/23 23:40 Completed TROPONIN Q4H Lab 09/26/23 04:45 Ordered UA W/RFX UR CULTURE Stat Lab 09/26/23 01:07 Received Urine Triage Profile Stat Lab 09/26/23 01:07 Received Pulse Oximetry CONTINUOUS RT 09/26/23 01:02 Active Transfer Order Routine Transfer 09/26/23 Ordered Medication Summary Generic Name Dose Route Start Last Admin Trade Name Maria Victoria PRN Reason Stop Dose Admin Sodium Chloride 1,000 mls @ 999 mls/hr 09/26/23 00:36 09/26/23 01:01 Sodium Chloride 0.9% 1000 Ml IV 09/26/23 01:36 999 mls/hr .Q1H1M STA Administration Discontinued Medications Generic Name Dose Route Start Last Admin Trade Name Maria Victoria PRN Reason Stop Dose Admin Fentanyl Citrate 50 mcg 09/26/23 00:35 09/26/23 01:01 Fentanyl Citrate 100 Mcg/2 Ml* Vial IV 09/26/23 00:36 50 mcg STAT ONE Administration Fentanyl Citrate Confirm 09/26/23 00:58 Fentanyl Citrate 100 Mcg/2 Ml* Vial Administered 09/26/23 00:59 Dose 100 mcg .ROUTE .STK-MED ONE Sodium Chloride 1,000 mls @ 999 mls/hr 09/25/23 20:33 09/25/23 23:35 Sodium Chloride 0.9% 1000 Ml IV 09/25/23 21:33 Infused .Q1H1M STA Infusion Sodium Chloride Confirm 09/25/23 21:54 Sodium Chloride 0.9% 1000 Ml Administered 09/25/23 21:55 Dose 1,000 mls @ ud .ROUTE .STK-MED ONE Sodium Chloride Confirm 09/26/23 00:57 Sodium Chloride 0.9% 1000 Ml Administered 09/26/23 00:58 Dose 1,000 mls @ ud .ROUTE .STK-MED ONE Ketorolac Tromethamine 30 mg 09/25/23 23:28 09/26/23 00:03 Ketorolac Tromethamine 30 Mg/Ml Inj IV 09/25/23 23:29 30 mg STAT ONE Administration Ketorolac Tromethamine Confirm 09/26/23 00:01 Ketorolac Tromethamine 30 Mg/Ml Inj Administered 09/26/23 00:02 Dose 30 mg .ROUTE .STK-MED ONE Lab/Rad Data: Laboratory Result Diagrams 09/25/23 21:15 09/25/23 21:15 Laboratory Results 09/25/23 09/25/23 09/25/23 Range/Units 23:40 21:15 21:15 WBC (4.0-10.5) x10^3/uL RBC (4.1-5.6) x10^6/uL Hgb (12.5-18.0) g/dL Hct (42-50) % MCV (78-100) fL MCH (26-32) pg MCHC (32-36) g/dL RDW (11.5-14.0) % Plt Count (150-450) x10^3/uL MPV (7.5-11.0) fL Gran % (36.0-66.0) % Immature Gran % (Auto) (0.00-0.4) % Nucleat RBC Rel Count (0.00-0.1) % Eos # (Auto) (0-0.5) x10^3/uL Immature Gran # (Auto) (0.00-0.03) x10^3u/L Absolute Lymphs (auto) (1.0-4.6) x10^3/uL Absolute Monos (auto) (0.0-1.3) x10^3/uL Absolute Nucleated RBC (0.00-0.01) x10^3u/L Lymphocytes % (24.0-44.0) % Monocytes % (0.0-12.0) % Eosinophils % (0.00-5.0) % Basophils % (0.0-0.4) % Absolute Granulocytes (1.4-6.9) x10^3/uL Basophils # (0-0.4) x10^3/uL Sodium 130 L (135-145) mmol/L Potassium 4.5 (3.5-5.1) mmol/L Chloride 100 (98-107) mmol/L Carbon Dioxide 19 L (22-30) mmol/L Anion Gap 15.0 (5-15) MEQ/L BUN 48 H (9-20) mg/dL Creatinine 2.34 H (0.66-1.25) mg/dL Estimated GFR 31.7 ML/MIN Glucose 307 H (74-106) mg/dL Calcium 9.2 (8.4-10.2) mg/dL Total Bilirubin 0.70 (0.2-1.3) mg/dL AST 29 (17-59) U/L ALT 46 (0-50) U/L Alkaline Phosphatase 158 H (38-126) U/L Creatine Kinase 114 (55-170) U/L Troponin I 0.013 0.016 (0.000-0.033) ng/mL Serum Total Protein 7.1 (6.3-8.2) g/dL Albumin 3.9 (3.5-5.0) g/dL Amylase 87 (30-110) U/L Lipase 290 (23-300) U/L 09/25/23 Range/Units 21:15 WBC 4.5 (4.0-10.5) x10^3/uL RBC 4.31 (4.1-5.6) x10^6/uL Hgb 13.6 (12.5-18.0) g/dL Hct 39.0 L (42-50) % MCV 90.5 (78-100) fL MCH 31.6 (26-32) pg MCHC 34.9 (32-36) g/dL RDW 12.5 (11.5-14.0) % Plt Count 267 (150-450) x10^3/uL MPV 9.4 (7.5-11.0) fL Gran % 65.4 (36.0-66.0) % Immature Gran % (Auto) 0.4 (0.00-0.4) % Nucleat RBC Rel Count 0.0 (0.00-0.1) % Eos # (Auto) 0.10 (0-0.5) x10^3/uL Immature Gran # (Auto) 0.02 (0.00-0.03) x10^3u/L Absolute Lymphs (auto) 0.98 L (1.0-4.6) x10^3/uL Absolute Monos (auto) 0.43 (0.0-1.3) x10^3/uL Absolute Nucleated RBC 0.00 (0.00-0.01) x10^3u/L Lymphocytes % 21.6 L (24.0-44.0) % Monocytes % 9.5 (0.0-12.0) % Eosinophils % 2.2 (0.00-5.0) % Basophils % 0.9 (0.0-0.4) % Absolute Granulocytes 2.97 (1.4-6.9) x10^3/uL Basophils # 0.04 (0-0.4) x10^3/uL Sodium (135-145) mmol/L Potassium (3.5-5.1) mmol/L Chloride (98-107) mmol/L Carbon Dioxide (22-30) mmol/L Anion Gap (5-15) MEQ/L BUN (9-20) mg/dL Creatinine (0.66-1.25) mg/dL Estimated GFR ML/MIN Glucose (74-106) mg/dL Calcium (8.4-10.2) mg/dL Total Bilirubin (0.2-1.3) mg/dL AST (17-59) U/L ALT (0-50) U/L Alkaline Phosphatase (38-126) U/L Creatine Kinase (55-170) U/L Troponin I (0.000-0.033) ng/mL Serum Total Protein (6.3-8.2) g/dL Albumin (3.5-5.0) g/dL Amylase (30-110) U/L Lipase (23-300) U/L - Progress Progress: improved Progress Note: 09/26/23 01:24 Differential gnosis includes head bleed, C-spine fracture, aortic dissection, pulmonary embolism, electrolyte abnormality, VINAY, NSTEMI, STEMI - We'll obtain basic labs, fluids, EKG, troponin, chest x-ray - EKG shows no ST changes - my read - O2 saturations consistently greater than 95%. - CTA chest and abdomen looking for aortic dissection - Head CT, CT spine looking for fracture Reevaluation: Patient was found to have an VINAY, lower GFR than previous visits. We did give patient 1 L fluid. I do believe he does need a CTA of his chest and abdomen looking for any aortic dissection given his low blood pressure syncope and atypical chest pain. I did discuss all this with the patient and he did consent to IV contrast. CTA abdomen pelvis demonstrates no PE or aortic dissection. Patient has 2 unchanged troponins over hospital stay here. EKG shows no STEMI. Head CT, CT C-spine shows no trauma. Patient's pain improved with fentanyl, fluid. I do believe patient needs to be admitted for continued gentle rehydration, full cardiac rule out, continued close monitoring. I did discuss all this over the phone with on-call hospitalist, Dr. Ritter. He did agree to admit patient. Hemodynamically stable, blood pressure improved with fluids. Plan for admission. Discussed with Dr.: Alee Will see patient in: hospital (observation) Counseled pt/family regarding: lab results, diagnosis, need for follow-up, rad results Medical Desision Making - Discussion of managment Care discussed with:: hospitalist Reviewed:: Test results, Need for additional workup Agreed on:: Treatment plan, need for follow-up, place in obs Will see patient: in hospital - Social Determinants of Health Pt's dx & treatment plan are significantly limited by SDOH: financial hardships Limited access to: transportation - Diagnostic Testing Diagnostic test were ordered, analyzed, and reviewed by me: Yes Radiological Interpretation: Interpreted by me - Departure Departure Disposition: Observation Clinical Impression: Atypical chest pain, Near syncope, Head injury, VINAY (acute kidney injury), Dehydration Condition: Stable Critical Care Time: No Referrals: RADHA KELLOGG MD [Primary Care Provider] - Follow up/PCP as directed
[2023-09-26 01:18] LABS: Appearance Clear (Clear); Bacteria None Seen /HPF (None Seen); Bilirubin Negative (Negative); Blood Negative (Negative); Epithelial Cells None Seen /HPF (None Seen); Glucose, Urine >=1000 mg/dL (Negative); Hyaline Casts NONE SEEN /LPF (0-2); Ketones Negative (Negative); Leukocyte Esterase Negative (Negative); Nitrite Negative (Negative); Ph 6.5 (4.6-8.0); Protein,Urine Dip Negative (Negative); RBC 0-2 /HPF (0-5); Specific Gravity 1.015 (1.005-1.030); Urobilinogen 0.2 mg/dL (0.2); WBC 0-2 /HPF (0-5)
[2023-09-26 01:19] LABS: ADD URINE CULTURE? NO (NO)
[2023-09-26 01:29] LABS: Amphetamine,Urine NEGATIVE (NEGATIVE); Barbiturate,Urine NEGATIVE (NEGATIVE); Benzodiazepine,Urine NEGATIVE (NEGATIVE); Cocaine,Urine NEGATIVE (NEGATIVE); Methadone,Urine NEGATIVE (NEGATIVE); Opiate,Urine NEGATIVE (NEGATIVE); PCP,Urine NEGATIVE (NEGATIVE); THC,Urine NEGATIVE (NEGATIVE)
[2023-09-26] MEDS ORDERED: Docusate Sodium 100 MG PO PRN (02:50)
[2023-09-26] MEDS ORDERED: Zofran 4 MG/2 ML VIAL IV PRN (02:50)
[2023-09-26] MEDS ORDERED: TYLENOL 325 MG PO PRN (02:50)
[2023-09-26] MEDS ORDERED: MELATONIN PO ONE (02:54)
[2023-09-26] MEDS ORDERED: AMITRIPTYLINE 25 MG TABLET ONE (02:54)
[2023-09-26] MEDS ORDERED: DESYREL 50 MG ONE ×2 (02:54→03:03)
--- NOTE | 2023-09-26 03:00 | PCM.HP ---
History of Present Illness - Chief Complaint Chief Complaint: Near Syncope, VINAY Date: 09/26/23 History of Present Illness: is a 57 year old male with a history of HTN and CKD who presented to the ED with an episode of near syncope, lightheadedness, with the room spinning, and atypical chest pain. Patient states that he was working outside in his garden today when he started getting some near syncopal with dizziness. He fell with near loss of consciousness and experienced neck pain and headache thereafter. He checked his blood sugar approximately 2 hours prior to this episode and it was >200. In the ED, the patient was noted to have VINAY on CKD but workup was otherwise unremarkable. He says that his chest pain is located over his entire precordium and is constant but currently improved, with radiation to the back. - Review of Systems Constitutional: No Symptoms Eyes: No Symptoms Ears, Nose, & Throat: No Symptoms Respiratory: No Symptoms Cardiac: Syncope Abdominal/Gastrointestinal: No Symptoms Genitourinary Symptoms: No Symptoms Musculoskeletal: No Symptoms Skin: No Symptoms Neurological: Dizziness Psychological: No Symptoms Endocrine: No Symptoms Hematologic/Lymphatic: No Symptoms Medications & Allergies Home Medications: Home Medication List Aspirin 81 gm Chew [Baby Aspirin 81 mg Chew] 81 mg PO DAILY 09/22/20 [History Confirmed 09/25/23] Gabapentin [Neurontin ] 600 mg PO TID 09/22/20 [History Confirmed 09/25/23] Levetiracetam [Keppra] 500 mg PO BID 09/22/20 [History Confirmed 09/25/23] Clonidine HCl 0.1 mg [Clonidine 0.1 mg Tablet] 0.5 tab PO BID 10/13/20 [History Confirmed 09/25/23] Insulin Glargine,Hum.rec.anlog [Basaglar Kwikpen U-100] 45 units SQ QHS 10/13/20 [History Confirmed 09/25/23] Isosorbide Mononitrate [Isosorbide Mononitrate ER] 60 mg PO DAILY 10/13/20 [History Confirmed 09/25/23] Melatonin 10 mg PO QHS 10/13/20 [History Confirmed 09/25/23] lisinopriL [Lisinopril] 40 mg PO DAILY 10/13/20 [History Confirmed 09/25/23] Amitriptyline HCl 25 mg [Amitriptyline 25 mg Tablet] 25 mg PO HS 09/14/22 [History Confirmed 09/25/23] Trazodone HCl 50 mg [Desyrel 50 mg] 100 mg PO HS 09/14/22 [History Confirmed 09/25/23] Carvedilol 3.125 mg [Coreg 3.125 MG] 3.125 mg PO BID 09/25/23 [History Confirmed 09/25/23] Spironolactone 25 mg [Aldactone 25 MG] 25 mg PO DAILY 09/25/23 [History Confirmed 09/25/23] Allergies/Adverse Reactions: Allergies Allergy/AdvReac Type Severity Reaction Status Date / Time No Known Drug Allergies Allergy Verified 09/25/23 20:40 - Past Medical History Past Medical History: Yes Neurological History: Seizures, Stroke ENT History: No Pertinent History Cardiac History: Coronary Artery Disease, Deep Vein Thrombosis, High Ch olesterol, Hypertension, Myocardial Infarction ([place]) Respiratory History: Pulmonary Embolism, Sleep Apnea Endocrine Medical History: Diabetes Type II Musculoskelatal History: Arthritis GI Medical History: GERD, Gallbladder Disease, Hemorrhoids, Pancreatitis History: Renal Disease Pyscho-Social History: No Pertinent History Male Reproductive Disorders: No Pertinent History Comment: left inactive kidney needs removed in November - Past Surgical History Past Surgical History: Yes Neuro Surgical History: No Pertinent History Cardiac History: Angioplasty, Cardiac Catheterization, Cardiac Stent Respiratory Surgery: No Pertinent History GI Surgical History: Cholecystectomy Genitourinary Surgical Hx: No Pertinent History Musculskeletal Surgical Hx: Other Male Surgical History: No Pertinent History Other Surgical History: 5 cardiac stents, 2 renal stent, Left Ring Finger - Social History Smoking Status: Never smoker How long have you smoked: 4 years Exposure to second hand smoke: No Alcohol: None Drug Use: none - Social Determinants of Health Will the patient participate in the screening: Yes Do you worry about a steady place to live?: Yes Do you have any problems with any of the following?: No known problems In the past 12 months,have you had to go without utilities?: No Have you or anyone in your house had to go without enough: No Transportation Issues: No Has anyone in your support network made you feel unsafe?: No Does the patient want assistance with any of the above?: No Comment: pt doesn't have a stove - Physical Exam Vital Signs: Vital Signs - 24 hr Temp Pulse Resp BP BP Pulse Ox 09/26/23 02:00 97 09/26/23 01:53 96.7 F 62 19 138/79 97 09/26/23 01:30 64 16 104/80 98 09/26/23 01:27 96 09/26/23 01:01 63 18 134/65 96 09/26/23 00:32 65 20 114/77 95 09/26/23 00:01 61 20 118/75 99 09/25/23 23:30 69 26 H 117/68 100 09/25/23 23:00 64 14 111/72 100 09/25/23 22:40 109 H 18 111/71 99 09/25/23 22:31 119 H 14 132/70 100 09/25/23 20:40 97.9 F 66 16 103/69 100 General Appearance: no apparent distress Neurologic Exam: alert, oriented x 3, cooperative, radar air traffic controller II-XII nml as tested, normal mood/affect, nml cerebellar function Eye Exam: PERRL/EOMI, eyes nml inspection Ears, Nose, Throat Exam: normal ENT inspection Neck Exam: normal inspection, non-tender, supple, full range of motion Respiratory Exam: normal breath sounds, lungs clear Cardiovascular Exam: regular rate/rhythm, normal heart sounds, edema Gastrointestinal/Abdomen Exam: soft, normal bowel sounds Back Exam: normal range of motion Extremity Exam: normal inspection, normal range of motion Skin Exam: normal color Results - Labs Lab/Micro Results: Lab Results-Last 24 Hours 09/25/23 09/25/23 09/25/23 Range/Units 21:15 21:15 21:15 WBC 4.5 (4.0-10.5) x10^3/uL RBC 4.31 (4.1-5.6) x10^6/uL Hgb 13.6 (12.5-18.0) g/dL Hct 39.0 L (42-50) % MCV 90.5 (78-100) fL MCH 31.6 (26-32) pg MCHC 34.9 (32-36) g/dL RDW 12.5 (11.5-14.0) % Plt Count 267 (150-450) x10^3/uL MPV 9.4 (7.5-11.0) fL Gran % 65.4 (36.0-66.0) % Immature Gran % (Auto) 0.4 (0.00-0.4) % Nucleat RBC Rel Count 0.0 (0.00-0.1) % Eos # (Auto) 0.10 (0-0.5) x10^3/uL Immature Gran # (Auto) 0.02 (0.00-0.03) x10^3u/L Absolute Lymphs (auto) 0.98 L (1.0-4.6) x10^3/uL Absolute Monos (auto) 0.43 (0.0-1.3) x10^3/uL Absolute Nucleated RBC 0.00 (0.00-0.01) x10^3u/L Lymphocytes % 21.6 L (24.0-44.0) % Monocytes % 9.5 (0.0-12.0) % Eosinophils % 2.2 (0.00-5.0) % Basophils % 0.9 (0.0-0.4) % Absolute Granulocytes 2.97 (1.4-6.9) x10^3/uL Basophils # 0.04 (0-0.4) x10^3/uL Sodium 130 L (135-145) mmol/L Potassium 4.5 (3.5-5.1) mmol/L Chloride 100 (98-107) mmol/L Carbon Dioxide 19 L (22-30) mmol/L Anion Gap 15.0 (5-15) MEQ/L BUN 48 H (9-20) mg/dL Creatinine 2.34 H (0.66-1.25) mg/dL Estimated GFR 31.7 ML/MIN Glucose 307 H (74-106) mg/dL Calcium 9.2 (8.4-10.2) mg/dL Total Bilirubin 0.70 (0.2-1.3) mg/dL AST 29 (17-59) U/L ALT 46 (0-50) U/L Alkaline Phosphatase 158 H (38-126) U/L Creatine Kinase 114 (55-170) U/L Troponin I 0.016 (0.000-0.033) ng/mL Serum Total Protein 7.1 (6.3-8.2) g/dL Albumin 3.9 (3.5-5.0) g/dL Amylase 87 (30-110) U/L Lipase 290 (23-300) U/L Urine Color (Yellow) Urine Appearance (Clear) Urine pH (4.6-8.0) Ur Specific [place] (1.005-1.030) Urine Protein (Negative) Urine Glucose (UA) (Negative) mg/dL Urine Ketones (Negative) Urine Blood (Negative) Urine Nitrite (Negative) Urine Bilirubin (Negative) Urine Urobilinogen (0.2) mg/dL Ur Leukocyte Esterase (Negative) U Hyaline Cast (Auto) (0-2) /LPF Urine Microscopic RBC (0-5) /HPF Urine Microscopic WBC (0-5) /HPF Ur Epithelial Cells (None Seen) /HPF Urine Bacteria (None Seen) /HPF Urine Culture Reflexed (NO) Urine Opiates Level (NEGATIVE) Ur Methadone (NEGATIVE) Urine Barbiturates (NEGATIVE) Ur Phencyclidine (PCP) (NEGATIVE) Urine Amphetamine (NEGATIVE) U Benzodiazepine Level (NEGATIVE) Urine Cocaine (NEGATIVE) Urine Marijuana (THC) (NEGATIVE) 09/25/23 09/26/23 09/26/23 Range/Units 23:40 01:07 01:07 WBC (4.0-10.5) x10^3/uL RBC (4.1-5.6) x10^6/uL Hgb (12.5-18.0) g/dL Hct (42-50) % MCV (78-100) fL MCH (26-32) pg MCHC (32-36) g/dL RDW (11.5-14.0) % Plt Count (150-450) x10^3/uL MPV (7.5-11.0) fL Gran % (36.0-66.0) % Immature Gran % (Auto) (0.00-0.4) % Nucleat RBC Rel Count (0.00-0.1) % Eos # (Auto) (0-0.5) x10^3/uL Immature Gran # (Auto) (0.00-0.03) x10^3u/L Absolute Lymphs (auto) (1.0-4.6) x10^3/uL Absolute Monos (auto) (0.0-1.3) x10^3/uL Absolute Nucleated RBC (0.00-0.01) x10^3u/L Lymphocytes % (24.0-44.0) % Monocytes % (0.0-12.0) % Eosinophils % (0.00-5.0) % Basophils % (0.0-0.4) % Absolute Granulocytes (1.4-6.9) x10^3/uL Basophils # (0-0.4) x10^3/uL Sodium (135-145) mmol/L Potassium (3.5-5.1) mmol/L Chloride (98-107) mmol/L Carbon Dioxide (22-30) mmol/L Anion Gap (5-15) MEQ/L BUN (9-20) mg/dL Creatinine (0.66-1.25) mg/dL Estimated GFR ML/MIN Glucose (74-106) mg/dL Calcium (8.4-10.2) mg/dL Total Bilirubin (0.2-1.3) mg/dL AST (17-59) U/L ALT (0-50) U/L Alkaline Phosphatase (38-126) U/L Creatine Kinase (55-170) U/L Troponin I 0.013 (0.000-0.033) ng/mL Serum Total Protein (6.3-8.2) g/dL Albumin (3.5-5.0) g/dL Amylase (30-110) U/L Lipase (23-300) U/L Urine Color Yellow (Yellow) Urine Appearance Clear (Clear) Urine pH 6.5 (4.6-8.0) Ur Specific [place] 1.015 (1.005-1.030) Urine Protein Negative (Negative) Urine Glucose (UA) >=1000 A (Negative) mg/dL Urine Ketones Negative (Negative) Urine Blood Negative (Negative) Urine Nitrite Negative (Negative) Urine Bilirubin Negative (Negative) Urine Urobilinogen 0.2 (0.2) mg/dL Ur Leukocyte Esterase Negative (Negative) U Hyaline Cast (Auto) NONE SEEN (0-2) /LPF Urine Microscopic RBC 0-2 (0-5) /HPF Urine Microscopic WBC 0-2 (0-5) /HPF Ur Epithelial Cells None Seen (None Seen) /HPF Urine Bacteria None Seen (None Seen) /HPF Urine Culture Reflexed NO (NO) Urine Opiates Level NEGATIVE (NEGATIVE) Ur Methadone NEGATIVE (NEGATIVE) Urine Barbiturates NEGATIVE (NEGATIVE) Ur Phencyclidine (PCP) NEGATIVE (NEGATIVE) Urine Amphetamine NEGATIVE (NEGATIVE) U Benzodiazepine Level NEGATIVE (NEGATIVE) Urine Cocaine NEGATIVE (NEGATIVE) Urine Marijuana (THC) NEGATIVE (NEGATIVE) - Radiology Impressions Radiology Exams & Impressions: Radiology Procedures Category Date Time Status CERVICAL SPINE WO CONTRAST [CT] Stat Exams 09/25/23 20:49 Taken CTA ABD/PEL W AND/OR W/O CONTR [CT] Stat Exams 09/25/23 20:36 Completed CTA CHEST W AND/OR WO [CT] Stat Exams 09/25/23 20:36 Completed HEAD WITHOUT CONTRAST [CT] Stat Exams 09/25/23 20:36 Taken - Other Procedures and Tests Respiratory Therapy 09/26/23 02:48 EKG REPEAT IN AM Assessment/Plan (1) Near syncope Current Visit: Yes Status: Acute Assessment & Plan: Possibly due to dehydration. Check AM orthostatcis. Telemetry. Serial troponins. (2) Chest pain Current Visit: No Status: Acute Qualifiers: Chest pain type: unspecified Qualified Code(s): R07.9 - Chest pain, unspecified Assessment & Plan: Serial cardiac enzymes on tele. Code(s): R07.9 - CHEST PAIN, UNSPECIFIED (3) VINAY (acute kidney injury) Current Visit: Yes Status: Acute Assessment & Plan: IV fluids. Hold ACEI and spironolactone. Monitor renal function. Follows with Dr. Carlos Alberto Urbina (nephrology in [place]) so will need follow up at this clinic when discharged. Code(s): N17.9 - ACUTE KIDNEY FAILURE, UNSPECIFIED (4) Dehydration Current Visit: Yes Status: Acute Assessment & Plan: IV fluids. Code(s): E86.0 - DEHYDRATION Telemedicine Encounter - Telemedicine Encounter Telemedicine Encounter: The entirety of this encounter was performed via Telemedicine"
[2023-09-26] MEDS ORDERED: MELOXICAM PO ONE (03:04)
[2023-09-26] MEDS: Sodium Chloride 0.9% 1000 ML 1,000 ML IV SCH (03:05)
[2023-09-26] MEDS: DESYREL 50 MG PO SCH (03:05)
[2023-09-26] MEDS: MELATONIN PO SCH (03:06)
[2023-09-26] MEDS: AMITRIPTYLINE 25 MG TABLET PO SCH (03:07)
[2023-09-26 07:52] LABS: Calcium 8.2 mg/dL (8.4-10.2); Creatinine 1 2.02 mg/dL (0.66-1.25); EST GLOMERULAR FILTRATION RATE 37.8 ML/MIN; Potassium 4.4 mmol/L (3.5-5.1)
[2023-09-26 08:46] LABS: Absolute Neutrophil Ct (ANC) 1.85 x10^3/uL (1.4-6.9); BASOPHIL % 0.9 % (0.0-0.4); Basophil (Absolute #) 0.03 x10^3/uL (0-0.4); Eosinophil % 3.5 % (0.00-5.0); Eosinophil (Absolute #) 0.11 x10^3/uL (0-0.5); Hematocrit 41.2 % (42-50); Hemoglobin 13.8 g/dL (12.5-18.0); IMMATURE GRAN # 0.01 x10^3u/L (0.00-0.03); IMMATURE GRAN % 0.3 % (0.00-0.4); Lymphocyte (Absolute #) 0.81 x10^3/uL (1.0-4.6); Lymphocytes % 25.5 % (24.0-44.0); Mean Cell Volume 94.5 fL (78-100); Mean Corpuscular Hemoglobin 31.7 pg (26-32); Mean Corpuscular Hgb Concent. 33.5 g/dL (32-36); Mean Platelet Volume 9.3 fL (7.5-11.0); Monocyte (Absolute #) 0.37 x10^3/uL (0.0-1.3); Monocytes % 11.6 % (0.0-12.0); Neutrophil % 58.2 % (36.0-66.0); Platelet Count 204 x10^3/uL (150-450); Red Blood Count 4.36 x10^6/uL (4.1-5.6); Red Cell Distribution Width 12.6 % (11.5-14.0); White Blood Count 3.2 x10^3/uL (4.0-10.5)
--- NOTE | 2023-09-26 08:49 | XRAY ---
Indication: Pain and dizziness. Status post fall. Multiple contiguous axial images obtained through the head without contrast. Comparison: September 04, 2023 Again age-appropriate global atrophy and mild periventricular degenerative micro-ischemia bilaterally. No acute intracranial hemorrhage, abnormal extra-axial fluid collection, or mass effect. Fourth ventricle is midline without hydrocephalus. Bony calvarium intact. Visualized paranasal sinuses and mastoid air cells are clear. Impression: Continued nonacute senile brain.
--- NOTE | 2023-09-26 08:53 | XRAY ---
Indication: Status post fall. Multiple contiguous axial images obtained through the cervical spine. Sagittal and coronal reformatted images obtained. Comparison: September 04, 2023 Axial images again negative for acute fracture, suspicious bony lesions, or spinal canal stenosis. There remains mild/moderate C3-C7 degenerative endplate spurring. Facets are symmetric. Sagittal and coronal reformatted images again demonstrates lordotic reversal positional versus paraspinal spasm. Stable C4-C7 disc space narrowing. No acute compression fracture, subluxation, or jumped facet. Normal appearing craniocervical junction. Visualized noncontrasted soft tissues again there is is moderate bilateral carotid calcifications. Lung apices clear. Impression: 1. Continued negative acute fracture/subluxation. 2. Again multilevel degenerative spondylosis, lordotic reversal, and bilateral carotid calcifications.
[2023-09-26] MEDS: HUMALOG SQ PRN (09:18)
[2023-09-26] MEDS: ECOTRIN 81 MG PO SCH (10:09)
[2023-09-26] MEDS: NEURONTIN PO SCH (10:09)
[2023-09-26] MEDS: Sodium Bicarbonate 50 MEQ/50 ML VIAL*** 150 MEQ in Dextrose 5%/Water IV Soln. 1000 ML 1... IV SCH (10:09)
[2023-09-26] MEDS: Imdur 60MG PO SCH (10:09)
[2023-09-26] MEDS: KEPPRA PO SCH (10:09)
[2023-09-26] MEDS: CLONIDINE 0.1 MG TABLET PO SCH (10:09)
[2023-09-26] MEDS: Coreg 3.125 MG PO SCH (10:10)
[2023-09-26] MEDS: HEPARIN 5000 UNITS/0.5 ML (HIGH RISK MED) SQ SCH (10:10)
[2023-09-26 11:34] LABS: ALBUMIN 3.6 g/dL (3.5-5.0); ANION GAP 13.7 MEQ/L (5-15); BILIRUBIN,TOTAL 0.5 mg/dL (0.2-1.3); Calcium 8.4 mg/dL (8.4-10.2); Creatinine 1 1.96 mg/dL (0.66-1.25); EST GLOMERULAR FILTRATION RATE 39.2 ML/MIN; Total Protein 6.6 g/dL (6.3-8.2)
[2023-09-26] MEDS: LOTRIMIN CREAM 30 GM TP SCH (11:54)
[2023-09-26] MEDS ORDERED: NON-FORMULARY ITEM (Melatonin [Melatonin] 10 MG Tablet) PO SCH (22:00)
[2023-09-26] MEDS: Lantus Insulin SQ SCH (22:10)
[2023-09-27 05:47] LABS: Hematocrit 39.2 % (42-50); Hemoglobin 13.4 g/dL (12.5-18.0); Mean Cell Volume 93.1 fL (78-100); Mean Corpuscular Hemoglobin 31.8 pg (26-32); Mean Corpuscular Hgb Concent. 34.2 g/dL (32-36); Mean Platelet Volume 9.2 fL (7.5-11.0); Platelet Count 216 x10^3/uL (150-450); Red Blood Count 4.21 x10^6/uL (4.1-5.6); Red Cell Distribution Width 12.5 % (11.5-14.0); White Blood Count 4.3 x10^3/uL (4.0-10.5)
[2023-09-27 06:01] LABS: ALBUMIN 3.3 g/dL (3.5-5.0); ANION GAP 10.5 MEQ/L (5-15); BILIRUBIN,TOTAL 0.4 mg/dL (0.2-1.3); Calcium 8.7 mg/dL (8.4-10.2); Creatinine 1 1.68 mg/dL (0.66-1.25); EST GLOMERULAR FILTRATION RATE 47.1 ML/MIN; Potassium 4.4 mmol/L (3.5-5.1); Total Protein 6.4 g/dL (6.3-8.2)
[2023-09-27 08:34] VITALS: TEMP 98.2
--- NOTE | 2023-09-27 11:36 | XRAY ---
Indication: Near syncope. Two-dimensional sonogram and color Doppler imaging carotid arteries of the neck performed. Comparison: None Examination right carotid circulation demonstrates widely patent common carotid artery. Mild scattered calcified plaquing in remaining carotid bulb, internal carotid, and external carotid arteries. PSV CCA is 70 cm/s. PSV ICA is 109 cm/s. ICA/CCA ratio is 1.6. Normal antegrade vertebral artery flow. Examination left carotid circulation demonstrates widely patent common carotid artery. Mild heterogeneous plaquing at the level of the bulb extending into origin of external carotid and internal carotid arteries. PSV CCA is 116 cm/s. PSV ICA is 66 cm/s. ICA/CCA ratio is 0.6. Normal antegrade vertebral artery flow. Impression: Mild scattered arteriosclerotic disease bilaterally as detailed. Velocity measurements and ratios negative for hemodynamically significant flow-limiting stenosis.
--- NOTE | 2023-09-27 11:36 | PCM.DS ---
Discharge Summary Date of Admission: 09/26/23 01:37 Date of Discharge: 09/27/23 Admitting Physician: KENY PAUL MD Consults: Consults on Case 09/25/23 21:44 O [facility] Referral ONCE Primary Care Provider: RADHA KELLOGG CHEYANNE Allergies Allergies No Known Drug Allergies Allergy (Verified 09/25/23 20:40) Hospital Summary - Hospital Course Hospital Course: is a 57 year old male with a history of HTN and CKD who presented to the ED with an episode of near syncope, lightheadedness, with the room spinning, and atypical chest pain. Patient states that he was working outside in his [place] on 09/25 when he started getting some near syncopal with dizziness. He fell with near loss of consciousness and experienced neck pain and headache thereafter. He checked his blood sugar approximately 2 hours prior to this episode and it was >200. In the ED, the patient was noted to have VINAY on CKD but workup was otherwise unremarkable. He says that his chest pain is located over his entire precordium and was constant but improved, with radiation to the back. CT abd pelvis showed No evidence of abdominal arotic dissection/aneurysm/occlusion. Right renal arterial stent in situ with relatively smaller right kidney. Will have him f/u with nephrology Op. He is at baseline kidney function today. A1C 12.73 and discussed the importance of glucose control for prevention of fdc organ damage. CT head and cervical spine negative for acute process. Echo shows EF of 73% per behavioral technician. Will have pt f/u Op with cardiology. Trop x3 negative. He denies CP today. He has an appointment to f/u with pulmonology today and would like to d/c to go to appointment. He denies any further concerns at this time and reports feeling much better. - Vitals & Intake/Output Vital Signs: Vital Signs Temperature 98.2 F 09/27/23 08:00 Pulse Rate 75 09/27/23 08:00 Respiratory Rate 17 09/27/23 08:00 Blood Pressure 118/64 09/27/23 08:00 O2 Sat by Pulse Oximetry 92 L 09/27/23 08:00 Intake & Output: Intake & Output 09/24/23 09/25/23 09/26/23 09/27/23 11:59 11:59 11:59 11:59 Intake Total 580 4714 Output Total 350 Balance 580 4364 Weight 98.8 kg - Lab Result Diagrams: 09/27/23 05:30 09/27/23 05:30 Lab Results-Last 24 Hrs: Lab Results-Last 24 Hours 09/26/23 09/26/23 09/27/23 Range/Units 11:15 11:33 05:30 WBC 4.3 (4.0-10.5) x10^3/uL RBC 4.21 (4.1-5.6) x10^6/uL Hgb 13.4 (12.5-18.0) g/dL Hct 39.2 L (42-50) % MCV 93.1 (78-100) fL MCH 31.8 (26-32) pg MCHC 34.2 (32-36) g/dL RDW 12.5 (11.5-14.0) % Plt Count 216 (150-450) x10^3/uL MPV 9.2 (7.5-11.0) fL Sodium 132 L (135-145) mmol/L Potassium 5.0 (3.5-5.1) mmol/L Chloride 109 H (98-107) mmol/L Carbon Dioxide 15 L* (22-30) mmol/L Anion Gap 13.7 (5-15) MEQ/L BUN 41 H (9-20) mg/dL Creatinine 1.96 H (0.66-1.25) mg/dL Estimated GFR 39.2 ML/MIN Glucose 268 H (74-106) mg/dL POC Glucometer 251 H (74 to 106) mg/dL Calcium 8.4 (8.4-10.2) mg/dL Total Bilirubin 0.50 (0.2-1.3) mg/dL AST 33 (17-59) U/L ALT 42 (0-50) U/L Alkaline Phosphatase 136 H (38-126) U/L Serum Total Protein 6.6 (6.3-8.2) g/dL Albumin 3.6 (3.5-5.0) g/dL 09/27/23 09/27/23 Range/Units 05:30 07:32 WBC (4.0-10.5) x10^3/uL RBC (4.1-5.6) x10^6/uL Hgb (12.5-18.0) g/dL Hct (42-50) % MCV (78-100) fL MCH (26-32) pg MCHC (32-36) g/dL RDW (11.5-14.0) % Plt Count (150-450) x10^3/uL MPV (7.5-11.0) fL Sodium 135 (135-145) mmol/L Potassium 4.4 (3.5-5.1) mmol/L Chloride 104 (98-107) mmol/L Carbon Dioxide 25 (22-30) mmol/L Anion Gap 10.5 (5-15) MEQ/L BUN 34 H (9-20) mg/dL Creatinine 1.68 H (0.66-1.25) mg/dL Estimated GFR 47.1 ML/MIN Glucose 218 H (74-106) mg/dL POC Glucometer 176 H (74 to 106) mg/dL Calcium 8.7 (8.4-10.2) mg/dL Total Bilirubin 0.40 (0.2-1.3) mg/dL AST 25 (17-59) U/L ALT 35 (0-50) U/L Alkaline Phosphatase 135 H (38-126) U/L Serum Total Protein 6.4 (6.3-8.2) g/dL Albumin 3.3 L (3.5-5.0) g/dL Micro Results-Entire Visit: Accuchecks Date 09/27/23 Time 07:36 - Radiology Exams Ordered Rad Exams-Entire Visit: Radiology Procedures Category Date Time Status CAROTID BILATERAL [US] Routine Exams 09/27/23 08:15 Taken CERVICAL SPINE WO CONTRAST [CT] Stat Exams 09/25/23 20:49 Completed CTA ABD/PEL W AND/OR W/O CONTR [CT] Stat Exams 09/25/23 20:36 Completed CTA CHEST W AND/OR WO [CT] Stat Exams 09/25/23 20:36 Completed ECHO W/2D AND DOPPLER [US] Routine Exams 09/27/23 08:15 Taken HEAD WITHOUT CONTRAST [CT] Stat Exams 09/25/23 20:36 Completed - Procedures and Test Procedures and Tests throughout Hospitalization: Therapy Orders & Screens 09/26/23 02:48 PT Eval & Treat ( Order) ONCE Reason for Eval:: near syncope Diagnosis: Near Syncope, VINAY EKG REPEAT IN AM Comment: Diagnosis: Near Syncope, VINAY 09/26/23 03:21 BiPap/CPAP ROUTINE Comment: Diagnosis: Near Syncope, VINAY Discharge Exam General Appearance: no apparent distress, alert Neurologic Exam: alert, oriented x 3, cooperative, normal mood/affect, nml cerebellar function, sensation nml, No motor deficits Eye Exam: PERRL, EOMI, eyes nml inspection Ears, Nose, Throat Exam: normal ENT inspection, pharynx normal, moist mucous membranes Neck Exam: normal inspection, non-tender, supple, full range of motion Respiratory Exam: normal breath sounds, lungs clear, No respiratory distress Cardiovascular Exam: regular rate/rhythm, normal heart sounds Gastrointestinal/Abdomen Exam: soft, No tenderness, No mass Male Genitalia Exam: deferred Rectal Exam: deferred Back Exam: normal inspection, normal range of motion, No CVA tenderness, No vertebral tenderness Extremity Exam: normal inspection, normal range of motion Skin Exam: normal color, warm, dry, rash (ring worm of skin please see pics in chart) Final Diagnosis/Problem List - Final Discharge Diagnosis/Problem (1) Atypical chest pain Current Visit: Yes Status: Acute Assessment & Plan: - tele - trop x3 negative - resolved - echo Ef 73% per cho tech - f/u with cardilogy Op Code(s): R07.89 - OTHER CHEST PAIN (2) Uncontrolled type II diabetes mellitus Current Visit: Yes Status: Chronic Assessment & Plan: - A1C on 09/17 12.73 - accuchecks ac/ hs - humalog s/s and lantus - F/U with PCP for proper glucose management Code(s): WQA2288 - (3) VINAY (acute kidney injury) Current Visit: Yes Status: Acute Assessment & Plan: - Acute on chronic - at baseline kidney function- creat 1.68 - OP nephrology appointment made Code(s): N17.9 - ACUTE KIDNEY FAILURE, UNSPECIFIED (4) Dehydration Current Visit: Yes Status: Resolved Assessment & Plan: - resolved Code(s): E86.0 - DEHYDRATION (5) Near syncope Current Visit: Yes Status: Acute Assessment & Plan: - resolved - carotid duplex 09/26 Impression: Mild scattered arteriosclerotic disease bilaterally as detailed. Velocity measurements and ratios negative for hemodynamically significant flow-limiting stenosis - CT head and cervcial spine negative for acute concern (6) Ringworm of body Current Visit: Yes Status: Acute Assessment & Plan: - see pics in chart - apply Lotrimin cream daily to affected areas Code(s): B35.4 - TINEA CORPORIS - Discharge Discharge Date: 09/27/23 Disposition: Home, Self-Care Condition: Stable Prescriptions: New Clotrimazole Cream 30 gm [Lotrimin Cream 30 gm] 30 gm TP DAILY 30 Days #1 unit Continue Levetiracetam [Keppra] 500 mg PO BID Gabapentin [Neurontin ] 600 mg PO TID Aspirin 81 gm Chew [Baby Aspirin 81 mg Chew] 81 mg PO DAILY lisinopriL [Lisinopril] 40 mg PO DAILY Clonidine HCl 0.1 mg [Clonidine 0.1 mg Tablet] 0.5 tab PO BID Insulin Glargine,Hum.rec.anlog [Basaglar Kwikpen U-100] 45 units SQ QHS Isosorbide Mononitrate [Isosorbide Mononitrate ER] 60 mg PO DAILY Melatonin 10 mg PO QHS Trazodone HCl 50 mg [Desyrel 50 mg] 100 mg PO HS Amitriptyline HCl 25 mg [Amitriptyline 25 mg Tablet] 25 mg PO HS Spironolactone 25 mg [Aldactone 25 MG] 25 mg PO DAILY Carvedilol 3.125 mg [Coreg 3.125 MG] 3.125 mg PO BID Follow up with: WILBUR TRAN [Other] - 10/11/23 1:30 pm ALEXANDER AGARWAL MD [NON-STAFF PHY W/O PRIVILEGES] - Office will call patient RADHA KELLOGG MD [Primary Care Provider] - 10/06/23 10:45 am
[2023-09-27 12:05] VITALS: BP 130/72; PULSE 78; RESP 18; O2SAT 94
--- NOTE | 2023-09-28 16:09 | ECHO ---
DATE: 09/27/2023 INDICATION: Near syncope. The M-mode, 2D, and Doppler echocardiogram including color flow Doppler shows the left ventricle is normal in size. There is severe concentric left ventricular hypertrophy. The contractility is normal. The ejection fraction is calculated to be 73%. There is evidence of possible impaired left ventricular relaxation. The right ventricle is grossly normal. The left atrium is mildly dilated. The interatrial septum is intact. The right atrium is normal. The aortic valve opens well. There is mitral valve leaflet thickening associated with mild mitral regurgitation. There is mild tricuspid regurgitation. The right ventricular systolic pressure is calculated to be 19 mm Hg. The pulmonic valve is not well visualized. There is mild pulmonic regurgitation. The aortic root is normal. There is no pericardial effusion present. IMPRESSION: 1. NORMAL CONTRACTILITY OF THE LEFT VENTRICLE. 2. SEVERE CONCENTRIC LEFT VENTRICULAR HYPERTROPHY. 3. POSSIBLE IMPAIRED LEFT VENTRICULAR RELAXATION. 4. MILD MITRAL REGURGITATION. 5. MILD TRICUSPID REGURGITATION. 6. NORMAL RIGHT VENTRICULAR SYSTOLIC PRESSURE. 7. MILD PULMONIC REGURGITATION. 8. MILD LEFT ATRIAL DILATATION.
== END 2023-09-27 13:35 | disposition home or self-care (01) ==
LOC: ED 20:20 → MED SURG 09-26 01:37
PROVIDERS: ADMIT Internal Medicine; ATTEND Internal Medicine
DX: R07.89 Other chest pain (principal); E11.65 Type 2 diabetes mellitus with hyperglycemia; N17.9 Acute kidney failure, unspecified; E86.0 Dehydration; R55 Syncope and collapse; B35.4 Tinea corporis; E11.22 Type 2 diabetes mellitus with diabetic chronic kidney disease; I12.9 Hypertensive chronic kidney disease with stage 1 through stage 4 chronic kidney disease, or unspecified chronic kidney disease; N18.9 Chronic kidney disease, unspecified; W19.XXXA Unspecified fall, initial encounter; I25.10 Atherosclerotic heart disease of native coronary artery without angina pectoris; E78.5 Hyperlipidemia, unspecified; I25.2 Old myocardial infarction; Z79.899 Other long term (current) drug therapy; Z59.41 Food insecurity; Z59.10 Inadequate housing, unspecified
CPT/HCPCS: 36000; 36415; 70450; 71275; 72125; 74174; 80048; 80053; 80307; 81001; 82150; 82550; 82947; 83690; 84484; 85025; 85027; 93005; 93041; 93268; 93306; 93880; 94760; 96360; 96374; 96375; 97161; 99285; G0378; Q3014; J1644; J1817; J1885; J3010; A9270-GY

== ENCOUNTER 2023-10-17 17:09 | Emergency (ER) | payer MEDICARE ==
[2023-10-17 17:46] VITALS: TEMP 97.2
--- NOTE | 2023-10-17 17:47 | ERPHSYRPT ---
- History of Present Illness Time Seen by Provider: 10/17/23 17:43 Historian: patient Exam Limitations: no limitations Patient Subjective Stated Complaint: pt co abd lower left abd pain today after falling. he also states he has had loose stools x10 today. unsure if fever, nausea after fall. He states he passed out todayx5 and fell landing half on bed and half on floor today, was able to get self up Triage Nursing Assessment: pt alert, appears in pain, resp easy,skin w/d/p. no edema noted, tenderness to left lower quad Physician History: 57-year-old male presents to emergency department for evaluation of abdominal pain. Patient states he has been experiencing diarrhea for the past 10 days. Patient states he had 5 syncopal episodes today. Patient later experienced severe abdominal pain mostly in the left lower quadrant. Patient states he has a history of pancreatitis and diverticulitis. Symptoms are similar. No fever. No chest pain or shortness of breath. Patient voices no other complaints or concerns at this time. Portions of this note were created with voice recognition technology. There may be grammatical, spelling, punctuation or sound alike errors Timing/Duration: day(s) (10 days) Activities at Onset: none Quality: aching Abdominal Pain Onset Location: LLQ Pain Radiation: no radiation Severity of Pain-Max: moderate Severity of Pain-Current: mild Modifying Factors: Improves With: palpation Associated Symptoms: vomiting Previous symptoms: same symptoms as today Allergies/Adverse Reactions: No Known Drug Allergies Allergy (Verified 10/17/23 17:28) Home Medications: Aspirin 81 gm Chew [Baby Aspirin 81 mg Chew] 81 mg PO DAILY 09/22/20 [History] Gabapentin [Neurontin ] 600 mg PO TID 09/22/20 [History] Levetiracetam [Keppra] 500 mg PO BID 09/22/20 [History] Clonidine HCl 0.1 mg [Clonidine 0.1 mg Tablet] 0.5 tab PO BID 10/13/20 [History] Insulin Glargine,Hum.rec.anlog [Basaglar Kwikpen U-100] 45 units SQ QHS 10/13/20 [History] Isosorbide Mononitrate [Isosorbide Mononitrate ER] 60 mg PO DAILY 10/13/20 [History] Melatonin 10 mg PO QHS 10/13/20 [History] lisinopriL [Lisinopril] 40 mg PO DAILY 10/13/20 [History] Amitriptyline HCl 25 mg [Amitriptyline 25 mg Tablet] 25 mg PO HS 09/14/22 [History] Trazodone HCl 50 mg [Desyrel 50 mg] 100 mg PO HS 09/14/22 [History] Carvedilol 3.125 mg [Coreg 3.125 MG] 3.125 mg PO BID 09/25/23 [History] Spironolactone 25 mg [Aldactone 25 MG] 25 mg PO DAILY 09/25/23 [History] Hx Tetanus, Diphtheria Vaccination/Date Given: No Hx Influenza Vaccination/Date Given: Yes Hx Pneumococcal Vaccination/Date Given: Yes Immunizations Up to Date: Yes Travel Risk - International Travel Have you traveled outside of the country in past 3 weeks: No - Emerging Infectious Disease Are you exhibiting symptoms associated with any current EIDs: Yes Symptoms: Abdominal Pain, Diarrhea - Review of Systems Constitutional: No Symptoms, No Fever, No Chills Eyes: No Symptoms Ears, Nose, & Throat: No Symptoms Respiratory: No Symptoms, No Cough, No Dyspnea Cardiac: No Symptoms, No Chest Pain, No Edema, No Syncope Abdominal/Gastrointestinal: No Symptoms, No Abdominal Pain, No Nausea, No Vomiting, No Diarrhea Genitourinary Symptoms: No Symptoms, No Dysuria Musculoskeletal: No Symptoms, No Back Pain, No Neck Pain Skin: No Symptoms, No Rash Neurological: No Symptoms, No Dizziness, No Focal Weakness, No Sensory Changes Psychological: No Symptoms Endocrine: No Symptoms Hematologic/Lymphatic: No Symptoms Immunological/Allergic: No Symptoms All Other Systems: Reviewed and Negative - Past Medical History Pertinent Past Medical History: Yes Neurological History: Seizures ENT History: No Pertinent History Cardiac History: Coronary Artery Disease, Hypertension Respiratory History: Pulmonary Embolism, Sleep Apnea Endocrine Medical History: Diabetes Type II Musculoskeletal History: Arthritis GI Medical History: GERD, Gallbladder Disease, Hemorrhoids, Pancreatitis History: Renal Disease Psycho-Social History: No Pertinent History Male Reproductive Disorders: No Pertinent History Other Medical History: SEE MEDICAL NOTES FOR MULTIPLE OTHER CO-MORBIDITIES - Past Surgical History Past Surgical History: Yes Neuro Surgical History: No Pertinent History Cardiac: Angioplasty, Cardiac Catheterization, Cardiac Stent Respiratory: No Pertinent History Gastrointestinal: Cholecystectomy Genitourinary: No Pertinent History Musculoskeletal: Other Male Surgical History: No Pertinent History Other Surgical History: 5 cardiac stents, 2 renal stent, Left Ring Finger - Social History Smoking Status: Smoker, status unknown How long have you smoked: 4 years Exposure to second hand smoke: No Drug Use: none Patient Lives Alone: Yes - Nursing Vital Signs Nursing Vital Signs: Initial Vital Signs Temperature 97.2 F 10/17/23 17:35 Pulse Rate 78 10/17/23 17:35 Respiratory Rate 18 10/17/23 17:35 Blood Pressure 175/119 10/17/23 17:35 O2 Sat by Pulse Oximetry 100 10/17/23 17:35 Pain Scale Pain Intensity 8 - Physical Exam General Appearance: no apparent distress, alert Eye Exam: PERRL/EOMI, eyes nml inspection Ears, Nose, Throat Exam: normal ENT inspection, pharynx normal, moist mucous membranes Neck Exam: normal inspection, non-tender, supple, full range of motion Respiratory Exam: normal breath sounds, lungs clear, No respiratory distress Cardiovascular Exam: regular rate/rhythm, normal heart sounds Gastrointestinal/Abdomen Exam: soft, No tenderness, No mass Back Exam: normal inspection, normal range of motion, No CVA tenderness, No vertebral tenderness Extremity Exam: normal inspection, normal range of motion, pelvis stable Neurologic Exam: alert, oriented x 3, cooperative, normal mood/affect, nml cerebellar function, sensation nml, No motor deficits Skin Exam: normal color, warm, dry Lymphatic Exam: No adenopathy SpO2 Interpretation: normal SpO2: 100 O2 Delivery: Room Air - Course Nursing assessment & vital signs reviewed: Yes - CT Exams Abdomen/Pelvis CT Interpretation: Tele-radiologist Report (Compared to 08/09/2023 diffuse respiration artifact. Stable normal appendix minimal descending diverticulosis. Right renal atrophy and L5 spondylosis without listhesis. No new acute findings) Ordered Tests: Active Orders 24 hr Category Date Time Status AMA [Release AMA] OM.NOW Care 10/17/23 22:33 Ordered IV Insertion STAT Care 10/17/23 17:39 Active ABDOMEN AND PELVIS W/0 CONTRAS [CT] Stat Exams 10/17/23 17:40 Taken CBC W DIFF Stat Lab 10/17/23 18:25 Completed LIPASE Stat Lab 10/17/23 18:25 Completed TROPONIN Q4H Lab 10/18/23 01:45 Ordered TROPONIN Stat Lab 10/17/23 21:37 Completed UA W/RFX UR CULTURE Stat Lab 10/17/23 21:37 Completed Transfer Order Routine Transfer 10/17/23 Ordered Medication Summary Discontinued Medications Generic Name Dose Route Start Last Admin Trade Name Maria Victoria PRN Reason Stop Dose Admin Sodium Chloride 1,000 mls @ 100 mls/hr 10/17/23 17:45 10/17/23 19:50 Sodium Chloride 0.9% 1000 Ml IV 11/16/23 17:44 100 mls/hr .Q10H DENISE Administration Sodium Chloride Confirm 10/17/23 19:49 Sodium Chloride 0.9% 1000 Ml Administered 10/17/23 19:50 Dose 1,000 mls @ ud .ROUTE .STK-MED ONE Morphine Sulfate 4 mg 10/17/23 19:41 10/17/23 19:46 Morphine Sulfate 4 Mg/Ml Injection IV 10/17/23 19:42 4 mg STAT ONE Administration Morphine Sulfate Confirm 10/17/23 19:45 Morphine Sulfate 4 Mg/Ml Injection Administered 10/17/23 19:46 Dose 4 mg .ROUTE .STK-MED ONE Lab/Rad Data: Laboratory Result Diagrams 10/17/23 18:25 10/17/23 18:25 Laboratory Results 10/17/23 10/17/23 10/17/23 Range/Units 21:37 21:37 18:25 WBC (4.0-10.5) x10^3/uL RBC (4.1-5.6) x10^6/uL Hgb (12.5-18.0) g/dL Hct (42-50) % MCV (78-100) fL MCH (26-32) pg MCHC (32-36) g/dL RDW (11.5-14.0) % Plt Count (150-450) x10^3/uL MPV (7.5-11.0) fL Gran % (36.0-66.0) % Immature Gran % (Auto) (0.00-0.4) % Nucleat RBC Rel Count (0.00-0.1) % Eos # (Auto) (0-0.5) x10^3/uL Immature Gran # (Auto) (0.00-0.03) x10^3u/L Absolute Lymphs (auto) (1.0-4.6) x10^3/uL Absolute Monos (auto) (0.0-1.3) x10^3/uL Absolute Nucleated RBC (0.00-0.01) x10^3u/L Lymphocytes % (24.0-44.0) % Monocytes % (0.0-12.0) % Eosinophils % (0.00-5.0) % Basophils % (0.0-0.4) % Absolute Granulocytes (1.4-6.9) x10^3/uL Basophils # (0-0.4) x10^3/uL Sodium Direct 130 L (138-146) mmol/L Potassium 4.6 (3.5-4.9) mmol/L Chloride 101 (98-109) mmol/L Carbon Dioxide 19 L (24-29) mmol/L Venous BUN 38 H (8-26) mg/dL Creatinine 2.1 H (0.6-1.3) mg/dL Glucose 278 H (70-105) mg/dL Ionized Calcium 1.03 L (1.12-1.32) mmol/L Troponin (0.00-0.03) ng/mL Troponin I < 0.012 (0.000-0.033) ng/mL Lipase (23-300) U/L Urine Color Yellow (Yellow) Urine Appearance Clear (Clear) Urine pH 7.5 (4.6-8.0) Ur Specific [place] 1.010 (1.005-1.030) Urine Protein Trace A (Negative) Urine Glucose (UA) >=1000 A (Negative) mg/dL Urine Ketones Trace A (Negative) Urine Blood Negative (Negative) Urine Nitrite Negative (Negative) Urine Bilirubin Negative (Negative) Urine Urobilinogen 0.2 (0.2) mg/dL Ur Leukocyte Esterase Negative (Negative) U Hyaline Cast (Auto) NONE SEEN (0-2) /LPF Urine Microscopic RBC 0-2 (0-5) /HPF Urine Microscopic WBC 0-2 (0-5) /HPF Ur Epithelial Cells None Seen (None Seen) /HPF Urine Bacteria None Seen (None Seen) /HPF Urine Culture Reflexed NO (NO) 10/17/23 10/17/23 10/17/23 Range/Units 18:25 18:25 18:25 WBC 4.1 (4.0-10.5) x10^3/uL RBC 5.36 (4.1-5.6) x10^6/uL Hgb 16.9 (12.5-18.0) g/dL Hct 48.3 (42-50) % MCV 90.1 (78-100) fL MCH 31.5 (26-32) pg MCHC 35.0 (32-36) g/dL RDW 12.5 (11.5-14.0) % Plt Count 230 (150-450) x10^3/uL MPV 9.3 (7.5-11.0) fL Gran % 59.8 (36.0-66.0) % Immature Gran % (Auto) 0.5 H (0.00-0.4) % Nucleat RBC Rel Count 0.0 (0.00-0.1) % Eos # (Auto) 0.06 (0-0.5) x10^3/uL Immature Gran # (Auto) 0.02 (0.00-0.03) x10^3u/L Absolute Lymphs (auto) 1.13 (1.0-4.6) x10^3/uL Absolute Monos (auto) 0.40 (0.0-1.3) x10^3/uL Absolute Nucleated RBC 0.00 (0.00-0.01) x10^3u/L Lymphocytes % 27.7 (24.0-44.0) % Monocytes % 9.8 (0.0-12.0) % Eosinophils % 1.5 (0.00-5.0) % Basophils % 0.7 (0.0-0.4) % Absolute Granulocytes 2.44 (1.4-6.9) x10^3/uL Basophils # 0.03 (0-0.4) x10^3/uL Sodium Direct (138-146) mmol/L Potassium (3.5-4.9) mmol/L Chloride (98-109) mmol/L Carbon Dioxide (24-29) mmol/L Venous BUN (8-26) mg/dL Creatinine (0.6-1.3) mg/dL Glucose (70-105) mg/dL Ionized Calcium (1.12-1.32) mmol/L Troponin 0.03 (0.00-0.03) ng/mL Troponin I (0.000-0.033) ng/mL Lipase (23-300) U/L Urine Color (Yellow) Urine Appearance (Clear) Urine pH (4.6-8.0) Ur Specific [place] (1.005-1.030) Urine Protein (Negative) Urine Glucose (UA) (Negative) mg/dL Urine Ketones (Negative) Urine Blood (Negative) Urine Nitrite (Negative) Urine Bilirubin (Negative) Urine Urobilinogen (0.2) mg/dL Ur Leukocyte Esterase (Negative) U Hyaline Cast (Auto) (0-2) /LPF Urine Microscopic RBC (0-5) /HPF Urine Microscopic WBC (0-5) /HPF Ur Epithelial Cells (None Seen) /HPF Urine Bacteria (None Seen) /HPF Urine Culture Reflexed (NO) - Progress Progress: improved Progress Note: 57-year-old male presents to our ED complaining of abdominal pain diarrhea and syncope. Patient received 4mg morphine upon arrival. Patient reassessed. Patient states his pain improved but then reoccurred. CT scan negative for acute pathology. Laboratory workup shows hyperglycemia. Hyponatremia at 130, however glucose is 278. Corrected sodium is approximately 133. IV fluids infused. No leukocytosis. Lipase 28. Vitals have been stable. Patient has a normal heart rate of 87. Patient afebrile. Most recent blood pressure is 155/105. RN reports that patient is noncompliant and removed his blood pressure cuff. Second troponin negative. Patient reassessed. Patient states his pain has reoccurred. Patient reports it to be severe. In light of essentially negative workup/workup that did not reveal source of patient's pain I contacted Dr. Smyth general surgery. We reviewed the imaging study report and the laboratory results. He feels there is nothing surgical at this time. In light of patient's ongoing pain with no clear explanation I advised hospitalization for pain control and observation to see if something develops. Patient declined. Patient states "I just want to go home". Patient refused admission. Patient is of sound mind. Patient is appropriate to make informed and independent medical decisions. Patient understands that leaving AGAINST MEDICAL ADVICE can result in delayed diagnosis, increased risk of morbidity, mortality, short and long-term disability including . In spite of these risks, patient has decided to leave AGAINST MEDICAL ADVICE. Patient understands that he may return to our ED at any point if he reconsiders. Patient agrees to follow-up with his or her primary care doctor within 48 hours for reevaluation. Patient voices no other complaints or concerns at this time. We will release patient AGAINST MEDICAL ADVICE per their request. Portions of this note were created with voice recognition technology. There may be grammatical, spelling, punctuation or sound alike errors Complexity of problem addressed is moderate acute complicated. No critical care time. Complex of data reviewed and analyzed is extensive. Test ordered test reviewed results analyzed and correlated clinically. Management discussed with general surgeon. Risk of complication and or risk morbidity/mortality patient management is moderate. Patient received IV morphine for pain control. Vital stable. Time spent to discharge patient AMA is approximately 15 minutes. Patient has made the independent decision to leave AGAINST MEDICAL ADVICE. No social determinants of health present impede follow-up. Patient voices no other complaints or concerns at this time. Portions of this note were created with voice recognition technology. There may be grammatical, spelling, punctuation or sound alike errors 10/17/23 22:34 10/17/23 22:[address] Nahid Will see patient in: other Counseled pt/family regarding: lab results, diagnosis, need for follow-up, rad results - Departure Departure Disposition: AMA Clinical Impression: Syncope, Diarrhea, Abdominal pain, Hypocalcemia, Hyperglycemia, Hyponatremia, Glucosuria Condition: Stable Critical Care Time: No Referrals: RADHA KELLOGG MD [Primary Care Provider] - Follow up/PCP as directed Additional Instructions: Discharge/Care Plan ROLANDOSIMA NAVA was seen on 10/17/23 in the Emergency Room. The patient was counseled regarding Diagnosis,Lab results, Imaging studies, need for follow up and when to return to the Emergency Room. Prescriptions given: Discharge Note I have spoken with the patient and/or caregivers. I have explained the patient's condition, diagnosis and treatment plan based on the information available to me at this time. I have answered the patient's and/or caregiver's questions and addressed any concerns. The patient and/or caregivers have as good understanding of the patient's diagnosis, condition and treatment plan as can be expected at this point. The vital signs have been stable. The patient's condition is stable and appropriate for discharge from the emergency department. The patient will pursue further outpatient evaluation with the primary care physician or other designated or consulting physician as outlined in the discharge instructions. The patient and/or caregivers are agreeable to this plan of care and follow-up instructions have been explained in detail. The patient and/or caregivers have received these instruction. The patient/and or caregivers are aware that any significant change in condition or worsening of symptoms should prompt an immediate return to this or the closest emergency department or call 911.
[2023-10-17 18:31] LABS: Absolute Neutrophil Ct (ANC) 2.44 x10^3/uL (1.4-6.9); BASOPHIL % 0.7 % (0.0-0.4); Basophil (Absolute #) 0.03 x10^3/uL (0-0.4); Eosinophil % 1.5 % (0.00-5.0); Eosinophil (Absolute #) 0.06 x10^3/uL (0-0.5); Hematocrit 48.3 % (42-50); Hemoglobin 16.9 g/dL (12.5-18.0); IMMATURE GRAN # 0.02 x10^3u/L (0.00-0.03); IMMATURE GRAN % 0.5 % (0.00-0.4); Lymphocyte (Absolute #) 1.13 x10^3/uL (1.0-4.6); Lymphocytes % 27.7 % (24.0-44.0); Mean Cell Volume 90.1 fL (78-100); Mean Corpuscular Hemoglobin 31.5 pg (26-32); Mean Platelet Volume 9.3 fL (7.5-11.0); Monocytes % 9.8 % (0.0-12.0); Neutrophil % 59.8 % (36.0-66.0); Platelet Count 230 x10^3/uL (150-450); Red Blood Count 5.36 x10^6/uL (4.1-5.6); Red Cell Distribution Width 12.5 % (11.5-14.0); White Blood Count 4.1 x10^3/uL (4.0-10.5)
[2023-10-17 18:55] LABS: ISTAT CREA 2.1 mg/dL (0.6-1.3); ISTAT K 4.6 mmol/L (3.5-4.9); ISTAT iCA 1.03 mmol/L (1.12-1.32)
[2023-10-17] MEDS ORDERED: MORPHINE SULFATE 4 MG INJ ONE (19:45)
[2023-10-17] MEDS: MORPHINE SULFATE 4 MG INJ IV ONE (19:46)
[2023-10-17] MEDS ORDERED: Sodium Chloride 0.9% 1000 ML 1,000 ML ONE (19:49)
[2023-10-17] MEDS: Sodium Chloride 0.9% 1000 ML 1,000 ML IV SCH (19:50)
[2023-10-17 21:47] LABS: Appearance Clear (Clear); Bacteria None Seen /HPF (None Seen); Bilirubin Negative (Negative); Blood Negative (Negative); Epithelial Cells None Seen /HPF (None Seen); Glucose, Urine >=1000 mg/dL (Negative); Hyaline Casts NONE SEEN /LPF (0-2); Ketones Trace (Negative); Leukocyte Esterase Negative (Negative); Nitrite Negative (Negative); Ph 7.5 (4.6-8.0); Protein,Urine Dip Trace (Negative); RBC 0-2 /HPF (0-5); Urobilinogen 0.2 mg/dL (0.2); WBC 0-2 /HPF (0-5)
[2023-10-17 21:49] LABS: ADD URINE CULTURE? NO (NO)
[2023-10-17 22:10] VITALS: BP 155/105; PULSE 85; RESP 20
[2023-10-17 22:29] VITALS: O2SAT 100
--- NOTE | 2023-10-18 08:52 | XRAY ---
Indication: Left abdomen pain following fall. Multiple contiguous axial images obtained through the abdomen and pelvis without contrast. Comparison: August 09, 2023 Study is now degraded by motion artifact throughout. Lung bases grossly clear. Heart not enlarged. Noncontrasted stomach and bowel loops appear nonobstructed with normal appendix. Again minimal descending colonic diverticulosis without diverticulitis. Stable right renal atrophy and cholecystotomy. No free fluid/air. Remaining liver, pancreas, spleen, adrenal glands, kidneys, ureters, and bladder are unremarkable for noncontrast exam. Again moderate scattered aortoiliac calcifications and right main renal artery stent. Osseous structures intact again with mild degenerative changes throughout the spine and bilateral L5 spondylolysis without listhesis. Impression: 1. Respiration artifact. 2. Again chronic findings including colonic diverticulosis, right renal atrophy, arteriosclerotic disease with right renal artery stent, and chronic bony findings. 3. Remaining CT abdomen/pelvis without contrast exam is grossly negative.
== END 2023-10-17 22:47 | disposition left against medical advice (07) ==
LOC: ED 17:09
DX: R55 Syncope and collapse (principal); R19.7 Diarrhea, unspecified; R10.32 Left lower quadrant pain; E83.51 Hypocalcemia; E11.65 Type 2 diabetes mellitus with hyperglycemia; E87.1 Hypo-osmolality and hyponatremia; R81 Glycosuria; I10 Essential (primary) hypertension; Z79.4 Long term (current) use of insulin; Z79.899 Other long term (current) drug therapy
CPT/HCPCS: 36000; 36415; 74176; 80047; 81001; 83690; 84484; 85025; 96374; 99284; J2270

== ENCOUNTER 2023-11-04 18:38 | Observation (INO) | payer MEDICARE ==
--- NOTE | 2023-11-04 18:58 | ERPHSYRPT ---
- History of Present Illness Time Seen by Provider: 11/04/23 18:40 Historian: patient Exam Limitations: no limitations Patient Subjective Stated Complaint: Pt states "I have had chest pain on and off for the past two days. It is really bad today and I cannot breath. I have not been able to keep any of my meds down and my blood pressure is really high." Triage Nursing Assessment: Pt presented alert and oriented X 3, skin pwd. Pt ambulates with an upright steady gait, able to speak in clear full sentences. Pt resting on the bed. Physician History: 58 years old male with history of hypertension hyperlipidemia, diabetes mellitus, coronary artery disease with stenting presented in the ER with complains of chest pain off and on since yesterday. Patient reports dull aching to sharp moderate intensity with no significant aggravating or relieving factors. Associated with mild difficulty breathing. Patient reports more pain on the right side and some on the left side as well. Reports coughing up yellow-green sputum moderate in amount. No fever or chills reported. No history of DVT/PE. Also reports having nausea and an episode of vomiting earlier. No abdominal pain. Allergies/Adverse Reactions: No Known Drug Allergies Allergy (Verified 10/17/23 17:28) Home Medications: Aspirin 81 gm Chew [Baby Aspirin 81 mg Chew] 81 mg PO DAILY 09/22/20 [History] Gabapentin [Neurontin ] 600 mg PO TID 09/22/20 [History] Levetiracetam [Keppra] 500 mg PO BID 09/22/20 [History] Clonidine HCl 0.1 mg [Clonidine 0.1 mg Tablet] 0.5 tab PO BID 10/13/20 [History] Insulin Glargine,Hum.rec.anlog [Basaglar Kwikpen U-100] 45 units SQ QHS 10/13/20 [History] Isosorbide Mononitrate [Isosorbide Mononitrate ER] 60 mg PO DAILY 10/13/20 [History] Melatonin 10 mg PO QHS 10/13/20 [History] lisinopriL [Lisinopril] 40 mg PO DAILY 10/13/20 [History] Amitriptyline HCl 25 mg [Amitriptyline 25 mg Tablet] 25 mg PO HS 09/14/22 [History] Trazodone HCl 50 mg [Desyrel 50 mg] 100 mg PO HS 09/14/22 [History] Carvedilol 3.125 mg [Coreg 3.125 MG] 3.125 mg PO BID 09/25/23 [History] Spironolactone 25 mg [Aldactone 25 MG] 25 mg PO DAILY 09/25/23 [History] Hx Tetanus, Diphtheria Vaccination/Date Given: No Hx Influenza Vaccination/Date Given: Yes Hx Pneumococcal Vaccination/Date Given: Yes Immunizations Up to Date: No Travel Risk - International Travel Have you traveled outside of the country in past 3 weeks: No - Emerging Infectious Disease Are you exhibiting symptoms associated with any current EIDs: No Symptoms: Abdominal Pain, Diarrhea - Review of Systems Constitutional: No Symptoms Eyes: No Symptoms Ears, Nose, & Throat: No Symptoms Respiratory: Cough, Dyspnea Cardiac: Chest Pain Abdominal/Gastrointestinal: Nausea, Vomiting Genitourinary Symptoms: No Symptoms Musculoskeletal: No Symptoms Neurological: No Symptoms Endocrine: No Symptoms Hematologic/Lymphatic: No Symptoms Immunological/Allergic: No Symptoms - Past Medical History Pertinent Past Medical History: Yes Neurological History: Seizures ENT History: No Pertinent History Cardiac History: Coronary Artery Disease, Hypertension Respiratory History: Pulmonary Embolism, Sleep Apnea Endocrine Medical History: Diabetes Type II Musculoskeletal History: Arthritis GI Medical History: GERD, Gallbladder Disease, Hemorrhoids, Pancreatitis History: Renal Disease Psycho-Social History: No Pertinent History Male Reproductive Disorders: No Pertinent History Other Medical History: SEE MEDICAL NOTES FOR MULTIPLE OTHER CO-MORBIDITIES - Past Surgical History Past Surgical History: Yes Neuro Surgical History: No Pertinent History Cardiac: Angioplasty, Cardiac Catheterization, Cardiac Stent Respiratory: No Pertinent History Gastrointestinal: Cholecystectomy Genitourinary: No Pertinent History Musculoskeletal: Other Male Surgical History: No Pertinent History Other Surgical History: 5 cardiac stents, 2 renal stent, Left Ring Finger - Social History Smoking Status: Smoker, status unknown How long have you smoked: 4 years Exposure to second hand smoke: No Drug Use: none Patient Lives Alone: Yes - Social Determinants of Health Will the patient participate in the screening: Yes Do you worry about a steady place to live?: Yes Do you have any problems with any of the following?: No known problems In the past 12 months,have you had to go without utilities?: No Transportation Issues: No Has anyone in your support network made you feel unsafe?: No Have you or anyone in your house had to go without enough: No Comment: Doesn't have a stove - Nursing Vital Signs Nursing Vital Signs: Initial Vital Signs Temperature 98.1 F 11/04/23 18:39 Pulse Rate 108 H 11/04/23 18:39 Respiratory Rate 22 11/04/23 18:39 Blood Pressure 198/119 11/04/23 18:39 O2 Sat by Pulse Oximetry 99 11/04/23 18:39 Pain Scale Pain Intensity 6 - Physical Exam General Appearance: no apparent distress Eye Exam: PERRL/EOMI Ears, Nose, Throat Exam: normal ENT inspection Neck Exam: normal inspection, full range of motion Respiratory Exam: normal breath sounds, lungs clear Cardiovascular Exam: normal heart sounds, tachycardia Gastrointestinal/Abdomen Exam: soft, normal bowel sounds, No tenderness Back Exam: normal inspection, normal range of motion Extremity Exam: normal inspection, normal range of motion Neurologic Exam: alert, oriented x 3, cooperative Skin Exam: normal color SpO2 Interpretation: normal SpO2: 99 O2 Delivery: Room Air - Course EKG Interpreted by Me: RATE (106), Sinus Tach, NORMAL AXIS, Other (ST depression inferolateral leads.) Ordered Tests: Active Orders 24 hr Category Date Time Status Speed Reading Teacher STAT Care 11/04/23 18:52 Active EKG-ER Only STAT Care 11/04/23 18:52 Active IV Insertion STAT Care 11/04/23 18:52 Active Oxygen-ED Only Nasal Cannula 2 lpm Care 11/04/23 18:52 Active ABDOMEN AND PELVIS W/0 CONTRAS [CT] Stat Exams 11/04/23 20:40 Completed CHEST 1 VIEW (PORTABLE) Stat Exams 11/04/23 18:52 Completed CHEST WITHOUT CONTRAST [CT] Stat Exams 11/04/23 20:40 Completed CBC W DIFF Stat Lab 11/04/23 19:02 Completed CMP Stat Lab 11/04/23 19:02 Completed D-DIMER QUANTITATIVE Stat Lab 11/04/23 19:30 Completed LIPASE Stat Lab 11/04/23 19:02 Completed MAGNESIUM Stat Lab 11/04/23 19:02 Completed NT PRO BNPII Stat Lab 11/04/23 19:02 Completed PROCALCITONIN Stat Lab 11/04/23 19:02 Completed TROPONIN Q4H Lab 11/04/23 19:02 Completed TROPONIN Q4H Lab 11/04/23 23:00 Ordered TROPONIN Q4H Lab 11/05/23 03:00 Ordered Respiratory Therapy Assessment DAILY RT 11/04/23 21:14 Active Medication Summary Discontinued Medications Generic Name Dose Route Start Last Admin Trade Name Maria Victoria PRN Reason Stop Dose Admin Albuterol/Ipratropium 3 ml 11/04/23 20:53 11/04/23 21:11 Ipratropium/Albuterol Sulfate 3 Ml Ampul.Neb IH 11/04/23 20:54 3 ml STAT ONE Administration Albuterol/Ipratropium Confirm 11/04/23 20:59 Ipratropium/Albuterol Sulfate 3 Ml Ampul.Neb Administered 11/04/23 21:00 Dose 3 ml IH .STK-MED ONE Aspirin 324 mg 11/04/23 18:52 11/04/23 19:29 Aspirin 81 Mg Tab.Chew PO 11/04/23 18:53 324 mg STAT ONE Administration Aspirin Confirm 11/04/23 19:24 Aspirin 81 Mg Tab.Chew Administered 11/04/23 19:25 Dose 324 mg .ROUTE .STK-MED ONE Azithromycin 500 mg in 250 mls @ 250 mls/hr 11/04/23 20:00 11/04/23 22:11 Zithromax 500 Mg/ 250 Ml Nacl Premix IV 11/04/23 20:59 Infused STAT STA Infusion Ceftriaxone Sodium 2 gm in 100 mls @ 200 mls/hr 11/04/23 20:00 11/04/23 20:54 Rocephin 2 Gm/100 Ml Nacl IV 11/04/23 20:29 Infused STAT ONE Infusion Ceftriaxone Sodium Confirm 11/04/23 20:21 Rocephin 2 Gm/100 Ml Nacl Administered 11/04/23 20:22 Dose 2 gm in 100 mls @ ud IV .STK-MED ONE Azithromycin Confirm 11/04/23 20:52 Zithromax 500 Mg/ 250 Ml Nacl Premix Administered 11/04/23 20:53 Dose 500 mg in 250 mls @ ud IV .STK-MED ONE Morphine Sulfate 4 mg 11/04/23 18:52 11/04/23 19:31 Morphine Sulfate 4 Mg/Ml Injection IV 11/04/23 18:53 4 mg STAT ONE Administration Morphine Sulfate Confirm 11/04/23 19:25 Morphine Sulfate 4 Mg/Ml Injection Administered 11/04/23 19:26 Dose 4 mg .ROUTE .STK-MED ONE Morphine Sulfate 4 mg 11/04/23 19:52 11/04/23 19:59 Morphine Sulfate 4 Mg/Ml Injection IV 11/04/23 19:53 4 mg STAT ONE Administration Morphine Sulfate Confirm 11/04/23 19:57 Morphine Sulfate 4 Mg/Ml Injection Administered 11/04/23 19:58 Dose 4 mg .ROUTE .STK-MED ONE Nitroglycerin 1 gm 11/04/23 18:52 11/04/23 19:33 Nitroglycerin 1 Gm Packet TOP 11/04/23 18:53 1 gm STAT ONE Administration Nitroglycerin Confirm 11/04/23 19:25 Nitroglycerin 1 Gm Packet Administered 11/04/23 19:26 Dose 1 gm .ROUTE .STK-MED ONE Nitroglycerin 0.4 mg 11/04/23 19:52 11/04/23 19:59 Nitroglycerin 0.4 Mg (Ed) 0.4 Mg Tab.Subl SL 11/04/23 19:53 0.4 mg STAT ONE Administration Nitroglycerin Confirm 11/04/23 19:57 Nitroglycerin 0.4 Mg (Ed) 0.4 Mg Tab.Subl Administered 11/04/23 19:58 Dose 0.4 mg SL .STK-MED ONE Ondansetron HCl 4 mg 11/04/23 18:52 11/04/23 19:29 Ondansetron Hcl 4 Mg/2 Ml Vial IV 11/04/23 18:53 4 mg STAT ONE Administration Ondansetron HCl Confirm 11/04/23 19:24 Ondansetron Hcl 4 Mg/2 Ml Vial Administered 11/04/23 19:25 Dose 4 mg .ROUTE .STK-MED ONE Lab/Rad Data: Laboratory Result Diagrams 11/04/23 19:02 11/04/23 19:02 Laboratory Results 11/04/23 11/04/23 11/04/23 Range/Units 19:30 19:02 19:02 WBC (4.0-10.5) x10^3/uL RBC (4.1-5.6) x10^6/uL Hgb (12.5-18.0) g/dL Hct (42-50) % MCV (78-100) fL MCH (26-32) pg MCHC (32-36) g/dL RDW (11.5-14.0) % Plt Count (150-450) x10^3/uL MPV (7.5-11.0) fL Gran % (36.0-66.0) % Immature Gran % (Auto) (0.00-0.4) % Nucleat RBC Rel Count (0.00-0.1) % Eos # (Auto) (0-0.5) x10^3/uL Immature Gran # (Auto) (0.00-0.03) x10^3u/L Absolute Lymphs (auto) (1.0-4.6) x10^3/uL Absolute Monos (auto) (0.0-1.3) x10^3/uL Absolute Nucleated RBC (0.00-0.01) x10^3u/L Lymphocytes % (24.0-44.0) % Monocytes % (0.0-12.0) % Eosinophils % (0.00-5.0) % Basophils % (0.0-0.4) % Absolute Granulocytes (1.4-6.9) x10^3/uL Basophils # (0-0.4) x10^3/uL D-Dimer 0.35 (0.0-0.50) mg/L Sodium (135-145) mmol/L Potassium (3.5-5.1) mmol/L Chloride (98-107) mmol/L Carbon Dioxide (22-30) mmol/L Anion Gap (5-15) MEQ/L BUN (9-20) mg/dL Creatinine (0.66-1.25) mg/dL Estimated GFR ML/MIN Glucose (74-106) mg/dL Calcium (8.4-10.2) mg/dL Magnesium (1.6-2.3) mg/dL Total Bilirubin (0.2-1.3) mg/dL AST (17-59) U/L ALT (0-50) U/L Alkaline Phosphatase (38-126) U/L Troponin I 0.028 (0.000-0.033) ng/mL NT-Pro-B Natriuret Pep (<300) pg/mL Serum Total Protein (6.3-8.2) g/dL Albumin (3.5-5.0) g/dL Lipase (23-300) U/L Procalcitonin 0.096 H (0.030-0.080) ng/mL 11/04/23 11/04/23 Range/Units 19:02 19:02 WBC 4.1 (4.0-10.5) x10^3/uL RBC 4.31 (4.1-5.6) x10^6/uL Hgb 13.6 (12.5-18.0) g/dL Hct 38.5 L (42-50) % MCV 89.3 (78-100) fL MCH 31.6 (26-32) pg MCHC 35.3 (32-36) g/dL RDW 12.5 (11.5-14.0) % Plt Count 232 (150-450) x10^3/uL MPV 9.0 (7.5-11.0) fL Gran % 64.8 (36.0-66.0) % Immature Gran % (Auto) 1.0 H (0.00-0.4) % Nucleat RBC Rel Count 0.0 (0.00-0.1) % Eos # (Auto) 0.13 (0-0.5) x10^3/uL Immature Gran # (Auto) 0.04 H (0.00-0.03) x10^3u/L Absolute Lymphs (auto) 0.82 L (1.0-4.6) x10^3/uL Absolute Monos (auto) 0.42 (0.0-1.3) x10^3/uL Absolute Nucleated RBC 0.00 (0.00-0.01) x10^3u/L Lymphocytes % 19.9 L (24.0-44.0) % Monocytes % 10.2 (0.0-12.0) % Eosinophils % 3.1 (0.00-5.0) % Basophils % 1.0 (0.0-0.4) % Absolute Granulocytes 2.68 (1.4-6.9) x10^3/uL Basophils # 0.04 (0-0.4) x10^3/uL D-Dimer (0.0-0.50) mg/L Sodium 134 L (135-145) mmol/L Potassium 3.7 (3.5-5.1) mmol/L Chloride 100 (98-107) mmol/L Carbon Dioxide 24 (22-30) mmol/L Anion Gap 13.7 (5-15) MEQ/L BUN 18 (9-20) mg/dL Creatinine 1.31 H (0.66-1.25) mg/dL Estimated GFR 63.1 ML/MIN Glucose 374 H (74-106) mg/dL Calcium 9.3 (8.4-10.2) mg/dL Magnesium 1.8 (1.6-2.3) mg/dL Total Bilirubin 0.40 (0.2-1.3) mg/dL AST 20 (17-59) U/L ALT 22 (0-50) U/L Alkaline Phosphatase 143 H (38-126) U/L Troponin I (0.000-0.033) ng/mL NT-Pro-B Natriuret Pep 1170 (<300) pg/mL Serum Total Protein 7.1 (6.3-8.2) g/dL Albumin 4.0 (3.5-5.0) g/dL Lipase 440 H (23-300) U/L Procalcitonin (0.030-0.080) ng/mL - Progress Progress: improved Air Movement: good Progress Note: 11/04/23 22:55 58 years old with multiple medical problems including coronary artery disease with multiple stenting, hypertension, hyperlipidemia, diabetes mellitus is evaluated for chest pain. EKG showed no acute ischemic changes. Patient also have been coughing since yesterday. He has wheezing, given breathing treatment. Blood pressure was not 200s on presentation, given nitro paste and sublingual nitro along with couple of doses of morphine, on reevaluation pain is better but not completely resolved. Initial troponins are negative. Normal white count, chest x-ray reviewed by me revealed some questionable airspace disease on the right side and given a dose of Rocephin and Zithromax. D-dimers are negative. Has a blood sugar in the 370s but not in DKA. Patient has a lipase of 440 and did have 1 episode of vomiting. No abdominal tenderness though. I have obtained CT chest and abdomen pelvis without contrast which are negative for any acute finding in the chest/abdomen/pelvis. But I believe patient needs to be admitted for trending of cardiac enzymes with his complicated medical history. Discussed with Dr. Oconnor, reviewed history, workup and agreed with admission. I have shared the results of workup with patient and plan of admission which she understand and agrees. Blood Culture(s) Obtained: Yes Antibiotics given: Yes Discussed with DrVenkat: Jessica, Other Will see patient in: hospital (observation) Counseled pt/family regarding: lab results, diagnosis, need for follow-up, rad results Medical Desision Making - Discussion of managment Care discussed with:: hospitalist Reviewed:: Test results Agreed on:: Treatment plan, place in obs Will see patient: in hospital - Diagnostic Testing Diagnostic test were ordered, analyzed, and reviewed by me: Yes Radiological Interpretation: Interpreted by me, Reviewed by me, Teleradiologist Report - Risk of complications The pt has a mod risk of morbidity or mortality based on: Need for prescription drug management The pt has a high risk of morbidity or mortality based on: Decision regarding hospitilization or escalation of hosp level of care - Departure Departure Disposition: Observation Clinical Impression: Chest pain, rule out acute myocardial infarction, Pneumonia Condition: Stable Critical Care Time: No Referrals: RADHA KELLOGG MD [Primary Care Provider] - Follow up/PCP as directed
[2023-11-04 19:05] LABS: Absolute Neutrophil Ct (ANC) 2.68 x10^3/uL (1.4-6.9); Basophil (Absolute #) 0.04 x10^3/uL (0-0.4); Eosinophil % 3.1 % (0.00-5.0); Eosinophil (Absolute #) 0.13 x10^3/uL (0-0.5); Hematocrit 38.5 % (42-50); Hemoglobin 13.6 g/dL (12.5-18.0); IMMATURE GRAN # 0.04 x10^3u/L (0.00-0.03); Lymphocyte (Absolute #) 0.82 x10^3/uL (1.0-4.6); Lymphocytes % 19.9 % (24.0-44.0); Mean Cell Volume 89.3 fL (78-100); Mean Corpuscular Hemoglobin 31.6 pg (26-32); Mean Corpuscular Hgb Concent. 35.3 g/dL (32-36); Monocyte (Absolute #) 0.42 x10^3/uL (0.0-1.3); Monocytes % 10.2 % (0.0-12.0); Neutrophil % 64.8 % (36.0-66.0); Platelet Count 232 x10^3/uL (150-450); Red Blood Count 4.31 x10^6/uL (4.1-5.6); Red Cell Distribution Width 12.5 % (11.5-14.0); White Blood Count 4.1 x10^3/uL (4.0-10.5)
[2023-11-04] MEDS ORDERED: Zofran 4 MG/2 ML VIAL ONE (19:24)
[2023-11-04] MEDS ORDERED: BABY ASPIRIN 81 MG CHEW ONE (19:24)
[2023-11-04] MEDS ORDERED: NITRO-BID 2% UD PACKETS ONE (19:25)
[2023-11-04] MEDS ORDERED: MORPHINE SULFATE 4 MG INJ ONE ×2 (19:25→19:57)
[2023-11-04 19:28] LABS: ANION GAP 13.7 MEQ/L (5-15); BILIRUBIN,TOTAL 0.4 mg/dL (0.2-1.3); Calcium 9.3 mg/dL (8.4-10.2); Creatinine 1 1.31 mg/dL (0.66-1.25); EST GLOMERULAR FILTRATION RATE 63.1 ML/MIN; MAGNESIUM 1.8 mg/dL (1.6-2.3); Potassium 3.7 mmol/L (3.5-5.1); Total Protein 7.1 g/dL (6.3-8.2)
[2023-11-04] MEDS: BABY ASPIRIN 81 MG CHEW PO ONE (19:29)
[2023-11-04] MEDS: Zofran 4 MG/2 ML VIAL IV ONE (19:29)
[2023-11-04] MEDS: MORPHINE SULFATE 4 MG INJ IV ONE ×2 (19:31→19:59)
[2023-11-04] MEDS: NITRO-BID 2% UD PACKETS TOP ONE (19:33)
[2023-11-04] MEDS ORDERED: Nitrostat 0.4 MG (ED) SL ONE (19:57)
[2023-11-04] MEDS: Nitrostat 0.4 MG (ED) SL ONE (19:59)
[2023-11-04] MEDS ORDERED: ROCEPHIN 2 GM/100 ML NACL 2 GM/100 ML IVPB IV ONE (20:21)
[2023-11-04] MEDS: ROCEPHIN 2 GM/100 ML NACL 2 GM/100 ML IVPB IV ONE (20:22)
--- NOTE | 2023-11-04 20:50 | XRAY ---
Indication: Chest pain. Comparison: October 13, 2020 Portable chest remains clear. Heart not enlarged. Bony thorax intact again with mild degenerative changes. No new/acute findings.
[2023-11-04] MEDS ORDERED: Zithromax 500 MG/ 250 ML NaCl Premix 500 MG/250 ML IVPB IV ONE (20:52)
[2023-11-04] MEDS: Zithromax 500 MG/ 250 ML NaCl Premix 500 MG/250 ML IVPB IV STA (20:57)
[2023-11-04] MEDS ORDERED: DUONEB 0.5-3 MG/3 ml Neb IH ONE (20:59)
[2023-11-04] MEDS: DUONEB 0.5-3 MG/3 ml Neb IH ONE (21:11)
--- NOTE | 2023-11-04 22:28 | XRAY ---
CLINICAL HISTORY: cp/vomiting COMPARISON: CT 09/25/2023. TECHNIQUE: Contiguous 3.[address] images of the chest were acquired without intravenous contrast administration. Coronal and sagittal reconstructions were obtained. One of the following dose reduction techniques was utilized for this exam.Automated exposure control, adjustment of the mA and/or kV according to patient size, and use of iterative reconstruction. FINDINGS: The scanned pulmonary parenchyma shows no definite consolidative lesions. Again a 12 x 10 mm solid nodule in the left lower lobe posterior basal segment, stable on interval. No free or encysted pleural effusion. Heart size is normal, and there is no pericardial effusion. Atherosclerotic calcification of the aorta and coronary arteries is seen. No pathologically enlarged mediastinal, hilar or axillary lymph node identified. Patent tracheobronchial tree. There is no definite mass lesion in the chest wall. Scanned upper abdomen is unremarkable. Degenerative changes in the visualized spine, with marginal osteophytes. IMPRESSION: 1. No acute cardiopulmonary disease process noted. 2. Again a 12 x 10 mm solid nodule in the left lower lobe with stationary course (more than 2 years). Electronically Signed by: Rod Yanes MD. (11/04/2023 22:23:39 EDT)
--- NOTE | 2023-11-04 22:30 | XRAY ---
CLINICAL HISTORY: cp/vomiting COMPARISON: CT 09/25/2023 TECHNIQUE: CT scan of the abdomen and pelvis was performed without IV contrast. Bowel loops are opacified by prior administration of oral contrast. Coronal and sagittal reconstructive images were also obtained. One of the following dose reduction techniques was utilized for this exam.Automated exposure control, adjustment of the mA and/or kV according to patient size, and use of iterative reconstruction. FINDINGS: Limited organ parenchymal evaluation within the limitations of noncontrast study. Limited examination due to motion artifacts, degrading image quality. Please, refer to CT chest same day for findings in this location. Abdomen: The liver is in the upper size and measures 17 cm. No focal or diffuse parenchymal abnormality. The portal vein, intrahepatic biliary radicals and the bile ducts are normal. The gallbladder was surgically removed. The pancreas appears preserved. No peripancreatic fat stranding, pancreatic pseudocyst or peripancreatic fluid collection. Spleen normal in size, no mass seen. Both adrenal glands are unremarkable. Right kidney with atrophic aspect. Left kidney of compensatory aspect. There is mild bilateral perirenal fat stranding, nonspecific. No calculi or hydronephrosis. Right renal artery stent noted. The stomach and the visualized small bowel loops are unremarkable. There is no evidence of significant mesenteric or retroperitoneal lymph node enlargement. No free fluid. Small fat-containing umbilical hernia (no changes on interval). Pelvis: The urinary bladder is unremarkable. Colonic diverticulosis without CT evidence of acute diverticulitis. No evidence of bowel obstruction. The appendix is not visualized however no fat stranding or collection is seen in the right iliac fossa. Prostate nremarkable. Atherosclerotic calcification of the aorta and major branches is seen. No evidence of pelvic lymphadenopathy. No definite bony abnormalities could be depicted. Degenerative changes in the visualized spine and osteophytes. Mild anterior wedging of lower thoracic vertebrae of chronic aspect (no changes on interval). 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 IMPRESSION: 1. Liver in the upper size, 17 cm (interval mild resolution, priorly 18 cm). 2. Otherwise, unremarkable noncontrast CT of the abdomen and pelvis. 3. No changes on interval. Electronically Signed by: Rod Yanes MD. (11/04/2023 22:25:23 EDT)
[2023-11-04] MEDS ORDERED: TYLENOL 325 MG PO PRN (22:53)
--- NOTE | 2023-11-04 23:55 | PCM.HP ---
History of Present Illness - Chief Complaint Chief Complaint: chest pain Date: 11/04/23 History of Present Illness: 58 y/o M with h/o CAD with prior stent, DM2, HTN, CKD3, and seizure disorder, here with chest pain. Complains of one day of right-sided chest pain and abd ominal pain, squeezing, constant, associated with dyspnea, nausea, diaphoresis, and numbness in both hands. He is uncertain if it is similar to his prior pain before his stents. Not associated with exertion and not relieved by rest. Was only briefly relieved by nitroglycerin, and then relieved by morphine in the ED, but now starting to come back again. He is also been having some mild cough productive of clear sputum. No sick contacts. He was given albuterol in the ED, but is unclear if his breathing is any better. Really was relieved by the morphine. His auto body repairer is Dr. Coates in [place]; he is uncertain what his last stress test done, but his last echo was done in September, with normal EF mild left ventricular hypertrophy. He notes that he last took his medications including his blood pressure medications on Monday evening. - Review of Systems Constitutional: No Fever, No Lethargy, No Night Sweats Eyes: No Eye Pain, No Vision Changes Ears, Nose, & Throat: No Sinus Drainage, No Throat Pain Respiratory: Cough, Short Of Breath, No Wheezing Cardiac: Chest Pain, PND, No Edema, No Palpitations, No Orthopnea Abdominal/Gastrointestinal: Nausea, No Abdominal Pain, No Vomiting, No Diarrhea Genitourinary Symptoms: No Dysuria, No Frequency Musculoskeletal: No Symptoms Skin: No Symptoms Neurological: Sensory Changes (Numbness in bilateral hands), No Dizziness, No Focal Weakness, No Gait Changes, No Seizure (History of seizure disorder but has not had any in years while on Keppra) Psychological: No Symptoms Endocrine: No Symptoms Medications & Allergies Home Medications: Home Medication List Aspirin 81 gm Chew [Baby Aspirin 81 mg Chew] 81 mg PO DAILY 09/22/20 [History Confirmed 09/25/23] Gabapentin [Neurontin ] 600 mg PO TID 09/22/20 [History Confirmed 11/04/23] Levetiracetam [Keppra] 500 mg PO BID 09/22/20 [History Confirmed 11/04/23] Clonidine HCl 0.1 mg [Clonidine 0.1 mg Tablet] 0.5 tab PO BID 10/13/20 [History Confirmed 11/04/23] Insulin Glargine,Hum.rec.anlog [Basaglar Kwikpen U-100] 45 units SQ QHS 10/13/20 [History Confirmed 11/04/23] Isosorbide Mononitrate [Isosorbide Mononitrate ER] 60 mg PO DAILY 10/13/20 [History Confirmed 11/04/23] Melatonin 10 mg PO QHS 10/13/20 [History Confirmed 11/04/23] lisinopriL [Lisinopril] 40 mg PO DAILY 10/13/20 [History Confirmed 11/04/23] Amitriptyline HCl 25 mg [Amitriptyline 25 mg Tablet] 25 mg PO HS 09/14/22 [History Confirmed 11/04/23] Trazodone HCl 50 mg [Desyrel 50 mg] 100 mg PO HS 09/14/22 [History Confirmed 11/04/23] Carvedilol 3.125 mg [Coreg 3.125 MG] 3.125 mg PO BID 09/25/23 [History Confirmed 11/04/23] Spironolactone 25 mg [Aldactone 25 MG] 25 mg PO DAILY 09/25/23 [History Confirmed 11/04/23] Clotrimazole Cream 30 gm [Lotrimin Cream 30 gm] 30 gm TP DAILY 30 Days #1 unit 09/27/23 [Rx Confirmed 11/04/23] Allergies/Adverse Reactions: Allergies Allergy/AdvReac Type Severity Reaction Status Date / Time No Known Drug Allergies Allergy Verified 10/17/23 17:28 - Past Medical History Past Medical History: Yes Neurological History: Seizures ENT History: No Pertinent History Cardiac History: Coronary Artery Disease, Hypertension Respiratory History: Pulmonary Embolism, Sleep Apnea Endocrine Medical History: Diabetes Type II Musculoskelatal History: Arthritis GI Medical History: GERD, Gallbladder Disease, Hemorrhoids, Pancreatitis History: Renal Disease Pyscho-Social History: No Pertinent History Male Reproductive Disorders: No Pertinent History Comment: SEE MEDICAL NOTES FOR MULTIPLE OTHER CO-MORBIDITIES - Past Surgical History Past Surgical History: Yes Neuro Surgical History: No Pertinent History Cardiac History: Angioplasty, Cardiac Catheterization, Cardiac Stent Respiratory Surgery: No Pertinent History GI Surgical History: Cholecystectomy Genitourinary Surgical Hx: No Pertinent History Musculskeletal Surgical Hx: Other Male Surgical History: No Pertinent History Other Surgical History: 5 cardiac stents, 2 renal stent, Left Ring Finger Significant Family History: no pertinent family hx - Social History Smoking Status: Smoker, status unknown How long have you smoked: 4 years Exposure to second hand smoke: No Alcohol: None Drug Use: none - Social Determinants of Health Will the patient participate in the screening: Yes Do you worry about a steady place to live?: Yes Do you have any problems with any of the following?: No known problems In the past 12 months,have you had to go without utilities?: No Have you or anyone in your house had to go without enough: No Transportation Issues: No Has anyone in your support network made you feel unsafe?: No Does the patient want assistance with any of the above?: No Comment: Doesn't have a stove - Physical Exam Vital Signs: Vital Signs - 24 hr Temp Pulse Pulse Resp BP BP Pulse Ox 11/04/23 23:03 99 11/04/23 23:01 106 H 145/88 97 11/04/23 22:45 162/95 97 11/04/23 22:30 161/105 97 11/04/23 22:15 145/106 97 11/04/23 22:00 102 H 18 156/97 98 11/04/23 21:45 66 150/101 97 11/04/23 21:14 105 H 18 98 11/04/23 20:45 74 130/87 97 11/04/23 20:30 152/108 97 11/04/23 20:15 69 146/114 97 11/04/23 20:00 95 H 18 155/107 97 11/04/23 19:15 105 H 16 202/119 98 11/04/23 19:01 99 H 15 194/118 98 11/04/23 18:45 102 H 17 203/120 98 11/04/23 18:39 98.1 F 108 H 106 H 22 198/119 99 GEN: Lying in bed in no acute distress, speaking quietly NEURO: No focal deficits CV: Regular rate & rhythm, no murmurs, no edema PULM: Clear to auscultation bilaterally, with no wheezing currently, no work of breathing, on room air ABD: Soft, non-distended, normoactive bowel sounds PSYCH: Alert, oriented x3 Results - Labs Lab/Micro Results: Lab Results-Last 24 Hours 11/04/23 11/04/23 11/04/23 Range/Units 19:02 19:02 19:02 WBC 4.1 (4.0-10.5) x10^3/uL RBC 4.31 (4.1-5.6) x10^6/uL Hgb 13.6 (12.5-18.0) g/dL Hct 38.5 L (42-50) % MCV 89.3 (78-100) fL MCH 31.6 (26-32) pg MCHC 35.3 (32-36) g/dL RDW 12.5 (11.5-14.0) % Plt Count 232 (150-450) x10^3/uL MPV 9.0 (7.5-11.0) fL Gran % 64.8 (36.0-66.0) % Immature Gran % (Auto) 1.0 H (0.00-0.4) % Nucleat RBC Rel Count 0.0 (0.00-0.1) % Eos # (Auto) 0.13 (0-0.5) x10^3/uL Immature Gran # (Auto) 0.04 H (0.00-0.03) x10^3u/L Absolute Lymphs (auto) 0.82 L (1.0-4.6) x10^3/uL Absolute Monos (auto) 0.42 (0.0-1.3) x10^3/uL Absolute Nucleated RBC 0.00 (0.00-0.01) x10^3u/L Lymphocytes % 19.9 L (24.0-44.0) % Monocytes % 10.2 (0.0-12.0) % Eosinophils % 3.1 (0.00-5.0) % Basophils % 1.0 (0.0-0.4) % Absolute Granulocytes 2.68 (1.4-6.9) x10^3/uL Basophils # 0.04 (0-0.4) x10^3/uL D-Dimer (0.0-0.50) mg/L Sodium 134 L (135-145) mmol/L Potassium 3.7 (3.5-5.1) mmol/L Chloride 100 (98-107) mmol/L Carbon Dioxide 24 (22-30) mmol/L Anion Gap 13.7 (5-15) MEQ/L BUN 18 (9-20) mg/dL Creatinine 1.31 H (0.66-1.25) mg/dL Estimated GFR 63.1 ML/MIN Glucose 374 H (74-106) mg/dL POC Glucometer (74 to 106) mg/dL Calcium 9.3 (8.4-10.2) mg/dL Magnesium 1.8 (1.6-2.3) mg/dL Total Bilirubin 0.40 (0.2-1.3) mg/dL AST 20 (17-59) U/L ALT 22 (0-50) U/L Alkaline Phosphatase 143 H (38-126) U/L Troponin I 0.028 (0.000-0.033) ng/mL NT-Pro-B Natriuret Pep 1170 (<300) pg/mL Serum Total Protein 7.1 (6.3-8.2) g/dL Albumin 4.0 (3.5-5.0) g/dL Lipase 440 H (23-300) U/L Procalcitonin (0.030-0.080) ng/mL 11/04/23 11/04/23 11/04/23 Range/Units 19:02 19:30 22:58 WBC (4.0-10.5) x10^3/uL RBC (4.1-5.6) x10^6/uL Hgb (12.5-18.0) g/dL Hct (42-50) % MCV (78-100) fL MCH (26-32) pg MCHC (32-36) g/dL RDW (11.5-14.0) % Plt Count (150-450) x10^3/uL MPV (7.5-11.0) fL Gran % (36.0-66.0) % Immature Gran % (Auto) (0.00-0.4) % Nucleat RBC Rel Count (0.00-0.1) % Eos # (Auto) (0-0.5) x10^3/uL Immature Gran # (Auto) (0.00-0.03) x10^3u/L Absolute Lymphs (auto) (1.0-4.6) x10^3/uL Absolute Monos (auto) (0.0-1.3) x10^3/uL Absolute Nucleated RBC (0.00-0.01) x10^3u/L Lymphocytes % (24.0-44.0) % Monocytes % (0.0-12.0) % Eosinophils % (0.00-5.0) % Basophils % (0.0-0.4) % Absolute Granulocytes (1.4-6.9) x10^3/uL Basophils # (0-0.4) x10^3/uL D-Dimer 0.35 (0.0-0.50) mg/L Sodium (135-145) mmol/L Potassium (3.5-5.1) mmol/L Chloride (98-107) mmol/L Carbon Dioxide (22-30) mmol/L Anion Gap (5-15) MEQ/L BUN (9-20) mg/dL Creatinine (0.66-1.25) mg/dL Estimated GFR ML/MIN Glucose (74-106) mg/dL POC Glucometer 262 H (74 to 106) mg/dL Calcium (8.4-10.2) mg/dL Magnesium (1.6-2.3) mg/dL Total Bilirubin (0.2-1.3) mg/dL AST (17-59) U/L ALT (0-50) U/L Alkaline Phosphatase (38-126) U/L Troponin I (0.000-0.033) ng/mL NT-Pro-B Natriuret Pep (<300) pg/mL Serum Total Protein (6.3-8.2) g/dL Albumin (3.5-5.0) g/dL Lipase (23-300) U/L Procalcitonin 0.096 H (0.030-0.080) ng/mL - Radiology Impressions Radiology Exams & Impressions: Radiology Procedures Category Date Time Status ABDOMEN AND PELVIS W/0 CONTRAS [CT] Stat Exams 11/04/23 20:40 Completed CHEST 1 VIEW (PORTABLE) Stat Exams 11/04/23 18:52 Completed CHEST WITHOUT CONTRAST [CT] Stat Exams 11/04/23 20:40 Completed CXR - no infiltrate, effusion, or edema (images reviewed) CT Chest - no acute changes; has unchanged 12 mm LLL solitary pulmonary nodule (images reviewed) CT abd/pelvis - no acute findings - Other Procedures and Tests Respiratory Therapy 11/04/23 21:14 Respiratory Therapy Assessment DAILY 11/04/23 22:53 EKG PRN 11/04/23 22:55 Schedule Outpt Stress Test Routine Assessment/Plan (1) Chest pain, rule out acute myocardial infarction Current Visit: Yes Status: Acute Assessment & Plan: 58 y/o M with h/o CAD s/p stents x5, DM2, HTN, CKD3, GERD, NATE, and seizure disorder, here with chest pain. ## Chest pain - atypical and that it is not provoked by exertion or relieved by rest, but does have made a significant associated symptoms. As well, he has a strong history of coronary disease. Unknown when his last stress test was, but he thinks it was "sometime ago". Last TTE in September 2023 showed normal EF but LV hypertrophy. Second troponin is very mildly elevated from this first, but still not much to consider to be MRI. As well, he has CKD 3, which will raise his baseline troponin. He has no acute EKG changes. Of note, his BP was markedly elevated on arrival, 207/131. This might be secondary to his pain; however, it is possible that this high BP was leading to demand ischemia on the heart. - admit for observation under telemetry - serial troponins - control BP as below - EKG PRN recurrent chest pain - PRN nitroglycerin Continue home Imdur Can reach out to his auto body repairer Dr. Coates's office tomorrow regarding further evaluation if troponins remain negative ## Hypertension - markedly elevated on arrival, improved after getting nitro paste. As above, elevated BP may be secondary to chest pain, or could be cause of demand ischemia. He is only on a low-dose of clonidine, but does not is particularly known for rebound hypertension, and he did not take any doses of this on Monday as he was feeling poorly. - resume home Coreg, clonidine, spironolactone, and lisinopril; will make sure to give doses this evening ## CKD3a - Cr a little better than recent baseline, at 1.3. - follow BMP ## DM2 - on insulin at home - cover with moderate dose sliding scale insulin - add half of home lantus, given 24 units QHS ## seizures - continue home Keppra Code status: Full code Diet: diabetic Prophylaxis: SQ heparin TID Code(s): R07.9 - CHEST PAIN, UNSPECIFIED Telemedicine Encounter - Telemedicine Encounter Telemedicine Encounter: The entirety of this encounter was performed via Telemedicine"
[2023-11-05] MEDS: MORPHINE SULFATE 2 MG INJ IV PRN (02:29)
[2023-11-05 05:47] LABS: Hematocrit 38.4 % (42-50); Hemoglobin 13.3 g/dL (12.5-18.0); Mean Cell Volume 89.9 fL (78-100); Mean Corpuscular Hemoglobin 31.1 pg (26-32); Mean Corpuscular Hgb Concent. 34.6 g/dL (32-36); Mean Platelet Volume 9.1 fL (7.5-11.0); Platelet Count 237 x10^3/uL (150-450); Red Blood Count 4.27 x10^6/uL (4.1-5.6); Red Cell Distribution Width 13.1 % (11.5-14.0)
[2023-11-05 06:14] LABS: ANION GAP 10.4 MEQ/L (5-15); Calcium 9.1 mg/dL (8.4-10.2); Creatinine 1 1.36 mg/dL (0.66-1.25); EST GLOMERULAR FILTRATION RATE 60.3 ML/MIN; Potassium 3.8 mmol/L (3.5-5.1)
[2023-11-05] MEDS: HEPARIN 5000 UNITS/0.5 ML (HIGH RISK MED) SQ SCH (07:03)
--- NOTE | 2023-11-05 07:16 | PCM.NOTE ---
Date and Time: 11/05/23710 Subjective Assessment: 58 y/o M with h/o CAD s/p stents x5, DM2, HTN, CKD3, GERD, NATE, and seizure disorder, admitted 11/04/23 with chest pain. Objective Data Vital Signs: Vital Signs - 24 hr Temp Pulse Pulse Resp BP BP Pulse Ox 11/05/23 04:00 98.4 F 97 H 20 165/82 98 11/05/23 01:04 98.4 F 103 H 22 172/93 98 11/05/23 00:01 103 H 133/92 97 11/04/23 23:46 167/97 96 11/04/23 23:30 103 H 170/104 96 11/04/23 23:15 141/95 97 11/04/23 23:03 99 11/04/23 23:01 106 H 145/88 97 11/04/23 22:45 162/95 97 11/04/23 22:30 161/105 97 11/04/23 22:15 145/106 97 11/04/23 22:00 102 H 18 156/97 98 11/04/23 21:45 66 150/101 97 11/04/23 21:14 105 H 18 98 11/04/23 20:45 74 130/87 97 11/04/23 20:30 152/108 97 11/04/23 20:15 69 146/114 97 11/04/23 20:00 95 H 18 155/107 97 11/04/23 19:15 105 H 16 202/119 98 11/04/23 19:01 99 H 15 194/118 98 11/04/23 18:45 102 H 17 203/120 98 11/04/23 18:39 98.1 F 108 H 106 H 22 198/119 99 Pain Assessment - Last Documented Pain Intensity 8 Pain Scale Used 0-10 Pain Scale Intake and Output: Intake & Output 11/02/23 11/03/23 11/04/23 11/05/23 11:59 11:59 11:59 11:59 Weight 99.9 kg Lab Results: Lab Results-Last 24 Hours 11/04/23 11/04/23 11/04/23 Range/Units 19:02 19:02 19:02 WBC 4.1 (4.0-10.5) x10^3/uL RBC 4.31 (4.1-5.6) x10^6/uL Hgb 13.6 (12.5-18.0) g/dL Hct 38.5 L (42-50) % MCV 89.3 (78-100) fL MCH 31.6 (26-32) pg MCHC 35.3 (32-36) g/dL RDW 12.5 (11.5-14.0) % Plt Count 232 (150-450) x10^3/uL MPV 9.0 (7.5-11.0) fL Gran % 64.8 (36.0-66.0) % Immature Gran % (Auto) 1.0 H (0.00-0.4) % Nucleat RBC Rel Count 0.0 (0.00-0.1) % Eos # (Auto) 0.13 (0-0.5) x10^3/uL Immature Gran # (Auto) 0.04 H (0.00-0.03) x10^3u/L Absolute Lymphs (auto) 0.82 L (1.0-4.6) x10^3/uL Absolute Monos (auto) 0.42 (0.0-1.3) x10^3/uL Absolute Nucleated RBC 0.00 (0.00-0.01) x10^3u/L Lymphocytes % 19.9 L (24.0-44.0) % Monocytes % 10.2 (0.0-12.0) % Eosinophils % 3.1 (0.00-5.0) % Basophils % 1.0 (0.0-0.4) % Absolute Granulocytes 2.68 (1.4-6.9) x10^3/uL Basophils # 0.04 (0-0.4) x10^3/uL D-Dimer (0.0-0.50) mg/L Sodium 134 L (135-145) mmol/L Potassium 3.7 (3.5-5.1) mmol/L Chloride 100 (98-107) mmol/L Carbon Dioxide 24 (22-30) mmol/L Anion Gap 13.7 (5-15) MEQ/L BUN 18 (9-20) mg/dL Creatinine 1.31 H (0.66-1.25) mg/dL Estimated GFR 63.1 ML/MIN Glucose 374 H (74-106) mg/dL POC Glucometer (74 to 106) mg/dL Calcium 9.3 (8.4-10.2) mg/dL Magnesium 1.8 (1.6-2.3) mg/dL Total Bilirubin 0.40 (0.2-1.3) mg/dL AST 20 (17-59) U/L ALT 22 (0-50) U/L Alkaline Phosphatase 143 H (38-126) U/L Troponin I 0.028 (0.000-0.033) ng/mL NT-Pro-B Natriuret Pep 1170 (<300) pg/mL Serum Total Protein 7.1 (6.3-8.2) g/dL Albumin 4.0 (3.5-5.0) g/dL Triglycerides (30-150) mg/dL Cholesterol (50-200) mg/dL LDL Cholesterol (30-100) mg/dL HDL Cholesterol (40-60) mg/dL Heart Disease Risk Ratio Lipase 440 H (23-300) U/L Procalcitonin (0.030-0.080) ng/mL 11/04/23 11/04/23 11/04/23 Range/Units 19:02 19:30 22:58 WBC (4.0-10.5) x10^3/uL RBC (4.1-5.6) x10^6/uL Hgb (12.5-18.0) g/dL Hct (42-50) % MCV (78-100) fL MCH (26-32) pg MCHC (32-36) g/dL RDW (11.5-14.0) % Plt Count (150-450) x10^3/uL MPV (7.5-11.0) fL Gran % (36.0-66.0) % Immature Gran % (Auto) (0.00-0.4) % Nucleat RBC Rel Count (0.00-0.1) % Eos # (Auto) (0-0.5) x10^3/uL Immature Gran # (Auto) (0.00-0.03) x10^3u/L Absolute Lymphs (auto) (1.0-4.6) x10^3/uL Absolute Monos (auto) (0.0-1.3) x10^3/uL Absolute Nucleated RBC (0.00-0.01) x10^3u/L Lymphocytes % (24.0-44.0) % Monocytes % (0.0-12.0) % Eosinophils % (0.00-5.0) % Basophils % (0.0-0.4) % Absolute Granulocytes (1.4-6.9) x10^3/uL Basophils # (0-0.4) x10^3/uL D-Dimer 0.35 (0.0-0.50) mg/L Sodium (135-145) mmol/L Potassium (3.5-5.1) mmol/L Chloride (98-107) mmol/L Carbon Dioxide (22-30) mmol/L Anion Gap (5-15) MEQ/L BUN (9-20) mg/dL Creatinine (0.66-1.25) mg/dL Estimated GFR ML/MIN Glucose (74-106) mg/dL POC Glucometer 262 H (74 to 106) mg/dL Calcium (8.4-10.2) mg/dL Magnesium (1.6-2.3) mg/dL Total Bilirubin (0.2-1.3) mg/dL AST (17-59) U/L ALT (0-50) U/L Alkaline Phosphatase (38-126) U/L Troponin I (0.000-0.033) ng/mL NT-Pro-B Natriuret Pep (<300) pg/mL Serum Total Protein (6.3-8.2) g/dL Albumin (3.5-5.0) g/dL Triglycerides (30-150) mg/dL Cholesterol (50-200) mg/dL LDL Cholesterol (30-100) mg/dL HDL Cholesterol (40-60) mg/dL Heart Disease Risk Ratio Lipase (23-300) U/L Procalcitonin 0.096 H (0.030-0.080) ng/mL 11/04/23 11/05/23 11/05/23 Range/Units 23:29 05:25 05:25 WBC 5.0 (4.0-10.5) x10^3/uL RBC 4.27 (4.1-5.6) x10^6/uL Hgb 13.3 (12.5-18.0) g/dL Hct 38.4 L (42-50) % MCV 89.9 (78-100) fL MCH 31.1 (26-32) pg MCHC 34.6 (32-36) g/dL RDW 13.1 (11.5-14.0) % Plt Count 237 (150-450) x10^3/uL MPV 9.1 (7.5-11.0) fL Gran % (36.0-66.0) % Immature Gran % (Auto) (0.00-0.4) % Nucleat RBC Rel Count (0.00-0.1) % Eos # (Auto) (0-0.5) x10^3/uL Immature Gran # (Auto) (0.00-0.03) x10^3u/L Absolute Lymphs (auto) (1.0-4.6) x10^3/uL Absolute Monos (auto) (0.0-1.3) x10^3/uL Absolute Nucleated RBC (0.00-0.01) x10^3u/L Lymphocytes % (24.0-44.0) % Monocytes % (0.0-12.0) % Eosinophils % (0.00-5.0) % Basophils % (0.0-0.4) % Absolute Granulocytes (1.4-6.9) x10^3/uL Basophils # (0-0.4) x10^3/uL D-Dimer (0.0-0.50) mg/L Sodium (135-145) mmol/L Potassium (3.5-5.1) mmol/L Chloride (98-107) mmol/L Carbon Dioxide (22-30) mmol/L Anion Gap (5-15) MEQ/L BUN (9-20) mg/dL Creatinine (0.66-1.25) mg/dL Estimated GFR ML/MIN Glucose (74-106) mg/dL POC Glucometer (74 to 106) mg/dL Calcium (8.4-10.2) mg/dL Magnesium (1.6-2.3) mg/dL Total Bilirubin (0.2-1.3) mg/dL AST (17-59) U/L ALT (0-50) U/L Alkaline Phosphatase (38-126) U/L Troponin I 0.037 H* 0.047 H* (0.000-0.033) ng/mL NT-Pro-B Natriuret Pep (<300) pg/mL Serum Total Protein (6.3-8.2) g/dL Albumin (3.5-5.0) g/dL Triglycerides (30-150) mg/dL Cholesterol (50-200) mg/dL LDL Cholesterol (30-100) mg/dL HDL Cholesterol (40-60) mg/dL Heart Disease Risk Ratio Lipase (23-300) U/L Procalcitonin (0.030-0.080) ng/mL 11/05/23 Range/Units 05:25 WBC (4.0-10.5) x10^3/uL RBC (4.1-5.6) x10^6/uL Hgb (12.5-18.0) g/dL Hct (42-50) % MCV (78-100) fL MCH (26-32) pg MCHC (32-36) g/dL RDW (11.5-14.0) % Plt Count (150-450) x10^3/uL MPV (7.5-11.0) fL Gran % (36.0-66.0) % Immature Gran % (Auto) (0.00-0.4) % Nucleat RBC Rel Count (0.00-0.1) % Eos # (Auto) (0-0.5) x10^3/uL Immature Gran # (Auto) (0.00-0.03) x10^3u/L Absolute Lymphs (auto) (1.0-4.6) x10^3/uL Absolute Monos (auto) (0.0-1.3) x10^3/uL Absolute Nucleated RBC (0.00-0.01) x10^3u/L Lymphocytes % (24.0-44.0) % Monocytes % (0.0-12.0) % Eosinophils % (0.00-5.0) % Basophils % (0.0-0.4) % Absolute Granulocytes (1.4-6.9) x10^3/uL Basophils # (0-0.4) x10^3/uL D-Dimer (0.0-0.50) mg/L Sodium 136 (135-145) mmol/L Potassium 3.8 (3.5-5.1) mmol/L Chloride 104 (98-107) mmol/L Carbon Dioxide 25 (22-30) mmol/L Anion Gap 10.4 (5-15) MEQ/L BUN 21 H (9-20) mg/dL Creatinine 1.36 H (0.66-1.25) mg/dL Estimated GFR 60.3 ML/MIN Glucose 196 H (74-106) mg/dL POC Glucometer (74 to 106) mg/dL Calcium 9.1 (8.4-10.2) mg/dL Magnesium (1.6-2.3) mg/dL Total Bilirubin (0.2-1.3) mg/dL AST (17-59) U/L ALT (0-50) U/L Alkaline Phosphatase (38-126) U/L Troponin I (0.000-0.033) ng/mL NT-Pro-B Natriuret Pep (<300) pg/mL Serum Total Protein (6.3-8.2) g/dL Albumin (3.5-5.0) g/dL Triglycerides 274 H (30-150) mg/dL Cholesterol 228 H (50-200) mg/dL LDL Cholesterol 118 H (30-100) mg/dL HDL Cholesterol 53 (40-60) mg/dL Heart Disease Risk Ratio 4.0 Lipase (23-300) U/L Procalcitonin (0.030-0.080) ng/mL Radiology Exams: Radiology Procedures Category Date Time Status ABDOMEN AND PELVIS W/0 CONTRAS [CT] Stat Exams 11/04/23 20:40 Completed CHEST 1 VIEW (PORTABLE) Stat Exams 11/04/23 18:52 Completed CHEST WITHOUT CONTRAST [CT] Stat Exams 11/04/23 20:40 Completed Multi-Disciplinary Progress Notes: Multi-Disciplinary Progress Notes 11/05/23 01:11 Respiratory Note by Annamaria Steinberg PT STATES HE WEARS CPAP AT HOME BUT DOESN'T WANT TO WEAR ONE HERE. WILL PLACE OXYGEN ON PT IF NEEDED. Initialized on 11/05/23 01:11 - END OF NOTE Assessment/Plan (1) Chest pain, rule out acute myocardial infarction Current Visit: Yes Status: Acute Assessment & Plan: -TTE in September 2023 showed normal EF but LV hypertrophy -CXR with no acute cardiopulmonary process -Troponins very mildly uptrending from this first, but still not much to consider to be MRI -Pt with CKD which may raise baseline trops -EKG with no changes/ST elevations -PRN nitro Continue home Imdur Can reach out to his rn review Dr. Coates's office regarding further evaluation if troponins remain negative Code(s): R07.9 - CHEST PAIN, UNSPECIFIED (2) CKD (chronic kidney disease) stage 3, GFR 30-59 ml/min Current Visit: Yes Status: Acute Assessment & Plan: -Baseline around 1.6, creat better than baseline at 1.36 -Continue to monitor renal/lytes -Avoid nephrotoxic medications Code(s): N18.30 - CHRONIC KIDNEY DISEASE, STAGE 3 UNSPECIFIED (3) Type 2 diabetes mellitus Current Visit: Yes Status: Acute Assessment & Plan: -ADA -SSI -Lantus 24 units (4) Seizures Current Visit: Yes Status: Acute Assessment & Plan: -Continue home keppra Code(s): R56.9 - UNSPECIFIED CONVULSIONS (5) Hypertension Current Visit: No Status: Acute Qualifiers: Hypertension type: primary hypertension Qualified Code(s): I10 - Essential (primary) hypertension Assessment & Plan: - markedly elevated on arrival, improved after getting nitro paste -may reactive pain response - resume home Coreg, clonidine, spironolactone, and lisinopril Code(s): I10 - ESSENTIAL (PRIMARY) HYPERTENSION (6) Elevated lipase Current Visit: Yes Status: Acute Assessment & Plan: -lipase at 440 -not at three times the greater upper limit of normal -CT abdomen demonstrating liver in the upper size, 17 cm (interval mild resolution, priorly 18 cm). Otherwise, unremarkable noncontrast CT of the abdomen and pelvis Code status: Full code Diet: diabetic Prophylaxis: SQ heparin TID Code(s): R74.8 - ABNORMAL LEVELS OF OTHER SERUM ENZYMES
[2023-11-05] MEDS: CLONIDINE 0.1 MG TABLET PO SCH (07:26)
[2023-11-05] MEDS: Zestril 20 MG PO SCH (08:38)
[2023-11-05] MEDS: ECOTRIN 81 MG PO SCH (08:38)
[2023-11-05] MEDS: Aldactone 25 MG PO SCH (08:38)
[2023-11-05] MEDS: Imdur 60MG PO SCH (08:38)
[2023-11-05] MEDS: Coreg 3.125 MG PO SCH (08:38)
[2023-11-05] MEDS: NEURONTIN PO SCH (08:39)
[2023-11-05] MEDS: KEPPRA PO SCH (08:39)
[2023-11-05] MEDS: HUMALOG SQ PRN (08:52)
--- NOTE | 2023-11-05 09:58 | PCM.DS ---
Discharge Summary Date of Admission: 11/05/23 00:44 Date of Discharge: 11/05/23 Admitting Physician: BERTIN MARTIN MD Consults: Consults on Case 11/05/23 02:07 [facility] Needs Assessment ROUTINE Primary Care Provider: RADHA KELLOGG Allergies Allergies No Known Drug Allergies Allergy (Verified 10/17/23 17:28) Hospital Summary - Hospital Course Hospital Course: 58 y/o M with h/o CAD s/p stents x5, DM2, HTN, CKD3, GERD, NATE, and seizure disorder, admitted 11/04/23 with unstable angina/VINAY with chest pain radiating to the jaw and back with associated nausea, vomiting, diaphoresis, and shortness of breath. EKG showing sinus rhythm and abnormal T wave . Troponins elevated. Chest pain unresolved overnight. Most likely will need cath. Will transfer to higher level of care with cardiology support for evaluation. (1) Chest pain, rule out acute myocardial infarction Current Visit: Yes Status: Acute Assessment & Plan: -TTE in September 2023 showed normal EF but LV hypertrophy -CXR with no acute cardiopulmonary process -Troponins very mildly uptrending from this first -EKG sinus with abnormal Twaves -PRN nitro Continue home Imdur Transfer pending -may need cardiac cath Code(s): R07.9 - CHEST PAIN, UNSPECIFIED (2) CKD (chronic kidney disease) stage 3, GFR 30-59 ml/min Current Visit: Yes Status: Acute Assessment & Plan: -Baseline around 1.6, creat better than baseline at 1.36 -Continue to monitor renal/lytes -Avoid nephrotoxic medications Code(s): N18.30 - CHRONIC KIDNEY DISEASE, STAGE 3 UNSPECIFIED (3) Type 2 diabetes mellitus Current Visit: Yes Status: Acute Assessment & Plan: -ADA -SSI -Lantus 24 units (4) Seizures Current Visit: Yes Status: Acute Assessment & Plan: -Continue home keppra Code(s): R56.9 - UNSPECIFIED CONVULSIONS (5) Hypertension Current Visit: No Status: Acute Qualifiers: Hypertension type: primary hypertension Qualified Code(s): I10 - Essential (primary) hypertension Assessment & Plan: - markedly elevated on arrival, improved after getting nitro paste -may reactive pain response - resume home Coreg, clonidine, spironolactone, and lisinopril Code(s): I10 - ESSENTIAL (PRIMARY) HYPERTENSION (6) Elevated lipase Current Visit: Yes Status: Acute Assessment & Plan: -lipase at 440 -not at three times the greater upper limit of normal -CT abdomen demonstrating liver in the upper size, 17 cm (interval mild resolution, priorly 18 cm). Otherwise, unremarkable noncontrast CT of the abdomen and pelvis Code status: Full code Diet: diabetic Prophylaxis: SQ heparin TID - Vitals & Intake/Output Vital Signs: Vital Signs Temperature 98.1 F 11/05/23 08:00 Pulse Rate 97 H 11/05/23 08:00 Respiratory Rate 20 11/05/23 08:00 Blood Pressure 185/82 11/05/23 08:00 O2 Sat by Pulse Oximetry 99 11/05/23 08:00 Intake & Output: Intake & Output 11/02/23 11/03/23 11/04/23 11/05/23 11:59 11:59 11:59 11:59 Weight 99.9 kg - Lab Result Diagrams: 11/05/23 05:25 11/05/23 05:25 Lab Results-Last 24 Hrs: Lab Results-Last 24 Hours 11/04/23 11/04/23 11/04/23 Range/Units 19:02 19:02 19:02 WBC 4.1 (4.0-10.5) x10^3/uL RBC 4.31 (4.1-5.6) x10^6/uL Hgb 13.6 (12.5-18.0) g/dL Hct 38.5 L (42-50) % MCV 89.3 (78-100) fL MCH 31.6 (26-32) pg MCHC 35.3 (32-36) g/dL RDW 12.5 (11.5-14.0) % Plt Count 232 (150-450) x10^3/uL MPV 9.0 (7.5-11.0) fL Gran % 64.8 (36.0-66.0) % Immature Gran % (Auto) 1.0 H (0.00-0.4) % Nucleat RBC Rel Count 0.0 (0.00-0.1) % Eos # (Auto) 0.13 (0-0.5) x10^3/uL Immature Gran # (Auto) 0.04 H (0.00-0.03) x10^3u/L Absolute Lymphs (auto) 0.82 L (1.0-4.6) x10^3/uL Absolute Monos (auto) 0.42 (0.0-1.3) x10^3/uL Absolute Nucleated RBC 0.00 (0.00-0.01) x10^3u/L Lymphocytes % 19.9 L (24.0-44.0) % Monocytes % 10.2 (0.0-12.0) % Eosinophils % 3.1 (0.00-5.0) % Basophils % 1.0 (0.0-0.4) % Absolute Granulocytes 2.68 (1.4-6.9) x10^3/uL Basophils # 0.04 (0-0.4) x10^3/uL D-Dimer (0.0-0.50) mg/L Sodium 134 L (135-145) mmol/L Potassium 3.7 (3.5-5.1) mmol/L Chloride 100 (98-107) mmol/L Carbon Dioxide 24 (22-30) mmol/L Anion Gap 13.7 (5-15) MEQ/L BUN 18 (9-20) mg/dL Creatinine 1.31 H (0.66-1.25) mg/dL Estimated GFR 63.1 ML/MIN Glucose 374 H (74-106) mg/dL POC Glucometer (74 to 106) mg/dL Calcium 9.3 (8.4-10.2) mg/dL Magnesium 1.8 (1.6-2.3) mg/dL Total Bilirubin 0.40 (0.2-1.3) mg/dL AST 20 (17-59) U/L ALT 22 (0-50) U/L Alkaline Phosphatase 143 H (38-126) U/L Troponin I 0.028 (0.000-0.033) ng/mL NT-Pro-B Natriuret Pep 1170 (<300) pg/mL Serum Total Protein 7.1 (6.3-8.2) g/dL Albumin 4.0 (3.5-5.0) g/dL Triglycerides (30-150) mg/dL Cholesterol (50-200) mg/dL LDL Cholesterol (30-100) mg/dL HDL Cholesterol (40-60) mg/dL Heart Disease Risk Ratio Lipase 440 H (23-300) U/L Procalcitonin (0.030-0.080) ng/mL 11/04/23 11/04/23 11/04/23 Range/Units 19:02 19:30 22:58 WBC (4.0-10.5) x10^3/uL RBC (4.1-5.6) x10^6/uL Hgb (12.5-18.0) g/dL Hct (42-50) % MCV (78-100) fL MCH (26-32) pg MCHC (32-36) g/dL RDW (11.5-14.0) % Plt Count (150-450) x10^3/uL MPV (7.5-11.0) fL Gran % (36.0-66.0) % Immature Gran % (Auto) (0.00-0.4) % Nucleat RBC Rel Count (0.00-0.1) % Eos # (Auto) (0-0.5) x10^3/uL Immature Gran # (Auto) (0.00-0.03) x10^3u/L Absolute Lymphs (auto) (1.0-4.6) x10^3/uL Absolute Monos (auto) (0.0-1.3) x10^3/uL Absolute Nucleated RBC (0.00-0.01) x10^3u/L Lymphocytes % (24.0-44.0) % Monocytes % (0.0-12.0) % Eosinophils % (0.00-5.0) % Basophils % (0.0-0.4) % Absolute Granulocytes (1.4-6.9) x10^3/uL Basophils # (0-0.4) x10^3/uL D-Dimer 0.35 (0.0-0.50) mg/L Sodium (135-145) mmol/L Potassium (3.5-5.1) mmol/L Chloride (98-107) mmol/L Carbon Dioxide (22-30) mmol/L Anion Gap (5-15) MEQ/L BUN (9-20) mg/dL Creatinine (0.66-1.25) mg/dL Estimated GFR ML/MIN Glucose (74-106) mg/dL POC Glucometer 262 H (74 to 106) mg/dL Calcium (8.4-10.2) mg/dL Magnesium (1.6-2.3) mg/dL Total Bilirubin (0.2-1.3) mg/dL AST (17-59) U/L ALT (0-50) U/L Alkaline Phosphatase (38-126) U/L Troponin I (0.000-0.033) ng/mL NT-Pro-B Natriuret Pep (<300) pg/mL Serum Total Protein (6.3-8.2) g/dL Albumin (3.5-5.0) g/dL Triglycerides (30-150) mg/dL Cholesterol (50-200) mg/dL LDL Cholesterol (30-100) mg/dL HDL Cholesterol (40-60) mg/dL Heart Disease Risk Ratio Lipase (23-300) U/L Procalcitonin 0.096 H (0.030-0.080) ng/mL 11/04/23 11/05/23 11/05/23 Range/Units 23:29 05:25 05:25 WBC 5.0 (4.0-10.5) x10^3/uL RBC 4.27 (4.1-5.6) x10^6/uL Hgb 13.3 (12.5-18.0) g/dL Hct 38.4 L (42-50) % MCV 89.9 (78-100) fL MCH 31.1 (26-32) pg MCHC 34.6 (32-36) g/dL RDW 13.1 (11.5-14.0) % Plt Count 237 (150-450) x10^3/uL MPV 9.1 (7.5-11.0) fL Gran % (36.0-66.0) % Immature Gran % (Auto) (0.00-0.4) % Nucleat RBC Rel Count (0.00-0.1) % Eos # (Auto) (0-0.5) x10^3/uL Immature Gran # (Auto) (0.00-0.03) x10^3u/L Absolute Lymphs (auto) (1.0-4.6) x10^3/uL Absolute Monos (auto) (0.0-1.3) x10^3/uL Absolute Nucleated RBC (0.00-0.01) x10^3u/L Lymphocytes % (24.0-44.0) % Monocytes % (0.0-12.0) % Eosinophils % (0.00-5.0) % Basophils % (0.0-0.4) % Absolute Granulocytes (1.4-6.9) x10^3/uL Basophils # (0-0.4) x10^3/uL D-Dimer (0.0-0.50) mg/L Sodium (135-145) mmol/L Potassium (3.5-5.1) mmol/L Chloride (98-107) mmol/L Carbon Dioxide (22-30) mmol/L Anion Gap (5-15) MEQ/L BUN (9-20) mg/dL Creatinine (0.66-1.25) mg/dL Estimated GFR ML/MIN Glucose (74-106) mg/dL POC Glucometer (74 to 106) mg/dL Calcium (8.4-10.2) mg/dL Magnesium (1.6-2.3) mg/dL Total Bilirubin (0.2-1.3) mg/dL AST (17-59) U/L ALT (0-50) U/L Alkaline Phosphatase (38-126) U/L Troponin I 0.037 H* 0.047 H* (0.000-0.033) ng/mL NT-Pro-B Natriuret Pep (<300) pg/mL Serum Total Protein (6.3-8.2) g/dL Albumin (3.5-5.0) g/dL Triglycerides (30-150) mg/dL Cholesterol (50-200) mg/dL LDL Cholesterol (30-100) mg/dL HDL Cholesterol (40-60) mg/dL Heart Disease Risk Ratio Lipase (23-300) U/L Procalcitonin (0.030-0.080) ng/mL 11/05/23 11/05/23 11/05/23 Range/Units 05:25 08:30 09:17 WBC (4.0-10.5) x10^3/uL RBC (4.1-5.6) x10^6/uL Hgb (12.5-18.0) g/dL Hct (42-50) % MCV (78-100) fL MCH (26-32) pg MCHC (32-36) g/dL RDW (11.5-14.0) % Plt Count (150-450) x10^3/uL MPV (7.5-11.0) fL Gran % (36.0-66.0) % Immature Gran % (Auto) (0.00-0.4) % Nucleat RBC Rel Count (0.00-0.1) % Eos # (Auto) (0-0.5) x10^3/uL Immature Gran # (Auto) (0.00-0.03) x10^3u/L Absolute Lymphs (auto) (1.0-4.6) x10^3/uL Absolute Monos (auto) (0.0-1.3) x10^3/uL Absolute Nucleated RBC (0.00-0.01) x10^3u/L Lymphocytes % (24.0-44.0) % Monocytes % (0.0-12.0) % Eosinophils % (0.00-5.0) % Basophils % (0.0-0.4) % Absolute Granulocytes (1.4-6.9) x10^3/uL Basophils # (0-0.4) x10^3/uL D-Dimer (0.0-0.50) mg/L Sodium 136 (135-145) mmol/L Potassium 3.8 (3.5-5.1) mmol/L Chloride 104 (98-107) mmol/L Carbon Dioxide 25 (22-30) mmol/L Anion Gap 10.4 (5-15) MEQ/L BUN 21 H (9-20) mg/dL Creatinine 1.36 H (0.66-1.25) mg/dL Estimated GFR 60.3 ML/MIN Glucose 196 H (74-106) mg/dL POC Glucometer 218 H (74 to 106) mg/dL Calcium 9.1 (8.4-10.2) mg/dL Magnesium (1.6-2.3) mg/dL Total Bilirubin (0.2-1.3) mg/dL AST (17-59) U/L ALT (0-50) U/L Alkaline Phosphatase (38-126) U/L Troponin I 0.044 H* (0.000-0.033) ng/mL NT-Pro-B Natriuret Pep (<300) pg/mL Serum Total Protein (6.3-8.2) g/dL Albumin (3.5-5.0) g/dL Triglycerides 274 H (30-150) mg/dL Cholesterol 228 H (50-200) mg/dL LDL Cholesterol 118 H (30-100) mg/dL HDL Cholesterol 53 (40-60) mg/dL Heart Disease Risk Ratio 4.0 Lipase (23-300) U/L Procalcitonin (0.030-0.080) ng/mL - Radiology Exams Ordered Rad Exams-Entire Visit: Radiology Procedures Category Date Time Status ABDOMEN AND PELVIS W/0 CONTRAS [CT] Stat Exams 11/04/23 20:40 Completed CHEST 1 VIEW (PORTABLE) Stat Exams 11/04/23 18:52 Completed CHEST WITHOUT CONTRAST [CT] Stat Exams 11/04/23 20:40 Completed - Procedures and Test Procedures and Tests throughout Hospitalization: Therapy Orders & Screens 11/04/23 21:14 Respiratory Therapy Assessment DAILY Comment: 11/04/23 22:53 EKG PRN Comment: for chest pain 11/04/23 22:55 Schedule Outpt Stress Test Routine Comment: Diagnosis: chest pain 11/05/23 02:07 RT Screen per Nursing Assess ONCE Comment: Protocol Order Physician Instructions: Greater than 3 points order RT Admission Screen Reason For Exam: Triggered on Admission Diagnosis: chest pain Diagnosis: chest pain Pneumonia: Yes Home O2: No Asthma: No CHF: No Home CPAP/BIPAP: Yes Home Nebs/MDI: No Total Points: 8 ST Screen per Nursing Assess ONCE Comment: Protocol Order Physician Instructions: Greater than [address] Admission Screening Reason For Exam: Triggered on Admission Diagnosis: chest pain CVA/Dyshpagia/Aphasia: No Cognitive Deficits: No Dehydration/Nutrition Deficit: No Reflux: No Oral-Motor Difficulties: No Pneumonia: Yes Penitentiary Resident: No Total Points: 5 11/05/23 08:19 EKG ROUTINE Comment: Diagnosis: chest pain Discharge Exam General Appearance: mild distress Neurologic Exam: alert, oriented x 3, cooperative Eye Exam: PERRL Ears, Nose, Throat Exam: normal ENT inspection Neck Exam: normal inspection Respiratory Exam: normal breath sounds Cardiovascular Exam: normal heart sounds, tachycardia Gastrointestinal/Abdomen Exam: soft, normal bowel sounds Male Genitalia Exam: deferred Rectal Exam: deferred Back Exam: normal inspection Extremity Exam: normal inspection Skin Exam: normal color Final Diagnosis/Problem List - Final Discharge Diagnosis/Problem (1) Chest pain, rule out acute myocardial infarction Current Visit: Yes Status: Acute Code(s): R07.9 - CHEST PAIN, UNSPECIFIED (2) CKD (chronic kidney disease) stage 3, GFR 30-59 ml/min Current Visit: Yes Status: Acute Code(s): N18.30 - CHRONIC KIDNEY DISEASE, STAGE 3 UNSPECIFIED (3) Type 2 diabetes mellitus Current Visit: Yes Status: Acute (4) Seizures Current Visit: Yes Status: Acute Code(s): R56.9 - UNSPECIFIED CONVULSIONS (5) Hypertension Current Visit: No Status: Acute Code(s): I10 - ESSENTIAL (PRIMARY) HYPERTENSION (6) Elevated lipase Current Visit: Yes Status: Acute Code(s): R74.8 - ABNORMAL LEVELS OF OTHER SERUM ENZYMES - Discharge Disposition: DC TO OTHER HOSP Condition: Stable Prescriptions: New Heparin 5000 Units/0.5 ml [Heparin 5000 Units/0.5 ml (High Risk Med)] 5,000 unit SQ Q8HT Atorvastatin Calcium [Lipitor 40Mg] 80 mg PO DAILY tablet Nitroglycerin 0.4 mg Tablet [Nitrostat 0.4 MG Tablet] 0.4 mg SL Q5MIN PRN MR X 3 PRN PRN Reason: Chest Pain Continue Levetiracetam [Keppra] 500 mg PO BID Gabapentin [Neurontin ] 600 mg PO TID Aspirin 81 gm Chew [Baby Aspirin 81 mg Chew] 81 mg PO DAILY lisinopriL [Lisinopril] 40 mg PO DAILY Clonidine HCl 0.1 mg [Clonidine 0.1 mg Tablet] 0.5 tab PO BID Insulin Glargine,Hum.rec.anlog [Basaglar Kwikpen U-100] 45 units SQ QHS Isosorbide Mononitrate [Isosorbide Mononitrate ER] 60 mg PO DAILY Melatonin 10 mg PO QHS Trazodone HCl 50 mg [Desyrel 50 mg] 100 mg PO HS Amitriptyline HCl 25 mg [Amitriptyline 25 mg Tablet] 25 mg PO HS Spironolactone 25 mg [Aldactone 25 MG] 25 mg PO DAILY Carvedilol 3.125 mg [Coreg 3.125 MG] 3.125 mg PO BID Clotrimazole Cream 30 gm [Lotrimin Cream 30 gm] 30 gm TP DAILY 30 Days #1 unit Follow up with: RADHA KELLOGG MD [Primary Care Provider] -
[2023-11-05] MEDS ORDERED: NON-FORMULARY ITEM (Lisinopril [Lisinopril] 40 MG Tablet) PO SCH (10:00)
[2023-11-05] MEDS ORDERED: BABY ASPIRIN 81 MG CHEW PO SCH (10:00)
[2023-11-05] MEDS ORDERED: LIPITOR 40MG PO SCH (10:00)
[2023-11-05] MEDS: Nitrostat 0.4 MG Tablet SL PRN (10:23)
[2023-11-05 11:31] VITALS: RESP 22; TEMP 97.8; O2SAT 95
[2023-11-05 14:23] VITALS: BP 143/81; PULSE 92
[2023-11-05] MEDS ORDERED: NON-FORMULARY ITEM (Insulin Glargine,Hum.Rec.Anlog [Basaglar Kwikpen U-100] 100 UNIT/ML In SQ SCH (22:00)
[2023-11-05] MEDS ORDERED: MELATONIN PO SCH (22:00)
[2023-11-05] MEDS ORDERED: Lantus Insulin SQ SCH (22:00)
[2023-11-05] MEDS ORDERED: AMITRIPTYLINE 25 MG TABLET PO SCH (22:00)
[2023-11-05] MEDS ORDERED: NON-FORMULARY ITEM (Melatonin [Melatonin] 10 MG Tablet) PO SCH (22:00)
[2023-11-05] MEDS ORDERED: DESYREL 50 MG PO SCH (22:00)
[2023-11-06] MEDS ORDERED: ZOCOR 20MG PO SCH (10:00)
== END 2023-11-05 14:49 ==
LOC: ED 18:38 → MED SURG 11-05 00:44
PROVIDERS: ADMIT Internal Medicine; ATTEND Internal Medicine
DX: R07.9 Chest pain, unspecified (principal); Z59.811 Housing instability, housed, with risk of homelessness; Z59.12 Inadequate housing utilities; R79.89 Other specified abnormal findings of blood chemistry; I25.10 Atherosclerotic heart disease of native coronary artery without angina pectoris; I12.9 Hypertensive chronic kidney disease with stage 1 through stage 4 chronic kidney disease, or unspecified chronic kidney disease; E11.22 Type 2 diabetes mellitus with diabetic chronic kidney disease; N18.30 Chronic kidney disease, stage 3 unspecified; R56.9 Unspecified convulsions; R74.8 Abnormal levels of other serum enzymes; Z79.899 Other long term (current) drug therapy
CPT/HCPCS: 36000; 36415; 71045; 71250; 74176; 80048; 80053; 80061; 82947; 83690; 83721; 83735; 83880; 84145; 84484; 85025; 85027; 85379; 93005; 93041; 93268; 94640; 96374; 96376; 99285; G0378; J0456; J0696; J1644; J1817; J2270; J2405; Q3014; A9270-GY

== ENCOUNTER 2023-11-15 19:46 | Emergency (ER) | payer MEDICARE ==
[2023-11-15 19:51] VITALS: TEMP 98.2
--- NOTE | 2023-11-15 20:04 | ERPHSYRPT ---
- History of Present Illness Time Seen by Provider: 11/15/23 19:55 Historian: patient Exam Limitations: no limitations Patient Subjective Stated Complaint: chest pain/reflux Triage Nursing Assessment: pt brought in by ems, pt alert and oriented x4. Pt c/o midsternal chest pain that started around 1915, slight radiation to the back. Pt states, "it feels like reflux and I feel like I need to belch real big, but I've never had reflux this bad". Pt was seen in ER here on 11/05/23 and flown to [facility] where pt received 5 cardiac stents and already had 5 previous stents. Lungs clear, heart tones reg and tachy, no edema noted, pt is hypertensive at 210/125, pt has a prod cough with thick, white sputum, has nausea but no vomiting, and is diaphoretic. Physician History: This is a 58-year-old white male patient of Dr. Kellogg who was brought into the emergency department by the paramedics secondary to the complaint of chest pain. Prior to 11/05/2023, the patient had coronary disease with placement of 5 cardiac stents in the past. On 11/05/2023, he was seen in our emergency department where he was flown from our facility to the facility in [facility] where during the last week at that facility patient had 5 more cardiac stents placed. Patient does not recall the name of the router setter. Patient contacted the paramedics today because of recurrent chest pain. Patient does have a history of chronic renal disease and has renal stents in place. He is on 4 different medications to lower his blood pressure. Patient, because of his chest pain, took 2 nitroglycerin sublingually followed by receiving 3 more nitroglycerin tablets by EMS en route to our facility. Patient's blood pressure on arrival to the emergency department is 210/125. Patient is having chest pain which she describes as a localized, central burning almost like heartburn. Patient has a history of hyperlipidemia, diabetes and is morbidly obese. Timing/Duration: today Quality: burning Location: substernal, central Chest Pain Radiation: no radiation Associated Symptoms: cough Prior Chest Pain/Cardiac Workup: cardiac cath, heart attack, recently seen/treated, recent hospitalization Nitro Today/Relief: 0.4 mg x 2, 0.4 mg x 3, provided by ED, provided at home Aspirin Treatment Today: no aspirin today Allergies/Adverse Reactions: No Known Drug Allergies Allergy (Verified 11/15/23 21:14) Home Medications: Aspirin 81 gm Chew [Baby Aspirin 81 mg Chew] 81 mg PO DAILY 09/22/20 [History] Gabapentin [Neurontin ] 600 mg PO TID 09/22/20 [History] Levetiracetam [Keppra] 500 mg PO BID 09/22/20 [History] Clonidine HCl 0.1 mg [Clonidine 0.1 mg Tablet] 0.5 tab PO BID 10/13/20 [History] Insulin Glargine,Hum.rec.anlog [Basaglar Kwikpen U-100] 45 units SQ QHS 10/13/20 [History] Isosorbide Mononitrate [Isosorbide Mononitrate ER] 60 mg PO DAILY 10/13/20 [History] Melatonin 10 mg PO QHS 10/13/20 [History] lisinopriL [Lisinopril] 40 mg PO DAILY 10/13/20 [History] Amitriptyline HCl 25 mg [Amitriptyline 25 mg Tablet] 25 mg PO HS 09/14/22 [History] Trazodone HCl 50 mg [Desyrel 50 mg] 100 mg PO HS 09/14/22 [History] Carvedilol 3.125 mg [Coreg 3.125 MG] 3.125 mg PO BID 09/25/23 [History] Spironolactone 25 mg [Aldactone 25 MG] 25 mg PO DAILY 09/25/23 [History] Hx Tetanus, Diphtheria Vaccination/Date Given: Yes Hx Influenza Vaccination/Date Given: Yes Hx Pneumococcal Vaccination/Date Given: Yes Immunizations Up to Date: Yes Travel Risk - International Travel Have you traveled outside of the country in past 3 weeks: No - Emerging Infectious Disease Are you exhibiting symptoms associated with any current EIDs: No Symptoms: Cough: New Onset - Review of Systems Constitutional: No Symptoms Eyes: No Symptoms Ears, Nose, & Throat: No Symptoms Respiratory: Cough Cardiac: Chest Pain (Caesar is a bad heartburn) Abdominal/Gastrointestinal: No Symptoms Genitourinary Symptoms: No Symptoms Musculoskeletal: No Symptoms Skin: No Symptoms Neurological: No Symptoms Psychological: Anxiety Endocrine: No Symptoms Hematologic/Lymphatic: No Symptoms Immunological/Allergic: No Symptoms All Other Systems: Reviewed and Negative - Past Medical History Pertinent Past Medical History: Yes Neurological History: Seizures ENT History: No Pertinent History Cardiac History: Coronary Artery Disease, Hypertension, Myocardial Infarction ([place]) Respiratory History: Pulmonary Embolism, Sleep Apnea Endocrine Medical History: Diabetes Type II Musculoskeletal History: Arthritis GI Medical History: GERD, Gallbladder Disease, Hemorrhoids, Pancreatitis History: Renal Disease Psycho-Social History: No Pertinent History Male Reproductive Disorders: No Pertinent History Other Medical History: SEE MEDICAL NOTES FOR MULTIPLE OTHER CO-MORBIDITIES - Past Surgical History Past Surgical History: Yes Neuro Surgical History: No Pertinent History Cardiac: Angioplasty, Cardiac Catheterization, Cardiac Stent Respiratory: No Pertinent History Gastrointestinal: Cholecystectomy Genitourinary: No Pertinent History Musculoskeletal: Other Male Surgical History: No Pertinent History Other Surgical History: 10 cardiac stents, 2 renal stent, Left Ring Finger amputated Significant Family History: no pertinent family hx - Social History Smoking Status: Former smoker How long have you smoked: 4 years Exposure to second hand smoke: Yes Drug Use: none Patient Lives Alone: Yes - Social Determinants of Health Will the patient participate in the screening: Yes Do you worry about a steady place to live?: No Do you have any problems with any of the following?: No known problems In the past 12 months,have you had to go without utilities?: No Transportation Issues: No Has anyone in your support network made you feel unsafe?: No Have you or anyone in your house had to go without enough: No - Nursing Vital Signs Nursing Vital Signs: Initial Vital Signs Temperature 98.2 F 11/15/23 19:50 Pulse Rate 129 H 11/15/23 19:50 Respiratory Rate 22 11/15/23 19:50 Blood Pressure 210/125 11/15/23 19:50 O2 Sat by Pulse Oximetry 100 11/15/23 19:50 Pain Scale Pain Intensity 10 - Physical Exam General Appearance: mild distress, alert, anxiety, obese Eye Exam: PERRL/EOMI, eyes nml inspection Ears, Nose, Throat Exam: normal ENT inspection, moist mucous membranes Neck Exam: normal inspection, non-tender, supple, full range of motion Respiratory Exam: normal breath sounds, chest tenderness (Describes as a bad heartburn in the central substernal region without radiation), lungs clear, airway intact, No respiratory distress Cardiovascular Exam: tachycardia Gastrointestinal/Abdomen Exam: soft, normal bowel sounds, No tenderness Rectal Exam: not done Back Exam: normal inspection, normal range of motion, No CVA tenderness Extremity Exam: normal inspection, normal range of motion, pelvis stable Neurologic Exam: alert, oriented x 3, cooperative, court liaison II-XII nml as tested Skin Exam: diaphoresis Lymphatic Exam: No adenopathy SpO2 Interpretation: normal SpO2: 100 O2 Delivery: Room Air - Course Nursing assessment & vital signs reviewed: Yes EKG Interpreted by Me: RATE (130), Sinus Tach, NORMAL AXIS, NORMAL INTERVALS, N ORMAL QRS, NORMAL ST-T, Other (QTc is 457. The computer reads out minimal ST elevation lateral leads. I do not appreciate that at this time. Will repeat the twelve-lead EKG shortly) Ordered Tests: Active Orders 24 hr Category Date Time Status Bracelet Former STAT Care 11/15/23 20:05 Active EKG-ER Only STAT Care 11/15/23 20:04 Active IV Insertion STAT Care 11/15/23 20:04 Active Pulse Oximetry (ED) STAT Care 11/15/23 20:04 Active CHEST 1 VIEW (PORTABLE) Stat Exams 11/15/23 20:05 Taken CBC W DIFF Stat Lab 11/15/23 21:08 Completed CMP Stat Lab 11/15/23 21:08 Completed NT PRO BNPII Stat Lab 11/15/23 21:08 Completed PROTIME WITH INR Stat Lab 11/15/23 21:08 Completed TROPONIN Q4H Lab 11/15/23 21:08 Completed TROPONIN Q4H Lab 11/16/23 00:15 Ordered TROPONIN Q4H Lab 11/16/23 04:15 Ordered Medication Summary Generic Name Dose Route Start Last Admin Trade Name Freq PRN Reason Stop Dose Admin Sodium Chloride 1,000 mls @ 100 mls/hr 11/15/23 20:15 11/15/23 20:17 Sodium Chloride 0.9% 1000 Ml IV 12/15/23 20:14 100 mls/hr .Q10H DENISE Administration Nitroglycerin/Dextrose 250 mls @ 1.5 mls/hr 11/15/23 22:28 11/15/23 22:47 Ntg 0.2mg/Ml In D5w Glass IV 12/15/23 22:27 5 mcg/min .Q24H PRN 1.5 mls/hr CHEST PAIN Administration Protocol 5 MCG/MIN Discontinued Medications Generic Name Dose Route Start Last Admin Trade Name Maria Victoria PRN Reason Stop Dose Admin Al Hydrox/Mg Hydrox/Simethicone Confirm 11/15/23 21:16 Mag Hydrox/Al Hydrox/Simeth 30 Ml Udcup Administered 11/15/23 21:17 Dose 30 ml .ROUTE .STK-MED ONE Aspirin 324 mg 11/15/23 20:04 11/15/23 20:18 Aspirin 81 Mg Tab.Chew PO 11/15/23 20:05 324 mg STAT ONE Administration Aspirin Confirm 11/15/23 20:13 Aspirin 81 Mg Tab.Chew Administered 11/15/23 20:14 Dose 324 mg .ROUTE .STK-MED ONE Heparin Sodium (Beef Lung) 5,000 unit 11/15/23 22:16 11/15/23 22:30 Heparin 5000 Units/0.5 Ml 5,000 Unit/0.5 Ml Syr IV 11/15/23 22:17 5,000 unit STAT ONE Administration Heparin Sodium (Beef Lung) Confirm 11/15/23 22:29 Heparin 5000 Units/0.5 Ml 5,000 Unit/0.5 Ml Syr Administered 11/15/23 22:30 Dose 5,000 unit .ROUTE .STK-MED ONE Labetalol HCl 10 mg 11/15/23 20:53 11/15/23 20:58 Labetalol Hcl 20 Mg/4 Ml Disp.Syringe IV 11/15/23 20:54 10 mg STAT ONE Administration Labetalol HCl Confirm 11/15/23 20:56 Labetalol Hcl 20 Mg/4 Ml Disp.Syringe Administered 11/15/23 20:57 Dose 20 mg IV .STK-MED ONE Labetalol HCl 10 mg 11/15/23 21:44 11/15/23 21:54 Labetalol Hcl 20 Mg/4 Ml Disp.Syringe IV 11/15/23 21:45 10 mg STAT ONE Administration Labetalol HCl Confirm 11/15/23 21:49 Labetalol Hcl 20 Mg/4 Ml Disp.Syringe Administered 11/15/23 21:50 Dose 20 mg IV .STK-MED ONE Lidocaine HCl Confirm 11/15/23 21:16 Lidocaine Hcl 2% Viscous 15 Ml Udcup Administered 11/15/23 21:17 Dose 15 ml .ROUTE .STK-MED ONE Lorazepam 1 mg 11/15/23 21:44 11/15/23 21:54 Lorazepam 2 Mg/1 Ml 2 Mg Vial IV 11/15/23 21:45 1 mg STAT ONE Administration Lorazepam Confirm 11/15/23 21:48 Lorazepam 2 Mg/1 Ml 2 Mg Vial Administered 11/15/23 21:49 Dose 2 mg .ROUTE .STK-MED ONE Magnesium Hydroxide 45 ml 11/15/23 21:13 11/15/23 21:18 Mag Hydrx/Alum Hyd/Simeth/Lido 45 Ml Bottle PO 11/15/23 21:14 45 ml STAT ONE Administration Morphine Sulfate 4 mg 11/15/23 20:04 11/15/23 20:19 Morphine Sulfate 4 Mg/Ml Injection IV 11/15/23 20:05 4 mg STAT ONE Administration Morphine Sulfate Confirm 11/15/23 20:13 Morphine Sulfate 4 Mg/Ml Injection Administered 11/15/23 20:14 Dose 4 mg .ROUTE .STK-MED ONE Morphine Sulfate 2 mg 11/15/23 21:45 11/15/23 21:52 Morphine Sulfate 2 Mg/Ml Inj IV 11/15/23 21:46 2 mg STAT ONE Administration Morphine Sulfate Confirm 11/15/23 21:49 Morphine Sulfate 2 Mg/Ml Inj Administered 11/15/23 21:50 Dose 2 mg .ROUTE .STK-MED ONE Ondansetron HCl 4 mg 11/15/23 20:04 11/15/23 20:19 Ondansetron Hcl 4 Mg/2 Ml Vial IV 11/15/23 20:05 4 mg STAT ONE Administration Ondansetron HCl Confirm 11/15/23 20:13 Ondansetron Hcl 4 Mg/2 Ml Vial Administered 11/15/23 20:14 Dose 4 mg .ROUTE .STK-MED ONE Pantoprazole Sodium 40 mg 11/15/23 20:06 11/15/23 20:19 Pantoprazole 40 Mg Vial IV 11/15/23 20:07 40 mg STAT ONE Administration Pantoprazole Sodium Confirm 11/15/23 20:13 Pantoprazole 40 Mg Vial Administered 11/15/23 20:14 Dose 40 mg IV .STK-MED ONE Lab/Rad Data: Laboratory Result Diagrams 11/15/23 21:08 11/15/23 21:08 Laboratory Results 11/15/23 11/15/23 11/15/23 Range/Units 21:08 21:08 21:08 WBC (4.23-9.07) x10^3/uL RBC (4.63-6.08) x10^6/uL Hgb (13.7-17.5) g/dL Hct (40.1-51.0) % MCV (79.0-92.2) fL MCH (25.7-32.2) pg MCHC (32.3-36.5) g/dL RDW (11.6-14.4) % Plt Count (163-337) x10^3/uL MPV (9.4-12.4) fL Gran % (34.0-67.9) % Immature Gran % (Auto) (0.001-0.429) % Nucleat RBC Rel Count (0.00-0.2) % Eos # (Auto) (0.04-0.54) x10^3/uL Immature Gran # (Auto) (0.001-0.031) x10^3u/L Absolute Lymphs (auto) (1.32-3.57) x10^3/uL Absolute Monos (auto) (0.30-0.82) x10^3/uL Absolute Nucleated RBC (0.00-0.012) x10^3u/L Lymphocytes % (21.8-53.1) % Monocytes % (5.3-12.2) % Eosinophils % (0.8-7.0) % Basophils % (0.2-1.2) % Absolute Granulocytes (1.78-5.38) x10^3/uL Basophils # (0.01-0.08) x10^3/uL PT 10.0 (9.4-12.5) SECONDS INR 0.91 (0.8-3.0) Sodium 131 L (135-145) mmol/L Potassium 4.0 (3.5-5.1) mmol/L Chloride 99 (98-107) mmol/L Carbon Dioxide 13 L* (22-30) mmol/L Anion Gap 23.2 H (5-15) MEQ/L BUN 18 (9-20) mg/dL Creatinine 1.20 (0.66-1.25) mg/dL Estimated GFR 70.1 ML/MIN Glucose 413 H (74-106) mg/dL Calcium 10.1 (8.4-10.2) mg/dL Total Bilirubin 1.00 (0.2-1.3) mg/dL AST 26 (17-59) U/L ALT 24 (0-50) U/L Alkaline Phosphatase 179 H (38-126) U/L Troponin I 0.181 H* (0.000-0.033) ng/mL NT-Pro-B Natriuret Pep 1420 (<300) pg/mL Serum Total Protein 8.5 H (6.3-8.2) g/dL Albumin 4.9 (3.5-5.0) g/dL 11/15/23 Range/Units 21:08 WBC 6.7 (4.23-9.07) x10^3/uL RBC 5.28 (4.63-6.08) x10^6/uL Hgb 16.8 (13.7-17.5) g/dL Hct 47.7 (40.1-51.0) % MCV 90.3 (79.0-92.2) fL MCH 31.8 (25.7-32.2) pg MCHC 35.2 (32.3-36.5) g/dL RDW 12.7 (11.6-14.4) % Plt Count 309 (163-337) x10^3/uL MPV 8.9 L (9.4-12.4) fL Gran % 83.8 H (34.0-67.9) % Immature Gran % (Auto) 0.4 (0.001-0.429) % Nucleat RBC Rel Count 0.0 (0.00-0.2) % Eos # (Auto) 0.06 (0.04-0.54) x10^3/uL Immature Gran # (Auto) 0.03 (0.001-0.031) x10^3u/L Absolute Lymphs (auto) 0.53 L (1.32-3.57) x10^3/uL Absolute Monos (auto) 0.42 (0.30-0.82) x10^3/uL Absolute Nucleated RBC 0.00 (0.00-0.012) x10^3u/L Lymphocytes % 7.9 L (21.8-53.1) % Monocytes % 6.3 (5.3-12.2) % Eosinophils % 0.9 (0.8-7.0) % Basophils % 0.7 (0.2-1.2) % Absolute Granulocytes 5.59 H (1.78-5.38) x10^3/uL Basophils # 0.05 (0.01-0.08) x10^3/uL PT (9.4-12.5) SECONDS INR (0.8-3.0) Sodium (135-145) mmol/L Potassium (3.5-5.1) mmol/L Chloride (98-107) mmol/L Carbon Dioxide (22-30) mmol/L Anion Gap (5-15) MEQ/L BUN (9-20) mg/dL Creatinine (0.66-1.25) mg/dL Estimated GFR ML/MIN Glucose (74-106) mg/dL Calcium (8.4-10.2) mg/dL Total Bilirubin (0.2-1.3) mg/dL AST (17-59) U/L ALT (0-50) U/L Alkaline Phosphatase (38-126) U/L Troponin I (0.000-0.033) ng/mL NT-Pro-B Natriuret Pep (<300) pg/mL Serum Total Protein (6.3-8.2) g/dL Albumin (3.5-5.0) g/dL - Progress Progress: improved, re-examined Air Movement: fair Progress Note: 11/15/23 20:51 My medical decision making and the assignment of moderate to high complexity of this patient's medical issue is based on review of the patient's past medical history, review of patient's medication list, review patient drug allergy list, history present illness and physical findings on examination. The workup of this patient includes placement of intravenous line, infusion of normal saline solution, twelve-lead EKG, troponin level, BNP level, chest x-ray, CBC, CMP. The patient will be given Protonix as well as intravenous normal saline at a low rate, 4 mg of morphine and 4 mg of intravenous Zofran. 11/15/23 20:53 Differential diagnoses include but is not limited to gastroesophageal reflux disease, hypertension, arrhythmia, myocardial infarction, congestive heart failure, electrolyte abnormalities 11/15/23 22:02 I interpreted the patient's laboratory data results. The patient has, as expected, elevated troponin level post procedure. Chest x-ray preliminary study was interpreted by me. There is cardiomegaly present but no evidence of any acute cardiopulmonary process. Even though the patient underwent a cardiac catheterization and 5 cardiac stents placements out of [facility] in [facility] last week, the patient prefers to go to [facility] in [place] where his router setter, Dr. Flores practices 11/15/23 22:12 I interpreted the second twelve-lead EKG on this patient there was performed at 2200 on 11/15/2023 heart rate is 108 bpm. The patient's EKG shows sinus tachycardia. There is definitely a change in his morphology when compared to the twelve-lead EKG earlier. And that now there appears to be ST elevation in the lateral leads at a minimum. There is also the appearance of ST elevation in V1 V2 and V3. 11/15/23 22:49 Just as we were going to contact the [facility] in [place] the second twelve-lead EKG showed the acute [place]/STEMI findings and therefore we c hanged plans and provided the patient with heparin 5000 units intravenously followed by nitroglycerin drip. We contacted [facility] and will be transferring this patient to that facility where there is the closest router setter. Dr. Saravia, the emergency room physician on-call at [facility] this evening is aware. The transfer center auto accepted this patient. Blood Culture(s) Obtained: No Antibiotics given: No Counseled pt/family regarding: lab results, diagnosis, rad results (My medical decision making and the) Medical Desision Making - Independent Historian Additional History obtained from: Restuarant Crew Worker/EMT - Diagnostic Testing Diagnostic test were ordered, analyzed, and reviewed by me: Yes Radiological Interpretation: Interpreted by me, Teleradiologist Report - Risk of complications The pt has a high risk of morbidity or mortality based on: Decision regarding hospitilization or escalation of hosp level of care - Departure Departure Disposition: Home Clinical Impression: Chest pain, Acute myocardial infarction Condition: Serious Critical Care Time: Yes Critical Care Time(excluding separately billable procedures): Critical 30-74 mins (50) Referrals: RADHA KELLOGG MD [Primary Care Provider] - Follow up/PCP as directed
[2023-11-15] MEDS ORDERED: Sodium Chloride 0.9% 1000 ML 1,000 ML ONE (20:13)
[2023-11-15] MEDS ORDERED: BABY ASPIRIN 81 MG CHEW ONE (20:13)
[2023-11-15] MEDS ORDERED: PROTONIX 40 MG IV IV ONE (20:13)
[2023-11-15] MEDS ORDERED: Zofran 4 MG/2 ML VIAL ONE (20:13)
[2023-11-15] MEDS ORDERED: MORPHINE SULFATE 4 MG INJ ONE (20:13)
[2023-11-15] MEDS: Sodium Chloride 0.9% 1000 ML 1,000 ML IV SCH (20:17)
[2023-11-15] MEDS: BABY ASPIRIN 81 MG CHEW PO ONE (20:18)
[2023-11-15] MEDS: MORPHINE SULFATE 4 MG INJ IV ONE (20:19)
[2023-11-15] MEDS: PROTONIX 40 MG IV IV ONE (20:19)
[2023-11-15] MEDS: Zofran 4 MG/2 ML VIAL IV ONE (20:19)
[2023-11-15] MEDS ORDERED: TRANDATE 20 MG/4 ML SYRINGE IV ONE ×2 (20:56→21:49)
[2023-11-15] MEDS: TRANDATE 20 MG/4 ML SYRINGE IV ONE ×2 (20:58→21:54)
[2023-11-15 21:11] LABS: Absolute Neutrophil Ct (ANC) 5.59 x10^3/uL (1.78-5.38); BASOPHIL % 0.7 % (0.2-1.2); Basophil (Absolute #) 0.05 x10^3/uL (0.01-0.08); Eosinophil % 0.9 % (0.8-7.0); Eosinophil (Absolute #) 0.06 x10^3/uL (0.04-0.54); Hematocrit 47.7 % (40.1-51.0); Hemoglobin 16.8 g/dL (13.7-17.5); IMMATURE GRAN # 0.03 x10^3u/L (0.001-0.031); IMMATURE GRAN % 0.4 % (0.001-0.429); Lymphocyte (Absolute #) 0.53 x10^3/uL (1.32-3.57); Lymphocytes % 7.9 % (21.8-53.1); Mean Cell Volume 90.3 fL (79.0-92.2); Mean Corpuscular Hemoglobin 31.8 pg (25.7-32.2); Mean Corpuscular Hgb Concent. 35.2 g/dL (32.3-36.5); Mean Platelet Volume 8.9 fL (9.4-12.4); Monocyte (Absolute #) 0.42 x10^3/uL (0.30-0.82); Monocytes % 6.3 % (5.3-12.2); Neutrophil % 83.8 % (34.0-67.9); Platelet Count 309 x10^3/uL (163-337); Red Blood Count 5.28 x10^6/uL (4.63-6.08); Red Cell Distribution Width 12.7 % (11.6-14.4); White Blood Count 6.7 x10^3/uL (4.23-9.07)
[2023-11-15] MEDS ORDERED: XYLOCAINE VISCOUS 2% 15 ML CUP ONE (21:16)
[2023-11-15] MEDS ORDERED: MAALOX ES 30 ML UNIT DOSE ONE (21:16)
[2023-11-15] MEDS: GI COCKTAIL 45 ML (Maalox/Lidocaine) PO ONE (21:18)
[2023-11-15 21:24] LABS: INR 0.91 (0.8-3.0)
[2023-11-15 21:25] LABS: ALBUMIN 4.9 g/dL (3.5-5.0); ANION GAP 23.2 MEQ/L (5-15); Calcium 10.1 mg/dL (8.4-10.2); Creatinine 1 1.2 mg/dL (0.66-1.25); EST GLOMERULAR FILTRATION RATE 70.1 ML/MIN; Total Protein 8.5 g/dL (6.3-8.2)
[2023-11-15] MEDS ORDERED: Ativan 2 MG/1 ML VIAL ONE (21:48)
[2023-11-15] MEDS ORDERED: MORPHINE SULFATE 2 MG INJ ONE (21:49)
[2023-11-15] MEDS: MORPHINE SULFATE 2 MG INJ IV ONE (21:52)
[2023-11-15] MEDS: Ativan 2 MG/1 ML VIAL IV ONE (21:54)
[2023-11-15 21:57] LABS: TROPONIN 0.181 ng/mL (0.000-0.033)
[2023-11-15 22:04] VITALS: O2SAT 100
[2023-11-15] MEDS ORDERED: HEPARIN 5000 UNITS/0.5 ML (HIGH RISK MED) ONE (22:29)
[2023-11-15] MEDS: HEPARIN 5000 UNITS/0.5 ML (HIGH RISK MED) IV ONE (22:30)
[2023-11-15] MEDS ORDERED: Ntg 0.2MG/Ml in D5W GLASS*** 250 ML IV ONE (22:46)
[2023-11-15] MEDS: Ntg 0.2MG/Ml in D5W GLASS*** 250 ML IV PRN (22:47)
[2023-11-15 22:48] VITALS: BP 160/118
[2023-11-15 23:08] VITALS: PULSE 106; RESP 24
--- NOTE | 2023-11-16 08:51 | XRAY ---
Indication: Chest pain. Comparison: November 04, 2023 Portable chest remains inflated and clear. Heart not enlarged again with coronary stent. No new/acute abnormalities.
== END 2023-11-15 22:57 | disposition short-term general hospital (02) ==
LOC: ED 19:46
DX: I21.9 Acute myocardial infarction, unspecified (principal); R07.9 Chest pain, unspecified; I10 Essential (primary) hypertension; E78.5 Hyperlipidemia, unspecified; E11.9 Type 2 diabetes mellitus without complications; Z79.4 Long term (current) use of insulin; Z79.899 Other long term (current) drug therapy
CPT/HCPCS: 36000; 36415; 71045; 80053; 83880; 84484; 85025; 85610; 93005; 93041; 94760; 96374; 96375; 96376; 99285; 99291; J1644; J2060; J2270; J2405; A9270-GY